=== PATIENT | male | born 1940 | race Caucasian/White ===

== ENCOUNTER 2019-03-26 07:15 | Observation (INO) | payer MEDICARE, OTHER, SELFPAY ==
[2019-03-15 09:05] VITALS: BP 146/86; PULSE 67; RESP 16; TEMP 36.5; O2SAT 98; BMI 34.6
--- NOTE | 2019-03-15 09:40 | SDCEKG_ITS ---
Test Reason : Blood Pressure : / mmHG Vent. Rate : 064 BPM Atrial Rate : 064 BPM P-R Int : 186 ms QRS Dur : 132 ms QT Int : 448 ms P-R-T Axes : 010 -41 014 degrees QTc Int : 462 ms Electronic atrial pacemaker Left axis deviation Right bundle branch block Abnormal ECG Confirmed by DAWSON SHARMA, JANETT ([id number]), technical editor JEMMA GARCIA ([id number] on 03/16/2019 7:05:08 AM Referred By: Sloan Rodriguez Confirmed By:JANETT OSMAN MD
[2019-03-15 11:54] LABS: Hemoglobin A1c 6.5 % (4.2-6.3)
[2019-03-15 12:05] LABS: Anion Gap 5 (5-15); BUN 18 mg/dL (7-18); BUN/Creat Ratio 11.7 RATIO (10-20); Calcium,Total 8.9 mg/dL (8.5-10.1); Chloride 106 mmol/L (98-107); Creatinine, Serum 1.54 mg/dL (0.70-1.30); EST Glomerular Filtration Rate 47 mL/min (>60); Est Glom Filt Rate - Afr Amer 57 mL/min (>60); Estimated Creatinine Clearance 48.01 ml/min; Glucose 118 mg/dL (74-106); Sodium Level 141 mmol/L (136-145)
[2019-03-15 12:29] LABS: Absolute Lymphocyte Count 1.64 X10^3/ul (0.83-4.51); Absolute Neutrophil Count 5.2 X10^3/uL (2.0-7.7); Basophil# 0.05 X10^3/uL; Basophil% 0.6 % (0-1); Eosinophil# 0.26 X10^3/uL; Eosinophils% 3.3 % (0-5); Hematocrit 44.1 % (40-54); Hemoglobin 15.4 g/dl (13.0-16.5); Lymphocyte # 1.64 X10^3/ul (4.0); Lymphocyte % 20.8 % (19-41); Mean Corp Hgb Conc 34.9 g/gl (32-36); Mean Corpuscular Hgb 31.2 pg (27.0-32.0); Mean Corpuscular Volume 89.5 fL (80-94); Mean Platelet Vol. 11.5 fl (6.2-12.0); Monocyte# 0.68 X10^3/uL; Monocyte% 8.6 % (0-10); Neutrophil # 5.23 X10^3/uL (2.7-7.7); Neutrophil % 66.4 % (47-70); POSITIVE COUNT NO; POSITIVE DIFFERENTIAL NO; POSITIVE MORPHOLOGY NO; Platelet Count 207 K/mm3 (150-450); RBC Distribution Width CV 14.1 % (11.6-14.6); RBC Distribution Width SD 45.7 fl (35.1-43.9); Red Blood Count 4.93 M/mm3 (4.6-6.2); White Blood Count 7.9 K/mm3 (4.4-11.0)
--- NOTE | 2019-03-22 10:27 | CASEMGMT ---
Called and spoke with patient regarding discharge plans for after upcoming surgery. Patient plans to return home with assistance from and neighbors/friends as had a prior stroke. Patient reports that friend will continuous pickling line pickler helper from hospital post surgery and assist with transportation home. Patient has 1st outpatient PT visit set up at [facility] and friend will assist with transportation to and from therapy appts. Patient has a bedroom and bathroom on the 1st level of the home. Patient has a walker, has power stair lifts on all stairs, and a ramp outside to get to [facility]. Informed patient that RN-CM will likely follow up prior to discharge. Ingrid Dias LPN Clinical Support
[2019-03-26] VITALS (13 sets, daily range): BP systolic 94–152; BP diastolic 52–80; PULSE 60–68; RESP 16–18; TEMP 36–36.9; O2SAT 92–100; BMI 34.6
[2019-03-26] MEDS: Acetaminophen 500 MG Tablet 1000 MG PO (08:09)
--- NOTE | 2019-03-26 09:25 | KNEE_PTH ---
PATIENT: FERNY CAMPO LOC: MS3 U#:[id number] AGE/SX: 78/M ROOM: [facility] RE03/26/[address]: Dr. Sloan Rodriguez DO : 1940 BED: 1 DIS: 03/27/2019 SPEC #: [id number] RECD: 03/26/19 11:31 STATUS: YAMINI REDulce #: [id number] KATHIE: 03/26/19 09:[address]: Sloan Rodriguez DEPT: SURGICAL PATHOLOGY RECD BY: Khadar Bruno ENTERED: 03/26/19 12:45 SP TYPE: TOTAL KNEE OTHR DR: Dr. Wendy Espinal MD Tissues: Knee, NOS Procedures: Decalcification bone/plaque Surgery Specimen Level IV HEADER OPERATION: Total knee replacement PRE-OP DIAGNOSIS: Unilateral primary osteoarthritis right knee TISSUE SUBMITTED: Right knee bone MICROSCOPIC DIAGNOSIS Right knee bone, total knee replacement: Bone and articular cartilage with degenerative change, clinically primary osteoarthritis. CE:marisa 03/29/19 MICROSCOPIC DESCRIPTION Slides are reviewed. GROSS DESCRIPTION Received in fixative is one container labeled with the patient's name and designated right knee bone. The specimen consists of four portions of carrion-yellow bone with overlying articular cartilage measuring in aggregate 11 x 8 x 1.5 cm. The articular surfaces show areas of granularity, pitting and peripheral eburnation. [employer] sections are submitted after decalcification in two cassettes. / CE:marisa 03/26/19 TC:3 CPT: 13831, 46047
[2019-03-26] MEDS: Cefazolin 2 GM in 0.9% Normal Saline 100 ML IV (09:39)
--- NOTE | 2019-03-26 11:03 | PCM.OPRPT ---
Report of Operation Date of Procedure: 03/26/19 Pre-Operative Diagnosis: OA right knee Post-Operative Diagnosis: same Surgery/Procedure Performed:: Right TKR Description of Surgical Findings:: Primary Surgeon/Physician: Sloan Rodriguez panel monitor: Agustin Way PA-C panel monitor: Pre-Operative Diagnosis: OA right knee Post-Operative Diagnosis: same Surgery/Procedure Performed: Right TKR Estimated Blood Loss: 25 cc Specimen's Removed: bone Type of Anesthesia: Spinal ASA Class: . Implants: [[employer] Tritanium size 7 CR femur, size 7 Tritanium baseplate, size 38 patella, 9 mm polyethylene ] Indications: Patient has severe end-stage osteoarthritis diagnosed via x-rays in the knee. They have failed all forms of conservative measures including activity modification, injections, anti-inflammatories, use of assistive device. The patient has pain that affects on a daily basis and prevents him from doing things that they enjoyed. They have elected to undergo the above procedure. The risks of the procedure were discussed at length and their questions were answered. Procedure Description: The patient was greeted in the preoperative area. The [right ] knee was then marked with a surgical marker. Patient was then taken to or [address]. They were administered a dose of antibiotics as well as tranexamic acid. Once adequate anesthesia was obtained and airway was secured to placed in supine position on the operating room table. A well-padded tourniquet was placed on the affected extremity. Leg was then prepped and draped in the usual sterile fashion from the knee down. Ioban was used on the skin. Surgical timeout was then performed and confirmed with all present. Six-inch Esmarch was used to examine the limb and tourniquet was then inflated to 250 mmHg. A longitudinal incision was then planned and carried out in the anterior aspect of the knee. The dissection was then carried the length of the incision the extensor mechanism was identified. Standard medial parapatellar arthrotomy was then performed revealing severe eburnation of bone and periarticular osteophytes. There is complete loss of cartilage especially in the medial compartment with varus alignment. Anterior fat pad was removed for visualization purposes and the anterior medial aspect of the tibia was skeletonized for exposure to the knee. The knee was then flexed the patella was inverted. Opening reamer was then used in the femur approximately 1 cm anterior to the attachment of the PCL. The intramedullary valgus wand was then placed in the femur set at 5? of valgus. The distal femoral cutting jig was then applied to the femur with anticipated resection of approximately 8 mm. This was then made with a oscillating saw. The sizing guide was then placed referencing off the posterior condyles and also reference off the epicondylar axis. This was measured and the appropriate size 4-in-1 cutting jig was then applied to the distal femur. Anterior posterior cuts were made followed by the anterior and posterior chamfer cuts. These bony pieces and fragments were removed and placed on the back table. Posterior retractor was then utilized and the tibia was subluxed anteriorly. Intramedullary tibial alignment jig was then applied to the tibia referencing off the medial one third of the tibial tubercle the anterior tibial spine the middle aspect of the tibiotalar joint. Also reference off patient's [place] slope. The tibial cutting jig was then pinned with anticipated resection of 2 mm off of the deficient medial tibial condyle. This cut was made with the oscillating saw. Once this was complete a laminar non destructive testing scientist was utilized in both medial lateral meniscus were removed and a posterior capsular osteophytes were also removed. Posterior capsule release was performed in the posterior capsule as well as the geniculate arteries are treated with the aqua Autumn. The tibia was incised and the appropriate sized tibial tray was then pinned. The femoral trial was then placed and the knee was trialed. Full flexion-extension were easily achieved. The knee seemed to balance quite nicely. Any remaining osteophytes were removed at this time. Once this was complete the patella was everted and the [place] patella reaming device was then utilized the patella was then placed in the appropriate jig and reamer was then used to remove approximately 9 mm of the undersurface of the patella. A soft tissue remaining was in the way was removed and patella trial was then placed listed maintain excellent tracking using the no thumbs technique. The tibial tray at this point was punched to accommodate the fins of the final implant. The femoral and tibial implants were placed and seated quite nicely. However, the press fit patella would not adhere to the bone. Therefore a single batch of cement was hand mixed and the patella was cemented into place and held firmly with a clamp until the cement had cured. Knee is once again trialed with different size polyethylenes to ensure the full range of motion was achieved as well as excellent balancing ligamentously was achieved. At this point the knee was copiously irrigated. Final implant was then inserted locking mechanism was engaged and confirmed to be locked. The arthrotomy was then closed with #1 Vicryl aggravate type fashion interrupted. Subcutaneous tissue was closed with 0 Vicryl and surgical suleiman were placed in the skin. A occlusive silver impregnated dressing was then applied followed by well-padded sterile dressing secured with an Toi wrap. The patient was taken to the PACU in stable condition. No complications known at this time. Postoperatively we will maintain standard total knee postoperative protocol. The use of the physician placement assistant was integral during this procedure. They assisted with positioning placement of the tourniquet retracting closure and placement of the dressing. The procedure would have been much more difficult without their expertise and assistance panel monitor: Agustin Way Type of Anesthesia:: Spinal Anesthesiologist: Irwin Dunbar Specimen's removed: bone - Admit VTE Documentation VTE Present on Admission: No VTE Mechan Device Prophylaxis: SCD's, Thigh High LOCO Hose VTE Pharm Prophylaxis ordered?: Yes
--- NOTE | 2019-03-26 11:11 | OP.PCM_ITS ---
Report of Operation Date of Procedure: 03/26/19 Pre-Operative Diagnosis: OA right knee Post-Operative Diagnosis: same Surgery/Procedure Performed:: Right TKR Description of Surgical Findings:: Primary Surgeon/Physician: Sloan Rodriguez storage garage manager: Agustin Way PA-C storage garage manager: Pre-Operative Diagnosis: OA right knee Post-Operative Diagnosis: same Surgery/Procedure Performed: Right TKR Estimated Blood Loss: 25 cc Specimen's Removed: bone Type of Anesthesia: Spinal ASA Class: . Implants: [Sh[employer] Tritanium size 7 CR femur, size 7 Tritanium base plate, size 38 patella, 9 mm polyethylene ] Indications: Patient has severe end-stage osteoarthritis diagnosed via x-rays in the knee. They have failed all forms of conservative measures including activity modification, injections, anti-inflammatories, use of assistive device. The patient has pain that affects on a daily basis and prevents him from doing things that they enjoyed. They have elected to undergo the above procedure. The risks of the procedure were discussed at length and their questions were answered. Procedure Description: The patient was greeted in the preoperative area. The [right ] knee was then marked with a surgical marker. Patient was then taken to or Suite 2. They were administered a dose of antibiotics as well as tranexamic acid. Once adequate anesthesia was obtained and airway was secured to placed in supine position on the operating room table. A well-padded tourniquet was placed on the affected extremity. Leg was then prepped and draped in the usual sterile fashion from the knee down. Ioban was used on the skin. Surgical timeout was then performed and confirmed with all present. Six-inch Esmarch was used to examine the limb and tourniquet was then inflated to 250 mmHg. A longitudinal incision was then planned and carried out in the anterior aspect of the knee. The dissection was then carried the length of the incision the extensor mechanism was identified. Standard medial parapatellar arthrotomy was then performed revealing severe eburnation of bone and periarticular osteophytes. There is complete loss of cartilage especially in the medial compartment with varus alignment. Anterior fat pad was removed for visualization purposes and the anterior medial aspect of the tibia was s keletonized for exposure to the knee. The knee was then flexed the patella was inverted. Opening reamer was then used in the femur approximately 1 cm anterior to the attachment of the PCL. The intramedullary valgus wand was then placed in the femur set at 5? of valgus. The distal femoral cutting jig was then applied to the femur with anticipated resection of approximately 8 mm. This was then made with a oscillating saw. The sizing guide was then placed referencing off the posterior condyles and also reference off the epicondylar axis. This was measured and the appropriate size 4-in-1 cutting jig was then applied to the distal femur. Anterior posterior cuts were made followed by the anterior and posterior chamfer cuts. These bony pieces and fragments were removed and placed on the back table. Posterior retractor was then utilized and the tibia was subluxed anteriorly. Intramedullary tibial alignment jig was then applied to the tibia referencing off the medial one third of the tibial tubercle the anterior tibial spine the middle aspect of the tibiotalar joint. Also reference off patient's [place] slope. The tibial cutting jig was then pinned with anticipated resection of 2 mm off of the deficient medial tibial condyle. This cut was made with the oscillating saw. Once this was complete a laminar technology and engineering teacher was utilized in both medial lateral meniscus were removed and a posterior capsular osteophytes were also removed. Posterior capsule release was performed in the posterior capsule as well as the geniculate arteries are treated with the aqua Autumn. The tibia was incised and the appropriate sized tibial tray was then pinned. The femoral trial was then placed and the knee was trialed. Full flexion-extension were easily achieved. The knee seemed to balance quite nicely. Any remaining osteophytes were removed at this time. Once this was complete the patella was everted and the [place] patella reaming device was then utilized the patella was then placed in the appropriate jig and reamer was then used to remove approximately 9 mm of the undersurface of the patella. A soft tissue remaining was in the way was removed and patella trial was then placed listed maintain excellent tracking using the no thumbs technique. The tibial tray at this point was punched to accommodate the fins of the final implant. The femoral and tibial implants were placed and seated quite nicely. However, the press fit patella would not adhere to the bone. Therefore a single batch of cement was hand mixed and the patella was cemented into place and held firmly with a clamp until the cement had cured. Knee is once again trialed with different size polyethylenes to ensure the full range of motion was achieved as well as excellent balancing ligamentously was achieved. At this point the knee was copiously irrigated. Final implant was then inserted locking mechanism was engaged and confirmed to be locked. The arthrotomy was then closed with #1 Vicryl aggravate type fashion interrupted. Subcutaneous tissue was closed with 0 Vicryl and surgical suleiman were placed in the skin. A occlusive silver impregnated dressing was then applied followed by well-padded sterile dressing secured with an Toi wrap. The patient was taken to the PACU in stable condition. No complications known at this time. Postoperatively we will maintain standard total knee postoperativ e protocol. The use of the physician temporary administrative assistant was integral during this procedure. They assisted with positioning placement of the tourniquet retracting closure and placement of the dressing. The procedure would have been much more difficult without their expertise and assistance storage garage manager: Agustin Way Type of Anesthesia:: Spinal Anesthesiologist: Irwin Dunbar Specimen's removed: bone - Admit VTE Documentation VTE Present on Admission: No VTE Mechan Device Prophylaxis: SCD's, Thigh High LOCO Hose VTE Pharm Prophylaxis ordered?: Yes
[2019-03-26 12:00] LABS: Bedside Glucose 135 mg/dL (70-110)
[2019-03-26 12:06] LABS: Hematocrit 38.9 % (40-54); Hemoglobin 13.2 g/dl (13.0-16.5); Mean Corp Hgb Conc 33.9 g/gl (32-36); Mean Corpuscular Hgb 30.4 pg (27.0-32.0); Mean Corpuscular Volume 89.6 fL (80-94); Mean Platelet Vol. 10.7 fl (6.2-12.0); Platelet Count 200 K/mm3 (150-450); RBC Distribution Width CV 14.1 % (11.6-14.6); RBC Distribution Width SD 45.6 fl (35.1-43.9); Red Blood Count 4.34 M/mm3 (4.6-6.2); White Blood Count 8.3 K/mm3 (4.4-11.0)
[2019-03-26 12:13] LABS: Scan Indicated on CBC? Y/N NO
[2019-03-26 12:17] LABS: Anion Gap 4 (5-15); BUN 19 mg/dL (7-18); BUN/Creat Ratio 11.3 RATIO (10-20); Calcium,Total 8.2 mg/dL (8.5-10.1); Chloride 111 mmol/L (98-107); Creatinine, Serum 1.68 mg/dL (0.70-1.30); EST Glomerular Filtration Rate 42 mL/min (>60); Est Glom Filt Rate - Afr Amer 51 mL/min (>60); Estimated Creatinine Clearance 44.01 ml/min; Glucose 134 mg/dL (74-106); Potassium 3.8 mmol/L (3.5-5.1); Sodium Level 141 mmol/L (136-145)
[2019-03-26] MEDS: Lactated Ringers 1,000 ML 125 ML IV ×3 (13:08→20:45)
[2019-03-26] MEDS: HYDROcodone Bitartrate/Apap 5/325 Tablet PO ×3 (14:04→20:55)
[2019-03-26] MEDS: Cefazolin 1 GM/50 ML BAG IV (17:47)
[2019-03-26] MEDS: Morphine 2 MG/ML Syringe IV ×2 (20:19→22:45)
[2019-03-26] MEDS: Metoprolol Tartrate 25 MG Tablet 12.5 MG PO (20:57)
[2019-03-26] MEDS: Senna/Docusate Sodium 1 Tablet 2 TABLET PO (20:57)
[2019-03-26] MEDS: Atorvastatin Calcium 10 MG Tablet PO (20:57)
[2019-03-26] MEDS: Pantoprazole Sodium 20 MG Tablet PO (20:58)
[2019-03-26] MEDS: traZODone 100 MG Tablet PO (21:05)
[2019-03-26] MEDS: APIXABAN 5 MG TABLET PO (21:05)
[2019-03-27] MEDS: Morphine 2 MG/ML Syringe IV ×3 (00:47→06:26)
[2019-03-27] MEDS: Cefazolin 1 GM/50 ML BAG IV (00:56)
[2019-03-27 02:55] VITALS: BP 151/69; PULSE 65; RESP 18; TEMP 37.2; O2SAT 92
[2019-03-27] MEDS: HYDROcodone Bitartrate/Apap 5/325 Tablet PO (02:58)
[2019-03-27 03:05] VITALS: PULSE 65
[2019-03-27] MEDS: 0.9% NaCl Peripheral Flush Adult/Peds IV (06:27)
[2019-03-27 06:45] LABS: Hematocrit 39.9 % (40-54); Hemoglobin 13.7 g/dl (13.0-16.5); Mean Corp Hgb Conc 34.3 g/gl (32-36); Mean Corpuscular Hgb 30.6 pg (27.0-32.0); Mean Corpuscular Volume 89.1 fL (80-94); Platelet Count 186 K/mm3 (150-450); RBC Distribution Width CV 13.9 % (11.6-14.6); RBC Distribution Width SD 44.4 fl (35.1-43.9); Red Blood Count 4.48 M/mm3 (4.6-6.2); White Blood Count 12.8 K/mm3 (4.4-11.0)
[2019-03-27 06:47] LABS: Scan Indicated on CBC? Y/N NO
[2019-03-27 07:22] LABS: Anion Gap 8 (5-15); BUN 17 mg/dL (7-18); BUN/Creat Ratio 11.9 RATIO (10-20); Calcium,Total 8.7 mg/dL (8.5-10.1); Chloride 104 mmol/L (98-107); Creatinine, Serum 1.43 mg/dL (0.70-1.30); EST Glomerular Filtration Rate 51 mL/min (>60); Est Glom Filt Rate - Afr Amer 62 mL/min (>60); Glucose 158 mg/dL (74-106); Sodium Level 138 mmol/L (136-145)
--- NOTE | 2019-03-27 07:48 | PCM.PN.ORT ---
Subjective: Patient sitting at bedside, states knee is very painful. Patient feels the pain medication he is presently taking is not working. Patient denies being allergic to oxycodone. States he placed it as an allergy only because he did not like the way it made him feel. Patient denies chest pain, shortness breath, calf pain, nausea vomiting. Objective: Dressing is clean dry intact. Negative signs and symptoms of DVT. Patient's vitals and labs within normal limits. Patient is afebrile neurovascular is otherwise intact. Patient is in no apparent respiratory distress, speaking in full sentences. - Physical Exam General: Alert, Oriented x3, Cooperative HEENT: PERRLA Oral: Moist Mucosa Neurological: Cranial nerves II-XII grossly intact Psych/Mental Status: Normal Affect, Alert and oriented to time, place, person, mood and affect Vital Signs Temp Pulse Resp BP Pulse Ox 98.9 F 65 18 151/69 H 92 03/27/19 02:55 03/27/19 03:05 03/27/19 02:55 03/27/19 02:55 03/27/19 02:55 Oxygen Flow Rate (L/min) 2 Oxygen Delivery Method Room Air Weight: 125.6 kg Body Mass Index (BMI) 34.6 Intake and Output for Last 24 Hours 03/25/19 03/26/19 03/27/19 23:59 23:59 23:59 Intake Total 1000 / 1000 1908 / 1908 Output Total 700 / 700 Balance 1000 / 1000 1208 / 1208 Laboratory Tests Past 24 Hrs 03/26/19 03/26/19 03/27/19 11:55 11:55 06:04 WBC 8.3 12.8 H RBC 4.34 L 4.48 L Hgb 13.2 13.7 Hct 38.9 L 39.9 L MCV 89.6 89.1 MCH 30.4 30.6 MCHC 33.9 34.3 RDW 14.1 13.9 RDW Differential 45.6 H 44.4 H Plt Count 200 186 MPV 10.7 11.0 Sodium 141 Potassium 3.8 Chloride 111 H Carbon Dioxide 26.0 Anion Gap 4 L BUN 19 H Creatinine 1.68 H Estim Creat Clear Calc 44.01 Est GFR (MDRD) Af Amer 51 L Est GFR (MDRD) Non-Af 42 L BUN/Creatinine Ratio 11.3 Glucose 134 H Calcium 8.2 L 05/07/19 06:04 WBC RBC Hgb Hct MCV MCH MCHC RDW RDW Differential Plt Count MPV Sodium 138 Potassium 4.0 Chloride 104 Carbon Dioxide 26.0 Anion Gap 8 BUN 17 Creatinine 1.43 H Estim Creat Clear Calc 51.70 Est GFR (MDRD) Af Amer 62 Est GFR (MDRD) Non-Af 51 L BUN/Creatinine Ratio 11.9 Glucose 158 H Calcium 8.7 POC Glucose 03/26/19 11:53 POC Glucose 135 H Medical Necessity - Tobacco Use Smoking Status: Former smoker Tobacco Use: Cigarettes Assessment/Plan Status post right total knee arthroplasty Plan 1. Discontinue [place]. Oxycodone 1-2 every 6 hours as needed severe pain. Tylenol 1000 mg every 8 hours scheduled. 2. Continue physical therapy, weight-bear as tolerated with walker 3. Continue Eliquis, and 81 mg aspirin as prescribed for postop DVT prophylaxis 4. Encourage incentive spirometry 5. Possible discharge home tomorrow
[2019-03-27 08:57] VITALS: BP 147/77; PULSE 76; RESP 18; TEMP 37.2; O2SAT 94
[2019-03-27] MEDS: Acetaminophen 500 MG Tablet 1000 MG PO ×2 (08:59→14:23)
[2019-03-27] MEDS: Senna/Docusate Sodium 1 Tablet 2 TABLET PO (09:00)
[2019-03-27] MEDS: APIXABAN 5 MG TABLET PO (09:00)
[2019-03-27 09:01] VITALS: PULSE 76
[2019-03-27] MEDS: amLODIPine 5 MG Tablet PO (09:01)
[2019-03-27] MEDS: Metoprolol Tartrate 25 MG Tablet 12.5 MG PO (09:01)
[2019-03-27] MEDS: Multivitamins,Ther W-Minerals Tablet 1 TABLET PO (09:02)
[2019-03-27] MEDS: Aspirin E.C. 81 MG Tablet PO (09:02)
[2019-03-27] MEDS: Cyanocobalamin 500 MCG Tablet 1000 MCG PO (09:02)
[2019-03-27] MEDS: Lisinopril 5 MG Tablet PO (09:03)
[2019-03-27] MEDS: oxyCODONE 5 MG Tablet PO ×2 (09:06→10:26)
[2019-03-27 09:09] VITALS: PULSE 80
--- NOTE | 2019-03-27 11:00 | CASEMGMT ---
LILLIE WALTERS Face to Face with patient for initial transition planning/care coordination assessment. RN ROMEO introduced self and role at [facility]. Patient lying in bed, alert and oriented. Patient willing to participate in assessment and is able to answer all questions appropriately. Care providers, pharmacy, and demographics verified. Patient wishes to discharge home with outpatient therapy setup at [facility] with friend providing transportation. Patient has walker, ramp, stair lift, shower chair, and raised toilet seat. Patient states he has no further needs or concerns at this time. CM to follow for discharge planning needs that may arise. Disposition Plan: Patient to discharge home with outpatient therapy, family support, and follow-up plans in place. Mariluz MARINO, RN, CM
[2019-03-27 13:19] VITALS: BP 137/70; PULSE 71; RESP 18; TEMP 36.7; O2SAT 93
--- NOTE | 2019-03-27 15:36 | DCINST_ITS ---
Discharge Diet: No Restrictions Discharge Activity: May Not Drive, May Shower, Use Walker May shower in (days): 2 Ice area for (Minutes): 20 - each hour while awake. Weight Bearing Status: Weight bearing as tolerated Elevate: Operative Extremity Additional Activity Instructions:: Wear elastic stockings for 2 weeks after your surgery. Call your doctor if your incision/area has: Continuous Slow Oozing, Sudden Increased Bleeding, Increased Pain/ Swelling, Increased Redness, Foul Smelling Discharge Call your doctor if you observe: Fever of 101 or Higher, Coldness, Increased Pain - in extremity, Numbness or Tingling, Change in Color, Calf discomfort, Uncontrolled pain Change Dressing in (Days):: 0 - and daily as needed. Remove Dressing in (days):: 8 Cleanse incision/area with: Soap & Water Allergies/Adverse Reactions: Allergies naproxen [From Aleve] Allergy (Verified 03/15/19 08:53) Laryngospasms Medications to take at Discharge Amlodipine Besylate [Norvasc] 5 mg PO DAILY 03/15/19 Apixaban [Eliquis] 5 mg PO BID 03/15/19 Atorvastatin Calcium [Lipitor] 10 mg PO QHS 03/15/19 Cholecalciferol (VIT D3) [Vitamin D] 2,000 unit PO DAILY 03/15/19 Cyanocobalamin (Vitamin B-12) [Vitamin B-12] 1,000 mcg PO DAILY 03/15/19 Fish Oil/Dha/Epa [Fish Oil 1,200 mg Fish Oil] 1 each PO QHS 03/15/19 Lisinopril 5 mg PO DAILY 03/15/19 Metoprolol Tartrate [Lopressor (Beta Denise)] 12.5 mg PO BID 03/15/19 Multivit-Min/FA/Lycopen/Lutein [Centrum Silver Tablet] 1 each PO DAILY 03/15/19 Omeprazole 20 mg PO QHS 03/15/19 Ubidecarenone [Co Q-10] 300 mg PO DAILY 03/15/19 traZODone [Desyrel] 100 mg PO QHS 03/15/19 Primary Care Physician: Wendy Espinal MD [Primary Care Provider] - Test Results: Test results from this visit will be discussed in further detail at your follow- up appointment, if applicable. Please Follow Up With: Agustin Way PA-C When: see pink sheet
--- NOTE | 2019-03-27 15:49 | NURSING ---
Pt states he will not take asa, because he is on eqliuis, instructed him to call office today to check the strength of asa he should take at home. He was taking 81 mg here. Pt was informed about this.
== END 2019-03-27 13:45 | disposition home or self-care (01) ==
PROVIDERS: Anesthesiology; Admitting Provider Orthopaedic Surgery; Family Provider Internal Medicine Geriatric Medicine; PCP Internal Medicine Geriatric Medicine; Referring Provider Orthopaedic Surgery; Visit Provider Orthopaedic Surgery
PROC: (CPT 27447; principal; 2019-03-26 09:00)
DX: M17.11 Unilateral primary osteoarthritis, right knee (principal); I10 Essential (primary) hypertension; K21.9 Gastro-esophageal reflux disease without esophagitis; E78.00 Pure hypercholesterolemia, unspecified; E11.9 Type 2 diabetes mellitus without complications; R94.31 Abnormal electrocardiogram [ECG] [EKG]; I45.10 Unspecified right bundle-branch block; G47.30 Sleep apnea, unspecified; Z87.891 Personal history of nicotine dependence; Z79.01 Long term (current) use of anticoagulants; Z79.899 Other long term (current) drug therapy; Z85.51 Personal history of malignant neoplasm of bladder; Z86.718 Personal history of other venous thrombosis and embolism; G25.81 Restless legs syndrome
CPT/HCPCS: 01400; 27447; 64447; 36415; 80048; 82962; 83036; 85025; 85027; 87081; 88305; 88311; 93005; 96361; 96365; 96366; 96375; 96376; 97110; 97162; 97166; 97530; 97535; 99218; C1776; J7120; A4216; G0378; G0379

== ENCOUNTER → 2019-09-12 09:09 | Outpatient (CLI) | payer MEDICARE, OTHER, SELFPAY ==
[2019-09-12 07:58] VITALS: BMI 34.6
--- NOTE | 2019-09-12 09:10 | RAD_ITS ---
STUDY: X-RAY - RIGHT KNEE REASON FOR EXAM: Male, 79 years old. Pain for 6 months. TECHNIQUE: 4 view(s) of the knee. COMPARISON: None. FINDINGS: There is demineralization of the visualized distal femur. There is demineralization of the tibia and fibula. There is a total knee prosthesis in place. Alignment is normal. No lucency to suggest acute fracture. No signs of loosening. There is mild degenerative arthrosis of the patellofemoral articulation. There is mild to moderate joint effusion. There are atherosclerotic calcifications. RAD/Knee 4 or More Views IMPRESSION: Diffuse osteopenia. A total knee prosthesis in place with normal alignment. Mild to moderate joint effusion. Electronically Signed: Beatriz Cancino MD at 0:38 EDT , Service support ,
== END ==
PROVIDERS: Family Provider Internal Medicine Geriatric Medicine; PCP Internal Medicine Geriatric Medicine; Referring Provider Orthopaedic Surgery; Visit Provider Orthopaedic Surgery
DX: T84.84XA Pain due to internal orthopedic prosthetic devices, implants and grafts, initial encounter (principal); Z96.651 Presence of right artificial knee joint
CPT/HCPCS: 73564

== ENCOUNTER → 2019-10-09 10:02 | Outpatient (CLI) | payer MEDICARE, OTHER, SELFPAY ==
[2019-09-12 07:58] VITALS: BMI 34.6
--- NOTE | 2019-10-09 10:14 | RAD_ITS ---
STUDY: BONE LENGTH EVALUATION REASON FOR EXAM: Male, 79 years old. Osteoarthritis. TECHNIQUE: 4 AP view of the lower extremities. COMPARISON: None. FINDINGS: Bilateral uncomplicated knee arthroplasties. Right leg measures approximately 105.8 cm. Left leg measures approximately 105.1 cm. Right leg lateral center axis. Left leg medial center axis. Mild right ankle valgus. Mild left ankle varus. Mild/moderate bilateral hip osteoarthritis. Relatively symmetric soft tissue structures. RAD/Bone Length IMPRESSION: Right leg measures 7 mm greater than the left Bilateral uncomplicated knee arthroplasties Mild/moderate bilateral hip osteoarthritis Electronically Signed: Cale Lima DO at 10:31 EST Tel , Service support ,
== END ==
PROVIDERS: Family Provider Internal Medicine Geriatric Medicine; PCP Internal Medicine Geriatric Medicine; Referring Provider Orthopaedic Surgery; Visit Provider Orthopaedic Surgery
DX: M17.11 Unilateral primary osteoarthritis, right knee (principal)
CPT/HCPCS: 77073

== ENCOUNTER 2022-01-17 15:10 | Emergency (ER) | payer MEDICARE, SELFPAY ==
[2022-01-17 15:11] VITALS: BP 123/88; PULSE 75; RESP 15; TEMP 36.3; O2SAT 98; BMI 32.2
--- NOTE | 2022-01-17 15:26 | CT_ITS ---
STUDY: CT Abdomen And Pelvis W/O Contrast Injection 01/17/2022 5:08 PM REASON FOR EXAM: Male, 81 years old. INCREASED BELCHING, BURNING PRESSURE IN ABD, HX-GERD, COPD, HTN, BLADDER CA pain Individualized dose optimization techniques were used for this CT. COMPARISON: None. TECHNIQUE: CT Abdomen And Pelvis W/O Contrast Injection FINDINGS: There are atherosclerotic calcifications of visualized coronary arteries. The visualized portions of the heart are within normal limits. Normal liver. Normal gallbladder and extrahepatic biliary system. Normal spleen. Normal pancreas. Normal bilateral adrenal glands. There are hypodensities in the right kidney. A majority are consistent for cysts. No follow up required for these. However, there is a 22 mm hyperdense lesion in the superior right kidney that is 72 HU and consistent for a hemorrhagic or protein cyst. ACR White Paper guidelines (Herts, et al. JACR 2018; 15(2):264-273) suggest no follow-up is necessary. 2nd dense lesion is noted in the lateral right kidney. Se 2 IM: 62. It is 5mm and 56HU. A similar lesion is noted in the inferior right kidney. Se 2 IM: 91. It is 57 HU and is 8mm in size. ACR White Paper guidelines (Herts, et al. JACR 2018; 15(2):264-273) recommend MRI or CT without and with intravenous contrast. There are hypodensities in the left kidney. A majority are consistent for cysts. No follow up required for these. However, there is a 9mm solid appearing lesion of the superior lateral left kidney. Se 2 IM: 62. ACR White Paper guidelines (Herts, et al. JACR 2018; 15(2):264-273) recommend MRI or CT without and with intravenous contrast. Dense lesions of the mid left kidney around 8 mm in size. Se 2 IM: 91. ACR White Paper guidelines (Herts, et al. JACR 2018; 15(2):264-273) recommend MRI or CT without and with intravenous contrast. Normal visualized stomach. Normal small intestine. There are multiple colonic diverticula consistent with diverticulosis. There is non-visualization of the appendix. There are calcifications of the abdominal aorta. This is consistent for atherosclerotic disease. There is 41 mm infrarenal abdominal aortic aneurysm. Normal inferior vena cava. Subcentimeter mesenteric lymph nodes. Urinary bladder wall has wall thickening. This can be related to a partially contractile state. However, a cystitis is not excluded. Urinalysis should be performed in an effort to exclude cystitis. There are prostatic calcifications. Normal abdominal wall. There are diffuse degenerative changes of the visualized lumbar spine. Vacuum disc phenomenon. Acquired degenerative spinal stenosis. IMPRESSION: (NOT LISTED IN ORDER OF SIGNIFICANCE) Multiple bilateral indeterminate renal lesions. ACR White Paper guidelines (Herts, et al. JACR 2018; 15(2):264-273) recommend MRI or CT without and with intravenous contrast. Urinary bladder wall has wall thickening. This can be related to a partially contractile state. However, a cystitis is not excluded. Urinalysis should be performed in an effort to exclude cystitis. 41 mm infrarenal abdominal aortic aneurysm. There are multiple colonic diverticula consistent with diverticulosis. Other findings as above. Electronically Signed: Robert Gtz MD at 17:18 EST , CT/Abdomen/Pelvis without Cont
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
[2022-01-17] MEDS: Ondansetron 4 MG/2 ML Vial IV (15:53)
[2022-01-17] MEDS: 0.9% Normal Saline 1,000 ML 125 ML IV (15:53)
[2022-01-17 16:09] LABS: Absolute Lymphocyte Count 1.33 X10^3/uL (0.83-4.51); Absolute Neutrophil Count 4.9 X10^3/uL (2.0-7.7); Basophil# 0.03 X10^3/uL; Basophil% 0.4 % (0-1); Eosinophil# 0.15 X10^3/uL; Eosinophils% 2.1 % (0-5); Hematocrit 45.9 % (40-54); Hemoglobin 15.4 g/dL (13.0-16.5); Lymphocyte # 1.33 X10^3/ul (0.83-4.51); Lymphocyte % 18.4 % (19-41); Mean Corp Hgb Conc 33.6 g/dL (32-36); Mean Corpuscular Hgb 30.4 pg (27.0-32.0); Mean Corpuscular Volume 90.7 fL (80-94); Mean Platelet Vol. 10.8 fl (6.2-12.0); Monocyte# 0.75 X10^3/uL; Monocyte% 10.4 % (0-10); NRBC Flagged by Analyzer 0 % (0-5); Neutrophil # 4.93 X10^3/uL (2.7-7.7); Neutrophil % 68.4 % (47-70); Platelet Count 229 K/mm3 (150-450); RBC Distribution Width CV 13.2 % (11.6-14.6); RBC Distribution Width SD 43.9 fl (35.1-43.9); Red Blood Count 5.06 M/mm3 (4.6-6.2); White Blood Count 7.2 K/mm3 (4.4-11.0)
[2022-01-17 16:29] LABS: ALB/GLOB Ratio 0.8 RATIO (0.9-2.4); AST(SGOT) 14 U/L (15-37); Alanine Aminotransfer ALT/SGPT 15 U/L (16-61); Albumin, Serum 3.4 g/dL (3.2-5.0); Alkaline Phosphatase 96 U/L (45-117); Anion Gap 5 (5-15); BUN 24 mg/dL (7-18); BUN/Creat Ratio 9.7 RATIO (10-20); Calcium,Total 9.1 mg/dL (8.5-10.1); Chloride 111 mmol/L (98-107); Creatinine, Serum 2.47 mg/dL (0.70-1.30); EST Glomerular Filtration Rate 27 mL/min (>60); Est Glom Filt Rate - Afr Amer 33 mL/min (>60); Estimated Creatinine Clearance 28.51 ml/min; Glucose 124 mg/dL (74-106); Lipase 106 U/L (73-393); Potassium 4.1 mmol/L (3.5-5.1); Protein, Total 7.4 g/dL (6.4-8.2); Sodium Level 141 mmol/L (136-145)
[2022-01-17 16:33] LABS: Mucous, Urine 0 SEEN /hpf (<or=2+); Red Blood Cells-Urine 0 SEEN /hpf (0-5); Squamous Epithelial Cells - UA 0 SEEN /hpf (0-5)
[2022-01-17 16:34] LABS: Color, Urine Yellow (Yellow); Glucose, Dipstick Normal (Normal); Ketone-Dipstick 5 mg/dl (Negative); Leukocyte Esterase-Dipstick 500 /ul (Negative); Nitrite-Dipstick Positive (Negative); Occult Blood-Urine 10 /ul (Negative); Protein-Dipstick 100 mg/dl (Negative); Urine Bilirubin Dipstick Negative (Negative); Urine Clarity Cloudy (Clear); Urine Urobilinogen Normal (Normal)
[2022-01-17 17:07] LABS: Bacteria 4+ /hpf (None Seen); White Blood Cells 50-100 SEEN /hpf (0-5)
[2022-01-17] MEDS: Cephalexin 250 MG Capsule 500 MG PO (17:52)
[2022-01-17] MEDS: 0.9% Normal Saline 1,000 ML 999 ML IV (17:53)
[2022-01-17 18:06] VITALS: PULSE 70; RESP 16; O2SAT 99
== END 2022-01-17 18:08 | disposition home or self-care (01) ==
PROVIDERS: Emergency Provider Emergency Medicine; PCP Internal Medicine Geriatric Medicine; Visit Provider Emergency Medicine
DX: R10.84 Generalized abdominal pain (principal); N17.9 Acute kidney failure, unspecified; I71.4 Abdominal aortic aneurysm, without rupture; R14.0 Abdominal distension (gaseous); E87.8 Other disorders of electrolyte and fluid balance, not elsewhere classified; E86.0 Dehydration; N39.0 Urinary tract infection, site not specified; N28.1 Cyst of kidney, acquired; E78.5 Hyperlipidemia, unspecified; Z87.891 Personal history of nicotine dependence; I10 Essential (primary) hypertension; Z79.01 Long term (current) use of anticoagulants; Z79.899 Other long term (current) drug therapy
CPT/HCPCS: 74176; 80053; 81001; 83690; 85025; 87077; 87086; 87088; 87186; 96361; 96374; 99284; J7030; J2405

== ENCOUNTER 2022-06-01 09:00 | Outpatient (RCR) | payer MEDICARE, SELFPAY ==
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
--- NOTE | 2022-08-31 12:47 | HP.PT.NRP ---
FERNY Gu ALBER was seen in my office for initial evaluation on 05/18/22. The following Plan of Care was established for this patient: Initial Frequency: 2x /Week Initial Duration: 4-6 Weeks Patient/Client Instruction: Educate patient on: Condition, Plan of Care, Risk Factors For the Purpose of:: To improve self management Therapeutic Exercise to Include: Strength training, Body mechanics, Postural training, Flexibilty training, Neuromotor development, Passive ROM, Active ROM, Scapular Strength/Stabilization For the Purpose of:: To decrease pain, To increase ROM, To improve muscle performance and motor function, To increase tolerance to activity/condition/position, To improve ability of physical actions for home/community/work/leisure This patient was last seen in our office 06/01/22. Pertinent comments regarding their Physical therapy will appear below: This patient has not returned to Physical Therapy and is appropriate to return to MD for further follow-up as needed. At this point I will be discontinuing this patient from physical therapy. I would be happy to see this patient again in the future if found appropriate by the physician. Thank you! Sheron El, PT, Cert MDT Balance/Gait/Functional tests - Balance/Special Test Scores Oswestry Neck Score: 12
== END 2022-06-01 19:00 | disposition home or self-care (01) ==
LOC: PT 09:00
PROVIDERS: PCP Internal Medicine Geriatric Medicine; Referring Provider Internal Medicine Geriatric Medicine; Visit Provider Internal Medicine Geriatric Medicine
DX: M25.512 Pain in left shoulder (principal); M54.12 Radiculopathy, cervical region
CPT/HCPCS: 97110; 97162; 97530

== ENCOUNTER → 2022-08-10 | Outpatient (CLI) | payer MEDICARE, SELFPAY ==
--- NOTE | 2022-08-10 11:51 | US_ITS ---
STUDY: RENAL ULTRASOUND - COMPLETE REASON FOR EXAM: Male, 82 years old. Chronic kidney disease TECHNIQUE: Ultrasound evaluation of the kidneys was performed with real-time and static michael-scale imaging. COMPARISON: None. FINDINGS: RIGHT KIDNEY: The right kidney measures 13.3 x 7.3 x 5.4 cm. The renal cortex measures 1.3 cm. There are multiple anechoic lesions scattered throughout the right kidney, the largest of which measures 5 cm. There are no right renal calculi. There is no right hydronephrosis. DISTAL RIGHT URETER: There is non-visualization of the distal right ureter. There is no demonstrated right ureterovesical junction calculus. There is no demonstrated right ureteral jet. LEFT KIDNEY: The left kidney measures 23.9 x 7.9 x 9.5 cm. The renal cortex measures 1.8 cm. There are multiple anechoic lesions scattered throughout the left kidney, the largest which measures 8.9 cm. There are no left renal calculi. There is no left hydronephrosis. DISTAL LEFT URETER: There is non-visualization of the distal left ureter. There is no demonstrated left ureterovesical junction calculus. There is no demonstrated left ureteral jet. BLADDER: The distended urinary bladder has a volume of 115 ml. There is no significant post void residual. There is a normal wall thickness of the distended urinary bladder. There is no demonstrated mass within the urinary bladder. There are no demonstrated bladder calculi. US/Kidney and Bladder IMPRESSION: 1. Polycystic kidneys Electronically Signed: Tyrone Garcia MD at 2:35 EDT ,
== END | disposition home or self-care (01) ==
LOC: US 11:49
PROVIDERS: PCP Internal Medicine Geriatric Medicine; Visit Provider Internal Medicine Geriatric Medicine
DX: N18.32 Chronic kidney disease, stage 3b (principal)
CPT/HCPCS: 76770

== ENCOUNTER → 2022-11-10 | Outpatient (CLI) | payer OTHER, SELFPAY ==
--- NOTE | 2022-11-10 09:12 | NM_ITS ---
CLINICAL: 82-year-old male with history of painful bilateral knee arthroplasties, operated greater than 2 years prior to the current presentation. LIMITED 99m Tc MDP THREE PHASE BONE SCINTIGRAPHY COMPARISON: None available FINDINGS: Following the intravenous administration of 26.0 mCi of 99m Tc MDP, three-phase bone acquisitions of the knee articulations reveal: 1. The flow and immediate static blood pool acquisitions demonstrate normal arterial phase distribution of the radiopharmaceutical to the region of the bilateral knee arthroplasties. Venous hyperemia is noted in the medial and lateral femoral components of the left knee arthroplasty. 2. Delayed images depict increased tracer uptake noted in the medial tibial, medial and lateral femoral components of the right knee arthroplasty and medial femoral and medial-lateral tibial components of the left knee arthroplasty. 3. Facilitated uptake is noted in the patellofemoral compartment of the left knee. 4. The remaining limited skeletal structures are scintigraphically unremarkable. NM/Bone Scan Three Phase IMPRESSION: 1. The increase in radiopharmaceutical concentration defined in the painful bilateral knee arthroplasties to include both the femoral and tibial components is associated with a high likelihood of loosening secondary to operative intervention > 2 years prior to the current presentation. If an infectious etiology is a diagnostic consideration, correlation with labeled leukocyte imaging is recommended. 2. Degenerative arthrosis is demonstrated in the patellofemoral compartment of the left knee in the absence of patellar hardware placement. Electronically Signed: Emeka Clemens, at 21:51 EST ,
== END | disposition home or self-care (01) ==
PROVIDERS: PCP Internal Medicine Geriatric Medicine
DX: T84.84XA Pain due to internal orthopedic prosthetic devices, implants and grafts, initial encounter (principal); Z96.653 Presence of artificial knee joint, bilateral; M17.12 Unilateral primary osteoarthritis, left knee; Y83.1 Surgical operation with implant of artificial internal device as the cause of abnormal reaction of the patient, or of later complication, without mention of misadventure at the time of the procedure
CPT/HCPCS: 78315; A9503

== ENCOUNTER 2023-10-31 10:58 | Emergency (ER) | payer MEDICARE, SELFPAY ==
[2023-10-31 10:58] VITALS: BP 160/134; PULSE 92; RESP 18; TEMP 36.5; O2SAT 96; BMI 33.1
--- NOTE | 2023-10-31 11:19 | CT_ITS ---
STUDY: CT ABDOMEN AND PELVIS WITHOUT CONTRAST REASON FOR EXAM: Male, 83 years old. One year history of intermittent abdominal pain and nausea. History of small bowel obstruction. RADIATION DOSAGE (If Supplied By Facility): CTDIvol = ( 18.94 ) mGy, DLP = ( 1021.86 ) mGycm TECHNIQUE: Transaxial images were obtained from the dome of the diaphragm to the symphysis pubis without oral contrast, and without intravenous contrast. Sagittal and coronal images were reconstructed. Individualized dose optimization techniques were used for this CT. COMPARISON: Comparison is made with prior study of January 17, 2022. FINDINGS: Mild increased markings at the lung bases suggest some mild scarring. Coronary artery calcification. Pacemaker device is seen. Normal liver. Normal gallbladder and extrahepatic biliary system. Normal spleen. Normal pancreas. Normal bilateral adrenal glands. Stable multiple bilateral renal cysts. Normal visualized stomach. Normal small intestine. There are multiple colonic diverticula consistent with diverticulosis. There is non-visualization of the appendix. There is diffuse atherosclerotic calcification of the abdominal aorta. Infrarenal abdominal aortic aneurysm with a transverse dimension of 4.2 cm. Normal inferior vena cava. Normal retroperitoneum. Mild degree of bladder wall thickening although the bladder is not completely distended at this time. There are prostatic calcifications. Normal abdominal wall. There are diffuse degenerative changes of the visualized lumbar spine. CT/Abdomen/Pelvis without Cont IMPRESSION: Multiple bilateral renal cysts. Stable infrarenal abdominal aortic aneurysm. Sigmoid diverticulosis. Electronically Signed: Jose Stewart MD at 13:01 EST ,
--- NOTE | 2023-10-31 11:21 | EX.ED.DYSGE1 ---
HPI <JAVIER Forde - Last Filed: 10/31/23 13:33> History of Present Illness Chief Complaint: Abd Pain Narrative Narrative: 83-year-old male states a year ago he had laparoscopic surgery at [place] and is not sure of the diagnosis but thinks it might have been an obstruction. Since then has had indigestion and burps and farts a lot. He states he can eat normally but sometimes only feels like eating a little bit. This morning after having crackers and his pills he cannot stop burping. He has no nausea or vomiting. He really has no abdominal pain. He takes Metamucil and MiraLAX and has 1-2 formed bowel movements a day. Denies dark or bloody stools. He has normal urination. Denies weight loss. No other surgical history. Denies smoking or drinking alcohol. [facility] <JAVIER Forde - Last Filed: 10/31/23 13:33> [facility] Medical History (Updated 10/31/23 @ 13:[address] Rony Blakely MD) Chronic pain Hx of pulmonary embolus Hx of small bowel obstruction Hyperlipidemia Hypertension Pacemaker Primary osteoarthritis, left shoulder Subacromial impingement of right shoulder Home Medications apixaban 5 mg tablet 5 mg PO BID BLOOD THINNER 03/15/19 [History Last Taken 03/22/19] cholecalciferol (vitamin D3) 25 mcg (1,000 unit) tablet 2,000 unit PO DAILY SUPPLEMENT 03/15/19 [History Last Taken Unknown] fish oil-dha-epa 1,200 mg-144 mg-216 mg capsule 1 ea PO QHS SUPPLEMENT 03/15/19 [History Last Taken Unknown] lisinopril 5 mg tablet 20 mg PO DAILY BP 03/15/19 [History Last Taken 03/26/19] metoprolol tartrate 25 mg tablet 100 mg PO BID BP 03/15/19 [History Last Taken 03/26/19] eorkqulx-rqj-stzwk acid 0.4 mg-lycopene 300 mcg-lutein 250 mcg tablet 1 ea PO DAILY SUPPLEMENT 03/15/19 [History Last Taken Unknown] omeprazole 20 mg capsule,delayed release 20 mg PO QHS GERD 03/15/19 [History Last Taken Unknown] trazodone 100 mg tablet 100 mg PO QHS SLEEP 03/15/19 [History Last Taken Unknown] tramadol 50 mg tablet 50 mg PO Q6H PRN PRN Pain #120 tabs 09/12/19 [History Last Taken Unknown] hydralazine 25 mg tablet 25 mg PO BID 01/17/22 [History Last Taken Unknown] rosuvastatin 10 mg tablet 10 mg PO DAILY 01/17/22 [History Last Taken Unknown] Allergy/AdvReac Type Severity Reaction Status Date / Time naproxen [From Aleve] Allergy Laryngospas Verified 10/31/23 10:58 ms Surgical History Hx of right knee surgery Social History Smoking Status: Former smoker ROS <JAVIER Forde - Last Filed: 10/31/23 13:33> ROS ED ROS Narrative Constitutional: Negative for fever, chills, malaise. CVS: Negative for chest pain, syncope. Respiratory: Negative for shortness of breath. GI: Negative for abdominal pain, nausea, vomiting, melena, hematochezia. : Negative for dysuria, hematuria or frequency. EXAM <JAVIER Forde - Last Filed: 10/31/23 13:33> Physical Exam Narrative Exam Narrative: CONST: Patient sitting in no acute distress. EYES: Normal inspection. NECK: Normal inspection. RESP: No respiratory distress, CTAB. CVS: Regular rate and rhythm, no murmur, no gallop. ABD: Obese abdomen soft and nontender, no guarding or rebound, nondistended, no hepatosplenomegaly. SKIN: Color normal, no rash, warm, dry, intact. EXTREMITIES: Normal appearance, no pedal edema. NEURO: Oriented x4. PSYCH: Normal affect. Const Vital Signs: 10/31/23 10:58 10/31/23 13:40 Temperature 97.7 F L Temperature Source Temporal Pulse Rate 92 88 Respiratory Rate 18 17 Blood Pressure 160/134 H 146/72 H Blood Pressure Mean 142 96 Pulse Ox 96 95 Oxygen Delivery Method Room Air <Dr. Rony Blakely MD - Last Filed: 10/31/23 13:59> Physical Exam Const Vital Signs: 10/31/23 10:58 10/31/23 13:40 Temperature 97.7 F L Temperature Source Temporal Pulse Rate 92 88 Respiratory Rate 18 17 Blood Pressure 160/134 H 146/72 H Blood Pressure Mean 142 96 Pulse Ox 96 95 Oxygen Delivery Method Room Air [facility] [place] <JAVIER Forde - Last Filed: 10/31/23 13:33> [facility] Narrative Medical decision making narrative: Patient has over a year of gastric bloating, indigestion, and constipation which he manages with laxatives. He appears well and nontoxic. Vital signs within normal limits. Abdomen is soft and nontender. Due to his advanced age blood work and CT imaging was ordered. CBC is within normal limits. BMP shows chronic kidney disease with BUN of 34, creatinine 2.86, otherwise unremarkable. Due to his low GFR the IV contrast was canceled and CT abdomen/pelvis without contrast ordered. CT shows no acute findings to explain his symptoms. Advised him to follow-up with Dr. Guaman outpatient for his ongoing symptoms. At this point he does not meet any admission criteria. He is already on omeprazole and I do not think anything I will add to his regimen will necessarily help. Patient was discharged in stable condition. Lab Data Attestation: I reviewed the patient's lab results. Labs: Laboratory Results - last 24 hr 10/31/23 10/31/23 11:30 11:52 WBC 8.8 RBC 4.64 Hgb 14.2 Hct 43.4 MCV 93.5 MCH 30.6 MCHC 32.7 RDW Std Deviation 44.6 H RDW Coeff of Live 13.1 Plt Count 239 MPV 10.7 Immature Gran % (Auto) 0.300 Neut % (Auto) 78.2 H Lymph % (Auto) 11.9 L [place] % (Auto) 8.2 Eos % (Auto) 0.7 Baso % (Auto) 0.7 Absolute Neuts (auto) 6.9 Absolute Lymphs (auto) 1.05 Nucleated RBC % 0 Sodium 140 Potassium 4.4 Chloride 106 Carbon Dioxide 24.0 Anion Gap 10 BUN 34 H Creatinine 2.86 H Estim Creat Clear Calc 23.80 Est GFR (MDRD) Af Amer 27 L Est GFR (MDRD) Non-Af 23 L BUN/Creatinine Ratio 11.9 Glucose 138 H Calcium 9.1 Total Bilirubin 0.70 AST 25 ALT 21 Alkaline Phosphatase 81 Total Protein 7.7 Albumin 3.6 Globulin 4.1 Albumin/Globulin Ratio 0.9 Urine Color Yellow Urine Clarity Clear Urine pH 5.0 Ur Specific [place] 1.015 Urine Protein 100 H Urine Glucose (UA) Normal Urine Ketones 5 H Urine Occult Blood Negative Urine Nitrite Positive H Urine Bilirubin Negative Urine Urobilinogen Normal Ur Leukocyte Esterase 500 H Urine RBC 0 SEEN Urine WBC 25-50 SEEN Ur Squamous Epith Cells 0-5 SEEN Urine Bacteria RARE Urine Mucus 0 SEEN Radiography Diagnostic Testing: Clinical Impression(s) from Imaging Studies Abdomen/Pelvis CT 10/31/23 11:19 IMPRESSION: Multiple bilateral renal cysts. Stable infrarenal abdominal aortic aneurysm. Sigmoid diverticulosis. Electronically Signed: Jose Stewart MD at 13:01 EST , <Dr. Rony Blakely MD - Last Filed: 10/31/23 13:59> [facility] [place] MDM Narrative Medical decision making narrative: Patient has over a year of gastric bloating, indigestion, and constipation which he manages with laxatives. He appears well and nontoxic. Vital signs within normal limits. Abdomen is soft and nontender. Due to his advanced age blood work and CT imaging was ordered. CBC is within normal limits. BMP shows chronic kidney disease with BUN of 34, creatinine 2.86, otherwise unremarkable. Due to his low GFR the IV contrast was canceled and CT abdomen/pelvis without contrast ordered. CT shows no acute findings to explain his symptoms. Advised him to follow-up with Dr. Guaman outpatient for his ongoing symptoms. At this point he does not meet any admission criteria. He is already on omeprazole and I do not think anything I will add to his regimen will necessarily help. Patient was discharged in stable condition. I have personally performed a face to face assessment of the patient and have reviewed the SHANA Note. I performed a substantive portion of the visit including all aspects of the following. My lemons findings include: History is remarkable for abdominal pain bloating flagellated and burping. 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 He has an appointment see Dr. Guaman. He denies vomiting. He denies black or maroon-colored stool. He denies intolerance to greasy or fried foods. He denies cardiac or respiratory symptoms. Exam is remarkable for slight abdominal distention with tympany. Bowel sounds are present but the slightly diminished. There is no [place] megaly. There is no peritoneal findings. There is no palp pulsatile mass or abdominal bruit. Lungs are clear to auscultation. Breath sounds are symmetric. Heart is regular. Rate is normal. There is no murmur, gallop or rub. Medical Decision Making differential diagnoses abdominal pain unknown etiology, GERD, hiatal hernia, doubt biliary disease. Doubt inflammatory disease. Laboratory studies were obtained. Results were reviewed. White count is unremarkable. Comprehensive metabolic panel reveals slight elevated glucose of 138 with normal CO2 anion gap. Urinalysis reveals pyuria without bacteria. Urine culture was sent. Other additions or changes: [None] Lab Data Labs: Laboratory Results - last 24 hr 10/31/23 10/31/23 11:30 11:52 WBC 8.8 RBC 4.64 Hgb 14.2 Hct 43.4 MCV 93.5 MCH 30.6 MCHC 32.7 RDW Std Deviation 44.6 H RDW Coeff of Live 13.1 Plt Count 239 MPV 10.7 Immature Gran % (Auto) 0.300 Neut % (Auto) 78.2 H Lymph % (Auto) 11.9 L [place] % (Auto) 8.2 Eos % (Auto) 0.7 Baso % (Auto) 0.7 Absolute Neuts (auto) 6.9 Absolute Lymphs (auto) 1.05 Nucleated RBC % 0 Sodium 140 Potassium 4.4 Chloride 106 Carbon Dioxide 24.0 Anion Gap 10 BUN 34 H Creatinine 2.86 H Estim Creat Clear Calc 23.80 Est GFR (MDRD) Af Amer 27 L Est GFR (MDRD) Non-Af 23 L BUN/Creatinine Ratio 11.9 Glucose 138 H Calcium 9.1 Total Bilirubin 0.70 AST 25 ALT 21 Alkaline Phosphatase 81 Total Protein 7.7 Albumin 3.6 Globulin 4.1 Albumin/Globulin Ratio 0.9 Urine Color Yellow Urine Clarity Clear Urine pH 5.0 Ur Specific [place] 1.015 Urine Protein 100 H Urine Glucose (UA) Normal Urine Ketones 5 H Urine Occult Blood Negative Urine Nitrite Positive H Urine Bilirubin Negative Urine Urobilinogen Normal Ur Leukocyte Esterase 500 H Urine RBC 0 SEEN Urine WBC 25-50 SEEN Ur Squamous Epith Cells 0-5 SEEN Urine Bacteria RARE Urine Mucus 0 SEEN Radiography Diagnostic Testing: Clinical Impression(s) from Imaging Studies Abdomen/Pelvis CT 10/31/23 11:19 IMPRESSION: Multiple bilateral renal cysts. Stable infrarenal abdominal aortic aneurysm. Sigmoid diverticulosis. Electronically Signed: Jose Stewart MD at 13:01 EST , Discharge Plan Triage Chief Complaint: Abd Pain ED Midlevel Provider: Patricia Hunt ED Provider: Rony Blakely Dx/Rx/DC Orders Clinical Impression: History of indigestion, Chronic abdominal pain, Pacemaker, Pyuria Instructions: Abdominal Pain Prescriptions: No Action tramadol 50 mg tablet 50 mg PO Q6H PRN PRN (Reason: Pain) Qty: 120 trazodone 100 MG tablet 100 mg PO QHS omeprazole 20 MG capsule,delayed release(DR/EC) 20 mg PO QHS lisinopril 5 MG tablet 20 mg PO DAILY metoprolol tartrate 25 MG tablet 100 mg PO BID ljeowulp-cek-LA-lycopen-lutein 1 EACH tablet 1 ea PO DAILY fish oil-dha-epa 1 EACH capsule 1 ea PO QHS cholecalciferol (vitamin D3) 1,000 UNIT tablet 2,000 unit PO DAILY apixaban 5 MG tablet 5 mg PO BID Patient Comments: WAS INSTRUCTED TO STOP 3 DAYS PREOP PER PCP hydralazine 25 mg tablet 25 mg PO BID rosuvastatin 10 mg tablet 10 mg PO DAILY Primary Care Provider: Wendy Espinal Referrals: Rah Guaman DO [Med Staff - Active Staff] - Wendy Espinal MD [Primary Care Provider] - Activity Restrictions/Additional Instructions: Not sure what is causing your chronic abdominal symptoms and you need to follow-up with a GI specialist, Dr. Guaman. Disposition Disposition: Home, Self Care Discharge Date/Time: 10/31/23 13:40
[2023-10-31 11:48] LABS: Absolute Lymphocyte Count 1.05 X10^3/uL (0.83-4.51); Absolute Neutrophil Count 6.9 X10^3/uL (2.0-7.7); Basophil# 0.06 X10^3/uL; Basophil% 0.7 % (0-1); Eosinophil# 0.06 X10^3/uL; Eosinophils% 0.7 % (0-5); Hematocrit 43.4 % (40-54); Hemoglobin 14.2 g/dL (13.0-16.5); Lymphocyte # 1.05 X10^3/ul (0.83-4.51); Lymphocyte % 11.9 % (19-41); Mean Corp Hgb Conc 32.7 g/dL (32-36); Mean Corpuscular Hgb 30.6 pg (27.0-32.0); Mean Corpuscular Volume 93.5 fL (80-94); Mean Platelet Vol. 10.7 fl (6.2-12.0); Monocyte# 0.72 X10^3/uL; Monocyte% 8.2 % (0-10); NRBC Flagged by Analyzer 0 % (0-5); Neutrophil % 78.2 % (47-70); Platelet Count 239 K/mm3 (150-450); RBC Distribution Width CV 13.1 % (11.6-14.6); RBC Distribution Width SD 44.6 fl (35.1-43.9); Red Blood Count 4.64 M/mm3 (4.6-6.2); White Blood Count 8.8 K/mm3 (4.4-11.0)
[2023-10-31 11:57] LABS: Mucous, Urine 0 SEEN /hpf (<or=2+); Red Blood Cells-Urine 0 SEEN /hpf (0-5)
[2023-10-31 11:59] LABS: Color, Urine Yellow (Yellow); Glucose, Dipstick Normal (Normal); Ketone-Dipstick 5 mg/dl (Negative); Leukocyte Esterase-Dipstick 500 /ul (Negative); Nitrite-Dipstick Positive (Negative); Occult Blood-Urine Negative /ul (Negative); Protein-Dipstick 100 mg/dl (Negative); Specific Gravity, Urine 1.015 (1.002-1.030); Urine Bilirubin Dipstick Negative (Negative); Urine Clarity Clear (Clear); Urine Urobilinogen Normal (Normal)
[2023-10-31 12:01] LABS: ALB/GLOB Ratio 0.9 RATIO (0.9-2.4); AST(SGOT) 25 U/L (15-37); Alanine Aminotransfer ALT/SGPT 21 U/L (16-61); Albumin, Serum 3.6 g/dL (3.2-5.0); Alkaline Phosphatase 81 U/L (45-117); Anion Gap 10 (5-15); BUN 34 mg/dL (7-18); BUN/Creat Ratio 11.9 RATIO (10-20); Calcium,Total 9.1 mg/dL (8.5-10.1); Chloride 106 mmol/L (98-107); Creatinine, Serum 2.86 mg/dL (0.70-1.30); EST Glomerular Filtration Rate 23 mL/min (>60); Est Glom Filt Rate - Afr Amer 27 mL/min (>60); Globulin 4.1 g/dL (2.2-4.2); Glucose 138 mg/dL (74-106); Potassium 4.4 mmol/L (3.5-5.1); Protein, Total 7.7 g/dL (6.4-8.2); Sodium Level 140 mmol/L (136-145)
[2023-10-31 12:12] LABS: Squamous Epithelial Cells - UA 0-5 SEEN /hpf (0-5); White Blood Cells 25-50 SEEN /hpf (0-5)
[2023-10-31 12:13] LABS: Bacteria RARE /hpf (None Seen)
[2023-10-31 13:40] VITALS: BP 146/72; PULSE 88; RESP 17; O2SAT 95
== END 2023-10-31 13:40 | disposition home or self-care (01) ==
PROVIDERS: Physician Assistant; Emergency Provider Emergency Medicine; PCP Internal Medicine Geriatric Medicine; Visit Provider Emergency Medicine
DX: R10.9 Unspecified abdominal pain (principal); K44.9 Diaphragmatic hernia without obstruction or gangrene; K21.9 Gastro-esophageal reflux disease without esophagitis; E78.5 Hyperlipidemia, unspecified; N18.9 Chronic kidney disease, unspecified; I12.9 Hypertensive chronic kidney disease with stage 1 through stage 4 chronic kidney disease, or unspecified chronic kidney disease; R82.81 Pyuria; Z87.891 Personal history of nicotine dependence; R14.0 Abdominal distension (gaseous); R73.9 Hyperglycemia, unspecified; Z95.0 Presence of cardiac pacemaker; G89.29 Other chronic pain
CPT/HCPCS: 74176; 80053; 81001; 85025; 87077; 87086; 87088; 87186; 99283; A4216

== ENCOUNTER → 2024-02-02 | Outpatient (CLI) | payer MEDICARE, SELFPAY ==
[2024-02-02 10:22] LABS: Hematocrit 41.5 % (40-54); Hemoglobin 13.5 g/dL (13.0-16.5); Mean Corp Hgb Conc 32.5 g/dL (32-36); Mean Corpuscular Hgb 30.4 pg (27.0-32.0); Mean Corpuscular Volume 93.5 fL (80-94); Mean Platelet Vol. 10.7 fl (6.2-12.0); Platelet Count 212 K/mm3 (150-450); RBC Distribution Width CV 13.4 % (11.6-14.6); RBC Distribution Width SD 45.7 fl (35.1-43.9); Red Blood Count 4.44 M/mm3 (4.6-6.2); White Blood Count 7.5 K/mm3 (4.4-11.0)
[2024-02-02 11:48] LABS: Iron 67 ug/dL (65-175); Iron Binding Capacity,Total 309 ug/dL (250-450); PERCENT IRON SATURATION 21.7 % (15.0-55.0)
== END | disposition home or self-care (01) ==
LOC: LAB 09:47
PROVIDERS: PCP Internal Medicine Geriatric Medicine; Referring Provider Internal Medicine Geriatric Medicine; Visit Provider Internal Medicine Geriatric Medicine
DX: Z00.01 Encounter for general adult medical examination with abnormal findings (principal); N18.32 Chronic kidney disease, stage 3b; I12.9 Hypertensive chronic kidney disease with stage 1 through stage 4 chronic kidney disease, or unspecified chronic kidney disease
CPT/HCPCS: 36415; 83540; 83550; 85027

== ENCOUNTER 2024-08-27 19:16 | Emergency (ER) | payer MEDICARE, SELFPAY ==
[2024-08-27 19:16] VITALS: BP 122/73; PULSE 64; RESP 18; TEMP 35.9; O2SAT 97; BMI 33.8
--- NOTE | 2024-08-27 20:01 | EKG12_ITS ---
Test Reason : DIZZY Blood Pressure : / mmHG Vent. Rate : 067 BPM Atrial Rate : 050 BPM P-R Int : 000 ms QRS Dur : 174 ms QT Int : 472 ms P-R-T Axes : 000 -75 086 degrees QTc Int : 498 ms Ventricular-paced rhythm with occasional Premature ventricular complexes Abnormal ECG Confirmed by Sloan Ramírez ([id number]), film and video editor ANSLEY HERNANDEZ ([id number]) on 08/29/2024 6:39:40 AM Referred By: Confirmed By:Sloan Ramírez
--- NOTE | 2024-08-27 20:01 | RAD_ITS ---
INDICATION: Stroke EXAMINATION/TECHNIQUE: X-RAY - XR Chest 1 View COMPARISON: October 08, 2011 FINDINGS: LINES/DEVICES: There is a cardiac pacer device in place. LUNGS: There are right basilar streaky opacities. No pneumothorax. MEDIASTINUM AND CARDIOVASCULAR STRUCTURES: Cardiac silhouette not enlarged. Central airways and mediastinal contour are unremarkable. BONES AND SOFT TISSUES: Unremarkable. RAD/Chest 1 View (Portable) IMPRESSION: Right basilar atelectasis. Electronically Signed: Ev Roger MD at 21:10 EDT ,
[2024-08-27 20:31] VITALS: O2SAT 96
[2024-08-27 20:36] VITALS: BP 122/82; PULSE 68; RESP 18
--- NOTE | 2024-08-27 20:37 | EX.ED.DYSGE1 ---
HPI <JOSELINE Coleman - Last Filed: 08/27/24 22:00> History of Present Illness Chief Complaint: Dizziness Narrative Narrative: Patient 84-year-old male with history of hypertension, pacemaker on Eliquis, hyperlipidemia, currently started on Ozempic 3 weeks ago. Patient is not diabetic, he states that his doctor put him on it to lose weight. Over the last 2 weeks, patient states has been more dizzy which she describes as lightheadedness. He notices it worse when he is up and moving and changing positions. Patient states today, is little worse than normal, and he decided to come in and get checked out. He denies any chest pain, nausea or vomiting peer denies any actual syncope. [facility] <JOSELINE Coleman - Last Filed: 08/27/24 22:00> [facility] Medical History Chronic pain Hx of pulmonary embolus Hx of small bowel obstruction Hyperlipidemia Hypertension Pacemaker Primary osteoarthritis, left shoulder Subacromial impingement of right shoulder Home Medications ?Medication ?Instructions ?Recorded ?Last Taken ?Type apixaban 5 mg tablet 5 mg PO BID BLOOD THINNER 03/15/19 03/22/19 History cholecalciferol (vitamin D3) 25 2,000 unit PO DAILY SUPPLEMENT 03/15/19 Unknown History mcg (1,000 unit) tablet fish oil-dha-epa 1,200 mg-144 1 ea PO QHS SUPPLEMENT 03/15/19 Unknown History mg-216 mg capsule lisinopril 5 mg tablet 20 mg PO DAILY BP 03/15/19 03/26/19 History metoprolol tartrate 25 mg tablet 100 mg PO BID BP 03/15/19 03/26/19 History wytjvhoq-zeo-ddsna acid 0.4 1 ea PO DAILY SUPPLEMENT 03/15/19 Unknown History mg-lycopene 300 mcg-lutein 250 mcg tablet omeprazole 20 mg capsule,delayed 20 mg PO QHS GERD 03/15/19 Unknown History release trazodone 100 mg tablet 100 mg PO QHS SLEEP 03/15/19 Unknown History tramadol 50 mg tablet 50 mg PO Q6H PRN PRN Pain #120 tabs 09/12/19 Unknown History hydralazine 25 mg tablet 25 mg PO BID 01/17/22 Unknown History rosuvastatin 10 mg tablet 10 mg PO DAILY 01/17/22 Unknown History Allergy/AdvReac Type Severity Reaction Status Date / Time naproxen (From Aleve) Allergy Laryngospas Verified 08/27/24 19:17 ms Surgical History Hx of right knee surgery Social History (Updated 08/27/24 @ 20:59 by Shannan Rodarte) household members: spouse housing: house current occupational status: retired Smoking Status: Former smoker ROS <JOSELINE Coleman - Last Filed: 08/27/24 22:00> ROS ED ROS Narrative Constitutional: Negative for fever, chills, weight loss, weakness Eyes: Negative for vision loss, vision change, double vision ENT: Negative for any sore throat, ear pain, congestion Cardiovascular: Negative for any chest pain, tightness, palpitations Respiratory: Negative for any cough, sputum production, hemoptysis, dyspnea, dyspnea on exertion, orthopnea Gastrointestinal: Negative for any abdominal pain, nausea, vomiting, diarrhea, constipation, blood in stool, blood in vomit : Negative for any urinary frequency, dysuria, retention, blood in urine Muscle skeletal: Negative for any neck pain, back pain Neurological: Negative for any headache, syncope. Positive for dizziness which she describes as lightheadedness Skin: Negative for any rashes, itching, abrasions, lacerations Psychiatric: Negative for any depression, anxiety, stress, suicidal ideation, homicidal ideation Hematologic: Negative for any excessive bruising, easy bleeding EXAM <JOSELINE Coleman - Last Filed: 08/27/24 22:00> Physical Exam Narrative Exam Narrative: Vital signs reviewed. HEET: Head normocephalic atraumatic, TMs clear bilaterally. Posterior pharynx is clear, moist mucous membranes. Nares clear bilaterally. Neck: Supple with no lymphadenopathy or tenderness. No signs of meningismus. Cardiac: Regular rate and rhythm no murmurs gallops or rubs, equal peripheral pulses bilaterally. Respiratory: Lungs clear to auscultation bilaterally. No chest tenderness. Abdomen: Soft, nontender, nondistended. No abdominal bruit or pulsatile masses. No hepatosplenomegaly Extremities: No peripheral edema, no signs of gross trauma or deformity. Active full range of motion of all extremities. Neuro: Cranial nerves II through XII intact, no focal neurological deficits. Skin: Clean dry and intact with no rash, purpura, petechiae, vesicles or pustules. Backs/flank: No CVA tenderness, no midline spinal tenderness, no deformity. Psych: Normal mood and affect. No SI, HI or acute psychosis. Const Vital Signs: 08/27/24 19:16 08/27/24 20:31 08/27/24 20:36 Temperature 96.7 F L Temperature Source Temporal Pulse Rate 64 68 Pulse Rate [Lying] Pulse Rate [Sitting (for 1 minute prior to obtaining)] Pulse Rate [Standing (for 1 minute prior to obtaining)] Respiratory Rate 18 18 Blood Pressure 122/73 H 122/82 H Blood Pressure [Lying] Blood Pressure [Sitting (for 1 minute prior to obtaining)] Blood Pressure [Standing (for 1 minute prior to obtaining)] Blood Pressure Mean 89 95 Blood Pressure Mean [Lying] Blood Pressure Mean [Sitting (for 1 minute prior to obtaining)] Blood Pressure Mean [Standing (for 1 minute prior to obtaining)] Pulse Ox 97 96 Oxygen Delivery Method Room Air 08/27/24 21:10 08/27/24 21:11 Temperature Temperature Source Pulse Rate 66 Pulse Rate [Lying] 67 Pulse Rate [Sitting (for 1 minute prior to obtaining)] 66 Pulse Rate [Standing (for 1 minute prior to obtaining)] 65 Respiratory Rate 18 Blood Pressure 120/84 H Blood Pressure [Lying] 120/74 Blood Pressure [Sitting (for 1 minute prior to obtaining)] 120/84 H Blood Pressure [Standing (for 1 minute prior to obtaining)] 130/89 H Blood Pressure Mean 96 Blood Pressure Mean [Lying] 89 Blood Pressure Mean [Sitting (for 1 minute prior to obtaining)] 96 Blood Pressure Mean [Standing (for 1 minute prior to obtaining)] 102 Pulse Ox Oxygen Delivery Method Positive well nourished and well developed General Appearance ED: well developed <Dr. Rony Blakely MD - Last Filed: 08/27/24 22:37> Physical Exam Const Vital Signs: 08/27/24 19:16 08/27/24 20:31 08/27/24 20:36 Temperature 96.7 F L Temperature Source Temporal Pulse Rate 64 68 Pulse Rate [Lying] Pulse Rate [Sitting (for 1 minute prior to obtaining)] Pulse Rate [Standing (for 1 minute prior to obtaining)] Respiratory Rate 18 18 Blood Pressure 122/73 H 122/82 H Blood Pressure [Lying] Blood Pressure [Sitting (for 1 minute prior to obtaining)] Blood Pressure [Standing (for 1 minute prior to obtaining)] Blood Pressure Mean 89 95 Blood Pressure Mean [Lying] Blood Pressure Mean [Sitting (for 1 minute prior to obtaining)] Blood Pressure Mean [Standing (for 1 minute prior to obtaining)] Pulse Ox 97 96 Oxygen Delivery Method Room Air 08/27/24 21:10 08/27/24 21:11 Temperature Temperature Source Pulse Rate 66 Pulse Rate [Lying] 67 Pulse Rate [Sitting (for 1 minute prior to obtaining)] 66 Pulse Rate [Standing (for 1 minute prior to obtaining)] 65 Respiratory Rate 18 Blood Pressure 120/84 H Blood Pressure [Lying] 120/74 Blood Pressure [Sitting (for 1 minute prior to obtaining)] 120/84 H Blood Pressure [Standing (for 1 minute prior to obtaining)] 130/89 H Blood Pressure Mean 96 Blood Pressure Mean [Lying] 89 Blood Pressure Mean [Sitting (for 1 minute prior to obtaining)] 96 Blood Pressure Mean [Standing (for 1 minute prior to obtaining)] 102 Pulse Ox Oxygen Delivery Method [facility] <JOSELINE Coleman - Last Filed: 08/27/24 22:00> [facility] Lab Data Labs: Laboratory Results - last 24 hr 08/27/24 20:34 WBC 7.5 RBC 4.31 L Hgb 13.3 Hct 40.8 MCV 94.7 H MCH 30.9 MCHC 32.6 RDW Std Deviation 46.6 H RDW Coeff of Live 13.2 Plt Count 195 MPV 10.5 Immature Gran % (Auto) 0.300 Neut % (Auto) 67.6 Lymph % (Auto) 19.7 [place] % (Auto) 9.4 Eos % (Auto) 2.3 Baso % (Auto) 0.7 Absolute Neuts (auto) 5.1 Absolute Lymphs (auto) 1.48 Nucleated RBC % 0 PT 16.0 H INR 1.3 APTT 32.5 Sodium 138 Potassium 4.4 Chloride 109 H Carbon Dioxide 23.0 Anion Gap 7 BUN 38 H Creatinine 3.11 H Estim Creat Clear Calc 25.41 Est GFR (MDRD) Af Amer 25 L Est GFR (MDRD) Non-Af 21 L BUN/Creatinine Ratio 12.2 Glucose 122 H Calcium 8.9 Troponin I High Sens 14 Radiography Diagnostic Testing: Clinical Impression(s) from Imaging Studies Chest X-Ray 08/27/24 20:01 IMPRESSION: Right basilar atelectasis. Electronically Signed: Ev Roger MD at 21:10 EDT , EKG Ventricular paced rhythm: Attestation: I personally reviewed and interpreted this EKG as follows: Comments: Ventricular paced rhythm, rate of 67 bpm, QRS duration 174 ms, no acute ST elevation, no acute infarct noted. Treatment and Re-Evaluation :: Differential diagnosis includes however is not limited to: ACS, ND, electrolyte abnormality, orthostatic hypotension, medication side effect Patient appears generally well, vital signs are stable, patient is nontoxic-appearing. Presenting to the emergency department with complaints of dizziness which he describes as lightheadedness when he moves positions, stands up for too long. Patient that has been going on as long as has been on the Ozempic. He does not want to take it anymore. Patient did receive basic laboratory values including a troponin secondary to his age. EKG shows a ventricular paced rhythm, no ACS or ND. Patient will receive orthostatic vital signs. Chest x-ray, all radiologic examinations were read, reviewed by the emergency department attending. From these reads, a plan of care will be put in place. Patient's CBC was negative, patient's PT/INR within normal limits. Patient's chemistries show chronic renal sufficiency, patient over the last 2 years had a creatinine 2.47, in 2022 2.86, today is 3.11, patient will need to follow-up with nephrology, however this is not acute. Patient's glucose 122, but troponin was negative. At this time there is no evidence of ACS or ND. I do believe this is likely from the Ozempic. Patient will stop the Ozempic and follow-up with his PCP. I also provided a patient a referral to a vac press operator. <Dr. Rony Blakely MD - Last Filed: 08/27/24 22:37> [facility] Narrative Medical decision making narrative: I have personally performed a face to face assessment of the patient and have reviewed the SHANA Note. I performed a substantive portion of the visit including all aspects of the following. My lemons findings include: History is remarkable for dizziness, which patient defines as being lightheaded. He denies black or maroon-colored stool. He denies bleeding of his gums. [place] hematuria. He does endorse bruising easily and he is on an anticoagulant. He denies black or maroon-colored stool. He denies fever, chills night sweats. He denies cardiac or respiratory symptoms. His symptoms started after he was placed on Ozempic. Exam is vital signs reveal slight elevation of blood pressure. Patient is a very tall individual. HEENT exam is grossly unremarkable. He has no respiratory distress. Heart is regular. Rate is normal. Medical Decision Making workup was undertaken to evaluate for orthostatic hypotension, symptoms not consistent with vertebrobasilar insufficiency or stroke. Suspect this is adverse reaction to the medication. Other additions or changes: [None] Lab Data Labs: Laboratory Results - last 24 hr 08/27/24 20:34 WBC 7.5 RBC 4.31 L Hgb 13.3 Hct 40.8 MCV 94.7 H MCH 30.9 MCHC 32.6 RDW Std Deviation 46.6 H RDW Coeff of Live 13.2 Plt Count 195 MPV 10.5 Immature Gran % (Auto) 0.300 Neut % (Auto) 67.6 Lymph % (Auto) 19.7 [place] % (Auto) 9.4 Eos % (Auto) 2.3 Baso % (Auto) 0.7 Absolute Neuts (auto) 5.1 Absolute Lymphs (auto) 1.48 Nucleated RBC % 0 PT 16.0 H INR 1.3 APTT 32.5 Sodium 138 Potassium 4.4 Chloride 109 H Carbon Dioxide 23.0 Anion Gap 7 BUN 38 H Creatinine 3.11 H Estim Creat Clear Calc 25.41 Est GFR (MDRD) Af Amer 25 L Est GFR (MDRD) Non-Af 21 L BUN/Creatinine Ratio 12.2 Glucose 122 H Calcium 8.9 Troponin I High Sens 14 Radiography Diagnostic Testing: Clinical Impression(s) from Imaging Studies Chest X-Ray 08/27/24 20:01 IMPRESSION: Right basilar atelectasis. Electronically Signed: Ev Roger MD at 21:10 EDT , Discharge Plan Triage Chief Complaint: Dizziness ED Midlevel Provider: Servando Owen ED Provider: Rony Blakely Dx/Rx/DC Orders Clinical Impression: Chronic kidney failure, Drug side effects, Light-headedness Prescriptions: No Action tramadol 50 mg tablet 50 mg PO Q6H PRN PRN (Reason: Pain) Qty: 120 trazodone 100 MG tablet 100 mg PO QHS omeprazole 20 MG capsule,delayed release(DR/EC) 20 mg PO QHS lisinopril 5 MG tablet 20 mg PO DAILY metoprolol tartrate 25 MG tablet 100 mg PO BID mrjxobjx-oll-XZ-lycopen-lutein 1 EACH tablet 1 ea PO DAILY fish oil-dha-epa 1 EACH capsule 1 ea PO QHS cholecalciferol (vitamin D3) 1,000 UNIT tablet 2,000 unit PO DAILY apixaban 5 MG tablet 5 mg PO BID Patient Comments: WAS INSTRUCTED TO STOP 3 DAYS PREOP PER PCP hydralazine 25 mg tablet 25 mg PO BID rosuvastatin 10 mg tablet 10 mg PO DAILY Primary Care Provider: Wendy Espinal Referrals: Corie Gallardo DO [Med Staff - Consulting] - Wendy Espinal MD [Primary Care Provider] - Print Language: Jordanian Disposition Disposition: Home, Self Care
[2024-08-27 20:44] LABS: Absolute Lymphocyte Count 1.48 X10^3/uL (0.83-4.51); Absolute Neutrophil Count 5.1 X10^3/uL (2.0-7.7); Basophil# 0.05 X10^3/uL; Basophil% 0.7 % (0-1); Eosinophil# 0.17 X10^3/uL; Eosinophils% 2.3 % (0-5); Hematocrit 40.8 % (40-54); Hemoglobin 13.3 g/dL (13.0-16.5); Lymphocyte # 1.48 X10^3/ul (0.83-4.51); Lymphocyte % 19.7 % (19-41); Mean Corp Hgb Conc 32.6 g/dL (32-36); Mean Corpuscular Hgb 30.9 pg (27.0-32.0); Mean Corpuscular Volume 94.7 fL (80-94); Mean Platelet Vol. 10.5 fl (6.2-12.0); Monocyte# 0.71 X10^3/uL; Monocyte% 9.4 % (0-10); NRBC Flagged by Analyzer 0 % (0-5); Neutrophil # 5.09 X10^3/uL (2.7-7.7); Neutrophil % 67.6 % (47-70); Platelet Count 195 K/mm3 (150-450); RBC Distribution Width CV 13.2 % (11.6-14.6); RBC Distribution Width SD 46.6 fl (35.1-43.9); Red Blood Count 4.31 M/mm3 (4.6-6.2); White Blood Count 7.5 K/mm3 (4.4-11.0)
[2024-08-27 20:53] LABS: International Normalized Ratio 1.3
[2024-08-27 20:54] LABS: Partial Thromboplast Time 32.5 Seconds (24.1-36.2)
[2024-08-27 21:03] LABS: Anion Gap 7 (5-15); BUN 38 mg/dL (7-18); BUN/Creat Ratio 12.2 RATIO (10-20); Calcium,Total 8.9 mg/dL (8.5-10.1); Chloride 109 mmol/L (98-107); Creatinine, Serum 3.11 mg/dL (0.70-1.30); EST Glomerular Filtration Rate 21 mL/min (>60); Est Glom Filt Rate - Afr Amer 25 mL/min (>60); Estimated Creatinine Clearance 25.41 ml/min; Glucose 122 mg/dL (74-106); Potassium 4.4 mmol/L (3.5-5.1); Sodium Level 138 mmol/L (136-145); Troponin-I HS 14 pg/mL (3.0-78.0)
[2024-08-27 21:10] VITALS: BP 120/74; BP 120/84; BP 130/89; PULSE 65; PULSE 66; PULSE 67
[2024-08-27 21:11] VITALS: BP 120/84; PULSE 66; RESP 18
--- NOTE | 2024-08-27 22:00 | ED.RN ---
Pt ambulates to triage from ED room, tells his daughter it is just from the ozempic and leaves emergency department.
--- NOTE | 2024-08-27 23:54 | ED.RN ---
NURSE ANSWERED CALL LIGHT PATIENT DEMANDING TO GO HOME RIGHT NOW REQUESTING IV TO BE TAKEN OUT. HE DID NOT WANT TO WAIT FOR HIS BLOODWORK RESULTS OR TO SPEAK WITH THE DOCTOR. HE THOUGHT HIS BLOOD PRESSURE WAS LOW DUE TO HIS HOME MONITOR AND SINCE HE'S BEEN HERE HIS BLOOD PRESSURE WAS FINE. HE HAS A THAT NEEDS HIM TO CARE FOR HER AT HOME. DOCTOR SPOKE WITH PATIENT WHILE HE WAS DRESSING. PATIENT DID NOT WAIT FOR DISCHARGE PAPERWORK
== END 2024-08-27 22:00 | disposition home or self-care (01) ==
PROVIDERS: Emergency Provider Emergency Medicine; PCP Internal Medicine Geriatric Medicine; Visit Provider Emergency Medicine
DX: R42 Dizziness and giddiness (principal); T38.3X5A Adverse effect of insulin and oral hypoglycemic [antidiabetic] drugs, initial encounter; I12.9 Hypertensive chronic kidney disease with stage 1 through stage 4 chronic kidney disease, or unspecified chronic kidney disease; N18.9 Chronic kidney disease, unspecified; Z95.0 Presence of cardiac pacemaker; Z79.01 Long term (current) use of anticoagulants; Z79.899 Other long term (current) drug therapy; Z87.891 Personal history of nicotine dependence
CPT/HCPCS: 71045; 80048; 84484; 85025; 85610; 85730; 93005; 99285; A4216

== ENCOUNTER → 2024-11-01 | Outpatient (CLI) | payer MEDICARE, SELFPAY ==
[2024-11-01 12:31] LABS: Hematocrit 43.6 % (40-54); Hemoglobin 14.5 g/dL (13.0-16.5); Mean Corp Hgb Conc 33.3 g/dL (32-36); Mean Corpuscular Hgb 30.7 pg (27.0-32.0); Mean Corpuscular Volume 92.4 fL (80-94); Platelet Count 190 K/mm3 (150-450); RBC Distribution Width CV 12.9 % (11.6-14.6); RBC Distribution Width SD 43.8 fl (35.1-43.9); Red Blood Count 4.72 M/mm3 (4.6-6.2); White Blood Count 7.4 K/mm3 (4.4-11.0)
[2024-11-01 12:40] LABS: Protein, Urine (Random) 18.9 mg/dL (<11.9); Protein:Creat Ratio 206 mg/g CRE (0-200)
[2024-11-01 12:53] LABS: PTHIN 120.5 pg/mL (18.4-80.1)
[2024-11-01 12:56] LABS: Albumin, Serum 3.6 g/dL (3.2-5.0); BUN 23 mg/dL (7-18); BUN/Creat Ratio 9.7 RATIO (10-20); Calcium,Total 9.5 mg/dL (8.5-10.1); Chloride 106 mmol/L (98-107); Creatinine, Serum 2.37 mg/dL (0.70-1.30); EST Glomerular Filtration Rate 28 mL/min (>60); Est Glom Filt Rate - Afr Amer 34 mL/min (>60); Glucose 161 mg/dL (74-106); Phosphorus 2.4 mg/dL (2.5-4.9); Potassium 5.3 mmol/L (3.5-5.1); Sodium Level 138 mmol/L (136-145)
[2024-11-01 12:57] LABS: Vitamin D,25 Hydroxy 39.8 ng/mL
== END | disposition home or self-care (01) ==
PROVIDERS: PCP Internal Medicine Geriatric Medicine; Visit Provider Internal Medicine Nephrology
DX: N18.4 Chronic kidney disease, stage 4 (severe) (principal)
CPT/HCPCS: 36415; 80069; 82306; 82570; 83970; 84156; 85027

== ENCOUNTER → 2024-11-15 | Outpatient (CLI) | payer MEDICARE, SELFPAY ==
--- NOTE | 2024-11-15 11:28 | US_ITS ---
STUDY: RENAL ULTRASOUND - COMPLETE REASON FOR EXAM: Male, 84 years old. CKD4 TECHNIQUE: Ultrasound evaluation of the kidneys was performed with real-time and static michael-scale imaging. COMPARISON: 08/10/2022 FINDINGS: RIGHT KIDNEY: Normal location of the right kidney, which is normal in size. The right kidney measures 14.6 cm. There is a normal cortex of the right kidney. The renal cortex measures 1.3 cm. Innumerable renal cysts suggestive of autosomal dominant polycystic kidney disease. There are no right renal calculi. There is no right hydronephrosis. DISTAL RIGHT URETER: There is non-visualization of the distal right ureter. There is no demonstrated right ureterovesical junction calculus. There is a visualized right ureteral jet. LEFT KIDNEY: Normal location of the left kidney, which is normal in size. The left kidney measures 20.8 cm. There is a normal cortex of the left kidney. The renal cortex measures 1.4 cm. Innumerable renal cysts suggestive of autosomal dominant polycystic kidney disease. There are no left renal calculi. There is no left hydronephrosis. DISTAL LEFT URETER: There is non-visualization of the distal left ureter. There is no demonstrated left ureterovesical junction calculus. There is a visualized left ureteral jet. AORTA: There is 4.5 cm aneurysm of the abdominal aorta. I.V.C.: The IVC is patent. BLADDER: The distended urinary bladder has a volume of 128 ml. The empty urinary bladder has a volume of ml. There is a normal wall thickness of the distended urinary bladder. There is no demonstrated mass within the urinary bladder. There are no demonstrated bladder calculi. US/Kidney and Bladder IMPRESSION: No hydronephrosis to suggest obstruction. Autosomal dominant polycystic kidney disease. 4.5 cm abdominal aortic aneurysm. Electronically Signed: Emeka Khan MD at 17:52 EST ,
== END | disposition home or self-care (01) ==
LOC: US 11:26
PROVIDERS: PCP Internal Medicine Geriatric Medicine; Referring Provider Internal Medicine Nephrology; Visit Provider Internal Medicine Nephrology
DX: N18.4 Chronic kidney disease, stage 4 (severe) (principal)
CPT/HCPCS: 76770

== ENCOUNTER 2025-06-10 11:22 | Day surgery (SDC) | payer MEDICARE, SELFPAY ==
[2025-06-10 11:52] VITALS: BP 138/80; PULSE 63; RESP 18; TEMP 36.4; O2SAT 97; BMI 34.6
--- NOTE | 2025-06-10 12:27 | RAD_ITS ---
PROCEDURE: FLUOR GUIDANCE FOR SPINE INJ 06/10/2025 REASON FOR EXAM: BLOCK, CAUDAL TECHNIQUE: FLUOR GUIDANCE FOR SPINE INJ. Fluoroscopic time: 8.7 seconds. Radiation dose: 3.48 mGy COMPARISON: None FINDINGS: Single fluoroscopic spot image shows needle approaching the sacrum for caudal block Other findings: Other: RAD/Fluor Guidance for Spine Inj IMPRESSION: Fluoroscopy provided for caudal block. For complete details of the procedure, see the operative report. Reading Location: [facility]
[2025-06-10] MEDS: 0.9% Normal Saline (Pres. free 10 ML Vial (12:33)
[2025-06-10] MEDS: Lidocaine 1% (5 ml sdv) 5 ML Vial (12:34)
--- NOTE | 2025-06-10 12:35 | OP.PCM_ITS ---
Operative Report (Standard) Operative Information Date of Procedure: 06/10/25 Pre-Operative Diagnosis: 1 Post-Operative Diagnosis: 1 Surgery/Procedure Performed: 1 drop forge operator: No Type of Anesthesia: Local RN Documented Start/Stop Times: Operation Date: 06/10/25 12:50 Case Time Into Pre-Op 06/10/25 11:27 Anesthesia Start 06/10/25 12:27 Into Room 06/10/25 12:27 Procedure Start 06/10/25 12:31 Procedure End 06/10/25 12:34 Procedure Start Time: 12:35 Procedure Stop Time: 12:35 Select all DRAINS/GRAFTS/IMPLANTS that apply: None Estimated Blood Loss: 1 Specimen collected: No Description of surgery: PREOPERATIVE DIAGNOSIS: Lumbosacral radiculopathy, lumbosacral degenerative disc disease, lumbosacral spinal stenosis POSTOPERATIVE DIAGNOSIS: Lumbosacral radiculopathy, lumbosacral degenerative disc disease, lumbosacral spinal stenosis PROCEDURE PERFORMED: Diagnostic/therapeutic caudal epidural steroid injection under fluoroscopic guidance. ANESTHESIA: Local BLOOD LOSS: Minimal. COMPLICATIONS: None. DESCRIPTION OF PROCEDURE: History and physical of today was reviewed. Risks and benefits of the procedure were explained. The patient understood and agreed to proceed. Informed consent was obtained. IV inserted per routine protocol. The patient was taken to the operating room and placed in the prone position with a pillow positioned underneath the abdomen. The lower back and tailbone area was prepped and draped in a sterile fashion using iodine x3. Under fluoroscopy guidance on a lateral view, the caudal space was identified. The skin and subcutaneous tissue was anesthetized with approximately 3 mL of 1% lidocaine using a 25-gauge regular needle. Under direct visualization with fluoroscopy, using a 22-gauge 3-1/2-inch spinal needle, the needle was advanced via the skin through the sacral hiatus. The tip of the needle was passed through the sacrococcygeal ligament and advanced to approximately S4 area. Afte r negative aspiration of blood or CSF, a total of 3 mL of contrast was injected to confirm correct placement of the needle as well as cephalad spread. The spread was followed to approximately L5 area. After confirmation on AP as well as lateral view and repeated negative aspiration, a total of 15 mL of preservative-free 0.125% Marcaine with 80 mg of Depo-Medrol was injected easily. The needle was then removed intact. The patient experienced no sign or symptoms of intrathecal or intravascular injection. The patient experienced no paresthesia. The procedure was completed without any apparent difficulty or any complications. The patient appeared to tolerate it well. ASSESSMENT AND PLAN: This is an 84-year-old male with lumbosacral radiculopathy, lumbosacral degenerative disc disease, lumbosacral spinal stenosis, status post diagnostic/therapeutic caudal epidural steroid injection under fluoroscopic guidance, patient will continue his current medications, patient will follow-up in approximately 2 weeks for reevaluation. Surgical Findings: 1 Complications Complications: No Admit VTE Documentation VTE Present on Admission: No VTE Mechan Device Prophylaxis: None VTE Pharm Prophylaxis ordered?: No
[2025-06-10 12:46] VITALS: BP 125/63; BP 133/80; PULSE 65; RESP 18; TEMP 36.4; O2SAT 98
== END 2025-06-10 12:51 | disposition home or self-care (01) ==
LOC: SDC 11:23 → AC 11:30
PROVIDERS: PCP Internal Medicine Geriatric Medicine; Referring Provider Anesthesiology Pain Medicine; Visit Provider Anesthesiology Pain Medicine
PROC: 3E0S3BZ Introduction of Anesthetic Agent into Epidural Space, Percutaneous Approach (ICD-10-PCS; CPT 62282; principal; 2025-06-10 12:45)
DX: M51.17 Intervertebral disc disorders with radiculopathy, lumbosacral region (principal); M48.07 Spinal stenosis, lumbosacral region
CPT/HCPCS: 62323; 64483; 77003

== ENCOUNTER 2025-09-09 06:19 | Day surgery (SDC) | payer MEDICARE, SELFPAY ==
--- OUTSIDE RECORDS SUMMARY | 2025-09-09 06:41 | XMS RPT_ITS | CCD ---
Author Organization [facility] Care Team Providers Care Applications Sales Consultant Name Role Phone Cole Negron MD Primary Care Provider [phone] Dr. Cole Espinal Primary Care Provider [phone] Dr. Cole Espinal Referring Provider [phone] Dr. Jimmy Castro Attending Provider [phone] Dr. Prasanth Zhou Attending Provider [phone] Cole Espinal Primary Care Provider Dr. Cole Espinal Referring Provider Dr. Jimmy Castro Attending Provider [phone] Dr. Prasanth Zhou Attending Provider [phone] Cole Negron MD Primary Care Provider UNKNOWN, PCP Primary Care Unavailable MD LANA JOHN Attending Unavaila ble Self, Referral Referring Unavailable MD LANA JOHN Attending Unavaila ble UNKNOWN, PCP Primary Care Unavailable Unknown, Referring Provider Unavailable Unav ailable Dr. Cole Espinal Primary Care Provider [phone] Dr. Cole Espinal Referring Provider Dr. Jimmy Castro Attending Provider [phone] Cole Negron MD Primary Care Provider [phone] Cole Negron MD Primary Care Provider Dr. Cole Espinal MD Primary Care Provider Dr. Ava Espinal MDa Referring Provider [phone] Dr. Jimmy Castro DO Attending Provider Abelardo SHARMA, Dr. Rader Attending Provider Portillo SHARMA, Dr. Jiménez Attending Provider Portillo SHARMA, Dr. Jiménez Referring Provider MARLAUREN, DEWEY Referring Unavailable JOSH, COLE Primary Care Unavailable TRACY, GAYAN Referring Unavailable JOSH, COLE Primary Care Unavailable HAMOUD, TAMOUH J Admitting Unavailable HAMOUD, TAMOUH J Attending Unavailable JOSH, COLE Primary Care Unavailable Kylie SHARMA, Dr. Chaconbha Primary Care Provider Abelardo SHARMA, Dr. Rader Attending Provider [phone] JOSH, COLE Referring Unavailable JOSH, COLE Primary Care Unavailable JOSH, COLE Primary Care Unavailable TRACY, GAYAN Referring Unavailable TRACY, GAYAN Attending Unavailable JOSH, COLE Primary Care Unavailable TRACY, GAYAN Attending Unavailable AbelardoPrasanth Attending Unavailable Khandewal, Cole Primary Care Unavailable Prasanth Zhou Attending Unavailable Khandewal, Cole Primary Care Unavailable Corie Gallardo Attending Unavailable Khandewal, Cole Primary Care Unavailable Sami Corie Referring Unavailable Corie Gallardo Attending Unavailable Khandewal, Cole Primary Care Unavailable Khandewal, Cole Primary Care Unavailable Tino Nath Attending Unavailable Tino Nath Referring Unavailable Tino Nath Attending Unavailable Tino Nath Referring Unavailable Khandewal, Cole Primary Care Unavailable Jimmy Castro Attending Unavailable Khandewal, Cole Primary Care Unavailable Khandewal, Cole Referring Unavailable Allergies Allergy Classification Reported Allergen(s) Allergy Type Date of Onset Reaction(s) Facility (20 sources) Naproxen; Translations: [NAPROXEN SODIUM] Drug Allergy 3 Other: See Comments [facility] (6 sources) Naproxen Drug Allergy 2 Laryngospasms [facility] (1 source) Naproxen Drug Allergy [facility] Repository Medications Current Medications Medication Drug Class(es) Dates Sig (Normalized) Sig (Original) amLODIPine 10 mg oral tablet (18 sources) Dihydropyridine Calcium Channel Denise take 1 tablet by mouth once daily amLODIPine (NORVASC) 10 mg tablet Take 10 mg by mouth once daily. Active Comment on above: Take 10 mg by mouth once daily. apixaban 5 mg oral tablet (20 sources) Factor Xa Inhibitor Start: 03-15-2019 take 1 tablet by mouth twice daily Apixaban 5 MG tablet Active 5 mg PO TWICE A DAY March 15, 2019 12:00am BLOOD THINNER Eliquis 5 MG Ora l Tablet Quantity: 0 Refills: 0 Ordered: 22-Apr-2023 DO Active Comment on above: Take by mouth twice daily. cholecalciferol 0.025 mg oral tablet (20 sources) Vitamin D Start: 03-15-20 take 2 tablets by mouth once daily Cholecalciferol (Vitamin D3) 1,000 UNIT tablet Active 2000 U PO DAILY March 15, 2019 12:00am SUPPLEMENT Start: 03-15-2019 take 2000 [IU[facility] daily Cholecalciferol (Vitamin D3) Active 2000 UNIT PO DAILY March 15, 2019 12:00am take 1 capsule [facility] daily Cholecalciferol, Vitamin D3, 1,000 unit cap Take 1,000 Units by mouth once daily. Active Cholecalciferol Powder Quantity: 0 Refills: 0 Ordered: 22-Apr-2023 DO Active Comment on above: Take 1,000 Units by mouth once daily. Fish Oil-Dha-Epa (4 sources) Start: 03-15-2019 Fish Oil-Dha-E pa Active 1 EACH PO AT BEDTIME March 14, 2019 11:00pm Start: 03-15-2019 Fish Oil-Dha-E pa Active 1 EACH PO AT BEDTIME March 15, 2019 12:00am Fish Oil-Dha-Epa 1 EACH capsule (2 sources) Start: 03-15-2019 take 1 capsule by mouth at bedtime Fish Oil-Dha-Epa 1 EACH capsule Active 1 NMA PO AT BEDTIME March 15, 2019 12:00am SUPPLEMENT gabapentin 100 mg oral capsule (18 sources) Anti-epileptic Agent take 1 capsule by mouth three times daily gabapentin (NEURONTIN) 100 mg capsule Take 100 mg by mouth three times daily. Active Comment on above: Take 100 mg by mouth three times daily. hydrALAZINE hydrochloride 50 mg oral tablet (10 sources) Arteriolar Vasodilator Start: 03-04-2025 take 1 tablet by mouth twice daily Hydralazine 50 mg tablet Active 50 mg PO TWICE A DAY March 04, 2025 12:00am Start: 01-17-2022 End: 03-04-2025 take 1 tablet by mouth twice daily Hydralazine 25 mg tablet Discontinued 25 mg PO TWICE A DAY January 17, 2022 1:00am March 04, 2025 8:07am hydrALAZINE HCl TABS Quantity: 0 Refills: 0 Ordered: 22-Apr-2023 DO Active lisinopril 30 mg oral tablet (20 sources) Angiotensin Converting Enzyme Inhibitor Start: 03-04-2025 take 1 tablet by mouth once daily Lisinopril 30 mg tablet Active 30 mg PO daily March 04, 2025 12:00am Start: 06-12-2021 take 1 tablet by ashwini th once daily lisinopril (ZESTRIL, PRINIVIL) 20 mg tablet Take 1 tablet by mouth once daily. 0 06/12/2021 Active Start: 03-15-2019 End: 03-04-2025 take 4 tablets by mouth once daily Lisinopril 5 MG tablet Discontinued 20 mg PO DAILY March 15, 2019 12:00am March 04, 2025 8:06am BP Start: 03-15-2019 take 20 mg by mouth once daily Lisinopril Active 20 MG PO DAILY March 15, 2019 12:00am Lisinopril TABS Quantity: 0 Refills: 0 Ordered: 22-Apr-2023 DO Active Comment on above: Take 1 tablet by ashwini th once daily. magnesium oxide 400 mg oral capsule (18 sources) magnesium oxide 400 mg magnesium cap Take by mouth. Active Comment on above: Take by mouth. metoprolol tartrate 100 mg oral tablet (20 sources) beta-Adrenergic Denise Start: 03-04-2025 take 1 tablet by mouth twice daily Metoprolol Tartrate 100 mg tablet Active 100 mg PO TWICE A DAY March 04, 2025 12:00am Start: 06-12-2021 take 1 tablet by ashwini th twice daily metoprolol tartrate, short acting, (LOPRESSOR) 50 mg tablet Take 1 tablet by mouth twice daily. 06/12/2021 Active Start: 03-15-2019 End: 03-04-2025 take 4 tablets by mouth twice daily Metoprolol Tartrate 25 MG tablet Discontinued 100 mg PO TWICE A DAY March 15, 2019 12:00am March 04, 2025 8:06am BP Start: 03-15-2019 take 100 mg by mouth twice daily Metoprolol Tartrate Active 100 MG PO TWICE A DAY March 15, 2019 12:00am Metoprolol Tartr ate TABS Quantity: 0 Refills: 0 Ordered: 22-Apr-2023 DO Active Comment on above: Take 1 tablet by aswhini th twice daily. Zwqwrtts-Xqt-Au-Lycopen -Lutein (4 sources) Start: 03-15-2019 Mxkmfjcp-Ycf-Ew-Lycope n-Lutein Active 1 EACH PO DAILY March 14, 2019 11:00pm Start: 03-15-2019 Jtihtiaq-Kff-F s-Tskurtq-Xrktbx Active 1 EACH PO DAILY March 15, 2019 12:00am Vozpwxjh-Fsh-Zw-Lycopen-Lute in 1 EACH tablet (2 sources) Start: 03-15-2019 Ahnjiobu-Dbh-Ur-Lycopen-Lute in 1 EACH tablet Active 1 NMA PO DAILY March 15, 2019 12:00am SUPPLEMENT OMEGA-3 FATTY ACIDS/FISH OIL (OMEGA 3 FISH OIL ORAL) (18 sources) OMEGA-3 FATTY AC IDS/FISH OIL (OMEGA 3 FISH OIL ORAL) Take by mouth once daily. Active OMEGA-3 FATTY AC IDS/FISH OIL (OMEGA 3 FISH OIL ORAL) Take by mouth once daily. 0 Active Comment on above: Take by mouth once d aily. omeprazole 20 mg delayed release oral capsule (20 sources) Proton Pump Inhibitor Start: 12-08-2009 take 1 capsule by mouth at bedtime Omeprazole 20 MG capsule,delayed release(DR/EC) Active 20 mg PO AT BEDTIME March 15, 2019 12:00am GERD Comment on above: Take one(1) capsule daily. psyllium husk (METAMUCIL ORAL) (18 sources) psyllium husk (METAMUCIL ORAL) Take by mouth. Active psyllium husk (M ETAMUCIL ORAL) Take by mouth. 0 Active Comment on above: Take by mouth. rosuvastatin calcium 10 mg oral tablet (20 sources) HMG-CoA Reductase Inhibitor Start: 2 take 1 tablet by mouth once daily Rosuvastatin 10 mg tablet Active 10 mg PO DAILY January 17, 2022 1:00am Rosuvastatin Marquise cium TABS Quantity: 0 Refills: 0 Ordered: 22-Apr-2023 DO Active Comment on above: Take 10 mg by mouth once daily. tamsulosin hydrochloride 0.4 mg oral capsule (20 sources) alpha-Adrenergic Denise take 0.4 mg by mouth once daily tamsulosin (FLOMAX) 0.4 mg Take 0.4 mg by mouth once daily. Active Tamsulosin HCl C APS Quantity: 0 Refills: 0 Ordered: 22-Apr-2023 DO Active Comment on above: Take 0.4 mg by mouth once daily. traMADol hydrochloride 50 mg oral tablet (20 sources) Opioid Agonist Start: 09-12-2019 take 1 tablet by mouth every six hours as needed for pain Tramadol 50 mg tablet Active 50 mg PO EVERY 6 HOURS NEEDED as needed for Pain 120 0 September 12, 2019 12:00am traMADol HCl TAB S Quantity: 0 Refills: 0 Ordered: 22-Apr-2023 DO Active Comment on above: Take 50 mg by mouth every 6 hours as needed for pain. traZODone hydrochloride 100 mg oral tablet (20 sources) Serotonin Reuptake Inhibitor Start: 0 take 1 tablet by mouth at bedtime Trazodone 100 MG tablet Active 100 mg PO AT BEDTIME March 15, 2019 12:00am SLEEP traZODone HCl TA BS Quantity: 0 Refills: 0 Ordered: 22-Apr-2023 DO Active Comment on above: Take one(1) tablet d aily at bedtime. Completed/Discontinued Medications Medication Drug Class(es) Dates Sig (Normalized) Sig (Original) Centrum TABS (2 sources) Centrum TABS Quantity: 0 Refills: 0 Ordered: 22-Apr-2023 DO Active cephalexin 500 mg oral capsule (6 sources) Cephalosporin Antibacterial Start: 01-17-2022 End: 06-09-2022 take 1 capsule by mouth every twelve hours Cephalexin 500 mg capsule Discontinued 500 mg PO EVERY 12 HOURS 14 0 January 17, 2022 1:00am June 09, 2022 8:31am D-3-5 CAPS (2 sources) D-3-5 CAPS Quantity: 0 Refills: 0 Ordered: 22-Apr-2023 DO Active fexofenadine (2 sources) Histamine-1 Receptor Antagonist Fexofenadine HCl TABS Quantity: 0 Refills: 0 Ordered: 22-Apr-2023 DO Active Omeprazole POWD (2 sources) Omeprazole POWD Quantity: 0 Refills: 0 Ordered: 22-Apr-2023 DO Active Problems Active Problems Problem Classification Problem Date Documented Da te Episodic/Chronic Abdominal pain (10 sources) Abdominal pain; Translations: [Unspecified abdominal pain] 10-31-2023 Episodic Acute and unspecified renal failure (6 sources) Injury of kidney; Translations: [Acute kidney failure, unspecified] 01-25-2022 Episodic Aortic; peripheral; and visceral artery aneurysms (20 sources) Abdominal aortic aneurysm; Translations: [Abdominal aortic aneurysm, without rupture] Onset: 1 06-12-2021 Chronic Cardiac dysrhythmias (20 sources) Sick sinus syndrome; Translations: [Sick sinus syndrome] Onset: 4 05-10-2014 Chronic Chronic kidney disease (20 sources) Chronic kidney disease stage 3; Translations: [Chronic kidney disease, stage 3, mod decreased GFR] Onset: 5 06-12-2021 Chronic Complications of surgical procedures or medical care (2 sources) Drug therapy finding; Translations: [Unspecified adverse effect of drug or medicament, initial encounter] 09-04-2024 Episodic Conditions associated with dizziness or vertigo (20 sources) Vertigo; Translations: [Dizziness and giddiness] Onset: 3 09-04-2024 Episodic Conduction disorders (20 sources) Cardiac pacemaker in situ; Translations: [Presence of cardiac pacemaker] Onset: 4 06-09-2022 Chronic Disorders of lipid metabolism (18 sources) Hyperlipidemia; Translations: [Hyperlipidemia, unspecified] Onset: 4 06-08-2021 Chronic Essential hypertension (19 sources) Hypertensive disorder; Translations: [Essential (primary) hypertension] Onset: 4 06-08-2021 Chronic Fluid and electrolyte disorders (6 sources) Dehydration; Translations: [Dehydration] 01-25-2022 Episodic Genitourinary symptoms and ill-defined conditions (3 sources) Pyuria; Translations: [Pyuria] 11-08-2023 Episodic Heart valve disorders (2 sources) Aortic incompetence, non-rheumatic ; Translations: [Nonrheumatic aortic (valve) insufficiency] 07-19-2025 Chronic Osteoarthritis (20 sources) Osteoarthritis of knee; Translations: [Unilateral primary osteoarthritis, unspecified knee] Onset: 4 05-10-2014 Chronic Other and ill-defined heart disease (1 source) Left ventricular hypertrophy; Translations: [Cardiomegaly] 07-19-2025 Chronic Other circulatory disease (2 sources) H/O: hypertension; Translations: [Personal history of other diseases of circulatory system] Episodic Other connective tissue disease (1 source) Presence of artificial knee joint, bilateral; Translations: [Presence of artificial knee joint, bilateral] Onset: 3 Chronic Other connective tissue disease (5 sources) Subacromial impingement; Translations: [Impingement syndrome of right shoulder] 08-30-2022 Episodic Other connective tissue disease (2 sources) Impingement syndrome of right shoulder; Translations: [Other specified disorders of bursae and tendons in shoulder region] Episodic Other connective tissue disease (2 sources) H/O: arthritis; Translations: [Personal history of arthritis] Episodic Other gastrointestinal disorders (6 sources) Abdominal bloating; Translations: [Abdominal distension (gaseous)] 01-25-2022 Episodic Other gastrointestinal disorders (4 sources) H/O: gastrointestinal disease; Translations: [Personal history of other diseases of the digestive system] 10-31-2023 Episodic Other non-traumatic joint disorders (6 sources) Pain in right knee; Translations: [Bilateral knee pain] Onset: 3 Episodic Other non-traumatic joint disorders (4 sources) Pain in left knee; Translations: [Pain in left knee] Onset: 3 Episodic Other nutritional; endocrine; and metabolic disorders (18 sources) Obese class I; Translations: [Obesity, unspecified] Onset: 1 06-12-2021 Chronic Pulmonary heart disease (4 sources) Chronic pulmonary embolism; Translations: [Chronic pulmonary embolism] Chronic Residual codes; unclassified (1 source) Family history of aneurysm of abdominal aorta; Translations: [Family history of ischemic heart disease and other diseases of the circulatory system] 06-14-2025 Episodic Residual codes; unclassified (1 source) Family history of ischemic heart disease and other diseases of the circulatory system; Translations: [Family history of abdominal aortic aneurysm] Onset: 5 Episodic Spondylosis; intervertebral disc disorders; other back problems (4 sources) Other cervical disc degeneration, unspecified cervical region; Translations: [Degeneration of cervical intervertebral disc] Chronic Spondylosis; intervertebral disc disorders; other back problems (1 source) Intervertebral disc disorders with radiculopathy, lumbosacral region; Translations: [Intervertebral disc disorders with radiculopathy, lumbosacral region] Onset: 5 Episodic Unclassified (2 sources) Infrarenal abdominal aortic 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; Translations: [Infrarenal abdominal aortic 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] Onset: 1 Urinary tract infections (6 sources) Acute urinary tract infection; Translations: [Urinary tract infection, site not specified] 01-25-2022 Episodic Past or Other Problems Problem Classification Problem Date Documented Da te Episodic/Chronic Complication of device; implant or graft (20 sources) Disorder of prosthetic joint; Translations: [Dislocation of other internal joint prosthesis, initial encounter] Onset: 12-28-2019 12-28-2019 Episodic Intestinal obstruction without hernia (20 sources) Intestinal obstruction co-occurrent and due to decreased peristalsis; Translations: [Ileus, unspecified] Onset: 07-11-2012 06-08-2021 Episodic Other aftercare (18 sources) Long-term current use of anticoagulant; Translations: [assisted (current) use of anticoagulants] Onset: 06-22-2013 06-08-2021 Episodic Other nervous system disorders (18 sources) Ataxia; Translations: [Ataxia, unspecified] Onset: 04-05-2013 Episodic Other non-traumatic joint disorders (1 source) Pain in right hip; Translations: [Pain in right hip] Onset: 03-04-2025 Episodic Pulmonary heart disease (20 sources) Pulmonary embolism; Translations: [Other pulmonary embolism without acute cor pulmonale] Onset: 10-29-2011 06-12-2021 Episodic Results Test Name Value Interpretation Reference Range Facility US KIDNEY/BLADDERon 08-26-20 25 US KIDNEY/BLADDER * * *Final Report* * * DATE OF EXAM: Aug 26 2025 11:07AM [id number] - US KIDNEY/BLADDER / PROCEDURE REASON: N18.4 * * * * Physician Interpretation * * * * EXAMINATION: RENAL ULTRASOUND CLINICAL HISTORY: Chronic kidney disease TECHNIQUE: Sonography of the kidneys and urinary bladder was performed. Images were obtained and stored in a permanent archive. MQ: UR_1 COMPARISON: 06/21/2025 RESULT: Right Kidney: -Renal length: 13.5 cm -Parenchyma: Normal parenchymal echogenicity. Normal parenchymal thickness. -Collecting system: No hydronephrosis. -Calculus: No echogenic, shadowing calculus. -Lesion: Numerous cysts, largest for example in the interpolar region measuring up to 6.1 cm, lower pole measuring up to 6.1 cm Left Kidney: -Renal length: 14.7 cm -Parenchyma: Normal parenchymal echogenicity. Normal parenchymal thickness. -Collecting system: No hydronephrosis. -Calculus: No echogenic, shadowing calculus. -Lesion: Numerous cysts, largest for example at the lower pole measuring up to 9.6 cm, mid to lower pole measuring 4.7 cm Bladder: Decompressed not well seen IMPRESSION: Bilateral renal cysts. No hydronephrosis Mechanical Design Engineer Facilities: [facility] Transcribe Date/Time: Aug 28 2025 2:08P Dictated by : MARGO ARMENTA MD This examination was interpreted and the report reviewed and electronically signed by: MARGO ARMENTA MD on Aug 28 2025 2:09PM EST [id number] Normal [facility] Knee 3 Viewson 07-30-2025 Knee 3 Views [facility] Imaging Services [address] [place] [address] [id number] Knee 3 Views MR#: [id number] Acct: [id number] Name: FERNY EMMANUEL Rep #: [id number] : 1940 M 85 From: Jose saba MD PCP: Dr. Cole Espinal MD Status: DEP AMB Study: Knee 3 Views Date of Exam: 07/30/25 Exam# [id number] Ordering Dr: Tino Nath MD PROCEDURE: KNEE 3 VIEWS 07/30/2025 REASON FOR EXAM: ON GOING PAIN TECHNIQUE: Procedure Code: RADPAT Modality: DX Procedure: KNEE 3 VIEWS Laterality: Left knee COMPARISON: Prior study dated September 12, 2019. FINDINGS: Bones: No fracture. Joints: Status post total knee replacement. There is good alignment. Effusion: No significant effusion Soft tissues: Vascular calcification. Other: RAD/Knee 3 Views IMPRESSION: Status post total knee replacement. Stable examination. Reading Location: [id number] CC: Dr. Tino Nath MD; Dr. Cole Espinal MD Mechanical Design Engineer Facilities: Signed [facility] Knee 3 Views [facility] Imaging Services [address] [place] [id number] Knee 3 Views MR#: [id number] Acct: [id number] Name: CHOLOFERNY D Rep #: [id number] : 1940 M 85 From: Dimitri Ricks MD PCP: Dr. Cole Espinal MD Status: DEP AMB Study: Knee 3 Views Date of Exam: 07/30/25 Exam# [id number] Ordering Dr: Tino Nath MD PROCEDURE: KNEE 3 VIEWS 07/30/2025 REASON FOR EXAM: ON GOING PAIN TECHNIQUE: Procedure Code: RADPAT Modality: DX Procedure: KNEE 3 VIEWS Laterality: FINDINGS: Status post left knee arthroplasty. Small knee joint effusion. No evidence of acute hardware complication. RAD/Knee 3 Views IMPRESSION: Joint effusion. Intact arthroplasty. Reading Location: [address] CC: Dr. Tino Nath MD; Dr. Cole Espinal MD Mechanical Design Engineer Facilities: Signed [facility] CNOVon 06-28-2025 CNOV Office Visit ([facility] ) FERNY EMMANUEL ([id number]) 1940 M Date Time Provider Department 06/28/25 8:30 AM HUAN MCKEON [facility] During your visit today, we recorded the following information about you: Huan Mckeon MD 06/28/2025 8:48 AM Signed [facility] OF [facility]ASCULAR SURGERY OUTPATIENT VISIT TYPE ESTABLISHED INTERVAL HISTORY Ferny Emmanuel is a 85 year old male with hx of AAA. They were last seen on 06/14/2025. At the time, the recommendations were non con (CKD) CTAP to obtain precise measurements and assess anatomy. Since then, the patient reports no new symptoms. Prior Imaging CTAP w/o IV con 06/21/25: moderate aortoiliac atherosclerotic changes again seen; fusiform infrarenal aortic aneurysm again noted extending to the level of the bifurcation. It measures a maximum of 4.7 x 4.7 cm in axial dimensions (), as compared to 4.1 x 4.6 cm on the prior study. Tobacco Use: for 25 years. Quit 04/05/1985. 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 PAST SURGICAL HISTORY OF Cataract Extraction PAST SURGICAL HISTORY OF 2005 Left Knee Replacement FAMILY HISTORY Problem Relation Age of Onset Stroke Mother Heart Father Aortic Aneurysm Social History Tobacco Use Smoking status: Former Current packs/day: 0.00 Types: Cigarettes Start date: 04/05/1960 Quit date: 04/05/1985 Years since quittin.2 Smokeless tobacco: Never Vaping Use Vaping status: Never Used Substance Use Topics Alcohol use: Yes Comment: occasional, maybe a 12 pack over a 2 week period Drug use: No Current Outpatient Medications Medication Sig Dispense Refill metoprolol tartrate, short acting, (LOPRESSOR) 50 mg tablet Take 1 tablet by mouth twice daily. lisinopril (ZESTRIL, PRINIVIL) 20 mg tablet Take 1 tablet by mouth once daily. 0 tamsulosin (FLOMAX) 0.4 mg Take 0.4 mg by mouth once daily. rosuvastatin (CRESTOR) 10 mg tablet Take 10 mg by mouth once daily. traMADol (ULTRAM) 50 mg tablet Take 50 mg by mouth every 6 hours as needed for pain. gabapentin (NEURONTIN) 100 mg capsule Take 100 mg by mouth three times daily. magnesium oxide 400 mg magnesium cap Take by mouth. psyllium husk (METAMUCIL ORAL) Take by mouth. apixaban (ELIQUIS) 5 mg tab(s) Take by mouth twice daily. amLODIPine (NORVASC) 10 mg tablet Take 10 mg by mouth once daily. Cholecalciferol, Vitamin D3, 1,000 unit cap Take 1,000 Units by mouth once daily. OMEGA-3 FATTY ACIDS/FISH OIL (OMEGA 3 FISH OIL ORAL) Take by mouth once daily. omeprazole(PRILOSEC 20 MG CAP) Take one(1) capsule daily. 0 TRAZODONE 100 MG TAB Take one(1) tablet daily at bedtime. 0 No current facility-administered medications for this visit. ALLERGIES Allergen Reactions Aleve [Naproxen Sod* Other: See Comments Muscle spasms-THROAT PHYSICAL EXAM Vitals: There were no vitals taken for this visit. General: Well developed, no acute distress Skin: No lesions; normal color, turgor HEENT: Normocephalic, atraumatic, extraocular movements intact. Pulmonary: Equal chest rise bilaterally, normal effort LABS Creatinine Date Value Ref Range Status 09/25/2024 2.43 (H) 0.73 - 1.22 mg/dL Final 06/18/2021 1.90 (H) 0.73 - 1.22 mg/dL Final 06/12/2021 1.75 (H) 0.73 - 1.22 mg/dL Final 06/11/2021 1.98 (H) 0.73 - 1.22 mg/dL Final Cholesterol, Total Date Value Ref Range Status 06/21/2019 186 <200 mg/dL Final Comment: <200 mg/dL, Desirable 200-239 mg/dL, Borderline high >239 mg/dL, High HDL Cholesterol Date Value Ref Range Status 06/21/2019 29 (L) >39 mg/dL Final Comment: 40-59 mg/dL, Acceptable >59 mg/dL, High: Negative risk factor for coronary heart disease <40 mg/dL, Low: Positive risk factor for coronary heart disease LDL Cholesterol, Calculated Date Value Ref Range Status 06/21/2019 110 (H) <100 mg/dL Final Comment: <100 mg/dL, Optimal 100-129 mg/dL, Near optimal/above optimal 130-159 mg/dL, Borderline high 160-189 mg/dL, High >189 mg/dL, Very high Secondary prevention optimal LDL Cholesterol levels are recommended to be < 70 mg/dL Triglyceride Date Value Ref Range Status 06/21/2019 236 (H) <150 mg/dL Final Comment: <150 mg/dL, Normal 150-199 mg/dL, Borderline high 200-499 mg/dL, High >499 mg/dL, Very high Glucose Da (more content not included)... Normal [facility] CT ABD/PEL WO IVCONon 2024 CT ABD/PEL WO IVCON * * *Final Report* * * DATE OF EXAM: Jun 21 2025 8:05AM FVC 0531 - CT ABD/PEL WO IVCON / PROCEDURE REASON: Infrarenal abdominal aortic 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 * * * * Physician Interpretation * * * * EXAMINATION: CT ABDOMEN AND PELVIS WITHOUT IV CONTRAST CLINICAL HISTORY: Infrarenal abdominal aortic 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 TECHNIQUE: Non-IV contrast imaging of the abdomen and pelvis was performed using standard technique, scanning from just above the dome of the diaphragm to the symphysis pubis. Unenhanced imaging is limited for the evaluation of some intra-abdominal and pelvic pathology. MQ: [id number]_3 Contrast: IV: None CT Radiation dose: Integrated Dose-length product (DLP) for this visit = 987 mGy*cm. CT Dose Reduction Employed: Automated exposure control (AEC) COMPARISON: CT dated 06/08/2021. RESULT: Abdomen / Pelvis: Liver: No focal mass. Biliary: Uncomplicated cholelithiasis. There is no biliary dilatation. Spleen: No splenomegaly. Pancreas: No focal mass or ductal dilatation. Moderate to severe parenchymal atrophy. Adrenals: No mass. Kidneys: Multiple likely Bosniak type I and type II renal cysts again seen; these are suboptimally evaluated in the absence of IV contrast. No calculi or hydronephrosis. GI Tract: No bowel dilation. Colonic diverticula. Lymph Nodes: No lymphadenopathy. Mesentery/peritoneum: No ascites. Retroperitoneum: No mass. Vasculature: Moderate aortoiliac atherosclerotic changes again seen; fusiform infrarenal aortic aneurysm again noted extending to the level of the bifurcation. It measures a maximum of 4.7 x 4.7 cm in axial dimensions (), as compared to 4.1 x 4.6 cm on the prior study. Pelvis: No mass or ascites. The urinary bladder is underdistended. Unremarkable prostate and seminal vesicles. Bones/Soft Tissues: Multilevel vertebral degenerative changes. No acute findings. Lower thorax: Bibasal atelectatic changes. Pacemaker lead tips noted. Coronary calcification. Localizer images: No additional findings. IMPRESSION: 1. Mild interval increase in dimensions of the infrarenal abdominal aortic aneurysm, as described. 2. Incidental findings, as above. Mechanical Design Engineer Facilities: MIKHAIL Transcribe Date/Time: Jun 25 2025 10:23A Dictated by : ANTONY DIAZ MD This examination was interpreted and the report reviewed and electronically signed by: ANTONY DIAZ MD on Jun 25 2025 10:42AM EST [id number] [facility] CNOVon 06-14-2025 CNOV Office Visit ([facility] ) FERNY EMMANUEL ([id number]) 1940 M Date Time Provider Department 06/14/25 9:00 AM HUAN MCKEON [facility] During your visit today, we recorded the following information about you: Huan Mckeon MD 06/14/2025 9:00 AM Signed [facility] DEPARTMENT OF VASCULAR SURGERY OUTPATIENT VISIT TYPE CONSULTATION PRIMARY CARE PHYSICIAN: Cole Negron MD REFERRING PROVIDER: Dr. Denis CHIEF COMPLAINT AAA HISTORY OF PRESENT ILLNESS: The patient is an 84-year-old male with a history of AAA and CKD, presenting for follow-up. The patient has a family history of AAA; his father had a ruptured AAA and did not survive the surgery in his 70s. A recent abdominal ultrasound revealed an AAA measuring between 4.5 and 5.2 cm. 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 He is motivated to live longer and is open to necessary medical interventions. 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 Tobacco Use: for 25 years. Quit 04/05/1985. 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 PAST SURGICAL HISTORY OF Cataract Extraction PAST SURGICAL HISTORY OF 2005 Left Knee Replacement FAMILY HISTORY Problem Relation Age of Onset Stroke Mother Heart Father Aortic Aneurysm Social History Tobacco Use Smoking status: Former Current packs/day: 0.00 Types: Cigarettes Start date: 04/05/1960 Quit date: 04/05/1985 Years since quittin.2 Smokeless tobacco: Never Vaping Use Vaping status: Never Used Substance Use Topics Alcohol use: Yes Comment: occasional, maybe a 12 pack over a 2 week period Drug use: No Current Outpatient Medications Medication Sig Dispense Refill metoprolol tartrate, short acting, (LOPRESSOR) 50 mg tablet Take 1 tablet by mouth twice daily. lisinopril (ZESTRIL, PRINIVIL) 20 mg tablet Take 1 tablet by mouth once daily. 0 tamsulosin (FLOMAX) 0.4 mg Take 0.4 mg by mouth once daily. rosuvastatin (CRESTOR) 10 mg tablet Take 10 mg by mouth once daily. traMADol (ULTRAM) 50 mg tablet Take 50 mg by mouth every 6 hours as needed for pain. gabapentin (NEURONTIN) 100 mg capsule Take 100 mg by mouth three times daily. magnesium oxide 400 mg magnesium cap Take by mouth. psyllium husk (METAMUCIL ORAL) Take by mouth. apixaban (ELIQUIS) 5 mg tab(s) Take by mouth twice daily. amLODIPine (NORVASC) 10 mg tablet Take 10 mg by mouth once daily. Cholecalciferol, Vitamin D3, 1,000 unit cap Take 1,000 Units by mouth once daily. OMEGA-3 FATTY ACIDS/FISH OIL (OMEGA 3 FISH OIL ORAL) Take by mouth once daily. omeprazole(PRILOSEC 20 MG CAP) Take one(1) capsule daily. 0 TRAZODONE 100 MG TAB Take one(1) tablet daily at bedtime. 0 No current facility-administered medications for this visit. ALLERGIES Allergen Reactions Aleve [Naproxen Sod* Other: See Comments Muscle spasms-THROAT REVIEW OF SYSTEMS Negative unless specified in the HPI PHYSICAL EXAM Vitals: There were no vitals taken for this visit. General: Well developed, no acute distress Skin: No lesions; normal color, turgor HEENT: Normocephalic, atraumatic, extraocular movements intact. Pulmonary: Equal chest rise bilaterally, normal effort Abdomen: Soft, non-tender, non-distended. LABS Creatinine Date Value Ref Range Status 09/25/2024 2.43 (H) 0.73 - 1.22 mg/dL Final 06/18/2021 1.90 (H) 0.73 - 1.22 mg/dL Final 06/12/2021 1.75 (H) 0.73 - 1.22 mg/dL Final 06/11/2021 1.98 (H) 0.73 - 1.22 mg/dL Final Cholesterol, Total Date Value Ref Range Status 06/21/2019 186 <200 mg/dL Final Comment: <200 mg/dL, Desirable 200-239 mg/dL, Borderline high >239 mg/dL, High HDL Cholesterol Date Value Ref Range Status 06/21/2019 29 (L) >39 mg/dL Final Comment: 40-59 mg/dL, Acceptable >59 mg/dL, High: Negative risk factor for coronary heart disease <40 mg/dL, Low: Positive risk factor for coronary heart disease LDL Cholesterol, Calculated Date Value Ref Range Status 06/21/2019 110 (H) <100 mg/dL Final Comment: <100 mg/dL, Optimal 100-129 mg/dL, Near optimal/above optimal 130-159 mg/dL, Borderline high 160-189 mg/dL, High >189 mg/dL (more content not included)... Normal [facility] Fluor Guidance for Spine Inj on 06-10-2025 Fluor Guidance for Spine Inj [facility] Imaging Services [address] [place] [address] Fluor Guidance for Spine Inj MR#: [id number] Acct: [id number] Name: FERNY EMMANUEL Rep #: [id number] : 1940 M 84 From: Alfred Keita DO PCP: Dr. Cole Espinal MD Status: [facility] Study: Fluor Guidance for Spine Inj Date of Exam: Exam# [id number] Ordering Dr: Tino Nath MD PROCEDURE: FLUOR GUIDANCE FOR SPINE INJ 06/10/2025 REASON FOR EXAM: BLOCK, CAUDAL TECHNIQUE: FLUOR GUIDANCE FOR SPINE INJ. Fluoroscopic time: 8.7 seconds. Radiation dose: 3.48 mGy COMPARISON: None FINDINGS: Single fluoroscopic spot image shows needle approaching the sacrum for caudal block Other findings: Other: RAD/Fluor Guidance for Spine Inj IMPRESSION: Fluoroscopy provided for caudal block. For complete details of the procedure, see the operative report. Reading [facility] CC: Dr. Tino Nath MD; Dr. Cole Espinal MD Mechanical Design Engineer Facilities: Signed Normal [facility] Operative Reporton Operative Report [facility] Medical Records Department [address] [place] [address] Operative Report 06/10/25 1235 MR#: [id number] Acct: [id number] Name: FERNY EMMANUEL Rep #: [id number] : 1940 84 From: Tino Nath MD PCP: Dr. Cole Espinal MD Status:[facility] Location: [facility]19-1 Operative Report (Standard) Operative Information Date of Procedure: 06/10/25 Pre-Operative Diagnosis: 1 Post-Operative Diagnosis: 1 Surgery/Procedure Performed: 1 monument setter helper: No Type of Anesthesia: Local RN Documented Start/Stop Times: Operation Date: 06/10/25 12:50 Case Time Into Pre-Op 06/10/25 11:27 Anesthesia Start 06/10/25 12:27 Into Room 06/10/25 12:27 Procedure Start 06/10/25 12:31 Procedure End 06/10/25 12:34 Procedure Start Time: 12:35 Procedure Stop Time: 12:35 Select all DRAINS/GRAFTS/IMPLANTS that apply: None Estimated Blood Loss: 1 Specimen collected: No Description of surgery: PREOPERATIVE DIAGNOSIS: Lumbosacral radiculopathy, lumbosacral degenerative disc disease, lumbosacral spinal stenosis POSTOPERATIVE DIAGNOSIS: Lumbosacral radiculopathy, lumbosacral degenerative disc disease, lumbosacral spinal stenosis PROCEDURE PERFORMED: Diagnostic/therapeutic caudal epidural steroid injection under fluoroscopic guidance. ANESTHESIA: Local BLOOD LOSS: Minimal. COMPLICATIONS: None. DESCRIPTION OF PROCEDURE: History and physical of today was reviewed. Risks and benefits of the procedure were explained. The patient understood and agreed to proceed. Informed consent was obtained. IV inserted per routine protocol. The patient was taken to the operating room and placed in the prone position with a pillow positioned underneath the abdomen. The lower back and tailbone area was prepped and draped in a sterile fashion using iodine x3. Under fluoroscopy guidance on a lateral view, the caudal space was identified. The skin and subcutaneous tissue was anesthetized with approximately 3 mL of 1% lidocaine using a 25-gauge regular needle. Under direct visualization with fluoroscopy, using a 22-gauge 3-1/2-inch spinal needle, the needle was advanced via the skin through the sacral hiatus. The tip of the needle was passed through the sacrococcygeal ligament and advanced to approximately S4 area. After negative aspiration of blood or CSF, a total of 3 mL of contrast was injected to confirm correct placement of the needle as well as cephalad spread. The spread was followed to approximately L5 area. After confirmation on AP as well as lateral view and repeated negative aspiration, a total of 15 mL of preservative-free 0.125% Marcaine with 80 mg of Depo-Medrol was injected easily. The needle was then removed intact. The patient experienced no sign or symptoms of intrathecal or intravascular injection. The patient experienced no paresthesia. The procedure was completed without any apparent difficulty or any complications. The patient appeared to tolerate it well. ASSESSMENT AND PLAN: This is an 84-year-old male with lumbosacral radiculopathy, lumbosacral degenerative disc disease, lumbosacral spinal stenosis, status post diagnostic/therapeutic caudal epidural steroid injection under fluoroscopic guidance, patient will continue his current medications, patient will follow-up in approximately 2 weeks for reevaluation. Surgical Findings: 1 Complications Complications: No Admit VTE Documentation VTE Present on Admission: No VTE Mechan Device Prophylaxis: None VTE Pharm Prophylaxis ordered?: No 06/10/25 1237 Cosigner Signature (if applicable): CC: Dr. Tino Nath MD; Dr. Cole Espinal MD Signed [facility] US ABD AORTA COMPLETE VAS LA Bon 05-22-2025 ABD AORTA COMPLETE VAS LAB Non-Invasive Vascular Laboratory [facility] Abdominal Aorta Bilateral/Complete Date of service/time: 05/22/2025 9:43:21 AM Name: FERNY EMMANUEL Date of : 1940 Age: 84 years Gender: M Clinical Indication Abdominal aortic aneurysm. TECHNIQUE -------- An aortic duplex ultrasound examination was performed, including grayscale imaging and color Doppler and spectral Doppler examination of abdominal aorta as well as the below mentioned arteries. FINDINGS -------- AORTA Proximal: PSV: 81 cm/s. EDV: 20 cm/s. 2.46 cm At renal: PSV: 64 cm/s. EDV: 3 cm/s. Mid: PSV: 67 cm/s. 4.31 cm x 4.63 cm Distal: PSV: 52 cm/s. 4.52 cm x 5.22 cm IMPRESSION Technically difficult exam due to patient's body habitus. AORTA Abdominal aortic aneurysm measuring 4.52 cm X 5.22 cm at distal. Technologist: Georgie Segal S Ordering physician: DEWEY DENIS Interpreting physician: Huan Mckeon MD, KENNETH Final CC [facility] Image : [id number] See Link below for Image Normal [facility] HIP, UNI W/ Pelvis 2-3 Views on 03-04-2025 HIP, UNI W/ Pelvis 2-3 Views [facility] Imaging Services [address] [place], [place] [id number] HIP, UNI W/ Pelvis 2-3 Views MR#: [id number] Acct: [id number] Name: FERNY EMMANUEL Rep #: [id number] : 1940 M 84 From: Garrett Jones MD PCP: Dr. Cole Espinal MD Status: DEP AMB Study: HIP, UNI W/ Pelvis 2-3 Views Date of Exam: Exam# [id number] Ordering Dr: Jimmy Castro DO PROCEDURE: HIP, UNI W/ PELVIS 2-3 VIEWS 03/04/2025 REASON FOR EXAM: CHRONIC PAIN TECHNIQUE: An AP view of the pelvis and AP/lateral views of the RIGHT hip were obtained. COMPARISON: None. FINDINGS: Fine bony detail limited by soft tissue attenuation. Fracture/dislocation: None visible. Joint space(s): Moderate loss of joint space in the hips.. Soft tissues: Presumed pelvic phleboliths. Foreign bodies: None visible. Bone mineralization: Suspect demineralization. Other: Lumbar spondylosis incompletely evaluated. Atherosclerosis. Fine bony RAD/HIP, UNI W/ Pelvis 2-3 Views IMPRESSION: 1. Suspected demineralization without visible acute displaced fracture. If concern persists or if the patient is unable to bear weight, recommend CT/MRI. 2. Degenerative findings and additional description as above. Reading Location: [id number] CC: Dr. Jimmy Castro DO; Dr. Cole Espinal MD Mechanical Design Engineer Facilities: Signed [facility] Lumbar Spine 2 or 3 Viewson 03-04-2025 Lumbar Spine 2 or 3 Views [facility] Imaging Services [address] [place], [place] [id number] Lumbar Spine 2 or 3 Views MR#: [id number] Acct: [id number] Name: FERNY EMMANUEL Rep #: [id number] : 1940 M 84 From: Kassi gates MD PCP: Dr. Cole Espinal MD Status: DEP AMB Study: Lumbar Spine 2 or 3 Views Date of Exam: Exam# [id number] Ordering Dr: Jimmy Castro DO PROCEDURE: LUMBAR SPINE 2 OR 3 VIEWS 03/04/2025 REASON FOR EXAM: CHRONIC RIGHT HIP PAIN TECHNIQUE: 2 view(s) of the lumbar spine COMPARISON: None. FINDINGS: Straightening of the lumbar lordosis, probably muscular spasm and pain. Moderate diffuse spondylosis. Moderate multilevel facet joint arthropathy. Mild degenerative levoscoliosis apex at L3. No fracture or dislocation is seen. No lytic or blastic aggressive bone lesion is identified. Mild amount of fecal residue in the large bowels. RAD/Lumbar Spine 2 or 3 Views IMPRESSION: Spondylosis. Straightening of the lumbar lordosis. Reading Location: [place] [address] CC: Dr. Jimmy Castro DO; Dr. Cole Espinal MD Mechanical Design Engineer Facilities: Signed [facility] Orthopedic Visit Reporton Orthopedic Visit Report [facility] [address] [place] [address] OFFICE VISIT Date of Service: 03/04/25 MR#: [id number] Acct: [id number] Name: FERNY EMMANUEL Rep #: [id number] : 1940 Provider: Dr. Jimmy woods DO Age/Sex: 84/M Location: [facility] [place] Status: Signed Intake Vital Signs 08/27/24 19:16 02/26/25 09:27 03/04/25 08:04 Height 6 ft 3 in 6 ft 3 in 6 ft 3 in Weight: 277 lb 4 oz BMI 34.6 Intake Visit Reasons: RIGHT HIP Chief Complaint: Right Hip Pain Accompanied by: Self Is patient in pain?: Yes Pain scale (1-10): 7 Allergies naproxen (From Aleve) Allergy (Verified 03/04/25 08:04) Laryngospasms Medications ???Medication ???Instructions ???Recorded ???Confirmed ???Type apixaban 5 mg tablet 5 mg PO BID BLOOD THINNER 03/15/19 03/04/25 History cholecalciferol (vitamin D3) 25 2,000 unit PO DAILY SUPPLEMENT 03/04/25 History mcg (1,000 unit) tablet fish oil-dha-epa 1,200 mg-144 1 ea PO QHS SUPPLEMENT 03/15/19 History mg-216 mg capsule uuxpythn-rzj-bjpev acid 0.4 1 ea PO DAILY SUPPLEMENT 03/15/19 03/04/25 History mg-lycopene 300 mcg-lutein 250 mcg tablet omeprazole 20 mg capsule,delayed 20 mg PO QHS GERD 03/15/19 5 History release trazodone 100 mg tablet 100 mg PO QHS SLEEP 03/15/1903/04 History tramadol 50 mg tablet 50 mg PO Q6H PRN PRN Pain #120 tab s 09/12/19 03/04/25 History rosuvastatin 10 mg tablet 10 mg PO DAILY 01/17/22 03/04/25 H istory hydralazine 50 mg tablet 50 mg PO BID 03/04/25 03/04/25 His tory lisinopril 30 mg tablet 30 mg PO QDAY 03/04/25 03/04/25 Hi story metoprolol tartrate 100 mg tablet 100 mg PO BID 03/04/25 03/04/25 H istory Have you fallen in the past year?: No PFSH Medical History Subacromial impingement of right shoulder Primary osteoarthritis, left shoulder Pacemaker Chronic pain Hx of pulmonary embolus Hypertension Hyperlipidemia Hx of small bowel obstruction Surgical History Hx of right knee surgery Social History household members: spouse housing: house current occupational status: retired Smoking Status: Former smoker HPI RIGHT HIP Details: This documentation accurately reflects the service provided and the decisions made by me, Dr. Jimmy Castro, DO 03/04/25 0750. Part of today???s visit was documented by Sanaz Bustos ATC, acting as scribe. FERNY EMMANUEL is a 84 year old M here today for right hip pain. He states the posterior hip has been bothering him for the past 6-8 months. Denies groin pain . he states the way he walks due to his knee is affecting his hip. He had a TKA about 5-[address] Rodriguez[address] And had slight valgus deformity ever since which she believes is affecting the way he is walking he did see a joint revision as an [place] and decided against having a revision . he describes the pain over the posterior aspect of the hip. He denies any groin pain or numbness/tingling in the leg. He states he gets numbness/tingling in the toes but it is coming from something else. He exercises at [place] on his own but never had any formal physical therapy. He denies any injections or surgery. Ortho Exam General General: Yes no acute distress and Yes well groomed Neurologic: Yes alert and Yes oriented x3 Psychologic: Yes reasonable and appropriate Right Knee KNEE: valgus deformity Right Hip Skin: Yes CDI, No Ecchymosis, No soft tissue swelling and No Erythema HIP: pain in greater sciatic notch ER 50 IR 10 with pain over IT band He has no groin pain or reproduction of his pain with hip range of motion He does have stiffness with lumbar flexion and extension. He has good strength of his hip knee and ankle Supplemental Info 03/04/2025 x-ray right hip: Moderate to severe medial joint space narrowing bilaterally 03/04/2025 x-ray lumbar spine advanced degenerative disc disease particularly L3-L4 L2-L3 moderate L4-L5 multilevel facet arthrosis. 09/01/2022 x-ray right shoulder: Mild AC joint arthritis anterior acromial spurring, mild sclerosis and cystic change of the humeral head 06/09/2022 x-ray left shoulder: Advanced glenohumeral arthrosis joint space narrowing subchondral cystic changes no acute findings of note pacemaker type device noted over chest wall 06/09/2022 x-ray cervical spine advanced degenerative disc disease most severe for C5 C5-C6 and C6- C7, there is some ossification seen posterior to the spinous processes Coding Level of Care Code Off vis,est,level 3 Diagnoses Other osteoarthritis of spine, lumbar region M47.896 Spinal osteoarthritis complication: other spinal osteoarthr (more content not included)... [facility] CNPYesy 01-07-2025 CNPN Telephone ([facility]) CHOLOFERNY ([id number]) 1940 M Date Time Provider Department 01/07/25 REYNA CRESPO [facility] During your visit today, we recorded the following information about you: Reyna Crespo MD 01/07/2025 8:09 AM Signed Please call the patient This is a patient of Dr. Denis I only did the pacemaker generator replacement and this was done in September But apparently the patient has a [employer] monitor Please explained to the patient that it will be his choice if he wants to continue to have the [employer] monitor where we can check the pacemaker from home remotely but in this case I will have to see him once a year if I am following the remote transmissions But Dr. Denis can recheck his pacemaker in the office although he does not do the remote transmissions He can just follow-up with Dr. English as he did before and we can cancel the remote transmissions Please let me know April Sanchez MA 01/07/2025 1:49 PM Signed Patient would like to cancel [employer] monitor and follow up with Dr Denis for device check and Cardiology. I called [employer] for return kit for patient will arrive 2-4 weeks. Zehra please discontinue from [employer]. Allergies As of Date: 01/07/2025 Noted Allergy Reaction ALEVE (NAPROXEN SODIUM) 06/22/2013 14 - Other: See Comments Comments: Muscle spasms-THROAT Date Reviewed: 09/25/2024 Reviewed by: Shakira Chinchilla RT(R) - Fully Assessed Reason for Visit: Patient Update [1234] Prescriptions as of 01/07/2025 - metoprolol tartrate, short acting, (LOPRESSOR) 50 mg tablet Take 1 tablet by mouth twice daily. - lisinopril (ZESTRIL, PRINIVIL) 20 mg tablet Take 1 tablet by mouth once daily. - tamsulosin (FLOMAX) 0.4 mg Take 0.4 mg by mouth once daily. - rosuvastatin (CRESTOR) 10 mg tablet Take 10 mg by mouth once daily. - traMADol (ULTRAM) 50 mg tablet Take 50 mg by mouth every 6 hours as needed for pain. - gabapentin (NEURONTIN) 100 mg capsule Take 100 mg by mouth three times daily. - magnesium oxide 400 mg magnesium cap Take by mouth. - psyllium husk (METAMUCIL ORAL) Take by mouth. - apixaban (ELIQUIS) 5 mg tab(s) Take by mouth twice daily. - amLODIPine (NORVASC) 10 mg tablet Take 10 mg by mouth once daily. - Cholecalciferol, Vitamin D3, 1,000 unit cap Take 1,000 Units by mouth once daily. - OMEGA-3 FATTY ACIDS/FISH OIL (OMEGA 3 FISH OIL ORAL) Take by mouth once daily. - omeprazole(PRILOSEC 20 MG CAP) Take one(1) capsule daily. - TRAZODONE 100 MG TAB Take one(1) tablet daily at bedtime. Meds Comments as of 08/26/2017: 08/26/17 Pt denies change in meds. 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,*12/28/2019 SBO (small bowel obstruction) (HCC) [K56.609] 06/08/2021 Obesity, Class I, BMI 30-34.9 [E66.811] 06/08/2021 Chronic kidney disease, stage 3, mod decreased * AAA (abdominal aortic aneurysm) ([facility]) [I71.40] 06/12/2021 Pacemaker at end of battery life [Z45.010] 09/25/2024 Encounter Status:Closed by REYNA CRESPO on 01/07/25 [facility] CNPNon 01-04-2025 CNPN Telephone (CAEPMN) FERNY EMMANUEL ([id number]) 1940 M Date Time Provider Department 01/04/25 GABE FALK CAEPMN During your visit today, we recorded the following information about you: Gabe Falk RN 01/04/2025 12:42 PM Signed Pt called regarding remote monitoring for PPM. Pt states he received monitor but has not yet plugged it in. Pt asked to please plug in at nearest convenience and send remote. Allergies As of Date: 01/04/2025 Noted Allergy Reaction ALEVE (NAPROXEN SODIUM) 06/22/2013 14 - Other: See Comments Comments: Muscle spasms-THROAT Date Reviewed: 09/25/2024 Reviewed by: Shakira Chinchilla, RT(R) - Fully Assessed Prescriptions as of 01/04/2025 - metoprolol tartrate, short acting, (LOPRESSOR) 50 mg tablet Take 1 tablet by mouth twice daily. - lisinopril (ZESTRIL, PRINIVIL) 20 mg tablet Take 1 tablet by mouth once daily. - tamsulosin (FLOMAX) 0.4 mg Take 0.4 mg by mouth once daily. - rosuvastatin (CRESTOR) 10 mg tablet Take 10 mg by mouth once daily. - traMADol (ULTRAM) 50 mg tablet Take 50 mg by mouth every 6 hours as needed for pain. - gabapentin (NEURONTIN) 100 mg capsule Take 100 mg by mouth three times daily. - magnesium oxide 400 mg magnesium cap Take by mouth. - psyllium husk (METAMUCIL ORAL) Take by mouth. - apixaban (ELIQUIS) 5 mg tab(s) Take by mouth twice daily. - amLODIPine (NORVASC) 10 mg tablet Take 10 mg by mouth once daily. - Cholecalciferol, Vitamin D3, 1,000 unit cap Take 1,000 Units by mouth once daily. - OMEGA-3 FATTY ACIDS/FISH OIL (OMEGA 3 FISH OIL ORAL) Take by mouth once daily. - omeprazole(PRILOSEC 20 MG CAP) Take one(1) capsule daily. - TRAZODONE 100 MG TAB Take one(1) tablet daily at bedtime. Meds Comments as of 08/26/2017: 08/26/17 Pt denies change in meds. 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,*12/28/2019 SBO (small bowel obstruction) (HCC) [K56.609] 06/08/2021 Obesity, Class I, BMI 30-34.9 [E66.811] 06/08/2021 Chronic kidney disease, stage 3, mod decreased * AAA (abdominal aortic aneurysm) (HCC) [I71.40] 06/12/2021 Pacemaker at end of battery life [Z45.010] 09/25/2024 Encounter Status:Closed by GABE FALK on 01/04/25 Normal [facility] Kidney and Bladderon 11-15- 024 Kidney and Bladder [facility] Imaging Services [address] [place] [address] [place], [place] [address] Kidney and Bladder MR#: [id number] Acct: [id number] Name: FERNY EMMANUEL Rep #: [id number] : 1940 M 84 From: Emeka Khan MD PCP: Dr. Cole Espinal MD Status: REG CLI Study: Kidney and Bladder Date of Exam: 11/15/24 Exam# [id number] Ordering Dr: Corie Gallardo DO [id number] STUDY: RENAL ULTRASOUND - COMPLETE REASON FOR EXAM: Male, 84 years old. CKD4 TECHNIQUE: Ultrasound evaluation of the kidneys was performed with real-time and static michael-scale imaging. COMPARISON: 08/10/2022 FINDINGS: RIGHT KIDNEY: Normal location of the right kidney, which is normal in size. The right kidney measures 14.6 cm. There is a normal cortex of the right kidney. The renal cortex measures 1.3 cm. Innumerable renal cysts suggestive of autosomal dominant polycystic kidney disease. There are no right renal calculi. There is no right hydronephrosis. DISTAL RIGHT URETER: There is non-visualization of the distal right ureter. There is no demonstrated right ureterovesical junction calculus. There is a visualized right ureteral jet. LEFT KIDNEY: Normal location of the left kidney, which is normal in size. The left kidney measures 20.8 cm. There is a normal cortex of the left kidney. The renal cortex measures 1.4 cm. Innumerable renal cysts suggestive of autosomal dominant polycystic kidney disease. There are no left renal calculi. There is no left hydronephrosis. DISTAL LEFT URETER: There is non-visualization of the distal left ureter. There is no demonstrated left ureterovesical junction calculus. There is a visualized left ureteral jet. AORTA: There is 4.5 cm aneurysm of the abdominal aorta. I.V.C.: The IVC is patent. BLADDER: The distended urinary bladder has a volume of 128 ml. The empty urinary bladder has a volume of ml. There is a normal wall thickness of the distended urinary bladder. There is no demonstrated mass within the urinary bladder. There are no demonstrated bladder calculi. US/Kidney and Bladder IMPRESSION: No hydronephrosis to suggest obstruction. Autosomal dominant polycystic kidney disease. 4.5 cm abdominal aortic aneurysm. Electronically Signed: Emeka Khan MD at 17:52 EST , CC: Dr. Corie Gallardo DO; Dr. Cole Espinal MD Mechanical Design Engineer Facilities: Signed Normal [facility] CBC-Complete Blood Cnt No Di ffon 11-01-2024 Erythrocyte distribution width (RBC) [Ratio] 12.9 % Normal 11.6-14.6 [facility] Comment on above: Performed By: #### L 501.0900, L100.0500, L509.1000, L500.3600, L506.1000 #### [facility] [address] [place], [address] Hematocrit (Bld) [Volume fraction] 43.6 % Normal 40-54 [facility] Comment on above: Performed By: #### L 501.0900, L100.0500, L509.1000, L500.3600, L506.1000 #### [facility] [address] [place], [address] Hemoglobin (Bld) [Mass/Vol] 14.5 g/dL Normal 13.0-16.5 [facility] Comment on above: Performed By: #### L 501.0900, L100.0500, L509.1000, L500.3600, L506.1000 #### [facility] [address] [place], [address] MCH (RBC) [Entitic mass] 30.7 pg Normal 27.0-32.0 [facility] Comment on above: Performed By: #### L 501.0900, L100.0500, L509.1000, L500.3600, L506.1000 #### [facility] [address] [place], [address] MCHC (RBC) [Mass/Vol] 33.3 g/dL Normal 32-36 [facility] Comment on above: Performed By: #### L 501.0900, L100.0500, L509.1000, L500.3600, L506.1000 #### [facility] [address] [place], [address] MCV (RBC) [Entitic vol] 92.4 fL Normal 80-94 [facility] Comment on above: Performed By: #### L 501.0900, L100.0500, L509.1000, L500.3600, L506.1000 #### [facility] [address] [place], [address] Platelet mean volume (Bld) [Entitic vol] 11.0 fL Normal 6.2-12.0 [facility] Comment on above: Performed By: #### L 501.0900, L100.0500, L509.1000, L500.3600, L506.1000 #### [facility] [address] [place], [address] Platelets (Bld) [#/Vol] 190 10*3/uL Normal 150-450 [facility] Comment on above: Performed By: #### L 501.0900, L100.0500, L509.1000, L500.3600, L506.1000 #### [facility] [address] [place], [address] RBC (Bld) [#/Vol] 4.72 10*6/uL Normal 4.6-6.2 [facility] Comment on above: Performed By: #### L 501.0900, L100.0500, L509.1000, L500.3600, L506.1000 #### [facility] [address] [place], [address] RDW SD 43.8 fl Normal 35.1-43.9 [facility] Comment on above: Performed By: #### L 501.0900, L100.0500, L509.1000, L500.3600, L506.1000 #### [facility] [address] [place], [address] WBC (Bld) [#/Vol] 7.4 10*3/uL Normal 4.4-11.0 [facility] Comment on above: Performed By: #### L 501.0900, L100.0500, L509.1000, L500.3600, L506.1000 #### [facility] [address] [place], [address] PTHINon 11-01-2024 PTH 120.5 pg/mL High 18.4-80.1 [facility] Comment on above: Performed By: #### L 501.0900, L100.0500, L509.1000, L500.3600, L506.1000 #### [facility] [address] [place], [address] Protein+Creatinine Ratio,Uri neon 11-01-2024 PROT:CRE RATIO 206 mg/g CRE High 0-200 [facility] Comment on above: Performed By: #### L 501.0900, L100.0500, L509.1000, L500.3600, L506.1000 #### [facility] [address] [place], [address] Protein (U) [Mass/Vol] 18.9 mg/dL High <11.9 [facility] Comment on above: Performed By: #### L 501.0900, L100.0500, L509.1000, L500.3600, L506.1000 #### [facility] [address] [place], [address] UR CREAT 91.70 mg/dL Normal NO RANGE EST. [facility] Comment on above: Performed By: #### L 501.0900, L100.0500, L509.1000, L500.3600, L506.1000 #### [facility] [address] [place], [address] Renal Profileon 11-01-2024 Albumin [Mass/Vol] 3.6 g/dL Normal 3.2-5.0 [facility] Comment on above: Performed By: #### L 501.0900, L100.0500, L509.1000, L500.3600, L506.1000 #### [facility] [address] [place], [address] BUN/CRE 9.7 RATIO Low 10-20 [facility] Comment on above: Performed By: #### L 501.0900, L100.0500, L509.1000, L500.3600, L506.1000 #### [facility] [address] [place], [address] CA,Total 9.5 mg/dL Normal 8.5-10.1 [facility] Comment on above: Performed By: #### L 501.0900, L100.0500, L509.1000, L500.3600, L506.1000 #### [facility] [address] [place], [address] Chloride [Moles/Vol] 106 mmol/L Normal 98-107 [facility] Comment on above: Performed By: #### L 501.0900, L100.0500, L509.1000, L500.3600, L506.1000 #### [facility] [address] [place], [address] CO2 [Moles/Vol] 26.0 mmol/L Normal 21.0-32.0 [facility] Comment on above: Performed By: #### L 501.0900, L100.0500, L509.1000, L500.3600, L506.1000 #### [facility] [address] [place], [address] Creatinine [Mass/Vol] 2.37 mg/dL High 0.70-1.30 [facility] Comment on above: Result Comment: The validity of the calculated GFR GFRAA in patients over 70 years has not been determined. Clinical correlation is essential. Performed By: #### L 501.0900, L100.0500, L509.1000, L500.3600, L506.1000 #### [facility] [address] [place], [address] EST GFR - AA 34 mL/min Low >60 [facility] Comment on above: Result Comment: Afri can Austrian GFR Calc Performed By: #### L 501.0900, L100.0500, L509.1000, L500.3600, L506.1000 #### [facility] [address] [place], [address] GFR/1.73 sq M.predicted among non-blacks MDRD (S/P/Bld) [Vol rate/Area] 28 mL/min/{1.73_m2} Low >60 [facility] Comment on above: Result Comment: Non- GFR Calc Performed By: #### L 501.0900, L100.0500, L509.1000, L500.3600, L506.1000 #### [facility] [address] [place], [address] Glucose [Mass/Vol] 161 mg/dL High 74-106 [facility] Comment on above: Result Comment: Fast ing Glucose result greater than or equal to 126 mg/dL suggests DIABETES MELLITUS per A.D.A. criteria. Performed By: #### L 501.0900, L100.0500, L509.1000, L500.3600, L506.1000 #### [facility] [address] [place], [address] Phosphate [Mass/Vol] 2.4 mg/dL Low 2.5-4.9 [facility] Comment on above: Performed By: #### L 501.0900, L100.0500, L509.1000, L500.3600, L506.1000 #### [facility] [address] [place], [address] Potassium [Moles/Vol] 5.3 mmol/L High 3.5-5.1 [facility] Comment on above: Performed By: #### L 501.0900, L100.0500, L509.1000, L500.3600, L506.1000 #### [facility] [address] [place], [address] Sodium [Moles/Vol] 138 mmol/L Normal 136-145 [facility] Comment on above: Performed By: #### L 501.0900, L100.0500, L509.1000, L500.3600, L506.1000 #### [facility] [address] [place], [address] Urea nitrogen [Mass/Vol] 23 mg/dL High 7-18 [facility] Comment on above: Performed By: #### L 501.0900, L100.0500, L509.1000, L500.3600, L506.1000 #### [facility] [address] [place], [address] Vitamin D,25 Hydroxyon 11-01 Vitamin D 25-OH 39.8 ng/mL Normal [facility] Comment on above: Result Comment: Hilda min D 25(OH) Status Range Deficiency <20 ng/mL (50nmol/L) Insufficiency 20 - 30 ng/mL (50 - 75 nmol/L) Sufficiency 30 - 100 ng/mL (75 - 250 nmol/L) Toxicity >100 ng/mL (>250 nmol/L) Performed By: #### L 501.0900, L100.0500, L509.1000, L500.3600, L506.1000 #### [facility] [address] [place], [address] Basic metabolic 2000 panelon 09-25-2024 Anion gap [Moles/Vol] 12 mmol/L Normal 8-15 [facility] Comment on above: Order Comment: Speci men Type: BLOOD SPECIMEN Ordering Facility: [facility] Address: [address] [place] [address] Performed By: #### 2 4321-2 #### [facility] CLIA [id number] [address] [place] [address] [place] Calcium [Mass/Vol] 9.5 mg/dL Normal 8.5-10.2 [facility] Comment on above: Order Comment: Speci men Type: BLOOD SPECIMEN Ordering Facility: [facility] Address: [address] [place] [address] Performed By: #### 2 4321-2 #### [facility] CLIA [id number] [address] [place] [address] [place] Chloride [Moles/Vol] 107 mmol/L Normal 98-107 [facility] Comment on above: Order Comment: Speci men Type: BLOOD SPECIMEN Ordering Facility: [facility] Address: [address] [place] [address] Performed By: #### 2 4321-2 #### [facility] CLIA [id number] [address] [place] [address] [place] CO2 [Moles/Vol] 21 mmol/L Low 22-30 [facility] Comment on above: Order Comment: Speci men Type: BLOOD SPECIMEN Ordering Facility: [facility] Address: [address] [place] [address] Performed By: #### 2 4321-2 #### [facility] CLIA [id number] [address] [place] [address] [place] Creatinine [Mass/Vol] 2.43 mg/dL High 0.73-1.22 [facility] Comment on above: Order Comment: Speci men Type: BLOOD SPECIMEN Ordering Facility: [facility] Address: [address] [place] [address] Performed By: #### 2 4321-2 #### [facility] CLIA [id number] [address] [place] [address] [place] [facility] Creatinine and Glomerular filtration rate.predicted panel (S/P/Bld) 26 mL/min/1.73m??? Low >=60 [facility] Comment on above: Order Comment: Mary Carmen andrade Type: BLOOD SPECIMEN Ordering Facility: [facility] Address: [address] [place] [address] Result Comment: Misti mated Glomerular Filtration Rate (eGFR) is calculated using the 2020 CKD-EPI creatinine equation. This equation utilizes serum creatinine, sex, and age as parameters. The creatinine assay has traceable calibration to isotope dilution-mass spectrometry. Refer to KDIGO guidelines for clinical interpretation. In patients with unstable renal function, e.g. those with acute kidney injury, the eGFR may not accurately reflect actual GFR. Performed By: #### 2 4321-2 #### [facility] CLIA [id number] [address] [place] [address] [place] Glucose [Mass/Vol] 136 mg/dL High 74-99 [facility] Comment on above: Order Comment: Mary Carmen andrade Type: BLOOD SPECIMEN Ordering Facility: [facility] Address: [address] [place] [address] Result Comment: The [place] Diabetes Association (ADA) provides guidance for cutoff values for fasting glucose and random glucose. The ADA defines fasting as no caloric intake for at least 8 hours. Fasting plasma glucose results between 100 to 125 mg/dL indicate increased risk for diabetes (prediabetes). Fasting plasma glucose results greater than or equal to 126 mg/dL meet the criteria for diagnosis of diabetes. In the absence of unequivocal hyperglycemia, results should be confirmed by repeat testing. In a patient with classic symptoms of hyperglycemia or hyperglycemic crisis, random plasma glucose results greater than or equal to 200 mg/dL meet the criteria for diagnosis of diabetes. Reference: Standards of Medical Care in Diabetes 2016, [place] Diabetes Association. Diabetes Care. 2016.39(Suppl 1). Performed By: #### 2 4321-2 #### [facility] CLIA [id number] [place] [address] [place] Potassium [Moles/Vol] 4.7 mmol/L Normal 3.7-5.1 [facility] Comment on above: Order Comment: Speci men Type: BLOOD SPECIMEN Ordering Facility: [facility] Address: [address] [place] [address] Performed By: #### 2 4321-2 #### [facility] CLIA [id number] [address] [place] [address] [place] Sodium [Moles/Vol] 140 mmol/L Normal 136-144 [facility] Comment on above: Order Comment: Speci men Type: BLOOD SPECIMEN Ordering Facility: [facility] Address: [address] [place] [address] Performed By: #### 2 4321-2 #### [facility] CLIA [id number] [address] [place] [address] [place] Urea nitrogen [Mass/Vol] 25 mg/dL High 9-24 [facility] Comment on above: Order Comment: Speci men Type: BLOOD SPECIMEN Ordering Facility: [facility] Address: [address] [place] [address] Performed By: #### 2 4321-2 #### [facility] CLIA [id number] [address] [place] [address] [place] CBC panel Auto (Bld)on 09-25 Erythrocyte distribution width (RBC) [Ratio] 13.2 % Normal 11.5-15.0 [facility] Comment on above: Order Comment: Speci men Type: BLOOD SPECIMEN Ordering Facility: [facility] Address: [address] [place] [address] Performed By: #### 5 8410-2 #### [facility] CLIA [id number] [address] [place] [address] [place] Hematocrit (Bld) [Volume fraction] 43.1 % Normal 39.0-51.0 [facility] Comment on above: Order Comment: Speci men Type: BLOOD SPECIMEN Ordering Facility: [facility] Address: [address] [place] [address] Performed By: #### 5 8410-2 #### [facility] CLIA [id number] [place] [address] [place] Hemoglobin (Bld) [Mass/Vol] 14.7 g/dL Normal 13.0-17.0 [facility] Comment on above: Order Comment: Speci men Type: BLOOD SPECIMEN Ordering Facility: [facility] Address: [address] [place] [address] Performed By: #### 5 8410-2 #### [facility] CLIA [id number] [address] [place] [address] [place] MCH (RBC) [Entitic mass] 31.3 pg Normal 26.0-34.0 [facility] Comment on above: Order Comment: Speci men Type: BLOOD SPECIMEN Ordering Facility: [facility] Address: [address] [place] [address] Performed By: #### 5 8410-2 #### [facility] CLIA [id number] [address] [place] [address] [place] MCHC (RBC) [Mass/Vol] 34.1 g/dL Normal 30.5-36.0 [facility] Comment on above: Order Comment: Speci men Type: BLOOD SPECIMEN Ordering Facility: [facility] Address: [address] [place] [address] Performed By: #### 5 8410-2 #### [facility] CLIA [id number] [address] [place] [address] [place] MCV (RBC) [Entitic vol] 91.7 fL Normal 80.0-100.0 [facility] Comment on above: Order Comment: Speci men Type: BLOOD SPECIMEN Ordering Facility: [facility] Address: [address] [place] [address] Performed By: #### 5 8410-2 #### [facility] CLIA [id number] [address] [place] [address] OF [place] Nucleated RBC (Bld) [#/Vol] 10*3/uL Normal <0.01 [facility] Comment on above: Order Comment: Speci men Type: BLOOD SPECIMEN Ordering Facility: [facility] Address: [address] [place] [address] Performed By: #### 5 8410-2 #### [facility] CLIA [id number] [address] [place] [address] [place] Platelet mean volume (Bld) [Entitic vol] 11.3 fL Normal 9.0-12.7 [facility] Comment on above: Order Comment: Speci men Type: BLOOD SPECIMEN Ordering Facility: [facility] Address: [address] [place] [address] Performed By: #### 5 8410-2 #### [facility] CLIA [id number] [address] [place] [address] [place] Platelets (Bld) [#/Vol] 202 10*3/uL Normal 150-400 [facility] Comment on above: Order Comment: Speci men Type: BLOOD SPECIMEN Ordering Facility: [facility] Address: [address] [place] [address] Performed By: #### 5 8410-2 #### [facility] CLIA [id number] [address] [place] [address] [place] RBC (Bld) [#/Vol] 4.70 10*6/uL Normal 4.20-6.00 [facility] Comment on above: Order Comment: Speci men Type: BLOOD SPECIMEN Ordering Facility: [facility] Address: [address] [place] [address] Performed By: #### 5 8410-2 #### [facility] CLIA [id number] [address] [place] [address] [place] WBC (Bld) [#/Vol] 8.01 10*3/uL Normal 3.70-11.00 [facility] Comment on above: Order Comment: Speci men Type: BLOOD SPECIMEN Ordering Facility: [facility] Address: [address] [place] [address] Performed By: #### 5 8410-2 #### [facility] CLIA [id number] [place] [address] [place] ECG COMPLETEon 09-25-2024 ECG COMPLETE Ventricular Rate : 8 6 BPM Atrial Rate : 0 BPM QRS Duration : 255 ms Q-T Interval : 457 ms QTC Calculation(Bazett) : 547 ms Calculated R Argyle : -24 degrees Calculated T Argyle : -46 degrees ventricular -paced rhythm Confirmed by CORIE MARTEL M.D. ([id number]) on 09/29/2024 6:51:31 AM NAME : FERNY EMMANUEL PID : [id number] : 1940 Gender : Male Race : ORD : [id number] Procedure Date : Sep 25 2024 12:08:24 Edit Date : Sep 29 2024 06:51:33 Diagnosis: ventricular -paced rhythm Confirmed by CORIE MARTEL M.D. ([id number]) on 09/29/2024 6:51:31 AM Test Reason : Pre-OP Location : 400 : [facility] 219 Overread By : CORIE MARTEL M.D. Edited By : CORIE MARTEL M.D. Referred By : , Acquired by : [id number], Masha [facility] HISTORY PHYSICALon HISTORY PHYSICAL HNO ID: [id number] Author: BARBI TERRY APRN.CNP Service: Cardiovascular Medicine Author Type: Nurse Practitioner Type: H&P Filed: 09/25/2024 12:36 Note Text: UPDATED PROCEDURAL SEDATION HISTORY AND PHYSICAL EXAMINATION SERVICE DATE: 09/25/2024 SERVICE TIME: 12:32 PM PROCEDUREALIST: Surgeons and Role: * Reyna Crespo MD - Primary PHYSICAL EXAM MUST BE COMPLETED ON ADMISSION The History and Physical (completed in the past 30 days) has been reviewed and the patient has been examined. The contents accurately reflect the patient's condition with the following additions or revisions since the HANDP was completed in 09/11/2024 This HANDP can be found in the Electronic Medical Record. ASA Class: ASA Class: Patient with severe systemic disease Patient Vitals for the past 24 hrs: BP Temp Temp src Pulse Resp SpO2 Height Weight 09/25/24 1214 149/88 36.1 ?C (97 ?F) Temporal 71 16 95 % 190.5 cm (6' 3) 120.7 kg (266 lb 1.5 oz) AIRWAY: Airway Visualization of Uvula: Yes Mouth opening greater than 2 fingerbreadths: Yes Neck Full Range of Motion: Yes LUNGS: Lungs clear to auscultation, Good diaphragmatic excursion CARDIAC: Normal S1 - S2, no murmur CAROTIDS: Without bruits LE PULSES: Right Leg- Palpable. Left Leg- Palpable Lower leg edema 2+ History of TIA: No History of DE: No Diabetes: No History of Bleeding Issues: No, on eliquis for PE, last dose Tuesday Sedation Goal: Moderate DATA: Diagnostic tests reviewed for today's visit: Most recent EKG Most recent labs POC INR: CBC: Recent Labs 09/25/24 1159 WBC 8.01 RBC 4.70 HB 14.7 HCT 43.1 PLT 202 MCV 91.7 MCH 31.3 MPV 11.3 Coags: No results for input(s): PT, INR, APTT in the last 720 hours. BMP: No results for input(s): NA, K, CHLOR, CO2, BUN, CREAT, GLUC in the last 720 hours. Provisional Diagnosis/Treatment Plan: KIARA of generator, Pacemaker Changeout Assessment: A 84 yr old male with past medical history of HTN, HLD,CKD3, COPD, bladder cancer, Bilateral PE (on eliquis), permanent atrial fib, sick sinus syndrome , permanent pacemaker, who presents for generator change out du e to KIARA of battery. Plan: Ordered Pre-op LABS and EKG reviewed and results evaluated. The medical history was reviewed and updated. Pre-procedural IV antibiotic was ordered Proceed with procedure I spent a total of 20 minutes on the date of the service which included preparing to see the patient, [id number] patient care, completing clinical documentation, obtaining and/or reviewing separately obtained history, performing a medically appropriate examination, counseling and educating the patient/family/caregiv er, and ordering medications, tests, or procedures. SIGNATURE: Barbi Terry APRN.CNP PATIENT NAME: Ferny Emmanuel DATE: September 25, 2024 TIME: 12:32 PM PAGER: Normal [facility] NURSING PROGon 09-25-2024 NURSING PROG HNO ID: [id number] Author: ERIK LANG RN Service: Nursing Author Type: Registered Nurse Type: Nursing Progress Note Filed: 09/25/2024 15:54 Note Text: Nursing Progress Note Topic of Note: post procedure PATIENT NAME: Ferny Emmanuel Patient Location: EP LAB POOL/ EP LAB POOL Room: EP LAB POOL ( INVASIVE CARDIOLOGY) S/p Generator change to the left chest. Chest and with no bleeding or hematoma noted. See op notes regarding medications given during procedure. 1410 Pt ambulated in the hallway with standby staff assistance, steady gait. Denies any dizziness/lightheadedn ess. Site remains free of bleeding and hematoma with movement AND ambulation. 1415 D/C instructions reviewed with pt, verbalized understanding. All questions answered. 1440 Patient d/c home via w/c in stable condition. All belongings returned. Tha Wray driving. This note was completed by: Erik Lang [facility] Christelle 09-19-2024 THAD Telephone (FVPRAD) FERNY EMMANUEL ([id number]) 1940 M Date Time Provider Department 09/19/24 REYNA CRESPO During your visit today, we recorded the following information about you: Reyna Crespo MD 09/19/2024 8:03 AM Signed please call the pt and let him know that Dr. Denis called me to schedule the pt for a Pacemaker replacement let him know that this is a simple outpatient procedure under mild sedation , and he will go home after the procedure (will need a ride) 1-The Procedure : DC-Pacemaker Generator replacement 2- Indication: Pacemaker at KIARA Sinus Node dysfunction 3- Device Company : [employer] 4- Date AND Time : TuesdaySep 25 at 12:30 PM 5- NPO for 8 hours before the procedure Okay to have the morning medications with sips of water 6- Aticoagulation : he is on Eliquis hold eliquis after the morning dose of TuesdaySep 23 before the procedure and will resume after the procedure let me know if the day does not work for him or if he has any question Thank you April Sanchez MA 09/20/2024 3:53 PM Addendum 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 Patient was given prep today 09-20-24. Allergies As of Date: 09/19/2024 Noted Allergy Reaction ALEVE (NAPROXEN SODIUM) 06/22/2013 14 - Other: See Comments Comments: Muscle spasms-THROAT Date Reviewed: 06/12/2021 Reviewed by: Cinda Hanks, LILLIE - Fully Assessed Reason for Visit: Procedure [88] Prescriptions as of 09/20/2024 - metoprolol tartrate,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 [Mass/Vol] 13.5 g/dL Normal 13.0-17.0 [facility] Comment on above: Performed By: #### C MP, PHOS, CBCDIF, MG1 ####[place] [address] Lymphocytes (Bld) [#/Vol] 0.65 10*3/uL Low 1.00-4.00 [facility] Comment on above: Performed By: #### C MP, PHOS, CBCDIF, MG1 ####[place] [address] Lymphocytes/100 WBC (Bld) 9.0 % Normal [facility] Comment on above: Performed By: #### C MP, PHOS, CBCDIF, MG1 ####[place] [address] MCH 30.7 pG Normal 26.0-34.0 [facility] Comment on above: Performed By: #### C MP, PHOS, CBCDIF, MG1 ####[facility] [address] [place] [address] MCHC (RBC) [Mass/Vol] 32.4 g/dL Normal 30.5-36.0 [facility] Comment on above: Performed By: #### C MP, PHOS, CBCDIF, MG1 ####[place] [address] MCV (RBC) [Entitic vol] 94.8 fL Normal 80.0-100.0 [facility] Comment on above: Performed By: #### C MP, PHOS, CBCDIF, MG1 ####[facility] [place] [address] Monocytes/100 WBC (Bld) 15.1 % Normal [facility] Comment on above: Performed By: #### C MP, PHOS, CBCDIF, MG1 ####[facility] [address] Neutrophils/100 WBC (Bld) 73.1 % Normal [facility] Comment on above: Performed By: #### C MP, PHOS, CBCDIF, MG1 ####[facility] [address] [place] [address] NRBCs 0.0 /100 WBC Normal 0 [facility] Comment on above: Performed By: #### C MP, PHOS, CBCDIF, MG1 ####[facility] [address] [place] [address] Platelet mean volume (Bld) [Entitic vol] 10.9 fL Normal 9.0-12.7 [facility] Comment on above: Performed By: #### C MP, PHOS, CBCDIF, MG1 ####[facility] [address] [place] [address] Platelets (Bld) [#/Vol] 179 10*3/uL Normal 150-400 [facility] Comment on above: Performed By: #### C MP, PHOS, CBCDIF, MG1 ####[facility] [address] [place] [address] RBC (Bld) [#/Vol] 4.40 10*6/uL Normal 4.20-6.[address] [facility] Comment on above: Performed By: #### C MP, PHOS, CBCDIF, MG1 ####[facility] [address] [place] [address] WBC (Bld) [#/Vol] 7.21 10*3/uL Normal 3.70-11.[address] [facility] Comment on above: Performed By: #### C MP, PHOS, CBCDIF, MG1 ####[facility] [address] [place], [place] [phone] CNDSon 06-12-2021 CNDS HNO ID: [id number] Author: Charlie Negron V, MD Service: Pulmonary Disease Author Type: Physician Type: Discharge Summary Filed: 06/13/2021 6:59 AM Note Text: DISCHARGE SUMMARY PATIENT NAME: Ferny Emmanuel Admission Information Admission Information ADMIT DATE: 06/08/2021 DISCHARGE DATE: 06/12/2021 MY DOCTORS AND MEDICAL TEAM: My Main Hospital Doctor: Charlie Negron V, MD Primary Care Provider: Cole Negron MD My Medical Team Members: Treatment Team: Attending Provider: Charlie Negron V, MD Consulting: Lana Horn MD Consulting: Young Graff MD Consulting: Breana Boykin MD MY CONDITION AT DISCHARGE: Stable REASON I WAS IN THE HOSPITAL: pain abdomen with abdominal distension SUMMARY OF WHAT HAPPENED WHILE I WAS IN THE HOSPITAL: He also underwent a CT of the abdomen and pelvis on 06/08/2021. Is again confirmed distal small bowel obstruction with significant gastric distention. There is increase in the size of the saccular infrarenal abdominal aortic aneurysm. Patient noted to have bilateral renal cyst. Several other hyperdense, likely hemorrhagic. No crossed obstructive uropathy noted. Patient incompletely characterized cyst on this nonenhanced scans. He was reported having punctate nephrolithiasis. He had lab work done showing serum creatinine of 2.03 with BUN 23. Rest of the chemistry profile was unremarkable. He is CBC was showing elevated quite white count of 13,000 with hemoglobin of 16.8 g. Surgery was consulted. Nephrology was also consulted. Patient started on IV fluid. He underwent laparoscopic lysis of adhesion on 06/10/2021. Surgical report suggests that patient had cecum adherent to lateral abdominal wall causing potential for small bowel obstruction. No obvious transition points noted. Patient has creeping fat around small bowels. Concern was raised about Crohn's disease. GI consultation is also recommended. At this time, they recommend further outpatient follow-up for colonoscopy after he recovers from his current illness. Patient had opened up after surgery and was having some diarrhea. Stool was sent for C. difficile toxin. He was not having nausea or vomiting. He had NG tube placed prior to surgery was removed. He was eating orally and had regular lunch at noon time. Patient needed to be observed. However, patient started becoming very irritable and wanted to be discharged. He plans to leave with her discharge are not discharged. Considering his progressive improvement, I have decided to discharge him home and have follow-up with Dr. Cameron Negron in 3 days. He should contact us if he feels any sicker. He will also need GI follow-up in 2 weeks. He is Eliquis was detailed preoperatively is being restarted at the time of discharge. Several of his medications are put on hold due to his n.p.o. status is now being restarted. His x-ray abdomen suggested a small bowel obstruction. OTHER PROBLEMS/DIAGNOSIS: Principal Problem: SBO (small bowel obstruction) (HCC) Active Problems: Pulmonary embolism (HCC) assisted current use of anticoagulants with INR goal of 2.0-3.0 HTN (hypertension) Hyperlipidemia Obesity, Class I, BMI 30-34.9 Chronic kidney disease, stage 3, mod decreased GFR (HCC) OPERATIONS PERFORMED WHILE IN THE HOSPITAL: Laparoscopic lysis of adhesion IMPORTANT TEST/PROCEDURES: No procedures performed TEST RESULTS NOT AVAILABLE AT THIS TIME: No pending results Discharge Disposition Discharge Disposition: Home With Self Care Activity When You Leave the Hospital Resume pre-hospital activity Diet Instructions Diabetic Resume your pre-hospital diet Follow Up Appointments Follow-Up Appointment Call [phone] to schedule your appointment When: In 3 days Patient/Parents to call for appointment?: Yes Charlie Negron V, MD [phone] [address] PCP Requested Referral FOLLOW-UP APPOINTMENTS ALREADY SCHEDULED WITH A [facility] PROVIDER Future Appointments Date Time Provider Department Center 06/22/2021 8:15 AM Dewey Denis V, MD [id number] [facility] DEWEY Murray 06/26/2021 1:30 PM Ni Mays PA-C [facility] DISCHARGE MEDICATION: Discharge Medication List as of 06/12/2021 3:35 PM CONTINUE these medications which have CHANGED metoprolol tartrate, short acting, (LOPRESSOR) 50 mg tablet Take 1 tablet by mouth twice daily. Med Update, Long-term lisinopril (ZESTRIL, PRINIVIL) 20 mg tablet Take 1 tablet by mouth once daily. Med Update, R-0, Long-term CONTINUE these medications which have NOT CHANGED tamsulosin (FLOMAX) 0.4 mg Take 0.4 mg by mouth once daily. Historical Med, Long-term rosuvastatin (CRESTOR) 10 mg tablet Take 10 mg by mouth once daily. Historical Med, Long-term traMADol (ULTRAM) 50 mg tablet Take 50 mg by mouth every 6 hours as needed for pain. Historical Med gabapentin (NEURONTIN) 100 mg capsule Take 100 (more content not included)... [facility] CONSULT PROGon 06-12-2021 CONSULT PROG HNO ID: [id number] Author: Moshe Valles MD Service: Gastroenterology Author Type: Physician Type: Consult Progress Note Filed: 06/12/2021 11:58 AM Note Text: GASTROENTEROLOGY CONSULT PROGRESS NOTE Patient Name: Ferny Emmanuel SERVICE DATE: June 12, 2021 SERVICE TIME: 11:40 AM ASSESSMENT 1. SBO s/p diagnostic laparoscopy/ ESTEFANÍA / mobilization of cecum 06/10/21 - unclear etiology?with concern for Crohn's disease 2. Significant gastric distention?on CT 3. Chronic GERD 4. Acute on CKD 5. Hx of bilateral PE on Eliquis? ? PLAN - Post op management as per surgery - Full liquid diet - Pantoprazole 40 mg IV daily - Daily CBC, CMP and Magnesium - Will undertake colonoscopy in 3-4 weeks following discharge - Will sign of the the case at this time. Please call if new issues arise INTERVAL HPI: patient is very angry wants to leave today. He is very concerned about his . Denies abdominal pain, nausea or vomiting. States he has passed seven dark brown liquid stools over night. Tolerating full liquids. PHYSICAL EXAM: Patient Vitals for the past 24 hrs: BP Temp Temp src Pulse Resp SpO2 Weight 06/12/21 0853 172/81 36.5 ?C (97.7 ?F) Oral 62 18 94 % ? 06/12/21 0600 ? 125.6 kg (276 lb 14.4 oz) 06/12/21 0424 174/76 36.8 ?C (98.2 ?F) Oral 64 18 93 % ? 06/12/21 0345 174/62 36.9 ?C (98.4 ?F) Oral 63 19 ? ? 06/11/212019 172/75 36.8 ?C (98.2 ?F) Oral 64 18 94 % ? 06/11/21 1537 166/81 36.7 ?C (98.1 ?F) Oral 71 20 97 % ? GENERAL: Alert AND oriented x 3. Cooperative. NAD. Massively obese. EYES: No scleral icterus SKIN: [place] in color. No jaundice LUNGS: Clear to auscultation anteriorly CARDIAC: RRR ABDOMEN: Abdomen?obese and?soft, non tender, distended,?hypoactive BS.?No guarding or rebound tenderness elicited. Laparoscopy sites open to air.? EXTREMITIES: No upper or lower extremity edema MEDICATIONS: Current Facility-Administered Medications Medication Dose Route Frequency - pantoprazole 40 mg injection (PROTONIX) 40 mg INTRAVENOUS DAILY (6 AM) - sodium chloride 0.9 % (flush) 3-5 mL (BD POSIFLUSH) 3-5 mL INTRAVENOUS q 12 H - NaCl 0.9% iv flush bag 20 mL INTRAVENOUS PRN - ondansetron (PF) 4 mg injection (ZOFRAN) 4 mg INTRAVENOUS q 6 H PRN - NaCl 0.45% iv infusion 5-30 mL/hr INTRAVENOUS CONTINUOUS - oxyCODONE IR 5-10 mg tab(s) (ROXICODONE) 5-10 mg ORAL q 4 H PRN - fentaNYL 50 mcg/mL 25 mcg injection (SUBLIMAZE) 25 mcg INTRAVENOUS q 4 H PRN - acetaminophen 1,000 mg tab(s) (TYLENOL) 1,000 mg ORAL q 6 H PRN LABS: CBC, Coags, BMP, Mg, Phos Recent Labs 06/12/21 0415 06/11/21 0415 06/10/21 0443 WBC 7.21 6.11 8.48 HB 13.5 13.1 13.7 HCT 41.7 41.8 43.2 PLT 179 189 201 NA 141 147* 145* K 3.9 4.3 4.4 CHLOR 107* 108* 107* CO2 24 28 27 BUN 28* 31* 24 CREAT 1.75* 1.98* 1.88* GLUC 137* 132* 126* CA 8.6 8.8 8.8 MG 1.7 1.9 -- P 2.6* 3.2 -- Liver Function, Amylase, AND Lipase Recent Labs 06/12/21 0415 06/11/21 0415 06/10/21 0443 TPROT 6.0* 6.2* 6.2* ALB 3.5* 3.4* 3.5* ALT 22 18 17 AST 32 28 29 ALKPHOS 75 78 85 TBILI 0.8 1.0 1.0 AMYLASE -- -- 23* LIPASE -- -- 16 MISC LABS 06/08/21 COVID (-)? ? Component Latest Ref Rng AND Units 06/08/2021 CK 51 - 298 U/L 181 Gastric Occult Bld Negative Positive (A) ? Component Latest Ref Rng AND Units 06/11/2021 Sed Rate, Westergren 0 - 15 mm/hr 12 CRP <0.9 mg/dL 2.8 (H) ? RADIOLOGY? 06/08/21 CT A/P IMPRESSION:? Distal small bowel obstruction. ?Significant gastric distention. Increase in the size of the saccular infrarenal abdominal aortic aneurysm. Bilateral renal cysts. ?Several are hyperdense, likely hemorrhagic. ?No gross obstructive uropathy. ?Incompletely characterized cysts on these nonenhanced scans. Punctate nephrolithiasis ? 06/09/21 CXR IMPRESSION: No acute radiographic abnormality.? ? 06/09/21 2 View Abdominal Xray IMPRESSION: Small bowel obstruction? ? 06/10/21 Abdominal Xray The nasogastric tube tip projects over the stomach, now partially looped within the gastric body. Redemonstrated left pleural effusion and bilateral basilar pulmonary opacities. ?Limited bowel gas evaluation. IMPRESSION: Nasogastric tube tip projects over the gastric body.? ? MOST RECENT EGD Has never undergone endoscopic evaluation ? MOST RECENT COLONOSCOPY Has never undergone endoscopic evaluation ? SIGNATURE: Moshe Valles MD DATE: June 12, 2021 TIME: 11:40 AM [facility] CONSULT PROG HNO ID: [id number] Author: Young Graff MD Service: Nephrology Author Type: Physician Type: Consult Progress Note Filed: 06/12/2021 10:29 AM Note Text: Patient seen and examined. Having frequent loose stools. He tells me he wants to leave today. Blood pressure 172/81, pulse 62, temperature 36.5 ?C (97.7 ?F), temperature source Oral, resp. rate 18, height 190.5 cm (6' 3), weight 125.6 kg (276 lb 14.4 oz), SpO2 94 %. Intake/Output Summary (Last 24 hours) at 06/12/2021 1027 Last data filed at 06/12/2021 0354 Gross per 24 hour Intake 600 ml Output 550 ml Net 50 ml Gen: NAD Resp: clear CVS: no rub Abd: softly distended Ext: min edema bilaterally UA 2+ proteinuria, 5-10RBCs in setting of recent abdominal surgery Hb 13.5 Cr 1.75, K 3.9, Na 141 Vit D 45, PTH 62 Impression: 1. CKD 3b with ~500mg proteinuria - baseline Cr close to 2.0 likely due to DM, HTN and prior NSAID use 2. Mild hypernatremia due to diminished free water intake and NS administration - improved on 1/2NS 3. Hypertension 4. Bilateral renal cysts 5. Non obstructive nephrolithiasis Plan: 1. KVO IVF till discharge 2. Will probably restart MEDINA on discharge (I told him to restart it early next week) 3. Follow up C.diff 4. Would not restart metformin going forward 5. Follow up with me in 3-4 weeks for CKD mgmt Normal [facility] CONSULT PROG HNO ID: [id number] Author: Ni Mays PA-C Service: General Surgery Author Type: Physician [employer] Software Engineer Type: Consult Progress Note Filed: 06/12/2021 8:01 AM Note Text: SURGICAL SERVICES POSTOP CONSULT PROGRESS NOTE SERVICE DATE: 06/12/2021 SERVICE TIME: 7:58 AM CONSULTING SERVICE: General surgery POD # 2 diagnostic laparoscopy; lysis of adhesions/mobilization of cecum by Dr. Horn Subjective INTERVAL HISTORY OF PRESENT ILLNESS: Patient has had multiple loose BMs overnight. States he is feeling better than yesterday evening. He is insistent that he will be going home today. Current Facility-Administered Medications Medication Dose Route Frequency - pantoprazole 40 mg injection (PROTONIX) 40 mg INTRAVENOUS DAILY (6 AM) - sodium chloride 0.9 % (flush) 3-5 mL (BD POSIFLUSH) 3-5 mL INTRAVENOUS q 12 H - NaCl 0.9% iv flush bag 20 mL INTRAVENOUS PRN - ondansetron (PF) 4 mg injection (ZOFRAN) 4 mg INTRAVENOUS q 6 H PRN - NaCl 0.45% iv infusion 65 mL/hr INTRAVENOUS CONTINUOUS - oxyCODONE IR 5-10 mg tab(s) (ROXICODONE) 5-10 mg ORAL q 4 H PRN - fentaNYL 50 mcg/mL 25 mcg injection (SUBLIMAZE) 25 mcg INTRAVENOUS q 4 H PRN - acetaminophen 1,000 mg tab(s) (TYLENOL) 1,000 mg ORAL q 6 H PRN Objective PHYSICAL EXAM: BP 174/62 Pulse 63 Temp (Src) 98.4 (Oral) Resp 19 Ht 6' 3 (1.91m) Wt 276 lb 14.4 oz (125.6kg) SpO2 94% BMI 34.61 kg/(m2). O2 Therapy: Room Air Physical Exam Performed GENERAL: Alert, no distress, cooperative, Obese SKIN: Skin color, texture, turgor normal. No rashes or lesions. ABDOMEN: Abdomen soft, appropriate post op tenderness, BS present WOUND: Clean, dry and intact; glue in place Intake/Output Summary (Last 24 hours) at 06/12/2021 0758 Last data filed at 06/12/2021 0354 Gross per 24 hour Intake 600 ml Output 550 ml Net 50 ml DATA: Diagnostic tests reviewed for today's visit: Most recent labs CBC, Coags, BMP, Mg, Phos Recent Labs 06/12/2141406/11/2141406/10/21442 WBC 7.21 6.11 8.48 HB 13.5 13.1 13.7 HCT 41.7 41.8 43.2 PLT 179 189 201 NA 141 147* 145* K 3.9 4.3 4.4 CHLOR 107* 108* 107* CO2 24 28 27 BUN 28* 31* 24 CREAT 1.75* 1.98* 1.88* GLUC 137* 132* 126* CA 8.6 8.8 8.8 MG 1.7 1.9 -- P 2.6* 3.2 -- Liver Function, Amylase, AND Lipase Recent Labs 06/12/2141406/11/2141406/10/21442 TPROT 6.0* 6.2* 6.2* ALB 3.5* 3.4* 3.5* ALT 22 18 17 AST 32 28 29 ALKPHOS 75 78 85 TBILI 0.8 1.0 1.0 AMYLASE -- -- 23* LIPASE -- -- 16 Impression/Recommendat ions Patient Active Hospital Problem List: SBO (small bowel obstruction) (HCC) (06/08/2021) assisted current use of anticoagulants with INR goal of 2.0-3.0 (06/22/2013) HTN (hypertension) (05/10/2014) Hyperlipidemia (05/10/2014) Obesity, Class I, BMI 30-34.9 (06/08/2021) POSTOP PLANS: -flull liquids now; if tolerated will do GI soft for lunch -OK to restart AC -oral pain control -2 week post op follow up; scheduled 06/26/21 -DC per primary service once tolerating soft diet -plan discussed with patient, RN and attending surgeon SIGNATURE: Ni Mays PA-C PATIENT NAME: Ferny Emmanuel DATE: June 12, 2021 TIME: 7:58 AM Normal [facility] Comp Metabolic Panelon 06-12 Albumin [Mass/Vol] 3.5 g/dL Low 3.9-4.9 [facility] Comment on above: Performed By: #### C MP, PHOS, CBCDIF, MG1 ####[facility] [address] [place] [address] ALP [Catalytic activity/Vol] 75 U/L Normal 38-113 [facility] Comment on above: Performed By: #### C MP, PHOS, CBCDIF, MG1 ####[facility] [address] ALT [Catalytic activity/Vol] 22 U/L Normal 10-54 [facility] Comment on above: Performed By: #### C MP, PHOS, CBCDIF, MG1 ####[facility] [address] [place] [id number] Anion gap [Moles/Vol] 10 mmol/L Normal 9-18 [facility] Comment on above: Performed By: #### C MP, PHOS, CBCDIF, MG1 ####[facility] [address] AST [Catalytic activity/Vol] 32 U/L Normal 14-40 [facility] Comment on above: Performed By: #### C MP, PHOS, CBCDIF, MG1 ####[facility] [address] [place] [address] Bilirubin [Mass/Vol] 0.8 mg/dL Normal 0.2-1.3 [facility] Comment on above: Performed By: #### C MP, PHOS, CBCDIF, MG1 ####[facility] [address] [place] [address] Calcium [Mass/Vol] 8.6 mg/dL Normal 8.5-10.2 [facility] Comment on above: Performed By: #### C MP, PHOS, CBCDIF, MG1 ####[facility] [address] [place] [address] Chloride [Moles/Vol] 107 mmol/L High 97-105 [facility] Comment on above: Performed By: #### C MP, PHOS, CBCDIF, MG1 ####[facility] [address] [place] [address] CO2 [Moles/Vol] 24 mmol/L Normal 22-30 [facility] Comment on above: Performed By: #### C MP, PHOS, CBCDIF, MG1 ####[facility] [address] [place] [address] Creatinine [Mass/Vol] 1.75 mg/dL High 0.73-1.22 [facility] Comment on above: Performed By: #### C MP, PHOS, CBCDIF, MG1 ####[facility] [address] [place] [address] eGFR- Amer. 46 Normal [facility] Comment on above: Performed By: #### C MP, PHOS, CBCDIF, MG1 ####[facility] [address] [place] [address] eGFR-All Other Races 38 . Normal [facility] Comment on above: Result Comment: eGFR (Estimated GFR) Units of measure: mL/min/1.73 meters squared eGFR is derived from the reexpressed MDRD Study equation using the following parameters: serum creatinine, age, gender and race. The creatinine assay has been calibrated to be traceable to IDMS. An eGFR <60 mL/min/1.73m2 for >3 months is consistent with chronic kidney disease. Refer to KDOQI guidelines for clinical interpretation. In patients with unstable renal function, e.g. those with acute kidney injury, the eGFR may not accurately reflect actual GFR. Performed By: #### C MP, PHOS, CBCDIF, MG1 ####[facility] [address] [place] [address] Glucose [Mass/Vol] 137 mg/dL High 74-99 [facility] Comment on above: Result Comment: The [place] Diabetes Association (ADA) provides guidance for cutoff values for fasting glucose and random glucose. The ADA defines fasting as no caloric intake for at least 8 hours. Fasting plasma glucose results between 100 to 125 mg/dL indicate increased risk for diabetes (prediabetes). Fasting plasma glucose results greater than or equal to 126 mg/dL meet the criteria for diagnosis of diabetes. In the absence of unequivocal hyperglycemia, results should be confirmed by repeat testing. In a patient with classic symptoms of hyperglycemia or hyperglycemic crisis, random plasma glucose results greater than or equal to 200 mg/dL meet the criteria for diagnosis of diabetes. Reference: Standards of Medical Care in Diabetes 2016, [place] Diabetes Association. Diabetes Care. 2016.39(Suppl 1). Performed By: #### C MP, PHOS, CBCDIF, MG1 ####[facility] [address] [place] [address] Potassium [Moles/Vol] 3.9 mmol/L Normal 3.7-5.1 [facility] Comment on above: Performed By: #### C MP, PHOS, CBCDIF, MG1 ####[facility] [address] [place] [address] Protein [Mass/Vol] 6.0 g/dL Low 6.3-8.0 [facility] Comment on above: Performed By: #### C MP, PHOS, CBCDIF, MG1 ####[facility] [address] [place] [address] Sodium [Moles/Vol] 141 mmol/L Normal 136-144 [facility] Comment on above: Performed By: #### C MP, PHOS, CBCDIF, MG1 ####[facility] [address] [place] [address] Urea nitrogen [Mass/Vol] 28 mg/dL High 9-24 [facility] Comment on above: Performed By: #### C CYNTHIA STERLING CBCDIF, MG1 ####[facility] [address] Magnesiumon 06-12-2021 Magnesium [Mass/Vol] 1.7 mg/dL Normal 1.7-2.3 [facility] Comment on above: Performed By: #### C CYNTHIA STERLING CBCDIF, MG1 ####[facility] [phone] NURSING PROGon 06-12-2021 NURSING PROG HNO ID: [id number] Author: Cinda Hanks RN Service: Nursing Author Type: Registered Nurse Type: Nursing Progress Note Filed: 06/12/2021 1:51 PM Note Text: Nursing Progress Note Patient Name: Ferny Emmanule [place] [facility] [place] Daily Note: Patient left the floor prior to getting his d/c paperwork. IV was removed and he did not wait for d/c instructions. This note was completed by: Cinda Hanks [facility] NURSING PROG HNO ID: [id number] Author: Margo Najera RN Service: ? Author Type: Registered Nurse Type: Nursing Progress Note Filed: 06/11/2021 10:15 PM Note Text: Nursing Progress Note Patient Name: Ferny Emmanuel Patient [place] [facility] [place] [place] __ Daily Note: 2145: Patient had multiple liquid bowel movements in both the bed and on floor attempting to get to bedside commode. Patient roomed clean and discussed concerns with Sarahi Sesay APRN about potential C-diff rule out This note was completed by: Margo Najera Normal [facility] Phosphoruson 06-12-2021 Phosphate [Mass/Vol] 2.6 mg/dL Low 2.7-4.8 [facility] Comment on above: Performed By: #### C MP, PHOS, CBCDIF, MG1 ####[facility] [address] Type and Screenon 06-12-2021 ABO/RH(D) Positive [facility] Comment on above: Performed By: #### T SCR ####[facility] [address] [place] [address] ALLIED HEALTHon 06-11-2021 ALLIED HEALTH HNO ID: [id number] Author: RT Angelita(R) Service: Radiology Author Type: Nail Machine Operator Type: Allied Health Filed: 06/11/2021 5:26 PM Note Text: Radiology Service Progress Note PATIENT NAME: Ferny Emmanuel DATE OF SERVICE: June 11, 2021 TIME: 5:26 PM PATIENT IDENTITY VERIFICATION COMPLETED USING TWO (2) IDENTIFIERS: Name and Date of confirmed by patient verbally. FALL SCREENING: Has the patient had 2 falls in the last year or 1 fall with injury or currently using an Ambulatory Assistive Device (Walker, Cane, Wheelchair, Crutches, etc.)? Inpatient: Screened on floor PATIENT GENDER DATA: Male PATIENT RELEVANT IMPLANT DATA REVIEWED: Not Applicable RADIOLOGY DEPARTMENT: General X-ray: Exam(s) Completed: Abdomen X-Ray: Abdomen PERIPHERAL IV DATA: Not applicable SIGNED BY: RT Angelita(R) June 11, 2021 5:26 PM [facility] C-Reactive Proteinon 021 C-Reactive Protein 2.8 mg/dL High <0.9 [facility] Comment on above: Performed By: #### C BCDIF, CMP, MG1, PHOS, CRP ####[facility] [address] [place] [address]#### PTHI, VITD ####[facility] [address] [facility] Ave[place], [place] [phone] CASE MANAGEMon 06-11-2021 CASE MANAGEM HNO ID: [id number] Author: Deena Faye RN Service: ? Author Type: Registered Nurse Type: Norman Mgt Progress Note Filed: 06/11/2021 10:59 AM Note Text: CARE MANAGEMENT PROGRESS NOTE SERVICE DATE: 06/11/2021 SERVICE TIME: 10:57 AM LOS: 1 day IMM Follow Up Copy Given: Yes Copy given to:: Patient Method: By Phone RN ROMEO spoke to patient to discuss discharge planning. Patient states he is hoping to discharge home today or tomorrow. Patient denies any discharge needs or concerns and states he is anxious to return home with his spouse. Patient confirms that he will call to schedule his follow up care as directed. He states his daughter will transport him home at discharge and assist with picking up any discharge prescriptions. He denies any discharge needs or concerns at this time. CM Dept will continue to follow. SIGNATURE: Deena Faye RN PATIENT NAME: Ferny Emmanuel DATE: June 11, 2021 TIME: 10:57 AM PAGER/CONTACT #: [phone] [facility] CASE MANAGEM HNO ID: [id number] Author: Deena Faye RN Service: ? Author Type: Registered Nurse Type: Norman Mgt Progress Note Filed: 06/11/2021 10:56 AM Note Text: CARE MANAGEMENT PROGRESS NOTE SERVICE DATE: 06/11/2021 SERVICE TIME: 10:47 AM LOS: 1 day Per EMR review: Admission for SBO 06-10-21 Diagnostic Laparoscopy POD #1: NG Tube. IV Fluids. Ambulate Today. Advance to Clear Liquid Diet. Anticipated discharge disposition: Home Discharge Transportation: Family to Transport - Daughter Anticipated discharge date: to be determined. CM Dept to follow. SIGNATURE: Deena Faye RN PATIENT NAME: Ferny Emmanuel DATE: June 11, 2021 TIME: 10:47 AM PAGER/CONTACT #: [phone] [facility] CBC and Differentialon 06-11 Abs Baso <0.03 Normal <0.11 [facility] Comment on above: Performed By: #### C BCDIF, CMP, MG1, PHOS, CRP ####[facility] [address] [place] [address]#### PTHI, VITD ####[place] [address] [facility] [address] [place] [phone] Abs [place] 1.08 k/uL High <0.87 [facility] Comment on above: Performed By: #### C BCDIF, CMP, MG1, PHOS, CRP ####[place] [address]#### PTHI, VITD ####[place] [address] [facility] [address] [place] [phone] Abs Neut 4.15 k/uL Normal 1.45-7.50 [facility] Comment on above: Performed By: #### C BCDIF, CMP, MG1, PHOS, CRP ####[place] [address]#### PTHI, VITD ####[place] [address] [facility] [address] [place] [phone] Absolute nRBC <0.01 Normal <0.01 [facility] Comment on above: Performed By: #### C BCDIF, CMP, MG1, PHOS, CRP ####[place] [address]#### PTHI, VITD ####[place] [address] [facility] [address] [phone] Basophils/100 WBC (Bld) 0.2 % Normal [facility] Comment on above: Performed By: #### C BCDIF, CMP, MG1, PHOS, CRP ####[place] [address]#### PTHI, VITD ####[place] [address] [facility] Ave[place] [place] [phone] DTYPE Auto Diff Normal [facility] Comment on above: Performed By: #### C BCDIF, CMP, MG1, PHOS, CRP ####[place] [address]#### PTHI, VITD ####[place] [address] [facility] AveCSar[address] [place] [phone] Eosinophils (Bld) [#/Vol] 0.06 10*3/uL Normal <0.46 [facility] Comment on above: Performed By: #### C BCDIF, CMP, MG1, PHOS, CRP ####[place] [address]#### PTHI, VITD ####[place] [address] [facility] [address]CS[address] [place] [phone] Eosinophils/100 WBC (Bld) 1.0 % Normal [facility] Comment on above: Performed By: #### C BCDIF, CMP, MG1, PHOS, CRP ####[place] [address]#### PTHI, VITD ####[place] [address] [facility] [address] [phone] Erythrocyte distribution width (RBC) [Ratio] 13.3 % Normal 11.5-15.0 [facility] Comment on above: Performed By: #### C BCDIF, CMP, MG1, PHOS, CRP ####[place] [address]#### PTHI, VITD ####[place] [address] [facility] [address] [phone] Hematocrit (Bld) [Volume fraction] 41.8 % Normal 39.0-51.0 [facility] Comment on above: Performed By: #### C BCDIF, CMP, MG1, PHOS, CRP ####[place] [address]#### PTHI, VITD ####[place] [address] [facility] AveCS[place] [phone] Hemoglobin (Bld) [Mass/Vol] 13.1 g/dL Normal 13.0-17.0 [facility] Comment on above: Performed By: #### C BCDIF, CMP, MG1, PHOS, CRP ####[facility] [address] [place] [address]#### PTHI, VITD ####[place] [address] [facility] Ave[place] [place] [phone] Lymphocytes (Bld) [#/Vol] 0.81 10*3/uL Low 1.00-4.00 [facility] Comment on above: Performed By: #### C BCDIF, CMP, MG1, PHOS, CRP ####[place] [address]#### PTHI, VITD ####[place] [address] [facility] [address]CS[place] [phone] Lymphocytes/100 WBC (Bld) 13.3 % Normal [facility] Comment on above: Performed By: #### C BCDIF, CMP, MG1, PHOS, CRP ####[place] [address]#### PTHI, VITD ####[place] [address] [facility] AveCS[address] [place] [phone] MCH 30.5 pG Normal 26.0-34.0 [facility] Comment on above: Performed By: #### C BCDIF, CMP, MG1, PHOS, CRP ####[place] [address]#### PTHI, VITD ####[place] [address] [facility] [address]CS[address] [place] [phone] MCHC (RBC) [Mass/Vol] 31.3 g/dL Normal 30.5-36.0 [facility] Comment on above: Performed By: #### C BCDIF, CMP, MG1, PHOS, CRP ####[place] [address]#### PTHI, VITD ####[place] [address] [facility] [phone] MCV (RBC) [Entitic vol] 97.4 fL Normal 80.0-100.0 [facility] Comment on above: Performed By: #### C BCDIF, CMP, MG1, PHOS, CRP ####[place] [address]#### PTHI, VITD ####[place] [address] [facility] [address] [place] [phone] Monocytes/100 WBC (Bld) 17.7 % Normal [facility] Comment on above: Performed By: #### C BCDIF, CMP, MG1, PHOS, CRP ####[place] [address]#### PTHI, VITD ####[place] [address] [facility] [place] [phone] Neutrophils/100 WBC (Bld) 67.8 % Normal [facility] Comment on above: Performed By: #### C BCDIF, CMP, MG1, PHOS, CRP ####[place] [address]#### PTHI, VITD ####[place] [address] [facility] AvRobert [address] [phone] NRBCs 0.0 /100 WBC Normal 0 [facility] Comment on above: Performed By: #### C BCDIF, CMP, MG1, PHOS, CRP ####[place] [address]#### PTHI, VITD ####[place] [address] [facility] [phone] Platelet mean volume (Bld) [Entitic vol] 11.1 fL Normal 9.0-12.7 [facility] Comment on above: Performed By: #### C BCDIF, CMP, MG1, PHOS, CRP ####[place] [address]#### PTHI, VITD ####[place] [address] [facility] [place], [place] [phone] Platelets (Bld) [#/Vol] 189 10*3/uL Normal 150-400 [facility] Comment on above: Performed By: #### C BCDIF, CMP, MG1, PHOS, CRP ####[facility] [address] [place] [address]#### PTHI, VITD ####[address] [phone] RBC (Bld) [#/Vol] 4.29 10*6/uL Normal 4.20-6.[address] [facility] Comment on above: Performed By: #### C BCDIF, CMP, MG1, PHOS, CRP ####[place] [address]#### PTHI, VITD ####[place] [address] [place], [place] [phone] WBC (Bld) [#/Vol] 6.11 10*3/uL Normal 3.70-11.[address] [facility] Comment on above: Performed By: #### C BCDIF, CMP, MG1, PHOS, CRP ####[place] [address]#### PTHI, VITD ####[place] [address] [place], [place] [phone] CONSULT PROGon 06-11-2021 CONSULT PROG HNO ID: [id number] Author: Young Graff MD Service: Nephrology Author Type: Physician Type: Consult Progress Note Filed: 06/11/2021 3:48 PM Note Text: Patient seen and examined. Underwent ESTEFANÍA and cecal mobilization yesterday. Had a BM today. NGT out. Going to order solid food for lunch (I saw him earlier) Blood pressure 166/81, pulse 71, temperature 36.7 ?C (98.1 ?F), temperature source Oral, resp. rate 20, height 190.5 cm (6' 3), weight 121.3 kg (267 lb 6.7 oz), SpO2 97 %. Intake/Output Summary (Last 24 hours) at 06/11/2021 1544 Last data filed at 06/11/2021 1227 Gross per 24 hour Intake 600 ml Output 700 ml Net -100 ml Gen: NAD Resp: clear CVS: no rub Abd: softly distended Ext: min edema bilaterally UA 2+ proteinuria, 5-10RBCs in setting of recent abdominal surgery Hb 13.1 Cr 1.98, K 4.3, Na 147 Vit D 45, PTH 62 Impression: 1. CKD 3b with ~500mg proteinuria - baseline Cr close to 2.0 likely due to DM, HTN and prior NSAID use 2. Mild hypernatremia due to diminished free water intake and NS administration 3. Hypertension 4. Bilateral renal cysts 5. Non obstructive nephrolithiasis Plan: 1. Change to 1/2NS at lower rate of 65cc/hr; probably stop fluids tomorrow 2. Will probably restart MEDINA tomorrow for BP control 3. See how he does with diet advancement 4. GI workup underway 5. Would not restart metformin going forward Normal [facility] CONSULT PROG HNO ID: [id number] Author: Ni Mays PA-C Service: General Surgery Author Type: Physician J2Ee Software Engineer Type: Consult Progress Note Filed: 06/11/2021 12:49 PM Note Text: SURGICAL SERVICES POSTOP CONSULT PROGRESS NOTE SERVICE DATE: 06/11/2021 SERVICE TIME: 1000 CONSULTING SERVICE: General surgery POD # 1 diagnostic laparoscopy; lysis of adhesions/mobilization of cecum by Dr. Horn Subjective INTERVAL HISTORY OF PRESENT ILLNESS: Patient had a BM this morning. States he is feeling much better. Current Facility-Administered Medications Medication Dose Route Frequency - pantoprazole 40 mg injection (PROTONIX) 40 mg INTRAVENOUS DAILY (6 AM) - sodium chloride 0.9 % (flush) 3-5 mL (BD POSIFLUSH) 3-5 mL INTRAVENOUS q 12 H - NaCl 0.9% iv flush bag 20 mL INTRAVENOUS PRN - NaCl 0.9% iv infusion 100 mL/hr INTRAVENOUS CONTINUOUS - ondansetron (PF) 4 mg injection (ZOFRAN) 4 mg INTRAVENOUS q 6 H PRN - fentaNYL 50 mcg/mL 25 mcg injection (SUBLIMAZE) 25 mcg INTRAVENOUS q 4 H PRN Objective PHYSICAL EXAM: BP 152/69 Pulse 61 Temp (Src) 98.2 (Oral) Resp 16 Ht 6' 3 (1.91m) Wt 267 lb 6.7 oz (121.3kg) SpO2 92% BMI 33.42 kg/(m2). O2 Therapy: Room Air Physical Exam Performed GENERAL: Alert, no distress, cooperative, Obese SKIN: Skin color, texture, turgor normal. No rashes or lesions. ABDOMEN: Abdomen soft, appropriate post op tenderness, BS present WOUND: Clean, dry and intact Intake/Output Summary (Last 24 hours) at 06/11/2021 1243 Last data filed at 06/11/2021 1227 Gross per 24 hour Intake 600 ml Output 850 ml Net -250 ml DATA: Diagnostic tests reviewed for today's visit: Most recent labs CBC, Coags, BMP, Mg, Phos Recent Labs 06/11/2141406/10/2144206/09/2142906/08/21159906/08/21 1600 WBC 6.11 8.48 9.67 < > 13.19* HB 13.1 13.7 14.6 < > 16.8 HCT 41.8 43.2 43.5 < > 50.7 PLT 189 201 204 < > 240 INR -- -- -- -- 1.1 NA 147* 145* 145* < > 142 K 4.3 4.4 4.8 < > 4.2 CHLOR 108* 107* 106* < > 101 CO2 28 27 29 < > 29 BUN 31* 24 24 < > 23 CREAT 1.98* 1.88* 2.12* < > 2.03* GLUC 132* 126* 146* < > 151* CA 8.8 8.8 9.3 < > 10.4* MG 1.9 -- -- -- 1.9 P 3.2 -- -- -- -- < > = values in this interval not displayed. Liver Function, Amylase, AND Lipase Recent Labs 06/11/2141406/10/2144206/09/2142906/08/21159906/08/21 1600 TPROT 6.2* 6.2* 6.5 < > 7.9 ALB 3.4* 3.5* 3.6* < > 4.6 ALT 18 17 16 < > 18 AST 28 29 24 < > 19 ALKPHOS 78 85 88 < > 105 TBILI 1.0 1.0 0.8 < > 0.9 AMYLASE -- 23* -- -- -- LIPASE -- 16 -- -- 17 < > = values in this interval not displayed. 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 with INR goal of 2.0-3.0 (06/22/2013) HTN (hypertension) (05/10/2014) Hyperlipidemia (05/10/2014) Obesity, Class I, BMI 30-34.9 (06/08/2021) POSTOP PLANS: Routine postop care: Encourage ambulation, Incentive Spirometry -DC NG tube -clears now; if tolerated will do GI soft for lunch -OK to restart AC tomorrow, 06/12/21 -2 week post op follow up; will arrange -DC per primary service once tolerating soft diet -plan discussed with patient, RN and attending surgeon SIGNATURE: Ni Mays PA-C PATIENT NAME: Ferny Emmanuel DATE: June 11, 2021 TIME: 12:43 PM [facility] CONSULT PROG HNO ID: [id number] Author: Breana Boykin MD Service: Gastroenterology Author Type: Physician Type: Consult Progress Note Filed: 06/11/2021 1:53 PM Note Text: GASTROENTEROLOGY CONSULT PROGRESS NOTE Patient Name: Ferny Emmanuel SERVICE DATE: June 11, 2021 SERVICE TIME: 10:43 AM ASSESSMENT 1. SBO s/p diagnostic laparoscopy/ ESTEFANÍA / mobilization of cecum 06/10/21 - unclear etiology with concern for Crohn's disease 2. Significant gastric distention on CT 3. Chronic GERD 4. Acute on CKD 5. 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 PLAN - Post op management as per surgery - Clear liquid diet - Pantoprazole 40 mg IV BID - Daily CBC, CMP and Magnesium - Will need endoscopic evaluation for further evaluation; timing based on clinical course and resolution of acute issues Patient seen and examined. Discussed with mid level provider. Lemons findings confirmed. Plan as outlined. Reports feeling better overall but still bloated. NG removed. Has been ambulating and had three soft BM's today. No nausea or vomiting. Diet advanced by surgery; monitor course. Breana Boykin MD June 11, 2021 1:52 PM INTERVAL HPI: Feels much better today. No abdominal pain, but does feel bloated. No nausea or vomiting. NG tube removed this am and tolerating clear liquids. Had three soft formed stools this am. PHYSICAL EXAM: Patient Vitals for the past 24 hrs: BP Temp Temp src Pulse Resp SpO2 06/11/21 0747 152/69 36.8 ?C (98.2 ?F) Oral 61 16 92 % 06/10/21 2124 117/51 36.5 ?C (97.7 ?F) Oral (!) 59 18 92 % 06/10/21 1358 163/73 37.2 ?C (99 ?F) Oral 63 18 91 % 06/10/21 1340 161/74 37 ?C (98.6 ?F) ? 61 ? 88 % 06/10/21 1300 161/77 ? ? 61 19 92 % 06/10/21 1245 173/82 ? ? 60 18 94 % 06/10/21 1230 173/80 ? ? 60 19 96 % 06/10/21 1215 178/82 ? ? 60 18 95 % 06/10/21 1200 184/84 ? ? 63 26 94 % 06/10/21 1156 179/78 36.9 ?C (98.4 ?F) ? 62 18 95 % GENERAL: Alert AND oriented x 3. Cooperative. NAD EYES: No scleral icterus SKIN: [place] in color. No jaundice LUNGS: Clear to auscultation anteriorly CARDIAC: RRR ABDOMEN: Abdomen obese and soft, non tender, distended, hypoactive BS. No guarding or rebound tenderness elicited. Laparoscopy sites open to air. EXTREMITIES: No upper or lower extremity edema MEDICATIONS: Current Facility-Administered Medications Medication Dose Route Frequency - pantoprazole 40 mg injection (PROTONIX) 40 mg INTRAVENOUS DAILY (6 AM) - sodium chloride 0.9 % (flush) 3-5 mL (BD POSIFLUSH) 3-5 mL INTRAVENOUS q 12 H - NaCl 0.9% iv flush bag 20 mL INTRAVENOUS PRN - NaCl 0.9% iv infusion 100 mL/hr INTRAVENOUS CONTINUOUS - ondansetron (PF) 4 mg injection (ZOFRAN) 4 mg INTRAVENOUS q 6 H PRN - fentaNYL 50 mcg/mL 25 mcg injection (SUBLIMAZE) 25 mcg INTRAVENOUS q 4 H PRN LABS: CBC, Coags, BMP, Mg, Phos Recent Labs 06/11/2141406/10/2144206/09/2142906/08/21 1600 06/08/21 1600 WBC 6.11 8.48 9.67 < > 13.19* HB 13.1 13.7 14.6 < > 16.8 HCT 41.8 43.2 43.5 < > 50.7 PLT 189 201 204 < > 240 INR -- -- -- -- 1.1 NA 147* 145* 145* < > 142 K 4.3 4.4 4.8 < > 4.2 CHLOR 108* 107* 106* < > 101 CO2 28 27 29 < > 29 BUN 31* 24 24 < > 23 CREAT 1.98* 1.88* 2.12* < > 2.03* GLUC 132* 126* 146* < > 151* CA 8.8 8.8 9.3 < > 10.4* MG 1.9 -- -- -- 1.9 P 3.2 -- -- -- -- < > = values in this interval not displayed. Liver Function, Amylase, AND Lipase Recent Labs 06/11/2141406/10/2144206/09/2142906/08/21 1600 06/08/21 1600 TPROT 6.2* 6.2* 6.5 < > 7.9 ALB 3.4* 3.5* 3.6* < > 4.6 ALT 18 17 16 < > 18 AST 28 29 24 < > 19 ALKPHOS 78 85 88 < > 105 TBILI 1.0 1.0 0.8 < > 0.9 AMYLASE -- 23* -- -- -- LIPASE -- 16 -- -- 17 < > = values in this interval not displayed. MISC LABS 06/08/21 COVID (-) ? Component Latest Ref Rng AND Units 06/08/2021 CK 51 - 298 U/L 181 Gastric Occult Bld Negative Positive (A) ? Component Latest Ref Rng AND Units 06/11/2021 Sed Rate, Westergren 0 - 15 mm/hr 12 CRP <0.9 mg/dL 2.8 (H) RADIOLOGY 06/08/21 CT A/P IMPRESSION: Distal small bowel obstruction. ?Significant gastric distention. Increase in the size of the saccular infrarenal abdominal aortic aneurysm. Bilateral renal cysts. ?Several are hyperdense, likely hemorrhagic. ?No gross obstructive uropathy. ?Incompletely characterized cysts on these nonenhanced scans. Punctate nephrolithiasis ? 06/09/21 CXR IMPRESSION: No acute radiographic abnormality. ? 06/09/21 2 View Abdominal Xray IMPRESSION: Small bowel obstruction ? 06/10/21 Abdominal Xray The nasogastric tube tip projects over the stomach, now partially looped within the gastric body. Redemonstrated left pleural effusion and bilateral basilar pulmonary opacities. ?Limited bowel gas evaluation. IMPRESSION: Nasogastric tube tip projects over the gastric body. ? MOST RECENT EGD Has never undergone endoscopic ev (more content not included)... Normal [facility] Comp Metabolic Panelon 06-11 Albumin [Mass/Vol] 3.4 g/dL Low 3.9-4.9 [facility] Comment on above: Performed By: #### C BCDIF, CMP, MG1, PHOS, CRP ####[facility] [address] [place] [address]#### PTHI, VITD ####[place] [phone] ALP [Catalytic activity/Vol] 78 U/L Normal 38-113 [facility] Comment on above: Performed By: #### C BCDIF, CMP, MG1, PHOS, CRP ####[facility] [address] [place] [address]#### PTHI, VITD ####[place] [phone] ALT [Catalytic activity/Vol] 18 U/L Normal 10-54 [facility] Comment on above: Performed By: #### C BCDIF, CMP, MG1, PHOS, CRP ####[facility] [address] [place] [address]#### PTHI, VITD ####[place] [address] [facility] AveCSarah [place]ille [phone] Anion gap [Moles/Vol] 11 mmol/L Normal 9-18 [facility] Comment on above: Performed By: #### C BCDIF, CMP, MG1, PHOS, CRP ####[facility] [address] [place] [address]#### PTHI, VITD ####[place] [address] [facility] AvChristopher [place]ille [phone] AST [Catalytic activity/Vol] 28 U/L Normal 14-40 [facility] Comment on above: Performed By: #### C BCDIF, CMP, MG1, PHOS, CRP ####[place] [address]#### PTHI, VITD ####[place] [address] [facility] AvChristopher [place] [phone] Bilirubin [Mass/Vol] 1.0 mg/dL Normal 0.2-1.3 [facility] Comment on above: Performed By: #### C BCDIF, CMP, MG1, PHOS, CRP ####[place] [address]#### PTHI, VITD ####[place] [address] [facility] AvChristopher [place] [phone] Calcium [Mass/Vol] 8.8 mg/dL Normal 8.5-10.2 [facility] Comment on above: Performed By: #### C BCDIF, CMP, MG1, PHOS, CRP ####[facility] [address] [place] [address]#### PTHI, VITD ####[facility] [facility] AveCSarah [place]ille [phone] Chloride [Moles/Vol] 108 mmol/L High 97-105 [facility] Comment on above: Performed By: #### C BCDIF, CMP, MG1, PHOS, CRP ####[facility] [address] [place] [address]#### PTHI, VITD ####[place] [address] [facility] AveCDavid [place] [phone] CO2 [Moles/Vol] 28 mmol/L Normal 22-30 [facility] Comment on above: Performed By: #### C BCDIF, CMP, MG1, PHOS, CRP ####[facility] [address] [place] [address]#### PTHI, VITD ####[place] [address] [facility] AveCDavid [place] [phone] Creatinine [Mass/Vol] 1.98 mg/dL High 0.73-1.22 [facility] Comment on above: Performed By: #### C BCDIF, CMP, MG1, PHOS, CRP ####[facility] [address] [place] [address]#### PTHI, VITD ####[place] [address] [facility] AveCDavid [place] [phone] eGFR- Amer. 40 Normal [facility] Comment on above: Performed By: #### C BCDIF, CMP, MG1, PHOS, CRP ####[place] [address]#### PTHI, VITD ####[place] [address] [facility] AveCDavid [place] [phone] eGFR-All Other Races 33 . Normal [facility] Comment on above: Result Comment: eGFR (Estimated GFR) Units of measure: mL/min/1.73 meters squared eGFR is derived from the reexpressed MDRD Study equation using the following parameters: serum creatinine, age, gender and race. The creatinine assay has been calibrated to be traceable to IDMS. An eGFR <60 mL/min/1.73m2 for >3 months is consistent with chronic kidney disease. Refer to KDOQI guidelines for clinical interpretation. In patients with unstable renal function, e.g. those with acute kidney injury, the eGFR may not accurately reflect actual GFR. Performed By: #### C BCDIF, CMP, MG1, PHOS, CRP ####[place] [address]#### PTHI, VITD ####[address] [phone] Glucose [Mass/Vol] 132 mg/dL High 74-99 [facility] Comment on above: Result Comment: The [place] Diabetes Association (ADA) provides guidance for cutoff values for fasting glucose and random glucose. The ADA defines fasting as no caloric intake for at least 8 hours. Fasting plasma glucose results between 100 to 125 mg/dL indicate increased risk for diabetes (prediabetes). Fasting plasma glucose results greater than or equal to 126 mg/dL meet the criteria for diagnosis of diabetes. In the absence of unequivocal hyperglycemia, results should be confirmed by repeat testing. In a patient with classic symptoms of hyperglycemia or hyperglycemic crisis, random plasma glucose results greater than or equal to 200 mg/dL meet the criteria for diagnosis of diabetes. Reference: Standards of Medical Care in Diabetes 2016, [place] Diabetes Association. Diabetes Care. 2016.39(Suppl 1). Performed By: #### C BCDIF, CMP, MG1, PHOS, CRP ####[place] [address]#### PTHI, VITD ####[address] [phone] Potassium [Moles/Vol] 4.3 mmol/L Normal 3.7-5.1 [facility] Comment on above: Performed By: #### C BCDIF, CMP, MG1, PHOS, CRP ####[facility] [address] [place] [address]#### PTHI, VITD ####[address] [phone] Protein [Mass/Vol] 6.2 g/dL Low 6.3-8.0 [facility] Comment on above: Performed By: #### C BCDIF, CMP, MG1, PHOS, CRP ####[facility] [address] [place] [address]#### PTHI, VITD ####[place] [address] [facility] AvAbsaroke[place], [place] [phone] Sodium [Moles/Vol] 147 mmol/L High 136-144 [facility] Comment on above: Performed By: #### C BCDIF, CMP, MG1, PHOS, CRP ####[place] [address]#### PTHI, VITD ####[place] [address] [facility] AvAbsaroke[place], [place] [phone] Urea nitrogen [Mass/Vol] 31 mg/dL High 9-24 [facility] Comment on above: Performed By: #### C BCDIF, CMP, MG1, PHOS, CRP ####[place] [address]#### PTHI, VITD ####[place] [address] [facility] AvAbsaroke[place], [place] [phone] Magnesiumon 06-11-2021 Magnesium [Mass/Vol] 1.9 mg/dL Normal 1.7-2.3 [facility] Comment on above: Performed By: #### C BCDIF, CMP, MG1, PHOS, CRP ####[place] [address]#### PTHI, VITD ####[place] [address] [facility] AveCBig [place], [place] [phone] PTH, Intacton 06-11-2021 PTH, Intact 62 pg/mL Normal 15-65 [facility] Comment on above: Performed By: #### C BCDIF, CMP, MG1, PHOS, CRP ####[place] [address]#### PTHI, VITD ####[place] [address] [facility] AvAbsar[place], [place] [phone] Phosphoruson 06-11-2021 Phosphate [Mass/Vol] 3.2 mg/dL Normal 2.7-4.8 [facility] Comment on above: Performed By: #### C BCDIF, CMP, MG1, PHOS, CRP ####[facility] [address] [place], [place] [phone]#### PTHI, VITD ####[facility] [place], [place] [phone] Sed Rate Westergrenon 2020 Sed Rate Westergren 12 mm/hr Normal 0-[address] [facility] Comment on above: Performed By: #### W SR ####[facility] [place], [place] [phone] Vitamin D 25 Hydroxyon 06-11 Vitamin D 25 Hydroxy 45.1 ng/mL Normal 31.0-80.0 [facility] Comment on above: Result Comment: Clas sification of 25 [place] Vitamin D status: Insufficiency/Moderate Deficiency: < or = 30 ng/mL Sufficiency/Optimal Levels: 31 to 80 ng/mL Toxicity: > 100 ng/mL Test performed by chemiluminescent immunoassay. Performed By: #### C BCDIF, CMP, MG1, PHOS, CRP ####[facility] [address] [place], [place] [phone]#### PTHI, VITD ####[facility] [place], [place] [phone] XR ABD 2V SUPINE W UPR/DECUB /CTLon 06-11-2021 XR ABD 2V SUPINE W UPR/DECUB/CTL * * *Final Report* * * DATE OF EXAM: Jun 11 2021 5:24PM MDX [id number] - XR ABD 2V SUPINE W UPR/DECUB/CTL / PROCEDURE REASON: Abd distension * * * * Physician Interpretation * * * * ABDOMINAL RADIOGRAPHS HISTORY: 80 years old Clinical information: Abd distension ABDOMEN DISTENTION TECHNIQUE: Images: XR ABD 2V SUPINE W UPR/DECUB/CTL Comparison: 06/09/2021 RESULT: Findings: Distended small bowel loops are seen within the abdomen with associated air-fluid levels. Gas is noted in the colon. No free air is seen. Left-sided pleural effusion. IMPRESSION: Slight improved distention of the small bowel compared to the prior exam. There are persistent findings related to small bowel obstruction. 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 Author Type: Clinical Nail Machine Operator Type: [facility] Filed: 06/10/2021 1:10 AM Note Text: Radiology Service Progress Note PATIENT NAME: Ferny Emmanuel DATE OF SERVICE: June 10, 2021 TIME: 1:10 AM PATIENT IDENTITY VERIFICATION COMPLETED USING TWO (2) IDENTIFIERS: Name and Date of confirmed by patient verbally. FALL SCREENING: Has the patient had 2 falls in the last year or 1 fall with injury or currently using an Ambulatory Assistive Device (Walker, Cane, Wheelchair, Crutches, etc.)? Inpatient: Screened on floor PATIENT GENDER DATA: Male PATIENT RELEVANT IMPLANT DATA REVIEWED: Not Applicable RADIOLOGY DEPARTMENT: General X-ray: Exam(s) Completed: Abdomen X-Ray: Abdomen PERIPHERAL IV DATA: Not applicable SIGNED BY: OSCAR Petersen June 10, 2021 1:10 AM [facility] HNO ID: [id number] Author: OSCAR Petersen Service: ? Author Type: Clinical Nail Machine Operator Type: [facility] Filed: 06/09/2021 11:55 PM Note Text: Radiology Service Progress Note PATIENT NAME: Ferny Emmanuel DATE OF SERVICE: June 09, 2021 TIME: 11:55 PM PATIENT IDENTITY VERIFICATION COMPLETED USING TWO (2) IDENTIFIERS: Name and Date of confirmed by patient verbally. FALL SCREENING: Has the patient had 2 falls in the last year or 1 fall with injury or currently using an Ambulatory Assistive Device (Walker, Cane, Wheelchair, Crutches, etc.)? Inpatient: Screened on floor PATIENT GENDER DATA: Male PATIENT RELEVANT IMPLANT DATA REVIEWED: Not Applicable RADIOLOGY DEPARTMENT: General X-ray: Exam(s) Completed: Abdomen X-Ray: Abdomen PERIPHERAL IV DATA: Not applicable SIGNED BY: Darcy GuerrierarlandOSCAR June 09, 2021 11:55 PM [facility] ANES POSTPROC EVALon 021 ANES POSTPROC EVAL HNO ID: [id number] Author: Dick Angeles MD Service: Anesthesiology Author Type: Anesthesiologist Type: Anesthesia Postprocedure Evaluation Filed: 06/10/2021 1:44 PM Note Text: POST ANESTHESIA EVALUATION NOTE : 1940 Procedure Summary Date: 06/10/21 Room / Location: IA OR / IA OR Anesthesia Start: 1005 Anesthesia Stop: 1157 Procedure: LAPAROSCOPY DIAGNOSTIC WITH LYSIS ADHESIONS INTESTINAL (N/A Abdomen) Diagnosis: SBO (small bowel obstruction) ([facility]) Surgeons: Lana Horn MD Responsible Provider: Dick Angeles MD Anesthesia Type: general ASA Status: 3 Anesthesia Type: general Last vitals Vitals Value Taken Time BP 161/74 06/10/21 1340 Temp 37 ?C (98.6 ?F) 06/10/21 1340 Pulse 61 06/10/21 1340 Resp 19 06/10/21 1308 SpO2 88 % 06/10/21 1340 Vitals shown include unvalidated device data. Post Anesthesia Patient Status Patient Evaluation: bedside. Anticipated Disposition: phase 2 then home. Neurological Status: aware and responsive. Pulmonary Status: breathing comfortably on room air Airway Control: returned to baseline unsupported. Cardiovascular Status: stable. Pain Management: clinically adequate Postoperative Hydration: acceptable. Intraoperative Events: no significant anesthesia events Post Operative Nausea/Vomiting Status: no significant post operative nausea or vomiting Anesthetic Observations: Recommendation: continue current plan of care. No complications documented. SIGNATURE: Dick Angeles MD PATIENT NAME: Ferny Emmanuel DATE: June 10, 2021 TIME: 1:44 PM CSN: [id number] [facility] ANES PRE-OPon 06-10-2021 ANES PRE-OP HNO ID: [id number] Author: Ayesha Yuen MD Service: Anesthesiology Author Type: Anesthesiologist Type: Anesthesia Preprocedure Evaluation Filed: 06/10/2021 10:00 AM Note Text: ANESTHESIOLOGY DAY OF SURGERY NOTE : 1940 Procedure(s) (LRB): LAPAROSCOPY DIAGNOSTIC WITH LYSIS ADHESIONS INTESTINAL (N/A) EXPLORATORY LAPAROTOMY ADULT (N/A) Surgeon(s): Lana Horn MD Estimated body mass index is 33.42 kg/m? as calculated from the following: Height as of this encounter: 190.5 cm (6' 3). Weight as of this encounter: 121.3 kg (267 lb 6.7 oz). Most recent hematocrit and potassium results: Hematocrit 43.2 06/10/2021 Potassium 4.4 06/10/2021 Relevant Problems CARDIO (+) HTN (hypertension) (+) Pulmonary embolism (HCC) (+) SSS (sick sinus syndrome) (HCC) I - PHYSICAL EVALUATION AIRWAY Patient intubated: No. Tracheostomy tube not present Mallampati: I. TM distance: >3 FB. Neck ROM: full ROM without neurological symptoms. Mouth opening: adequate. Short neck: yes. Thick neck: yes DENTAL Dental findings: edentulous. Additional exam findings: no II - ANESTHESIA PLAN ASA Score: 3 Anesthetic Plan: general Airway type: ETT The patient is not a current smoker. NPO Status: adequate Monitoring plan: standard ASA. Postoperative analgesic plan: parenteral or oral opioids. Anesthetic Risks, Benefits, Alternatives, Personnel Discussed. Consent obtained from: patient.Patient / Surrogate agrees to blood products: Yes Significant changes in the patient condition since the History and Physical, not otherwise documented in primary service progress note: no. Potential Anesthesia issues that may suggest increased risk of complications or contraindication to planned procedure: none. Vitals Value Taken Time BP 173/86 06/10/21 0907 Pulse 69 06/10/21 0907 Resp 20 06/10/21 09 Temp 37 ?C (98.6 ?F) 06/10/21 0907 SpO2 93 % 06/10/21 0907 Facility-Administered Medications as of 06/10/2021 Medication Dose Route Frequency - [COMPLETED] NaCl 0.9% 1,000 mL iv bolus 1,000 mL INTRAVENOUS ONCE - [COMPLETED] ondansetron (PF) 4 mg injection (ZOFRAN) 4 mg INTRAVENOUS ONCE - [COMPLETED] fentaNYL 50 mcg/mL 50 mcg injection (SUBLIMAZE) 50 mcg INTRAVENOUS ONCE - [COMPLETED] pantoprazole 40 mg injection (PROTONIX) 40 mg INTRAVENOUS ONCE - [COMPLETED] fentaNYL 50 mcg/mL 50 mcg injection (SUBLIMAZE) 50 mcg INTRAVENOUS ONCE - [COMPLETED] ondansetron (PF) 4 mg injection (ZOFRAN) 4 mg INTRAVENOUS ONCE - [MAR Hold due to Transfer] pantoprazole 40 mg injection (PROTONIX) 40 mg INTRAVENOUS DAILY (6 AM) - [MAR Hold due to Transfer] sodium chloride 0.9 % (flush) 3-5 mL (BD POSIFLUSH) 3-5 mL INTRAVENOUS q 12 H - [MAR Hold due to Transfer] NaCl 0.9% iv flush bag 20 mL INTRAVENOUS PRN - [MAR Hold due to Transfer] NaCl 0.9% iv infusion 100 mL/hr INTRAVENOUS CONTINUOUS - [MAR Hold due to Transfer] ondansetron (PF) 4 mg injection (ZOFRAN) 4 mg INTRAVENOUS q 6 H PRN - [MAR Hold due to Transfer] fentaNYL 50 mcg/mL 25 mcg injection (SUBLIMAZE) 25 mcg INTRAVENOUS q 4 H PRN Outpatient Medications as of 06/10/2021 Medication Sig - magnesium oxide 400 mg magnesium cap Take by mouth. - turmeric root extract 500 mg cap Take by mouth. - psyllium husk (METAMUCIL ORAL) Take by mouth. - apixaban (ELIQUIS) 5 mg tab(s) Take by mouth twice daily. - HONEY ORAL Take by mouth. 1 tablespoon in the morning and in the evening. - lisinopril (ZESTRIL, PRINIVIL) 20 mg tablet Take 30 mg by mouth once daily. - ATORVASTATIN CALCIUM (ATORVASTATIN ORAL) Take 20 mg by mouth daily at bedtime. - amLODIPine (NORVASC) 10 mg tablet Take 10 mg by mouth once daily. - blood sugar diagnostic (ACCU-CHEK PENELOPE PLUS TEST STRP) test strip before meals and at bedtime. Use as instructed - ASCORBIC ACID (VITAMIN C ORAL) Take 2 tablets by mouth once daily. Not taking - Cholecalciferol, Vitamin D3, 1,000 unit cap Take 1,000 Units by mouth once daily. - OMEGA-3 FATTY ACIDS/FISH OIL (OMEGA 3 FISH OIL ORAL) Take by mouth once daily. - metoprolol tartrate, short acting, 25 mg ORAL tablet Take 50 mg by mouth twice daily. - omeprazole(PRILOSEC 20 MG CAP) Take one(1) capsule daily. - TRAZODONE 100 MG TAB Take one(1) tablet daily at bedtime. - warfarin (COUMADIN) 5 mg tablet Take 1 and 1/2 tablets daily (7.5 mg) except take 2 tablets on fridays. (Patient not taking: Reported on 10/25/2018 ) - metFORMIN (GLUCOPHAGE) 500 mg tablet Take 500 mg by mouth. 2 tabs(1000mg) at dinner - SOFTCLIX LANCETS MISC - Psyllium powd Take 1 Tablespoonful by mouth once daily. - magnesium carbonate (MAGONATE) 54 mg/5 mL liqd Take by mouth three times daily. - ibuprofen (MOTRIN) 200 mg tablet Take 800 mg by mouth once daily. PRN - terbinafine 250 mg tablet Take 250 mg by mouth once daily. - Meclizine HCl 25 mg cap Take by mouth three times daily as needed. - triamterene-hydrochlor othiazide (MAXZIDE) 75-50 mg ORAL per tabl (more content not included)... Normal [facility] Amylaseon 06-10-2021 Amylase [Catalytic activity/Vol] 23 U/L Low 30-104 [facility] Comment on above: Performed By: #### L IPA, AMYL ####[facility] [address] [place] [phone] BRIEF OP NOTon 06-10-2021 BRIEF OP NOT HNO ID: [id number] Author: Lana Horn MD Service: General Surgery Author Type: Physician Type: Brief Op Note Filed: 06/10/2021 12:04 PM Note Text: BRIEF OPERATIVE / PROCEDURE NOTE LOG ID: [id number] SURGERY/PROCEDURE DATE: 06/10/2021 INCISION/PROCEDURE START TIME: 10:35 AM INCISION CLOSE/PROCEDURE END TIME: 11:38 AM SURGEON(S)/PROCEDURALI ST(S) AND HR SYSTEMS ANALYST(S): Surgeon(s) and Role: * Lana Horn MD - Primary Nurse Practitioner: Lauren Fajardo APRN.CRANE HOIST OR LIFT OPERATOR Registered Nurse [employer] Preparation Worker: Amy Cuevas RN SURGERY/PROCEDURE(S): diagnostic laparoscopy; lysis of adhesions/mobilization of cecum ANESTHESIA: General FINDINGS: cecum adherent to lateral abdominal wall causing potential for SBO; No obvious transition points; Creeping fat around small bowel - ? Crohn's ESTIMATED BLOOD LOSS: 10 mls SPECIMENS: None COMPLICATIONS: None PRE-OP/PRE-PROCEDURE DIAGNOSIS: small bowel obstruction POST-OP/POST-PROCEDURE DIAGNOSIS: dilated small bowel but no obvious transition point; cecum adherent to lateral wall; creeping fat around small bowel SIGNATURE: Lana Horn MD PATIENT NAME: Ferny Emmanuel DATE: June 10, 2021 TIME: 11:58 AM Normal [facility] CBC and Differentialon 06-10 Abs Baso 0.04 k/uL Normal <0.11 [facility] Comment on above: Performed By: #### C BCDIF, CMP ####[facility] [address] [place] [address] Abs Conway 0.87 k/uL High <0.87 [facility] Comment on above: Performed By: #### C BCDIF, CMP ####[place] [address] Abs Neut 6.00 k/uL Normal 1.45-7.50 [facility] Comment on above: Performed By: #### C BCDIF, CMP ####[place] [address] Absolute nRBC <0.01 Normal <0.01 [facility] Comment on above: Performed By: #### C BCDIF, CMP ####[place] [address] Basophils/100 WBC (Bld) 0.5 % Normal [facility] Comment on above: Performed By: #### C BCDIF, CMP ####[place] [address] DTYPE Auto Diff Normal [facility] Comment on above: Performed By: #### C BCDIF, CMP ####[place] [address] Eosinophils (Bld) [#/Vol] 0.18 10*3/uL Normal <0.46 [facility] Comment on above: Performed By: #### C BCDIF, CMP ####[facility] [address] [place] [address] Eosinophils/100 WBC (Bld) 2.1 % Normal [facility] Comment on above: Performed By: #### C BCDIF, CMP ####[facility] [address] [place] [address] Erythrocyte distribution width (RBC) [Ratio] 13.2 % Normal 11.5-15.0 [facility] Comment on above: Performed By: #### C BCDIF, CMP ####[facility] [address] [place] [address] Hematocrit (Bld) [Volume fraction] 43.2 % Normal 39.0-51.0 [facility] Comment on above: Performed By: #### C BCDIF, CMP ####[facility] [address] [place] [address] Hemoglobin (Bld) [Mass/Vol] 13.7 g/dL Normal 13.0-17.0 [facility] Comment on above: Performed By: #### C BCDIF, CMP ####[facility] [address] [place] [address] Lymphocytes (Bld) [#/Vol] 1.37 10*3/uL Normal 1.00-4.00 [facility] Comment on above: Performed By: #### C BCDIF, CMP ####[facility] [address] [place] [address] Lymphocytes/100 WBC (Bld) 16.2 % Normal [facility] Comment on above: Performed By: #### C BCDIF, CMP ####[facility] [address] [place] [address] MCH 30.5 pG Normal 26.0-34.0 [facility] Comment on above: Performed By: #### C BCDIF, CMP ####[facility] [address] [place], [place] [phone] MCHC (RBC) [Mass/Vol] 31.7 g/dL Normal 30.5-36.0 [facility] Comment on above: Performed By: #### C BCDIF, CMP ####[facility] [address] [place], [place] [phone] MCV (RBC) [Entitic vol] 96.2 fL Normal 80.0-100.0 [facility] Comment on above: Performed By: #### C BCDIF, CMP ####[facility] [address] [place], [place] [phone] Monocytes/100 WBC (Bld) 10.3 % Normal [facility] Comment on above: Performed By: #### C BCDIF, CMP ####[address] Neutrophils/100 WBC (Bld) 70.9 % Normal [facility] Comment on above: Performed By: #### C BCDIF, CMP ####[address] NRBCs 0.0 /100 WBC Normal 0 [facility] Comment on above: Performed By: #### C BCDIF, CMP ####[place] [address] Platelet mean volume (Bld) [Entitic vol] 11.3 fL Normal 9.0-12.7 [facility] Comment on above: Performed By: #### C BCDIF, CMP ####[place] [address] Platelets (Bld) [#/Vol] 201 10*3/uL Normal 150-400 [facility] Comment on above: Performed By: #### C BCDIF, CMP ####[place] [address] RBC (Bld) [#/Vol] 4.49 10*6/uL Normal 4.20-6.[address] [facility] Comment on above: Performed By: #### C BCDIF, CMP ####[place] [phone] WBC (Bld) [#/Vol] 8.48 10*3/uL Normal 3.70-11.[address] [facility] Comment on above: Performed By: #### C BCDIF, CMP ####[address] CONSULTon 06-10-2021 CONSULT HNO ID: [id number] Author: Breana Boykin MD Service: Gastroenterology Author Type: Physician Type: Consults Filed: 06/10/2021 8:41 PM Note Text: GASTROENTEROLOGY CONSULT NOTE PATIENT NAME: Ferny Emmanuel SERVICE DATE: June 10, 2021 SERVICE TIME: 2:09 PM PRIMARY CARE PHYSICIAN: Cole Negron MD ATTENDING PHYSICIAN: Charlie Negron MD REASON FOR ADMISSION: SBO REASON FOR CONSULTATION: Concern for Crohn's disease HPI: This is a 80 year old male with a past medical history significant for COPD, transitional cell carcinoma of the bladder, HTN, bilateral PE on Eliquis, CKD, GERD on daily Omeprazole who was admitted to [facility] on June 08, 2021 due to abdominal pain, nausea and vomiting. Was found to have CT findings of a distal small bowel obstruction. Despite medical management the patients symptoms persisted. He therefore underwent diagnostic laparoscopy with lysis of adhesions by Dr. Horn today revealing adherent cecum to the lateral abdominal wall causing potential for SBO. There was no obvious transition points and creeping fat around the small bowel raising concern for Crohn's disease. For this reason a GI consult has been requested. Patient states for the past month he has been having nausea, vomiting, abdominal pain and diarrhea. Initially the patient thought his symptoms were related to his Metformin and when he stopped the medication his symptoms improved. He then reports approximately three days prior to admission his abdominal pain, nausea and vomiting recurred. His emesis consisted of what he felt was fecal material prompting his presentation to the hospital. No reports of fevers or chills prior to arrival. Denies abdominal pain, nausea or vomiting prior to current illness. History of chronic GERD which is typically controlled with Omeprazole daily. Appetite and weight have been stable. No dysphagia or odynophagia. Typically passes a brown formed stool daily without blood, mucous or melena. States had a remote EGD and Colonoscopy 20+ years ago for GIB which per patient was related to PUD from increased Aspirin use. Also reports having small polyps that I didn't need to do anything with. Takes Eliquis daily. Denies Aspirin use. Takes Advil up to 4 tablets several times per week for RLE pain. ALLERGIES: ALLERGIES Allergen Reactions - Aleve [Naproxen Sod* Other: See Comments Muscle spasms-THROAT PAST MEDICAL HISTORY: PAST MEDICAL HISTORY Diagnosis Date - Chronic obstructive pulmonary disease (COPD) (HCC) - History of bladder cancer transitional cell carcinoma of the bladder - Hyperlipidemia - Hypertension diagnosed 1987 - Pulmonary embolism (HCC) 2011 Bilateral PAST SURGICAL HISTORY: PAST SURGICAL HISTORY Procedure Laterality Date - COLONOSCOPY 12/08/09 - PAST SURGICAL HISTORY OF 12/12/2002 Cystoscopy, bilateral retrograde pyelogram; Transurethral - PAST SURGICAL HISTORY OF 07/10/2003 Cystoscopy, transurethral resection of bladder tumor. - PAST SURGICAL HISTORY OF Cataract Extraction - PAST SURGICAL HISTORY OF 2005 Left Knee Replacement - TOTAL KNEE REPLACEMENT Right 03/2019 Knee replacement, total MEDICATIONS: Prior to Admission Medications: tamsulosin (FLOMAX) 0.4 mg, Take 0.4 mg by mouth once daily., Disp: , Rfl: , 06/07/2021 at Unknown time rosuvastatin (CRESTOR) 10 mg tablet, Take 10 mg by mouth once daily., Disp: , Rfl: , 06/07/2021 at Unknown time traMADol (ULTRAM) 50 mg tablet, Take 50 mg by mouth every 6 hours as needed for pain., Disp: , Rfl: , 06/07/2021 at Unknown time gabapentin (NEURONTIN) 100 mg capsule, Take 100 mg by mouth three times daily., Disp: , Rfl: , 06/07/2021 at Unknown time Zinc 50 mg tab, Take 50 mg by mouth as directed., Disp: , Rfl: , 06/07/2021 at Unknown time magnesium oxide 400 mg magnesium cap, Take by mouth., Disp: , Rfl: , 06/07/2021 at Unknown time turmeric root extract 500 mg cap, Take by mouth., Disp: , Rfl: , 06/07/2021 at Unknown time psyllium husk (METAMUCIL ORAL), Take by mouth., Disp: , Rfl: , 06/07/2021 at Unknown time apixaban (ELIQUIS) 5 mg tab(s), Take by mouth twice daily., Disp: , Rfl: , 06/07/2021 at Unknown time HONEY ORAL, Take by mouth. 1 tablespoon in the morning and in the evening., Disp: , Rfl: , Unknown at Unknown time lisinopril (ZESTRIL, PRINIVIL) 20 mg tablet, Take 30 mg by mouth once daily. , Disp: , Rfl: , 06/07/2021 at Unknown time ATORVASTATIN CALCIUM (ATORVASTATIN ORAL), Take 20 mg by mouth daily at bedtime. , Disp: , Rfl: , 06/07/2021 at Unknown time amLODIPine (NORVASC) 10 mg tablet, Take 10 mg by mouth once daily., Disp: , Rfl: , 06/07/2021 at Unknown time blood sugar diagnostic (ACCU-CHEK PENELOPE PLUS TEST STRP) test strip, before meals and at bedtime. Use as instructed, Disp: , Rfl: , 06/07/2021 at Unknown time ASCORBIC ACID (VITAMIN C ORAL), Take 2 tablets by mouth once daily. Not taking, Disp: , Rfl: , Unknown at Unkn (more content not included)... Normal [facility] CONSULT HNO ID: [id number] Author: Young Graff MD Service: Nephrology Author Type: Physician Type: Consults Filed: 06/10/2021 9:48 AM Note Text: CONSULT: NEPHROLOGY SERVICE PATIENT NAME: Ferny Emmanuel DATE of SERVICE: 06/10/21 TIME of SERVICE: 9:33 AM REASON FOR CONSULT: YURIDIA on CKD 3 REQUESTING PHYSICIAN: Dr. Maureen Negron PRIMARY CARE PHYSICIAN: Cole Negron MD Mr. Emmanuel is a 80 year old male who presented to hospital on 06/08 with nausea, vomiting, and abdominal pain that had been present for 1-2 days prior to admission. He had poor PO intake prior to admission and there was some concern for feculent emesis. He underwent CT scan without IV contrast which confirmed a distal small bowel obstruction, bilateral non obstructing nephrolithiasis and a known AAA. NGT was placed but he continued to have abdominal pain. He was evaluated by Surgery and anticoagulation was held. Given no significant improvement in pain or bowel activity, patient will be going to OR today for exploration. He denies a previous history of abdominal surgery. He has a history of colonoscopy in the past for GI bleeding. Cr was 2.0 on admission, 2.1 yesterday and 1.9 today. Review of outpatient data suggests that his recent baseline Cr is around 1.9. He has about 500mg proteinuria. He is on lisinopril. In the past, was on NSAIDs but was asked to stop this by Dr. Cameron Negron in the past year or so. He has not seen a travel attendants in the past. Of note, renal imaging did show non obstructing nephrolithiasis and he has a history of transitional cell CA of bladder s/p TURBT. Risk factors for CKD include DM, HTN and use of NSAIDs. Unclear to me if had any previous obstruction from bladder CA or stone disease in the past. He does have bilateral renal cysts on imaging that date back to at least 2002. HepC testing in past was negative Currently still with abdominal pain. Has a NGT in place. Not currently with nausea. No fevers or chills. Does feel tired. 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 Other ROS as noted above and otherwise negative. PAST MEDICAL HISTORY: PAST MEDICAL HISTORY Diagnosis Date - Chronic obstructive pulmonary disease (COPD) (HCC) - History of bladder cancer transitional cell carcinoma of the bladder - Hyperlipidemia - Hypertension diagnosed 1987 - Pulmonary embolism (HCC) 2010 Bilateral PAST SURGICAL HISTORY: PAST SURGICAL HISTORY Procedure Laterality Date - COLONOSCOPY 12/08/09 - PAST SURGICAL HISTORY OF 12/12/2002 Cystoscopy, bilateral retrograde pyelogram; Transurethral - PAST SURGICAL HISTORY OF 07/10/2003 Cystoscopy, transurethral resection of bladder tumor. - PAST SURGICAL HISTORY OF Cataract Extraction - PAST SURGICAL HISTORY OF 2005 Left Knee Replacement - TOTAL KNEE REPLACEMENT Right 03/2019 Knee replacement, total FAMILY HISTORY: FAMILY HISTORY Problem Relation Age of Onset - Stroke Mother - Heart Father Aortic Aneurysm SOCIAL HISTORY: Social History Tobacco Use - Smoking status: Former Smoker Years: 25.00 Types: Cigarettes Quit date: 04/05/1985 Years since quittin.2 - Smokeless tobacco: Never Used Vaping Use - Vaping Use: Never used Substance Use Topics - Alcohol use: Yes Comment: occasional, maybe a 12 pack over a 2 week period - Drug use: No MEDICATIONS: Prior to Admission Medications: tamsulosin (FLOMAX) 0.4 mg, Take 0.4 mg by mouth once daily., Disp: , Rfl: , 06/07/2021 at Unknown time rosuvastatin (CRESTOR) 10 mg tablet, Take 10 mg by mouth once daily., Disp: , Rfl: , 06/07/2021 at Unknown time traMADol (ULTRAM) 50 mg tablet, Take 50 mg by mouth every 6 hours as needed for pain., Disp: , Rfl: , 06/07/2021 at Unknown time gabapentin (NEURONTIN) 100 mg capsule, Take 100 mg by mouth three times daily., Disp: , Rfl: , 06/07/2021 at Unknown time Zinc 50 mg tab, Take 50 mg by mouth as directed., Disp: , Rfl: , 06/07/2021 at Unknown time magnesium oxide 400 mg magnesium cap, Take by mouth., Disp: , Rfl: , 06/07/2021 at Unknown time turmeric root extract 500 mg cap, Take by mouth., Disp: , Rfl: , 06/07/2021 at Unknown time psyllium husk (METAMUCIL ORAL), Take by mouth., Disp: , Rfl: , 06/07/2021 at Unknown time apixaban (ELIQUIS) 5 mg tab(s), Take by mouth twice daily., Disp: , Rfl: , 06/07/2021 at Unknown time HONEY ORAL, Take by mouth. 1 tablespoon in the morning and in the evening., Disp: , Rfl: , Unknown at Unknown time lisinopril (ZESTRIL, PRINIVIL) 20 mg tablet, Take 30 mg by mouth once daily. , Disp: , Rfl: , 06/07/2021 at Unknown time ATORVASTATIN CALCIUM (ATORVASTATIN ORAL), Take 20 mg by mouth daily at bedtime. , Disp: , Rfl: , 06/07/2021 at Unknown time amLODIPine (NORVASC) 10 mg tablet, Take 10 mg by mouth once daily., Disp: , Rfl: , 06/07/2021 at Unknown time blood sugar diagnostic (ACCU-CHEK PENELOPE PLUS TEST (more content not included)... Normal [facility] Comp Metabolic Panelon 06-10 Albumin [Mass/Vol] 3.5 g/dL Low 3.9-4.9 [facility] Comment on above: Performed By: #### C BCDIF CMP ####[facility] Xkcrfsznch5722 [address] ALP [Catalytic activity/Vol] 85 U/L Normal 38-113 [facility] Comment on above: Performed By: #### C BCDIF CMP ####[facility] Kmfsrpeacx2247 [address] ALT [Catalytic activity/Vol] 17 U/L Normal 10-54 [facility] Comment on above: Performed By: #### C BCDIF CMP ####[facility] Jythzpghah0390 [address] Anion gap [Moles/Vol] 11 mmol/L Normal 9-18 [facility] Comment on above: Performed By: #### C BCDIF, CMP ####[facility] [address] [place] [address] AST [Catalytic activity/Vol] 29 U/L Normal 14-40 [facility] Comment on above: Performed By: #### C BCDIF, CMP ####[facility] [address] [place] [address] Bilirubin [Mass/Vol] 1.0 mg/dL Normal 0.2-1.3 [facility] Comment on above: Performed By: #### C BCDIF, CMP ####[facility] [address] [place] [address] Calcium [Mass/Vol] 8.8 mg/dL Normal 8.5-10.2 [facility] Comment on above: Performed By: #### C BCDIF, CMP ####[facility] [address] [place] [address] Chloride [Moles/Vol] 107 mmol/L High 97-105 [facility] Comment on above: Performed By: #### C BCDIF, CMP ####[facility] [address] [place] [address] CO2 [Moles/Vol] 27 mmol/L Normal 22-30 [facility] Comment on above: Performed By: #### C BCDIF, CMP ####[facility] [address] [place] [address] Creatinine [Mass/Vol] 1.88 mg/dL High 0.73-1.22 [facility] Comment on above: Performed By: #### C BCDIF, CMP ####[facility] [address] [place] [address] eGFR- Amer. 42 Normal [facility] Comment on above: Performed By: #### C BCDIF, CMP ####[facility] [address] [place] [address] eGFR-All Other Races 35 . Normal [facility] Comment on above: Result Comment: eGFR (Estimated GFR) Units of measure: mL/min/1.73 meters squared eGFR is derived from the reexpressed MDRD Study equation using the following parameters: serum creatinine, age, gender and race. The creatinine assay has been calibrated to be traceable to IDMS. An eGFR <60 mL/min/1.73m2 for >3 months is consistent with chronic kidney disease. Refer to KDOQI guidelines for clinical interpretation. In patients with unstable renal function, e.g. those with acute kidney injury, the eGFR may not accurately reflect actual GFR. Performed By: #### C BCMILAGRO CMP ####[facility] [address] [place] [address] Glucose [Mass/Vol] 126 mg/dL High 74-99 [facility] Comment on above: Result Comment: The [place] Diabetes Association (ADA) provides guidance for cutoff values for fasting glucose and random glucose. The ADA defines fasting as no caloric intake for at least 8 hours. Fasting plasma glucose results between 100 to 125 mg/dL indicate increased risk for diabetes (prediabetes). Fasting plasma glucose results greater than or equal to 126 mg/dL meet the criteria for diagnosis of diabetes. In the absence of unequivocal hyperglycemia, results should be confirmed by repeat testing. In a patient with classic symptoms of hyperglycemia or hyperglycemic crisis, random plasma glucose results greater than or equal to 200 mg/dL meet the criteria for diagnosis of diabetes. Reference: Standards of Medical Care in Diabetes 2016, [place] Diabetes Association. Diabetes Care. 2016.39(Suppl 1). Performed By: #### C PAULINO HARTMAN ####[facility] [address] [place] [address] Potassium [Moles/Vol] 4.4 mmol/L Normal 3.7-5.1 [facility] Comment on above: Performed By: #### C BCALEXF CMP ####[facility] [address] [place] [address] Protein [Mass/Vol] 6.2 g/dL Low 6.3-8.0 [facility] Comment on above: Performed By: #### C BCMILAGRO CMP ####[facility] [address] [place], [place] [id number] Sodium [Moles/Vol] 145 mmol/L High 136-144 [facility] Comment on above: Performed By: #### C BCDIF, CMP ####[facility] [address] [place] [address] Urea nitrogen [Mass/Vol] 24 mg/dL Normal 9-24 [facility] Comment on above: Performed By: #### C BCDIF, CMP ####[facility] [address] [place] [phone] Lipaseon 06-10-2021 Lipase [Catalytic activity/Vol] 16 U/L Normal 16-61 [facility] Comment on above: Performed By: #### L IPA, AMYL ####[facility] [address] [place] [phone] OPERATIVE NOon 06-10-2021 OPERATIVE NO HNO ID: [id number] Author: Lana Horn MD Service: General Surgery Author Type: Physician Type: Operative Report Filed: 06/15/2021 11:50 AM Note Text: [facility] - Operative Report FERNY EMMANUEL : 1940 AGE: 80. SEX: M PATIENT TYPE: I [facility] [place] [facility] LOCATION: [facility] ATTENDING PHYSICIAN: Charlie Negron M.D. CSN NUMBER: [id number] DATE OF SURGERY/PROCEDURE: 06/10/2021 INCISION/PROCEDURE START TIME: 10:35 a.m. INCISION CLOSE/PROCEDURE END TIME: 11:38 a.m. PREOPERATIVE DIAGNOSIS: Small bowel obstruction. POSTOPERATIVE DIAGNOSIS: Small bowel obstruction. Dilated small bowel, but no obvious transition point as well as cecum adherent to lateral wall as well as creeping fat around small bowel. SURGEON: Lana Horn M.D. HR SYSTEMS ANALYST: 1. Lauren Fajardo CNP. 2. Amy Cuevas R.N.F.A. No resident was able to assist with the surgery and so a nurse practitioner and HIGH SCHOOL PROFESSIONAL were used as first assistants. Their role included assistance with holding the camera and skin closure. SURGERY/PROCEDURE: Diagnostic laparoscopy as well as lysis of adhesions/mobilization of the cecum. ANESTHESIA: General. FINDINGS: Cecum that is adherent to the lateral abdominal wall causing potential in which a small bowel obstruction could occur, but there were no obvious transition points. Also, it did appear to exhibit some degree of creeping fat around the small bowel concerning for possible Crohn's. ESTIMATED BLOOD LOSS: About 10 mL. SPECIMENS: None. COMPLICATIONS: None. PATIENT HISTORY: Patient is a 80-year-old male, who has been having intermittent abdominal cramping pain for several months. He presented recently to the emergency room with findings suggestive of a small bowel obstruction. He had never had previous GI abdominal surgery. He presented to the emergency room with these complaints. Small bowel obstruction was felt to be present based on imaging studies. He was subsequently admitted and surgical consult was obtained. The obstruction did not improve, which prompted us to recommend surgery today. I recommended a diagnostic laparoscopy with possible laparotomy and possible bowel resection. DESCRIPTION OF PROCEDURE: He was brought to the operating today following informed consent. He was placed supine on the operative table with arms outstretched on armboards. General anesthesia was induced. Once adequately sedated, the abdomen was then prepped and draped in the usual sterile manner. A 5 mm incision was made just above the umbilicus, in which a 5 mm trocar was placed optically without difficulty. The abdomen was then fully insufflated with CO2 gas, a 5 mm 0-degree scope. There were numerous loops of dilated small bowel. I then placed 2 additional trocars, 1 in the left lower quadrant, 1 in the left upper quadrant. These were 3 mm trocars. Bowel graspers were inserted. The cecum was identified. This appeared to be basically plastered to the lateral abdominal wall. This certainly could have been a contributing factor to his potential obstruction, just the fact that it was so flattened, but also as it was adherent to the lateral abdominal wall, there seemed to be almost a tunnel that seemed to go the entire length, but there certainly could have been a point which bowel could have slipped between the cecum and the abdominal wall and creating a point of obstruction. There was no obvious bowel within this tunnel at the time of my inspection. I then ran the small bowel from the level of the cecum proximally. The initial terminal ileum appeared to be very decompressed. I then transitioned to a more distended fluid- filled small bowel. However, no distinct transition point was identified during this process of evaluating the small bowel. He had quite a bit of fat wrapping around the small bowel seemingly consistent with creeping fat appearance, which may be suggestive of potential Crohn disease. No obvious small bowel masses or other abnormalities per se were noted. I then turned attention back to the cecum and mobilized the cecum off the lateral abdominal wall using Harmonic Scalpel device. Once this was performed, this cecum flopped away from the wall, and again, this was further examined. Again, no masses were noted. No evidence to suggest appendicitis. The small bowel was again run from the terminal ileum proximally and again no obvious transition point was noted. At this point, we felt that no surgically identifiable cause for his obstruction was identified, so I elected to then close. The trocars were then opened up, allowing insufflation to escape. The trocars were removed. Local anesthetic was injected into each of the incisions. The incisions were then closed with 5-0 Vicryl. Skin glue was applied as dressing. He was awakened from anesthesia and taken to the PACU in good condition. We did leave the nasogastric tube in place. We al (more content not included)... Normal [facility] Sodium,Urine,Randomon 2020 Sodium (U) [Moles/Vol] 116 mmol/L Normal 14-216 [facility] Comment on above: Performed By: #### U [facility], ####[place] [address]#### UNAR ####[place] [phone] Urinalysison 06-10-2021 Bilirubin, Urine Negative Normal Negative [facility] Comment on above: Performed By: #### U [facility], ####[place] [address]#### UNAR ####[place] [phone] Clarity (U) Clear Normal Clear [facility] Comment on above: Performed By: #### [facility], [facility] ####[place] [address]#### UNAR ####[place] [phone] Color (U) Yellow Normal Yellow [facility] Comment on above: Performed By: #### U [facility], ####[place] [address]#### UNAR ####[place] [phone] Glucose Ql (U) Negative Normal Negative [facility] Comment on above: Performed By: #### U AMIC, UA ####[facility] [address] [place] [address]#### UNAR ####[place] [address] [facility] [address] [phone] Hemoglobin/Blood,Ur 2+ Critically abnormal Negative [facility] Comment on above: Performed By: #### U AMIC, UA ####[place] [address]#### UNAR ####[place] [address] [facility] [address] [phone] Ketones Ql (U) 1+ Critically abnormal Negative [facility] Comment on above: Performed By: #### U AMIC, UA ####[place] [address]#### UNAR ####[place] [address] [facility] [address] [phone] Leukest Negative Normal Negative [facility] Comment on above: Performed By: #### U AMIC, UA ####[place] [address]#### UNAR ####[place] [address] [facility] [phone] Nitrite Ql (U) Negative Normal Negative [facility] Comment on above: Performed By: #### U AMIC, UA ####[place] [address]#### UNAR ####[place] [address] [facility] [address] [phone] pH (U) 6.0 [pH] Normal 5.0-8.0 [facility] Comment on above: Performed By: #### U AMIC, UA ####[facility] [address] [place] [address]#### UNAR ####[place] [address] [facility] [address] [place] [phone] Protein, Urine 2+ Critically abnormal Negative [facility] Comment on above: Performed By: #### U AMIC, UA ####[facility] [address] [place] [address]#### UNAR ####[address] [phone] Specific [place], Ur 1.020 Normal 1.005-1.030 [facility] Comment on above: Performed By: #### U AMIC, UA ####[place] [address]#### UNAR ####[address] [phone] Urobilinogen Qn (U) 0.2 {Nidia'U}/dL Normal 0.2-1.0 [facility] Comment on above: Performed By: #### U AMIC, UA ####[place] [address]#### UNAR ####[address] [phone] Urine Microscopic (FOR LAB U SE ONLY)on 06-10-2021 Cast SEE COMMENT Normal 0 [facility] Comment on above: Result Comment: 0 Performed By: #### U AMIC, UA ####[place] [address]#### UNAR ####[address] [phone] Epithelial cells LM Ql (Urine sed) SEE COMMENT Normal [facility] Comment on above: Result Comment: 0-5 Squamous Epithelial Cells Performed By: #### U AMIC, UA ####[place] [address]#### UNAR ####[place] [address] [facility] [address] [phone] RBC 5-10 Critically abnormal 0-3 [facility] Comment on above: Performed By: #### U [facility] ####[facility] Cbeixmwaob6453 [address]#### UNAR ####[facility] [place], [place] [phone] WBC 0-5 Normal 0-5 [facility] Comment on above: Performed By: #### U [facility] ####[facility] Syoewyzuer7912 [address]#### UNAR ####[facility] [place], [place] [phone] XR ABDOMEN 1V SPECIFYon 05-22 XR ABDOMEN 1V SPECIFY * * *Final Report* * * DATE OF EXAM: Jun 10 2021 1:10AM MDX 5288 - XR ABDOMEN 1V SPECIFY / PROCEDURE REASON: Evaluate tube, line or lead position * * * * Physician Interpretation * * * * EXAMINATION: XR ABDOMEN 1V SPECIFY CLINICAL HISTORY: Evaluate tube, line or lead position Technique: XR ABDOMEN 1V SPECIFY -- NOT APPLICABLE with 1 views on 1 images Comparison: 06/09/2021. RESULT: The nasogastric tube tip projects over the stomach, now partially looped within the gastric body. Redemonstrated left pleural effusion and bilateral basilar pulmonary opacities. Limited bowel gas evaluation. IMPRESSION: Nasogastric tube tip projects over the gastric body. Mechanical Design Engineer Facilities: MIK[facility]IL Transcribe Date/Time: Jun 10 2021 1:18A Dictated by : LANA ADAMES MD This examination was interpreted and the report reviewed and electronically signed by: LANA ADAMES MD on Jun 10 2021 1:19AM EST [id number] Normal [facility] XR ABDOMEN 1V SPECIFY * * *Final Report* * * DATE OF EXAM: Jun 09 2021 11:56PM MDX 5288 - XR ABDOMEN 1V SPECIFY / PROCEDURE REASON: Evaluate tube, line or lead position * * * * Physician Interpretation * * * * EXAMINATION: XR ABDOMEN 1V SPECIFY CLINICAL HISTORY: Evaluate tube, line or lead position Technique: XR ABDOMEN 1V SPECIFY Comparison: 06/09/2021 1:31 PM RESULT: Enteric tube has been repositioned; the tip projects over the proximal stomach. Partial visualization of dilated loops of small bowel. Left cardiac pacer device. Multilevel degenerative changes. IMPRESSION: Tip of the enteric tube projects over the proximal stomach. Mechanical Design Engineer Facilities: [facility] Transcribe Date/Time: Jun 10 2021 12:43A Dictated by : ROBERT SHELLEY MD This examination was interpreted and the report reviewed and electronically signed by: ROBERT SHELLEY MD on Jun 10 2021 12:44AM EST [id number] [facility] HNO ID: [id number] Author: OSCAR Ramos Service: Radiology Author Type: Clinical Nail Machine Operator Type: [facility] Filed: 06/09/2021 1:55 PM Note Text: Radiology Service Progress Note PATIENT NAME: Ferny Emmanuel DATE OF SERVICE: June 09, 2021 TIME: 1:55 PM PATIENT IDENTITY VERIFICATION COMPLETED USING TWO (2) IDENTIFIERS: Name and Date of confirmed by patient verbally. FALL SCREENING: Has the patient had 2 falls in the last year or 1 fall with injury or currently using an Ambulatory Assistive Device (Walker, Cane, Wheelchair, Crutches, etc.)? Inpatient: Screened on floor PATIENT GENDER DATA: Male PATIENT RELEVANT IMPLANT DATA REVIEWED: Not Applicable RADIOLOGY DEPARTMENT: General X-ray: Exam(s) Completed: Abdomen X-Ray: Abdomen PERIPHERAL IV DATA: Not applicable SIGNED BY: OSCAR Ramos June 09, 2021 1:55 PM [facility] HNO ID: [id number] Author: RT Champ(Juli) Service: Radiology Author Type: Nail Machine Operator Type: [facility] Filed: 06/09/2021 7:12 AM Note Text: Radiology Service Progress Note PATIENT NAME: Ferny Emmanuel DATE OF SERVICE: June 09, 2021 TIME: 7:12 AM PATIENT IDENTITY VERIFICATION COMPLETED USING TWO (2) IDENTIFIERS: Name and Date of confirmed by patient verbally. FALL SCREENING: Has the patient had 2 falls in the last year or 1 fall with injury or currently using an Ambulatory Assistive Device (Walker, Cane, Wheelchair, Crutches, etc.)? Inpatient: Screened on floor PATIENT GENDER DATA: Male PATIENT RELEVANT IMPLANT DATA REVIEWED: Not Applicable RADIOLOGY DEPARTMENT: General X-ray: Exam(s) Completed: Chest X-Ray Abdomen X-Ray: Abdomen PERIPHERAL IV DATA: Not applicable SIGNED BY: RT Champ(R) June 09, 2021 7:12 AM [facility] CASE MGT INSERGIO Foote 2020 CASE MGT INSERGIO PATEL HNO ID: [id number] Author: Katina Eric RN Service: Case Management Author Type: Registered Nurse Type: Care Mgt Initial Assessment Filed: 06/09/2021 2:27 PM Note Text: CARE MANAGEMENT: ASSESSMENT AND DISCHARGE PLAN SERVICE DATE: June 09, 2021 SERVICE TIME: 2:25 PM PRIMARY CARE PHYSICIAN: Cole Negron MD, confirmed ADMISSION STATUS: Observation Needs Prior to Discharge: Other: See Comment (medical clearance) MEDICAL: [employer] A[employer] MEDICARE 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 Last discharge within 30 days: No Advance Directive: Current Advance Directive: Health Care Power of Boxing Instructor;Living Will In Chart: Yes Up To Date and Valid: Yes Health LiteracyHow often do you need to have someone help you when you read instructions, pamphlets, or other written material from your doctor or pharmacy? : 1 - Never How confident are you filling out medical forms by yourself?: 1 - Extremely If Patient scores > 3 on either question, the following interventions were put into place:: Patient did not score > 3 on either question. Baseline Mental Status Prior to this Illness what was the patient's Baseline Mental Status?: Alert AND Oriented Prior to this illness, has anyone described the patient having any of the following behaviors?: Not Applicable Relationship of the informant to the patient:: Self Functional Status: Independent Does Patient Currently Receive Any Community Services or Home Care?: None Equipment Prior to Admission: None Has the Patient Been in a Snf Facility in the Past 30 days?: No SOCIAL: Living Arrangements: Home Lives With: Spouse Financial Resources: Not Applicable Primary Contact: Extended Emergency Contact Information Primary Emergency Contact: Carmen Emmanuel Address: [address] [place] [address] [facility] Relation: Spouse Secondary Emergency Contact: Keyonna Waldrop Mobile Relation: Daughter Supportive Patient Contact:: Yes Contact Resources: Family Family Name/Phone: Carmen Emmanuel, Caregiver AssessmentCaregiver is ready, willing and able to meet the patient's needs as recommended by the inter-professional team:: No Caregiver needed Does the patient have an acute stroke diagnosis, or has the patient had a stroke during this admission?: No Patient's transition needs and plan for meeting these needs: Anticipate return home with self care. Patient's perception of need for this admission: Abdominal pain Medication Adherance I am convinced of the importance of my prescription medication: 0 - Agree Completely I worry that my prescription medication will do more harm than good to me : 0 - Disagree Completely I feel financially burdened by my lpw-cj-lcmjvv expenses for my prescription medication:: 0 - Disagree Completely Risk Score: 0 Patient is categorized as: Low risk < 2 Are you interested in bedside delivery of your medications? No , Drug [place] Is Patient Psychosocially Complex?: No ASSESSMENT AND PLAN: Medical Needs: Medical Needs: Two or more chronic diseases Psychosocial Needs: Psychosocial Needs: None FREEDOM OF CHOICE EXPLAINED: [place] of Choice Given: No Reason Not Given: No placements necessary POTENTIAL TRANSITION PLANS Home EMR reviewed. Patient assigned observation bed for SBO. NGT in place. Plans for surgery tomorrow. RNCM spoke to patient to complete assessment. 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 Daughter to transport upon DC. CM assigned will continue to follow for DC planning needs. SIGNATURE: Katina Eric RN PATIENT NAME: Ferny Emmanuel DATE: June 09, 2021 TIME: 2:25 PM PAGER/CONTACT #: [phone] Normal [facility] CBC and Differentialon 06-09 Abs Baso 0.04 k/uL Normal <0.11 [facility] Comment on above: Performed By: #### C BCDIF, CMP ####[facility] [address] [place] [phone] Abs [place] 1.19 k/uL High <0.87 [facility] Comment on above: Performed By: #### C BCDIF, CMP ####[facility] [address] [place] [address] Abs Neut 7.08 k/uL Normal 1.45-7.50 [facility] Comment on above: Performed By: #### C BCDIF, CMP ####[place] [address] Absolute nRBC <0.01 Normal <0.01 [facility] Comment on above: Performed By: #### C BCDIF, CMP ####[place] [address] Basophils/100 WBC (Bld) 0.4 % Normal [facility] Comment on above: Performed By: #### C BCDIF, CMP ####[place] [address] DTYPE Auto Diff Normal [facility] Comment on above: Performed By: #### C BCDIF, CMP ####[place] [address] Eosinophils (Bld) [#/Vol] 0.10 10*3/uL Normal <0.46 [facility] Comment on above: Performed By: #### C BCDIF, CMP ####[place] [address] Eosinophils/100 WBC (Bld) 1.0 % Normal [facility] Comment on above: Performed By: #### C BCDIF, CMP ####[place] [address] Erythrocyte distribution width (RBC) [Ratio] 13.4 % Normal 11.5-15.0 [facility] Comment on above: Performed By: #### C BCDIF, CMP ####[place] [address] Hematocrit (Bld) [Volume fraction] 43.5 % Normal 39.0-51.0 [facility] Comment on above: Performed By: #### C BCDIF, CMP ####[place] [address] Hemoglobin (Bld) [Mass/Vol] 14.6 g/dL Normal 13.0-17.0 [facility] Comment on above: Performed By: #### C BCDIF, CMP ####[place] [address] Lymphocytes (Bld) [#/Vol] 1.26 10*3/uL Normal 1.00-4.00 [facility] Comment on above: Performed By: #### C BCDIF, CMP ####[place] [address] Lymphocytes/100 WBC (Bld) 13.0 % Normal [facility] Comment on above: Performed By: #### C BCDIF, CMP ####[place] [address] MCH 31.6 pG Normal 26.0-34.0 [facility] Comment on above: Performed By: #### C BCDIF, CMP ####[place] [address] MCHC (RBC) [Mass/Vol] 33.6 g/dL Normal 30.5-36.0 [facility] Comment on above: Performed By: #### C BCDIF, CMP ####[place] [address] MCV (RBC) [Entitic vol] 94.2 fL Normal 80.0-100.0 [facility] Comment on above: Performed By: #### C BCDIF, CMP ####[place] [address] Monocytes/100 WBC (Bld) 12.3 % Normal [facility] Comment on above: Performed By: #### C BCDIF, CMP ####[place] [address] Neutrophils/100 WBC (Bld) 73.3 % Normal [facility] Comment on above: Performed By: #### C BCDIF, CMP ####[place] [address] NRBCs 0.0 /100 WBC Normal 0 [facility] Comment on above: Performed By: #### C BCDIF, CMP ####[place] [address] [place] [phone] Platelet mean volume (Bld) [Entitic vol] 10.7 fL Normal 9.0-12.7 [facility] Comment on above: Performed By: #### C BCALEXF, CMP ####[facility] [address] [place] [phone] Platelets (Bld) [#/Vol] 204 10*3/uL Normal 150-400 [facility] Comment on above: Performed By: #### C OSCARF, CMP ####[facility] [address] [place] [phone] RBC (Bld) [#/Vol] 4.62 10*6/uL Normal 4.20-6.[address] [facility] Comment on above: Performed By: #### C BCALEXF, CMP ####[facility] [address] [place] [phone] WBC (Bld) [#/Vol] 9.67 10*3/uL Normal 3.70-11.[address] [facility] Comment on above: Performed By: #### C OSCARDeejay, CMP ####[facility] [address] [place] [phone] CONSULTon 06-09-2021 CONSULT HNO ID: [id number] Author: Ni Mays PA-C Service: General Surgery Author Type: Physician J2Ee Software Engineer Type: Consults Filed: 06/09/2021 11:30 AM Note Text: Attestation signed by Lana Horn MD at 06/09/2021 11:56 AM Attending Note I have personally performed a face to face assessment of the patient and have reviewed the PA/HIGH SCHOOL COUNSELOR note. My lemons findings include: 80 yo male with SBO - no prior abdominal surgery Will re-adjust NG and repeat xrays Anticipate surgery tomorrow if no improvement Signature: Lana Horn MD Date: 06/09/2021 Time: 11:55 AM SURGICAL SERVICES INITIAL CONSULT SERVICE DATE: 06/09/2021 SERVICE TIME: 834 REASON FOR CONSULT: SBO REQUESTING PHYSICIAN: Lola Colunga APRN PRIMARY CARE PHYSICIAN: Cole Negron MD Subjective HISTORY OF PRESENT ILLNESS: Mr. Emmanuel is a 80 year old male who presents for evaluation of his abdominal pain. He states that this has been ongoing for the past few months, but usually self resolves. This current episode started 2 days ago. Small BM yesterday morning. Small amount of flatus. States he did have some vomiting of dark brown color. 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 - PAST SURGICAL HISTORY OF Cataract Extraction - PAST SURGICAL HISTORY OF 2005 Left Knee Replacement - TOTAL KNEE REPLACEMENT Right 03/2019 Knee replacement, total FAMILY HISTORY Problem Relation Age of Onset - Stroke Mother - Heart Father Aortic Aneurysm Social History Tobacco Use - Smoking status: Former Smoker Years: 25.00 Types: Cigarettes Quit date: 04/05/1985 Years since quittin.2 - Smokeless tobacco: Never Used Vaping Use - Vaping Use: Never used Substance Use Topics - Alcohol use: Yes Comment: occasional, maybe a 12 pack over a 2 week period - Drug use: No tamsulosin (FLOMAX) 0.4 mg, Take 0.4 mg by mouth once daily., Disp: , Rfl: , 06/07/2021 at Unknown time rosuvastatin (CRESTOR) 10 mg tablet, Take 10 mg by mouth once daily., Disp: , Rfl: , 06/07/2021 at Unknown time traMADol (ULTRAM) 50 mg tablet, Take 50 mg by mouth every 6 hours as needed for pain., Disp: , Rfl: , 06/07/2021 at Unknown time gabapentin (NEURONTIN) 100 mg capsule, Take 100 mg by mouth three times daily., Disp: , Rfl: , 06/07/2021 at Unknown time Zinc 50 mg tab, Take 50 mg by mouth as directed., Disp: , Rfl: , 06/07/2021 at Unknown time magnesium oxide 400 mg magnesium cap, Take by mouth., Disp: , Rfl: , 06/07/2021 at Unknown time turmeric root extract 500 mg cap, Take by mouth., Disp: , Rfl: , 06/07/2021 at Unknown time psyllium husk (METAMUCIL ORAL), Take by mouth., Disp: , Rfl: , 06/07/2021 at Unknown time apixaban (ELIQUIS) 5 mg tab(s), Take by mouth twice daily., Disp: , Rfl: , 06/07/2021 at Unknown time HONEY ORAL, Take by mouth. 1 tablespoon in the morning and in the evening., Disp: , Rfl: , Unknown at Unknown time lisinopril (ZESTRIL, PRINIVIL) 20 mg tablet, Take 30 mg by mouth once daily. , Disp: , Rfl: , 06/07/2021 at Unknown time ATORVASTATIN CALCIUM (ATORVASTATIN ORAL), Take 20 mg by mouth daily at bedtime. , Disp: , Rfl: , 06/07/2021 at Unknown time amLODIPine (NORVASC) 10 mg tablet, Take 10 mg by mouth once daily., Disp: , Rfl: , 06/07/2021 at Unknown time blood sugar diagnostic (ACCU-CHEK PENELOPE PLUS TEST STRP) test strip, before meals and at bedtime. Use as instructed, Disp: , Rfl: , 06/07/2021 at Unknown time ASCORBIC ACID (VITAMIN C ORAL), Take 2 tablets by mouth once daily. Not taking, Disp: , Rfl: , Unknown at Unknown time Cholecalciferol, Vitamin D3, 1,000 unit cap, Take 1,000 Units by mouth once daily., Disp: , Rfl: , 06/07/2021 at Unknown time OMEGA-3 FATTY ACIDS/FISH OIL (OMEGA 3 FISH OIL ORAL), Take by mouth once daily., Disp: , Rfl: , 06/07/2021 at Unknown time metoprolol tartrate, short acting, 25 mg ORAL tablet, Take 50 mg by mouth twice daily. , Disp: , Rfl: 0, 06/07/2021 at Unknown time omeprazole(PRILOSEC 20 MG CAP), Take one(1) capsule daily., Disp: , Rfl: 0, 06/07/2021 at Unknown time TRAZODONE 100 MG TAB, Take one(1) tablet daily at bedtime., Disp: , Rfl: 0, 06/07/2021 at Unknown time warfarin (COUMADIN) 5 mg tablet, Take 1 and 1/2 tablets daily (7.5 mg) except take 2 tablets on fridays. (Patient not taking: Reported on 10/25/2018 ), Disp: 102 (more content not included)... Normal [facility] Comp Metabolic Panelon 06-09 Albumin [Mass/Vol] 3.6 g/dL Low 3.9-4.9 [facility] Comment on above: Performed By: #### C BCDIF CMP ####[facility] [address] [place] [address] ALP [Catalytic activity/Vol] 88 U/L Normal 38-113 [facility] Comment on above: Performed By: #### C MINNIE CMP ####[facility] [address] [place] [address] ALT [Catalytic activity/Vol] 16 U/L Normal 10-54 [facility] Comment on above: Performed By: #### C BCALEXF CMP ####[facility] [address] [place] [address] Anion gap [Moles/Vol] 10 mmol/L Normal 9-18 [facility] Comment on above: Performed By: #### C BCMILAGRO CMP ####[facility] [address] [place] [address] AST [Catalytic activity/Vol] 24 U/L Normal 14-40 [facility] Comment on above: Performed By: #### C BCDIF CMP ####[facility] [address] [place] [address] Bilirubin [Mass/Vol] 0.8 mg/dL Normal 0.2-1.3 [facility] Comment on above: Performed By: #### C BCDIF, CMP ####[facility] [address] [place] [address] Calcium [Mass/Vol] 9.3 mg/dL Normal 8.5-10.2 [facility] Comment on above: Performed By: #### C BCDIF, CMP ####[facility] [address] [place] [address] Chloride [Moles/Vol] 106 mmol/L High 97-105 [facility] Comment on above: Performed By: #### C BCDIF, CMP ####[facility] [address] [place] [address] CO2 [Moles/Vol] 29 mmol/L Normal 22-30 [facility] Comment on above: Performed By: #### C BCDIF, CMP ####[facility] [address] [place] [address] Creatinine [Mass/Vol] 2.12 mg/dL High 0.73-1.22 [facility] Comment on above: Performed By: #### C BCDIF, CMP ####[facility] [address] [place] [address] eGFR- Amer. 37 Normal [facility] Comment on above: Performed By: #### C BCDIF, CMP ####[facility] [address] [place] [address] eGFR-All Other Races 30 . Normal [facility] Comment on above: Result Comment: eGFR (Estimated GFR) Units of measure: mL/min/1.73 meters squared eGFR is derived from the reexpressed MDRD Study equation using the following parameters: serum creatinine, age, gender and race. The creatinine assay has been calibrated to be traceable to IDMS. An eGFR <60 mL/min/1.73m2 for >3 months is consistent with chronic kidney disease. Refer to KDOQI guidelines for clinical interpretation. In patients with unstable renal function, e.g. those with acute kidney injury, the eGFR may not accurately reflect actual GFR. Performed By: #### C BCDIF, CMP ####[facility] [address] [place] [phone] Glucose [Mass/Vol] 146 mg/dL High 74-99 [facility] Comment on above: Result Comment: The [place] Diabetes Association (ADA) provides guidance for cutoff values for fasting glucose and random glucose. The ADA defines fasting as no caloric intake for at least 8 hours. Fasting plasma glucose results between 100 to 125 mg/dL indicate increased risk for diabetes (prediabetes). Fasting plasma glucose results greater than or equal to 126 mg/dL meet the criteria for diagnosis of diabetes. In the absence of unequivocal hyperglycemia, results should be confirmed by repeat testing. In a patient with classic symptoms of hyperglycemia or hyperglycemic crisis, random plasma glucose results greater than or equal to 200 mg/dL meet the criteria for diagnosis of diabetes. Reference: Standards of Medical Care in Diabetes 2016, [place] Diabetes Association. Diabetes Care. 2016.39(Suppl 1). Performed By: #### C OSCARF, CMP ####[facility] [address] [place] [address] Potassium [Moles/Vol] 4.8 mmol/L Normal 3.7-5.1 [facility] Comment on above: Performed By: #### C BCDIF, CMP ####[facility] [address] [place] [address] Protein [Mass/Vol] 6.5 g/dL Normal 6.3-8.0 [facility] Comment on above: Performed By: #### C BCALEXF, CMP ####[facility] [address] [place] [address] Sodium [Moles/Vol] 145 mmol/L High 136-144 [facility] Comment on above: Performed By: #### C BCALEXF, CMP ####[facility] [address] [place] [address] Urea nitrogen [Mass/Vol] 24 mg/dL Normal 9-24 [facility] Comment on above: Performed By: #### C BCALEXF, CMP ####[facility] [address] [place] [address] HISTORY PHYSICALon HISTORY PHYSICAL HNO ID: [id number] Author: Charlie Negron V, MD Service: Pulmonary Disease Author Type: Physician Type: HANDP Filed: 06/08/2021 10:44 PM Note Text: [place], [place] [address] PH: [phone] HISTORY AND PHYSICAL Patient Name: Ferny Emmanuel :1940 Age:[age] year old male ADMISSION DATE: 06/08/2021 Provider: Charlie Negron MD SERVICE:[facility] ne/Pulmonary/Sleep Medicine Date AND time of evaluation/service: June 08, 2021 TIME: 10:28 PM PRIMARY CARE PHYSICIAN: Cole Negron MD Subjective CHIEF COMPLAINT: Small bowel obstruction with recurrent vomiting. HPI: This 80-year-old male presented to the emergency room with vomiting fecal matter for past 3 days.. He claimed that he is vomiting fecal matter. He has moved very small amount of bowel movement this morning when he might have passed some flatus. However, he remains somewhat unclear as to when he had passed flatus the last time. He is not taking any medicine since yesterday. Patient is on oral Eliquis for his paroxysmal atrial fibrillation. This was last taken yesterday. He denies having any nausea, vomiting, fever, chills. He denies having any significant pain in the abdomen. He does feel his abdomen to be distended. Patient has refused colonoscopy in the past and I have no prior record of him undergoing colonoscopy. He was evaluated in the emergency room. His CT of the abdomen was read as showing distal small bowel obstruction. Significant gastric distention. Increase in the size of the saccular infrarenal abdominal aortic aneurysm. Bilateral renal cyst. Several area hyperdense likely hemorrhagic. No gross obstructive uropathy. Incompletely characterized cyst on this nonenhanced scans. Punctate nephrolithiasis. He was admitted to the hospital further evaluation management. Surgical consultation has been requested. Patient was also recommended to have NG tube placement in the emergency room. REVIEW OF SYSTEMS: General: Denies any significant change in weight. No fever, chills or malaise Eyes: No visual difficulty or discharge EENT: Denies any trouble swallowing or choking on food. Denies sore throat Pulmonary: Denies shortness of breath, wheezing, cough Cardiac: Denies chest pain, palpitation or edema GI: Per HPI : Denies dysuria, Frequency, incontinence Musculoskeletal: Patient had pain in his shoulder that is better since he received local cortisone injection. 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 - PAST SURGICAL HISTORY OF Cataract Extraction - PAST SURGICAL HISTORY OF 2005 Left Knee Replacement - TOTAL KNEE REPLACEMENT Right 03/2019 Knee replacement, total FAMILY HISTORY Problem Relation Age of Onset - Stroke Mother - Heart Father Aortic Aneurysm Social History Tobacco Use - Smoking status: Former Smoker Years: 25.00 Types: Cigarettes Quit date: 04/05/1985 Years since quittin.2 - Smokeless tobacco: Never Used Vaping Use - Vaping Use: Never used Substance Use Topics - Alcohol use: Yes Comment: occasional, maybe a 12 pack over a 2 week period - Drug use: No tamsulosin (FLOMAX) 0.4 mg, Take 0.4 mg by mouth once daily., Disp: , Rfl: , 06/07/2021 at Unknown time rosuvastatin (CRESTOR) 10 mg tablet, Take 10 mg by mouth once daily., Disp: , Rfl: , 06/07/2021 at Unknown time traMADol (ULTRAM) 50 mg tablet, Take 50 mg by mouth every 6 hours as needed for pain., Disp: , Rfl: , 06/07/2021 at Unknown time gabapentin (NEURONTIN) 100 mg capsule, Take 100 mg by mouth three times daily., Disp: , Rfl: , 06/07/2021 at Unknown time Zinc 50 mg tab, Take 50 mg by mouth as directed., Disp: , Rfl: , 06/07/2021 at Unknown time magnesium oxide 400 mg magnesium cap, Take by mouth., Disp: , Rfl: , 06/07/2021 at Unknown time turmeric root extract 500 mg cap, Take by mouth., Disp: , Rfl: , 06/07/2021 at Unknown time psyllium husk (METAMUCIL ORAL), Take by mouth., Disp: , Rfl: , 06/07/2021 at Unknown time apixaban (ELIQUIS) 5 mg tab(s), Take by mouth twice daily., Disp: , Rfl: , 06/07/2021 at Unknown time HONEY ORAL, Take by mouth. 1 tablespoon in the morning and in the evening., Disp: , Rfl: , Unknown at Unknown time lisinopril (ZESTRIL, PRINIVIL) 20 mg tablet, Take 30 mg by mouth once christine (more content not included)... Normal [facility] XR ABD 2V SUPINE W UPR/DECUB /CTLon 06-09-2021 XR ABD 2V SUPINE W UPR/DECUB/CTL * * *Final Report* * * DATE OF EXAM: Jun 09 2021 1:57PM MDX 5356 - XR ABD 2V SUPINE W UPR/DECUB/CTL / PROCEDURE REASON: Abd distension * * * * Physician Interpretation * * * * HISTORY: Abd distension PAIN TECHNIQUE: Flat and upright abdomen COMPARISON: Earlier today RESULT: NG tube in the stomach in satisfactory position. Marked gaseous distention of small bowel with air-fluid levels, consistent with distal small bowel obstruction seen on yesterday's CT. IMPRESSION: Small bowel obstruction Mechanical Design Engineer [facility] Transcribe Date/Time: Jun 09 2021 2:42P Dictated by : VINCENT REYNOLDS MD This examination was interpreted and the report reviewed and electronically signed by: VINCENT REYNOLDS MD on Jun 09 2021 2:45PM EST [id number] [facility] XR ABDOMEN 1V SUPINEon 06-09 XR ABDOMEN 1V SUPINE * * *Final Report* * * DATE OF EXAM: Jun 09 2021 6:50AM MDX 5289 - XR ABDOMEN 1V SUPINE / PROCEDURE REASON: Evaluate tube, line or lead position * * * * Physician Interpretation * * * * History: Evaluate tube placement FINDINGS/ IMPRESSION: Enteric tube has its distal end at the gastroesophageal junction with the port in the distal esophagus and advancement is needed for optimal placement. Visualized portions of the abdomen demonstrate multiple gas distended small bowel loops consistent with known obstruction for prior days CT examination. Mechanical Design Engineer Facilities[facility] Transcribe Date/Time: Jun 09 2021 7:34A Dictated by : LEIF ALONZO MD This examination was interpreted and the report reviewed and electronically signed by: LEIF ALONZO MD on Jun 09 2021 7:36AM EST [id number] [facility] XR CHEST 1V FRONTALon 2020 XR CHEST 1V FRONTAL * * *Final Report* * * DATE OF EXAM: Jun 09 2021 6:50AM MDX 5290 - XR CHEST 1V FRONTAL / PROCEDURE REASON: Evaluate tube, line or lead position * * * * Physician Interpretation * * * * EXAMINATION: CHEST RADIOGRAPH (SINGLE VIEW AP OR PA) CLINICAL HISTORY: Evaluate tube, line or lead position MQ: XC1_5 Comparison: 04/25/2013 RESULT: Lines, tubes, and devices: Indwelling pacemaker is grossly stable in position. Feeding tube is been placed, the distal end not visualized. Lungs and pleura: No consolidation. No lung mass. No pleural effusion. Cardiomediastinal silhouette: Normal cardiomediastinal silhouette. Other: . IMPRESSION: No acute radiographic abnormality. Mechanical Design Engineer Facilities: [facility] Transcribe Date/Time: Jun 09 2021 7:33A Dictated by : LEIF ALONZO MD This examination was interpreted and the report reviewed and electronically signed by: LEIF ALONZO MD on Jun 09 2021 7:34AM EST [id number] [facility] ALLIED HEALTHon 06-08-2021 ALLIED HEALTH HNO ID: [id number] Author: OSCAR Gamboa Service: Radiology Author Type: Clinical Nail Machine Operator Type: Allied Health Filed: 06/08/2021 5:44 PM Note Text: Radiology Service Progress Note PATIENT NAME: Ferny Emmanuel DATE OF SERVICE: June 08, 2021 TIME: 5:44 PM PATIENT IDENTITY VERIFICATION COMPLETED USING TWO (2) IDENTIFIERS: Name and Date of confirmed by patient verbally and Name and Date of confirmed by identification band. FALL SCREENING: Has the patient had 2 falls in the last year or 1 fall with injury or currently using an Ambulatory Assistive Device (Walker, Cane, Wheelchair, Crutches, etc.)? Emergency Room Patient: Screened in ED PATIENT GENDER DATA: Male PATIENT RELEVANT IMPLANT DATA REVIEWED: Not Applicable RADIOLOGY DEPARTMENT: CT; Exam(s) Completed: Abdomen/Pelvis PERIPHERAL IV DATA: Not applicable SIGNED BY: OSCAR Gamboa June 08, 2021 5:44 PM Normal [facility] CBC and Differentialon 06-08 Abs Baso 0.05 k/uL Normal <0.11 [facility] Comment on above: Performed By: #### M G1, CBCDIF, CK, CMP, LIPA, PT ####[facility] [address] [place] [address] Abs Eosin <0.03 Normal <0.46 [facility] Comment on above: Performed By: #### M G1, CBCDIF, CK, CMP, LIPA, PT ####[facility] [address] [place] [address] Abs Conway 1.01 k/uL High <0.87 [facility] Comment on above: Performed By: #### M G1, CBCDIF, CK, CMP, LIPA, PT ####[facility] [address] [place] [address] Abs Neut 11.03 k/uL High 1.45-7.50 [facility] Comment on above: Performed By: #### M G1, CBCDIF, CK, CMP, LIPA, PT ####[facility] [address] [place] [address] Absolute nRBC <0.01 Normal <0.01 [facility] Comment on above: Performed By: #### M G1, CBCDIF, CK, CMP, LIPA, PT ####[facility] [address] [place] [address] Basophils/100 WBC (Bld) 0.4 % Normal [facility] Comment on above: Performed By: #### M G1, CBCDIF, CK, CMP, LIPA, PT ####[facility] [address] [place] [address] DTYPE Auto Diff Normal [facility] Comment on above: Performed By: #### M G1, CBCDIF, CK, CMP, LIPA, PT ####[facility] [address] [place] [address] Eosinophils/100 WBC (Bld) 0.1 % [facility] Comment on above: Performed By: #### M G1, CBCDIF, CK, CMP, LIPA, PT ####[place] [address] Erythrocyte distribution width (RBC) [Ratio] 13.5 % Normal 11.5-15.0 [facility] Comment on above: Performed By: #### M G1, CBCDIF, CK, CMP, LIPA, PT ####[place] [address] Hematocrit (Bld) [Volume fraction] 50.7 % Normal 39.0-51.0 [facility] Comment on above: Performed By: #### M G1, CBCDIF, CK, CMP, LIPA, PT ####[place] [address] Hemoglobin (Bld) [Mass/Vol] 16.8 g/dL Normal 13.0-17.0 [facility] Comment on above: Performed By: #### M G1, CBCDIF, CK, CMP, LIPA, PT ####[place] [address] Lymphocytes (Bld) [#/Vol] 1.09 10*3/uL Normal 1.00-4.00 [facility] Comment on above: Performed By: #### M G1, CBCDIF, CK, CMP, LIPA, PT ####[place] [address] Lymphocytes/100 WBC (Bld) 8.3 % Normal [facility] Comment on above: Performed By: #### M G1, CBCDIF, CK, CMP, LIPA, PT ####[place] [address] MCH 31.1 pG Normal 26.0-34.0 [facility] Comment on above: Performed By: #### M G1, CBCDIF, CK, CMP, LIPA, PT ####[place] [address] MCHC (RBC) [Mass/Vol] 33.1 g/dL Normal 30.5-36.0 [facility] Comment on above: Performed By: #### M G1, CBCDIF, CK, CMP, LIPA, PT ####[place] [address] MCV (RBC) [Entitic vol] 93.7 fL Normal 80.0-100.0 [facility] Comment on above: Performed By: #### M G1, CBCDIF, CK, CMP, LIPA, PT ####[facility] [address] [place] [address] Monocytes/100 WBC (Bld) 7.7 % Normal [facility] Comment on above: Performed By: #### M G1, CBCDIF, CK, CMP, LIPA, PT ####[facility] [address] [place] [address] Neutrophils/100 WBC (Bld) 83.5 % Normal [facility] Comment on above: Performed By: #### M G1, CBCDIF, CK, CMP, LIPA, PT ####[facility] [address] [place] [address] NRBCs 0.0 /100 WBC Normal 0 [facility] Comment on above: Performed By: #### G1, CBCDIF, CK, CMP, LIPA, PT ####[facility] [address] [place] [address] Platelet mean volume (Bld) [Entitic vol] 11.3 fL Normal 9.0-12.7 [facility] Comment on above: Performed By: #### G1, CBCDIF, CK, CMP, LIPA, PT ####[facility] [address] [place] [address] Platelets (Bld) [#/Vol] 240 10*3/uL Normal 150-400 [facility] Comment on above: Performed By: #### M G1, CBCDIF, CK, CMP, LIPA, PT ####[facility] [address] [place] [address] RBC (Bld) [#/Vol] 5.41 10*6/uL Normal 4.20-6.[address] [facility] Comment on above: Performed By: #### M G1, CBCDIF, CK, CMP, LIPA, PT ####[facility] [address] [place] [address] WBC (Bld) [#/Vol] 13.19 10*3/uL High 3.70-11.00 [facility] Comment on above: Performed By: #### M G1, CBCDIF, CK, CMP, LIPA, PT ####[facility] [phone] CKon 06-08-2021 CK [Catalytic activity/Vol] 181 U/L Normal 51-298 [facility] Comment on above: Performed By: #### M G1, CBCDIF, CK, CMP, LIPA, PT ####[facility] [phone] CT ABD/PEL WO IVCONon 2020 CT ABD/PEL WO IVCON * * *Final Report* * * DATE OF EXAM: Jun 08 2021 5:45PM [facility] [place] ABD/PEL WO IVCON / PROCEDURE REASON: Infection, abdomen-pelvis * * * * Physician Interpretation * * * * EXAMINATION: CT ABDOMEN AND PELVIS WITHOUT IV CONTRAST CLINICAL HISTORY: Infection, abdomen-pelvis N/V/D starting 2 days ago TECHNIQUE: Non-IV contrast imaging of the abdomen and pelvis was performed using standard technique, scanning from just above the dome of the diaphragm to the symphysis pubis. Unenhanced imaging is limited for the evaluation of some intra-abdominal and pelvic pathology. MQ: CTAPWO_3 Contrast: IV: None : ml of CT Radiation dose: Integrated Dose-length product (DLP) for this visit = 988 mGy*cm. CT Dose Reduction Employed: Automated exposure control (AEC) COMPARISON: 07/10/2012 RESULT: Abdomen / Pelvis: Liver: Unremarkable. Biliary: Gallbladder is unremarkable. No biliary dilatation. Spleen: No splenomegaly. Pancreas: Unremarkable. Adrenals: Mild adrenal fullness bilaterally. Kidneys: Multiple bilateral renal cysts. Several cysts are hyperdense and likely hemorrhagic. Incompletely characterized on these nonenhanced scans No gross obstructive uropathy. Punctate nephrolithiasis bilaterally. GI Tract: Multiple distended small bowel loops with collapsed distal ileum. Caliber approximately 4.5 cm. Likely due to adhesions. The appearance is consistent with small bowel obstruction. Diverticulosis of the colon. Significant gastric distention Lymph Nodes: No lymphadenopathy. Mesentery/peritoneum: No ascites. Retroperitoneum: No mass. Vasculature: Saccular infrarenal abdominal aortic aneurysm of 4.1 x 4.6 cm. Increased from the prior study. Pelvis: No mass or ascites. Bones/Soft Tissues: No acute abnormality. Degenerative changes Lower thorax: Minimal basal atelectasis Lean Manager (topogram) images: Appearance consistent with small bowel obstruction IMPRESSION: Distal small bowel obstruction. Significant gastric distention. Increase in the size of the saccular infrarenal abdominal aortic aneurysm. Bilateral renal cysts. Several are hyperdense, likely hemorrhagic. No gross obstructive uropathy. Incompletely characterized cysts on these nonenhanced scans. Punctate nephrolithiasis Findings discussed with Dr. Guillaume at 1826 Mechanical Design Engineer [facility]ilities[facility] Transcribe Date/Time: Jun 08 2021 6:16P Dictated by : GRAHAM BARRAGAN MD This examination was interpreted and the report reviewed and electronically signed by: GRAHAM BARRAGAN MD on Jun 08 2021 6:26PM EST [id number] Normal [facility] Comp Metabolic Panelon 06-08 Albumin [Mass/Vol] 4.6 g/dL Normal 3.9-4.9 [facility] Comment on above: Performed By: #### M G1, CBCDIF, CK, CMP, LIPA, PT ####[facility] [address] [place] [phone] ALP [Catalytic activity/Vol] 105 U/L Normal 38-113 [facility] Comment on above: Performed By: #### M G1, CBCDIF, CK, CMP, LIPA, PT ####[facility] [phone] ALT [Catalytic activity/Vol] 18 U/L Normal 10-54 [facility] Comment on above: Performed By: #### M G1, CBCDIF, CK, CMP, LIPA, PT ####[facility] [address] [place] [phone] Anion gap [Moles/Vol] 12 mmol/L Normal 9-18 [facility] Comment on above: Performed By: #### M G1, CBCDIF, CK, CMP, LIPA, PT ####[facility] [phone] AST [Catalytic activity/Vol] 19 U/L Normal 14-40 [facility] Comment on above: Performed By: #### M G1, CBCDIF, CK, CMP, LIPA, PT ####[facility] [address] [place] [address] Bilirubin [Mass/Vol] 0.9 mg/dL Normal 0.2-1.3 [facility] Comment on above: Performed By: #### M G1, CBCDIF, CK, CMP, LIPA, PT ####[facility] [address] [place] [address] Calcium [Mass/Vol] 10.4 mg/dL High 8.5-10.2 [facility] Comment on above: Performed By: #### M G1, CBCDIF, CK, CMP, LIPA, PT ####[facility] [address] [place] [address] Chloride [Moles/Vol] 101 mmol/L Normal 97-105 [facility] Comment on above: Performed By: #### M G1, CBCDIF, CK, CMP, LIPA, PT ####[facility] [address] [place] [address] CO2 [Moles/Vol] 29 mmol/L Normal 22-30 [facility] Comment on above: Performed By: #### M G1, CBCDIF, CK, CMP, LIPA, PT ####[facility] [address] [place] [address] Creatinine [Mass/Vol] 2.03 mg/dL High 0.73-1.22 [facility] Comment on above: Performed By: #### M G1, CBCDIF, CK, CMP, LIPA, PT ####[facility] [address] [place] [address] eGFR- Amer. 39 Normal [facility] Comment on above: Performed By: #### M G1, CBCDIF, CK, CMP, LIPA, PT ####[facility] [address] [place] [address] eGFR-All Other Races 32 . Normal [facility] Comment on above: Result Comment: eGFR (Estimated GFR) Units of measure: mL/min/1.73 meters squared eGFR is derived from the reexpressed MDRD Study equation using the following parameters: serum creatinine, age, gender and race. The creatinine assay has been calibrated to be traceable to IDMS. An eGFR <60 mL/min/1.73m2 for >3 months is consistent with chronic kidney disease. Refer to KDOQI guidelines for clinical interpretation. In patients with unstable renal function, e.g. those with acute kidney injury, the eGFR may not accurately reflect actual GFR. Performed By: #### M G1, CBCDIF, CK, CMP, LIPA, PT ####[facility] [address] [place] [address] Glucose [Mass/Vol] 151 mg/dL High 74-99 [facility] Comment on above: Result Comment: The [place] Diabetes Association (ADA) provides guidance for cutoff values for fasting glucose and random glucose. The ADA defines fasting as no caloric intake for at least 8 hours. Fasting plasma glucose results between 100 to 125 mg/dL indicate increased risk for diabetes (prediabetes). Fasting plasma glucose results greater than or equal to 126 mg/dL meet the criteria for diagnosis of diabetes. In the absence of unequivocal hyperglycemia, results should be confirmed by repeat testing. In a patient with classic symptoms of hyperglycemia or hyperglycemic crisis, random plasma glucose results greater than or equal to 200 mg/dL meet the criteria for diagnosis of diabetes. Reference: Standards of Medical Care in Diabetes 2016, [place] Diabetes Association. Diabetes Care. 2016.39(Suppl 1). Performed By: #### M G1, CBCDIF, CK, CMP, LIPA, PT ####[facility] [address] [place] [address] Potassium [Moles/Vol] 4.2 mmol/L Normal 3.7-5.1 [facility] Comment on above: Performed By: #### M G1, CBCDIF, CK, CMP, LIPA, PT ####[facility] [address] [place] [address] Protein [Mass/Vol] 7.9 g/dL Normal 6.3-8.0 [facility] Comment on above: Performed By: #### M G1, CBCDIF, CK, CMP, LIPA, PT ####[facility] [address] [place] [address] Sodium [Moles/Vol] 142 mmol/L Normal 136-144 [facility] Comment on above: Performed By: #### M G1, CBCDIF, CK, CMP, LIPA, PT ####[facility] [address] [place] [address] Urea nitrogen [Mass/Vol] 23 mg/dL Normal 08-14 [facility] Comment on above: Performed By: #### M G1, CBCDIF, CK, CMP, LIPA, PT ####[facility] [address] [place] [phone] ED NOTEon 06-08-2021 ED NOTE HNO ID: [id number] Author: Casi Nayak RN Service: ? Author Type: Registered Nurse Type: ED Notes Filed: 06/08/2021 7:33 PM Note Text: Covid obtained and walked to lab. [facility] ED NOTE HNO ID: [id number] Author: Casi Nayak RN Service: ? Author Type: Registered Nurse Type: ED Notes Filed: 06/08/2021 7:10 PM Note Text: Report called to LILLIE Moody on 3S. All questions answered. Patient and belongings will be sent to floor. [facility] ED NOTE HNO ID: [id number] Author: Casi Nayak RN Service: ? Author Type: Registered Nurse Type: ED Notes Filed: 06/08/2021 7:07 PM Note Text: Patient is resting in bed with call light within reach. Comfort measures provided, provided updates on POC, safety maintained, and no distress noted. [facility] ED NOTE HNO ID: [id number] Author: Casi Nayak RN Service: ? Author Type: Registered Nurse Type: ED Notes Filed: 06/08/2021 6:28 PM Note Text: Patient medicated per JAN. Education on medications given and patient verbalizes understanding. No further questions at this time. Will continue to monitor. [facility] ED NOTE HNO ID: [id number] Author: Casi Nayak RN Service: ? Author Type: Registered Nurse Type: ED Notes Filed: 06/08/2021 6:04 PM Note Text: Purposeful rounding completed. Patient is resting in bed with call light within reach. Comfort measures provided, provided updates on POC, safety maintained, and no distress noted. No requests at this time. Will continue to monitor. [facility] ED NOTE HNO ID: [id number] Author: Casi Nayak RN Service: ? Author Type: Registered Nurse Type: ED Notes Filed: 06/08/2021 5:13 PM Note Text: Patient is resting in bed with call light within reach. Comfort measures provided, provided updates on POC, safety maintained, and no distress noted. [facility] ED NOTE HNO ID: [id number] Author: Casi Nayak RN Service: ? Author Type: Registered Nurse Type: ED Notes Filed: 06/08/2021 4:17 PM Note Text: Patient medicated per MAR. Education on medications given and patient verbalizes understanding. No further questions at this time. Will continue to monitor. [facility] ED NOTE HNO ID: [id number] Author: Casi Nayak RN Service: ? Author Type: Registered Nurse Type: ED Notes Filed: 06/08/2021 4:18 PM Note Text: Patient is resting in bed with call light within reach. Comfort measures provided, provided updates on POC, safety maintained, and no distress noted. [facility] ED NOTE HNO ID: [id number] Author: Casi Nayak RN Service: ? Author Type: Registered Nurse Type: ED Notes Filed: 06/08/2021 3:47 PM Note Text: Agree with nurses triage. [facility] ED NOTE HNO ID: [id number] Author: Shannan Lopez RN Service: ? Author Type: Registered Nurse Type: ED Notes Filed: 06/08/2021 2:10 PM Note Text: Pt presents to ED with N/V/D starting 2 days ago. Pt states that he believes it started d/t a new medication - metformin. Pain presents to upper abdomen. [facility] ED PROV NOTEon 06-08-2021 ED PROV NOTE HNO ID: [id number] Author: Matthew Lyn MD Service: Emergency Medicine Author Type: Physician Type: ED Provider Notes Filed: 06/08/2021 6:59 PM Note Text: ED Provider Note Patient Name: Ferny Emmanuel SERVICE DATE: 06/08/21 History Patient presents with: Abdominal Pain Diarrhea Nausea AND Vomiting This is a 80-year-old male past medical history of PE on Eliquis, hypertension, COPD presenting to the ER with nausea and vomiting since Tuesday. He is is concerned that he is vomiting fecal matter. He states it tastes terrible and is dark in nature. He is also having upper abdominal pain and a very tight full sensation in his abdomen. No fever chills. No chest pain pressure tightness. No new shortness of breath. No prior abdominal surgeries. States he has had colonoscopies in the past but it has been several years and secondary to GI bleed. He moved his bowels normally today. Denies any blood or black stools. 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 - PAST SURGICAL HISTORY OF Cataract Extraction - PAST SURGICAL HISTORY OF 2005 Left Knee Replacement - TOTAL KNEE REPLACEMENT Right 03/2019 Knee replacement, total FAMILY HISTORY Problem Relation Age of Onset - Stroke Mother - Heart Father Aortic Aneurysm Social History Tobacco Use - Smoking status: Former Smoker Years: 25.00 Types: Cigarettes Quit date: 04/05/1985 Years since quittin.2 - Smokeless tobacco: Never Used Substance and Sexual Activity - Alcohol use: Yes Comment: occasional, maybe a 12 pack over a 2 week period - Drug use: No - Sexual activity: Not on file ALLERGIES Allergen Reactions - Aleve [Naproxen Sod* Other: See Comments Muscle spasms-THROAT Review of Systems Constitutional: Positive for appetite change. Negative for activity change. HENT: Negative. Negative for congestion, ear pain, rhinorrhea and sore throat. Eyes: Negative. Negative for pain, discharge and redness. Respiratory: Negative. Negative for chest tightness. Cardiovascular: Negative. Gastrointestinal: Positive for abdominal pain, nausea and vomiting. Endocrine: Negative. Genitourinary: Negative. Negative for frequency and urgency. Musculoskeletal: Negative. Negative for arthralgias. Skin: Negative. Neurological: Negative. Negative for weakness and light-headedness. Psychiatric/Behavioral : Negative. Physical Exam BP 155/90 Pulse 74 Temp (Src) 96.7 (Temporal) Resp 18 Wt 275 lb (124.7kg) SpO2 96% O2 Therapy: Room Air Physical Exam Constitutional: Appearance: He is well-developed. HENT: Head: Normocephalic and atraumatic. Eyes: Extraocular Movements: Extraocular movements intact. Conjunctiva/sclera: Conjunctivae normal. Pupils: Pupils are equal, round, and reactive to light. Cardiovascular: Rate and Rhythm: Normal rate and regular rhythm. Heart sounds: Normal heart sounds. Pulmonary: Effort: Pulmonary effort is normal. Breath sounds: Normal breath sounds. Abdominal: General: Bowel sounds are normal. There is distension. There is no abdominal bruit. There are no signs of injury. Palpations: Abdomen is soft. Tenderness: There is generalized abdominal tenderness. Comments: Patient's abdomen seems distended and full. Diffuse tenderness. Bowel sounds are present. Musculoskeletal: Cervical back: Normal range of motion and neck supple. Skin: General: Skin is warm and dry. Neurological: Mental Status: He is alert and oriented to person, place, and time. Diagnostic Testing ED Labs Ordered and Reviewed COMP METABOLIC PANEL - Abnormal; Notable for the following components: Result Value Ref Range Calcium 10.4 (*) 8.5 - 10.2 mg/dL Glucose 151 (*) 74 - 99 mg/dL Creatinine 2.03 (*) 0.73 - 1.22 mg/dL All other components within normal limits CBC + DIFF - Abnormal; Notable for the following components: WBC 13.19 (*) 3.70 - 11.00 k/uL Abs Neut (ANC) 11.03 (*) 1.45 - 7.50 k/uL Abs Conway 1.01 (*) <0.87 k/uL All other components within normal limits GASTRIC OCC BLD - Abnormal; Notable for the following components: Gastric Occult Bld Positive (*) Negative All other components within normal limits MAGNESIUM BLD LIPASE BLD CK CREATINE KINASE TROPONIN T PROTHROMBIN TIME/PT TYPE AND SCREEN INTERMEDIATE RAPID COVID Procedures ED Course / Clinical Impression Clinical Impressions as of Jun 08 1859 Small bowel obstruction (HCC) Renal insufficiency COVID-1 (more content not included)... Normal [facility] Gastric Occult Blood For FH/ MED/FLA ONLYon 06-08-2021 Gastric Occult Blood For FH/MED/FLA ONLY Positive Critically abnormal Negative [facility] Comment on above: Performed By: #### G OB ####[facility] Bwdpszdzgc5690 [phone] Intermed Rapid COVIDon 06-08 SARS-CoV-2 (COVID-19) RNA ROGERS+probe Ql (Unsp spec) UPPER RESPIRATORY TRACT SWAB Normal [facility] Comment on above: Performed By: #### I TCOVD ####[facility] [address] [phone] SARS-CoV-2 (COVID-19) RNA ROGERS+probe Ql (Unsp spec) Negative for COVID19 (SARS CoV2) by RT-PCR or equivalent method. Normal Negative for COVID19 (SARS CoV2) by RT-PCR or equivalent method. [facility] Comment on above: Result Comment: This test was developed and its performance characteristics determined by [facility] [place]. This test has been authorized by FDA under an Emergency Use Authorization (EUA). This test has been validated in accordance with the FDA's Guidance Document Policy for Diagnostics Testing in Laboratories Certified to Perform High Complexity Testing under CLIA prior to Emergency use Authorization for Coronavirus Disease 2019 during the Public Health Emergency issued on January 19, 2020. Test performed by [facility], [facility] [place], [facility] [place] [address]. Performed By: #### I TCOVD ####[address] [place], [place] [phone] Lipaseon 06-08-2021 Lipase [Catalytic activity/Vol] 17 U/L Normal 16-61 [facility] Comment on above: Performed By: #### M G1, CBCDIF, CK, CMP, LIPA, PT ####[facility] [address] [place] [phone] Magnesiumon 06-08-2021 Magnesium [Mass/Vol] 1.9 mg/dL Normal 1.7-2.3 [facility] Comment on above: Performed By: #### M G1, CBCDIF, CK, CMP, LIPA, PT ####[facility] [address] [place] [phone] Protimeon 06-08-2021 PT INR 1.1 Normal 0.9-1.3 [facility] Comment on above: Result Comment: Hilda min K Antagonist (VKA) Therapeutic Range: INR 2 to 3 (Target INR of 2.5) Note: For patients treated with VKA drugs, such as warfarin, the [employer] 2012 Guideline recommends a therapeutic INR range of 2 to 3 (target INR of 2.5). This recommendation includes high-risk patients with antiphospholipid syndrome with previous arterial or venous thromboembolism, current-generation mechanical or bioprosthetic aortic heart valve replacement. Note: Patients with mechanical aortic valve replacement and additional risk factors for thromboembolic events (atrial fibrillation, previous thromboembolism, LV dysfunction, hypercoagulable conditions) or an older generation mechanical AVR (i.e., ball in-Cage) or any mechanical MVR should have a INR therapeutic range of 2.5 to 3.5 (target INR of 3). Surya GH, et al. Chest 2012, 141:7S-47S Alber RA, et al. [facility] 2017, 70: 252-289 Performed By: #### M G1, CBCDIF, CK, CMP, LIPA, PT ####[facility] [address] [place] [address] PT Sec 11.6 sec Normal 9.7-13.0 [facility] Comment on above: Performed By: #### M G1, CBCDIF, CK, CMP, LIPA, PT ####[facility] [address] [place] [address] Troponin Ton 06-08-2021 Troponin T <0.010 Normal 0.000-0.029 [facility] Comment on above: Performed By: #### T NT ####[facility] [address] [place] [address] Type and Screenon 06-08-2021 ABO/RH(D) Positive Normal [facility] Comment on above: Performed By: #### T SCR ####[facility] [address] [place] [address] Urine Cultureon 07-11-2019 Bacteria identified Cx Nom (U) Specimen Desc: CCUR Sp. Request/Comment: PRESRV Culture Result >=100,000 CFU/ml Klebsiella pneumoniae(*) Report Status [id number] FINAL Organism: Method: VMIC ANTIBIOTIC INTERPRETATION VALERI STATUS Ampicillin R F Gentamicin S F Trimeth sulfameth S F Cefazolin S F Ciprofloxacin S F Nitrofurantoin I F Cefepime S F Piperacillin/Tazobac S F Ampicillin Sulbact S F Ceftriaxone S F Meropenem S F Ertapenem S F Normal [facility] Comment on above: Performed By: #### U RCUL #### [place] [address] Vital Signs Date Time Vital Sign Value Performing Clinician Faci lity 07-30-2025 09:33-0400 Body height 190.[address] Cole Espinal MD Work Phone: [facility] 06-10-2025 12:46-0400 Body temperature 97.6 [degF] Dr. Cole Espinal MD Work Phone: [facility] 06-10-2025 12:46-0400 Diastolic blood pressure 63 mm[Hg] Dr. Cole Espinal MD Work Phone: [facility] 06-10-2025 12:46-0400 Heart rate 65 /min Dr. Cole Espinal MD Work Phone: [facility] 06-10-2025 12:46-0400 Respiratory rate 18 /min Dr. Cole Espinal MD Work Phone: [facility] 06-10-2025 12:46-0400 SaO2% (BldA) [Mass fraction] 98 % Dr. Cole Espinal MD Work Phone: [facility] 06-10-2025 12:46-0400 Systolic blood pressure 125 mm[Hg] Dr. Cole Espinal MD Work Phone: [facility] 06-10-2025 11:52-0400 Body height 190.[address] Cole Espinal MD Work Phone: [facility] 06-10-2025 11:52-0400 Body mass index (BMI) [Ratio] 34.6 kg/m2 Dr. Cole Espinal MD Work Phone: [facility] 06-10-2025 11:52-0400 Body weight 125.[address] Cole Espinal MD Work Phone: [facility] 03-04-2025 08:04-0400 Body mass index (BMI) [Ratio] 34.6 kg/m2 Dr. Cole Espinal MD Work Phone: [facility] 03-04-2025 08:04-0400 Body weight 125.[address] Cole Espinal MD Work Phone: [facility] 02-29-2024 09:55-0400 Body height 190.5 cm Dewey Hdez MD Work Phone: [facility] 02-29-2024 09:55-0400 Body weight 127.01 kg Dewey Hdez MD Work Phone: [facility] 02-29-2024 09:55-0400 Diastolic blood pressure 74 mm[Hg] Dewey Hdez MD Work Phone: [facility] 02-29-2024 09:55-0400 Heart rate 60 /min Dewey Hdez MD Work Phone: [facility] 02-29-2024 09:55-0400 Systolic blood pressure 120 mm[Hg] Dewey Hdez MD Work Phone: [facility] 10-31-2023 13:40-0500 Diastolic blood pressure 72 mm[Hg] [facility] 10-31-2023 13:40-0500 Heart rate 88 /min [facility] 10-31-2023 13:40-0500 Respiratory rate 17 /min [facility] 10-31-2023 13:40-0500 SaO2% (BldA) [Mass fraction] 95 % [facility] 10-31-2023 13:40-0500 Systolic blood pressure 146 mm[Hg] [facility] 10-31-2023 10:58-0500 Body height 190.5 cm [facility] 10-31-2023 10:58-0500 Body mass index (BMI) [Ratio] 33.1 kg/m2 [facility] 10-31-2023 10:58-0500 Body temperature 97.7 [degF] [facility] 10-31-2023 10:58-0500 Body weight 120.2 kg [facility] 04-22-2023 12:09-0400 Body height 190.5 cm Referring Provider Unknown HU-Mclycgpnmopu-Dl sman 210 Work Phone: 04-22-2023 12:09-0400 Body mass index (BMI) [Ratio] 33.75 kg/m2 Referring Provider Unknown RW-Ocyhudwuyuns-Lh sman 210 Work Phone: 04-22-2023 12:09-0400 Body surface area Derived from formula 2.49 m2 Referring Provider Unknown VM-Qwyjazdsurfz-Ss sman 210 Work Phone: 04-22-2023 12:09-0400 Body weight 122.47 kg Referring Provider Unknown XJ-Vizrcatogjhp-Mx sman 210 Work Phone: 07-23-2022 09:02-0400 Body height 190.5 cm Dewey Hdez MD Work Phone: [facility] 07-23-2022 09:02-0400 Body weight 115.67 kg Dewey Hdez MD Work Phone: [facility] 07-23-2022 09:02-0400 Diastolic blood pressure 80 mm[Hg] Dewey Hdez MD Work Phone: [facility] 07-23-2022 09:02-0400 Heart rate 70 /min Dewey Hdez MD Work Phone: [facility] 07-23-2022 09:02-0400 Respiratory rate 12 /min Dewey Hdez MD Work Phone: [facility] 07-23-2022 09:02-0400 Systolic blood pressure 130 mm[Hg] Dewey Hdez MD Work Phone: [facility] Encounters Encounter Date Encounter Type Care Provider Facility Start: 09-09-2025 ambulatory Cole Espinal Facili ty:[facility] Start: 08-26-2025 ambulatory COLE JOSH Facil ity:[facility] Start: 07-30-2025 End: 07-30-[address] Prasanth Zhou MD -[facility] Start: 07-30-2025 End: 07-30-[address] 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 Tino Nath [facility] Start: 06-10-2025 End: 06-10-[address] 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 Comment on above: SSS (sick sinus synd joan) (HCC) (Primary Dx); Infrarenal abdominal aortic 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; Other chronic pulmonary embolism without acute cor pulmonale (HCC); Paroxysmal atrial fibrillation (HCC) Start: 03-04-2025 End: 03-04-[address] Jimmy Castro [facility] Work Phone: Start: 03-04-2025 End: 03-04-2025 ambulatory Jimmy Castro Facility:[facility] Start: 01-07-2025 End: 01-07-2025 Telephone encounter Reyna Crespo MD Work Phone: Cardiology Comment on above: Patient Update Start: 01-04-2025 End: 01-04-2025 Telephone encounter Gabe Falk RN Cardiology Start: 11-15-2024 End: 11-15-2024 ambulatory [facility] Facility:[facility] Start: 11-01-2024 End: 11-01-2024 ambulatory [facility] Facility:[facility] Start: 09-25-2024 End: 09-25-2024 ambulatory [facility] Facility:[facility] Start: 09-19-2024 End: 09-19-2024 Telephone encounter Reyna Crespo MD Work Phone: [facility] Adult Comment on above: Procedure Start: 09-13-2024 End: 09-13-2024 ambulatory Dewey Denis MD Work Phone: [facility] Start: 09-13-2024 End: 09-13-2024 Patient encounter procedure Dewey Hdez MD Work Phone: [facility] [employer] Start: 09-11-2024 End: 09-11-2024 Office outpatient visit 15 minutes Dewey Denis MD Work Phone: [employer] Comment on above: Pacemaker at end of battery life (Primary Dx); SSS (sick sinus syndrome) (HCC); Permanent atrial fibrillation (HCC); Other chronic pulmonary embolism without acute cor pulmonale (HCC) Start: 08-14-2024 End: 08-14-2024 Patient encounter procedure Dewey Denis MD Work Phone: [employer] Comment on above: SSS (sick sinus synd joan) ([facility]) (Primary Dx); Pacemaker Start: 06-05-2024 End: 06-05-2024 Patient encounter procedure Dewey Denis MD Work Phone: [employer] [facility] Comment on above: SSS (sick sinus synd joan) ([facility]) (Primary Dx); Pacemaker; Other pulmonary embolism without acute cor pulmonale, unspecified chronicity ([facility]) Start: 02-29-2024 End: 02-29-2024 Office outpatient visit 15 minutes Dewey Denis MD Work Phone: [employer] Comment on above: Paroxysmal atrial fi brillation ([facility]) (Primary Dx); SSS (sick sinus syndrome) ([facility]); Other chronic pulmonary embolism without acute cor pulmonale ([facility]); Pacemaker Start: 02-02-2024 End: 02-02-[address] Cole Espinal Work Phone: [facility] Work Phone: Start: 02-02-2024 End: 02-02-[address] Cole Espinal Work Phone: [facility] Work Phone: Start: 12-19-2023 End: 12-19-[address] Cole Espinal Work Phone: [facility] Work Phone: Start: 10-31-2023 End: 10-31-2023 Emergency department patient visit [facility] Work Phone: Start: 05-06-2023 Chart Update Referring Prov ider Unknown EN-Nazzrbsvkpfk-Liwxyp 210 Work Phone: Start: 05-04-2023 ambulatory [facility] Comment on above: Population Health Na vigation Outreach ([facility] Care Gaps) Start: 04-22-2023 Office outpatient ne w 45 minutes Referring Provider Unknown RY-Hpjnbfulzdve-Rfuenm 210 Work Phone: Start: 04-22-2023 ambulatory MD LANA JOHN Facility:[id number] Start: 12-13-2022 ambulatory Karma Croft RN Work Phone: [facility] Comment on above: Primary Care Coordin ator- Other (Med Adherence) Start: 11-30-2022 Chart abstracting Kevin peck RN Work Phone: [facility] Comment on above: Outside Lab Results Start: 11-10-2022 End: 11-10-[address] Cole Espinal Work Phone: [facility] Work Phone: Start: 11-10-2022 End: 11-10-[address] Cole Espinal [facility] Start: 08-30-2022 End: 08-30-[address] Cole Espinal Work Phone: [facility] Start: 08-10-2022 End: 08-10-[address] Cole Espinal Work Phone: [facility] Work Phone: Start: 08-10-2022 End: 08-10-[address] Cole Espinal Work Phone[facility] Start: 07-23-2022 End: 07-23-2022 Office outpatient visit 15 minutes Dewey Denis MD Work Phone: [facility] Comment on above: Paroxysmal atrial fi brillation (HCC) (Primary Dx); SSS (sick sinus syndrome) (HCC); Other chronic pulmonary embolism without acute cor pulmonale (HCC); Dilated aortic root (HCC); Primary hypertension; Other pulmonary embolism without acute cor pulmonale, unspecified chronicity (HCC) Start: 06-09-2022 End: 06-09-[address] Cole Espinal Work Phone: [facility] Start: 06-01-[address] Ava Espinal Work Phone: [facility] Start: 05-03-2022 End: 05-03-2022 Subsequent hospital visit by physician [facility] Comment on above: Cervicalgia [M54.2] Procedures Date Procedure Procedure Detail Performing Clinician Start: 06-28-2025 Follow-up visit Follow Up HUAN CHINCHILLA Start: 06-10-2025 Local anesthetic sac ral epidural block Dr. Cole Espinal MD Work Phone: Start: 06-10-2025 Injection of spinal epidural space Dr. Cole Espinal MD Work Phone: Start: 06-10-2025 Injection using fluoroscopic guidance Dr. Cole Espinal MD Work Phone: Start: 05-22-2025 Dup-scan aorta ivc i liac vascl/bpgs complete Dewey Denis MD Work Phone: Start: 03-04-2025 X-ray of lumbar spin e, two or three views Dr. Cole Espinal MD Work Phone: Start: 03-04-2025 Plain x-ray of pelvi s and lower extremity Dr. Cole Espinal MD Work Phone: Start: 09-13-2024 Doppler echocard pul se wave w/spectral display Dewey Denis MD Work Phone: Start: 10-31-[address] Ava Espinal Work Phone: Start: 10-31-2023 CT of abdomen and pe lvis without contrast Start: 11-10-2022 Radionuclide three-p hase bone study Dr. Cole Espinal Work Phone: Start: 10-04-2022 Hemoglobin A1c/Hemoglobin.total in Blood Cole Negron MD Work Phone: Start: 08-30-2022 Plain X-ray of shoulder Dr. Cole Espinal Work Phone: Start: 08-10-[address] Gopi Espinal Work Phone: Start: 06-09-2022 Plain X-ray of shoulder Dr. Cole Espinal Work Phone: Start: 06-09-2022 X-ray of cervical spine Dr. Cole Espinal Work Phone: Start: 05-03-2022 Radex spine cervical 2 or 3 views Cole Negron MD Work Phone: Start: 06-12-2021 Antibody screen Comment on above: Performed By: #### T SCR ####[facility] [address] [place] [phone] Start: 06-08-2021 Antibody screen Comment on above: Performed By: #### T SCR ####[facility] [address] [place] [address] Plan of Treatment Date Care Activity Detail Author Start: 09-10-2034 Urine microalbumin profile DTaP,Tdap,Td Vaccine (5 - Td or Tdap) [facility] Start: 05-04-2032 Urine microalbumin profile DTaP,Tdap,Td Vaccine (4 - Td or Tdap) [facility] Start: 09-25-2027 Diabetes Screening Diabetes Screenin [facility] Start: 10-04-2025 DIABETES SCREEN DIABETES SCREEN [facility] Start: 10-04-2025 Diabetes Screening Diabetes Screenin [facility] Start: 09-04-2025 End: 09-04-2025 Patient encounter procedure 09/04/2025 8:00 AM EDT Office Visit [facility] [employer] [address], [address] [place] [address] [place] [address] [place] [address] 4 MONTH OV [facility] [employer] Comment on above: 4 MONTH OV Start: 07-30-2025 X-ray of knee, four or more views Knee 4 or More Views [facility] Start: 07-22-2025 Influenza vaccination Influenza Vacc ine (#1) [facility] Start: 06-28-2025 End: 06-28-2025 Patient encounter procedure 06/28/2025 8:30 AM EDT Office Visit V[facility] Surgery [address] [place] [id number] [place] [address] [place] [address] CT NO CONTRAST WITH OFFICE VISIT Vascular Surgery Comment on above: CT NO CONTRAST WITH OFFICE VISIT Start: 06-21-2025 End: 06-21-2025 Patient encounter procedure 06/21/2025 7:45 AM EDT Appointment Radiology [address] [place] [address] CT NO CONTRAST WITH OFFICE VISIT Radiology Comment on above: CT NO CONTRAST WITH OFFICE VISIT Start: 06-10-2025 Njx dx/ther sbst intrlmnr lmbr/sac w/img gdn NJX INTERLAMINAR LMBR/SAC [facility] Start: 06-10-2025 Injection of spinal epidural space [facility] Start: 06-10-2025 Injection using fluoroscopic guidance [facility] Start: 06-10-2025 Patient discharge [facility] Start: 05-22-2025 End: 05-22-2025 Patient encounter procedure 05/22/2025 9:45 AM EDT Appointment CARDIOVASCULAR TESTING [address] [place] [address] 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] CARDIOVASCULAR TESTING Comment on above: 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] Start: 05-21-2025 End: 05-07-2026 US Abdominal Aorta US ABD AORTA COMPLETE V[facility] LAB Vascular Lab Routine Infrarenal abdominal aortic 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 Expected: 05/21/2025, Expires: 05/07/2026 [facility] Comment on above: Expected: 05/21/2025 , Expires: 05/07/2026 Start: 11-21-2024 Advance Directive Discussion Advance Directive Discussion [facility] Start: 11-21-2024 Medicare Advantage Annual Wellness Visit Medicare Advantage Annual Wellness Visit [facility] Start: 09-11-2024 End: 09-11-2024 Patient encounter procedure 09/11/2024 8:00 AM EDT Office Visit [facility] [address], [address] [place] [address] [place] [address] [address] [place] [address] 1month [facility] Comment on above: 1month Start: 07-22-2024 Covid-19 Vaccine () Covid-19 Vaccine () [facility] Start: 07-22-2024 Influenza vaccination Influenza Vacc ine (#1) [facility] Start: 07-10-2024 End: 07-10-2024 Patient encounter procedure 07/10/2024 8:00 AM EDT Office [facility] [address], [address] [place] [address] [place] [address] [address] [place] [address] [phone] pacer check [facility] Comment on above: pacer check Start: 06-18-2024 DIABETES SCREEN DIABETES SCREEN [facility] Start: 04-27-2024 FUV, Provider: Lana John, Status: Pen, Time: 9:30 AM FUV, Provider: Lana John, Status: Lars, Time: 9:30 AM RZ-Bxaawiejnkwn-Ntoewd 210 Work Phone: Start: 04-14-2024 Covid-19 Vaccine () Covid-19 Vaccine () [facility] Start: 11-21-2023 Advance Directive Discussion Advance Directive Discussion [facility] Start: 11-21-2023 Behavioral Health Screening Behavioral Health Screening [facility] Start: 10-31-2023 Bacteria identified in Urine by Culture Urine Culture [facility] Start: 10-31-2023 [facility] Start: 10-31-2023 [facility] Start: 07-22-2023 Influenza vaccination INFLUENZ A (Season Ended) [facility] Start: 11-21-2022 ADVANCE DIRECTIVE DISCUSSION ADVANCE DIRECTIVE DISCUSSION [facility] Start: 11-21-2022 DEPRESSION ASSESSMENT DEPRESSION ASS ESSMENT [facility] Start: 07-22-2022 Influenza vaccination INFLUENZA (#1) [facility] Start: 06-18-2022 HEMOGLOBIN/HEMATOCRIT HEMOGLOBIN/HEM ATOCRIT [facility] Start: 06-18-2022 SERUM CREATININE SERUM CREATININE [facility] Start: 04-20-2022 COVID-19 VACCINE (5 - Booster for Pfizer series) COVID-19 VACCINE (5 - Booster for Pfizer series) [facility] Start: 11-21-2021 ADVANCE DIRECTIVE DISCUSSION ADVANCE DIRECTIVE DISCUSSION [facility] Start: 04-05-2008 PNEUMOCOCCAL: 65+ (2 - PCV) PNEUMOCOCCAL: 65+ (2 - PCV) [facility] Start: 1991 SHINGRIX VACCINE (1 of 2) SHINGRIX VACCINE (1 of 2) [facility] Start: 1960 Urine microalbumin profile DTAP,TDAP,TD (1 - Tdap) [facility] Start: 1959 ANNUAL PCP TEAM CHRONIC DISEASE VISIT ANNUAL PCP TEAM CHRONIC DISEASE VISIT [facility] Start: 1959 Anxiety Screening Anxiety Screening [facility] Start: 1959 BP CONTROLLED (<130/80) BP CONTROLLED (<130/80) [facility] Start: 1959 Depression Screening Depression Scre ening [facility] Start: 1953 Adult depression screening assessment DEPRESSION SCREENING [facility] End: 07-14-2026 CT Abdomen and Pelvis WO contrast CT ABD/PEL WO IVCON Radiology Routine Infrarenal abdominal aortic 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 1 Occurrences starting 06/14/2025 until 07/14/2026 [facility] Work Phone: Comment on above: 1 Occurrences starti ng 06/14/2025 until 07/14/2026 CT Abdomen and Pelvi s WO contrast CT ABD/PEL WO IVCON Radiology Routine Infrarenal abdominal aortic 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 06/21/2025 8:05 AM EDT [facility] Work Phone: Patient Education Abdominal Pain [facility] Work Phone: Patient referral [facility] Work Phone: End: 06-06-2026 US Abdominal Aorta US ABD AORTA Radiology Routine Infrarenal abdominal aortic 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 1 Occurrences starting 05/07/2025 until 06/06/2026 ASHLEY DENIS MD [facility] Work Phone: Comment on above: 1 Occurrences starti ng 05/07/2025 until 06/06/2026 US Abdominal Aorta US ABD AORTA COMPLETE [facility] LAB Vascular Lab Routine Infrarenal abdominal aortic 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 05/22/2025 9:43 AM EDT [facility] Work Phone: End: 06-06-2026 US.doppler Thoracic and abdominal aorta US DOPPLER AORTA Radiology Routine Infrarenal abdominal aortic 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 1 Occurrences starting 05/07/2025 until 06/06/2026 [facility] Comment on above: 1 Occurrences starti ng 05/07/2025 until 06/06/2026 [facility] Immunizations Immunization Date Immunization Notes Care Provider Tena bonner 08-15-2024 influenza virus vacc ine, unspecified formulation [facility] Work Phone: [facility] 08-08-2023 influenza virus vacc ine, unspecified formulation Dewey Hdez MD Work Phone: [facility] 08-09-2022 Fluzone High-Dose Quadrivalent 0.7 ML Intramuscular Suspension Prefilled Syringe Referring Provider Unknown FS-Wrjthetpkuwd-Cm sman 210 Work Phone: 08-09-2022 Pfizer COVID-19 Vac Bivalent 30 MCG/0.3ML Intramuscular Suspension Referring Provider Unknown CN-Jesupifmgolz-Xt sman 210 Work Phone: 02-23-2022 Comirnaty 30 MCG/0.3 ML Intramuscular Suspension Referring Provider Unknown HH-Celevgywgcpq-Kz sman 210 Work Phone: 08-25-2021 Pfizer-BioNTech COVI D-19 Vacc 30 MCG/0.3ML Intramuscular Suspension Referring Provider Unknown MA-Jfsajjtjxnsb-Hj sman 210 Work Phone: 08-10-2021 influenza, high dose seasonal, preservative-free Referring Provider Unknown RG-Dhlattncwsly-Sb sman 210 Work Phone: 01-12-2021 Pfizer-BioNTech COVI D-19 Vacc 30 MCG/0.3ML Intramuscular Suspension Referring Provider Unknown CI-Hddugfateifh-Ly sman 210 Work Phone: 12-22-2020 Pfizer-BioNTech COVI D-19 Vacc 30 MCG/0.3ML Intramuscular Suspension Referring Provider Unknown OJ-Eukyzkusfeli-Lr sman 210 Work Phone: 08-06-2020 Seasonal, quadrivale nt, recombinant, injectable influenza vaccine, preservative free Referring Provider Unknown YB-Agmrwpcxdkts-Io sman 210 Work Phone: 08-20-2019 influenza, high dose seasonal, preservative-free Referring Provider Unknown IA-Zbftieflcvaz-Dp sman 210 Work Phone: 12-25-2018 zoster vaccine recombinant Referring Provider Unknown XI-Kppqltsypjap-Tr sman 210 Work Phone: 09-29-2018 zoster vaccine recombinant Referring Provider Unknown JR-Qoztafhviekh-Qy sman 210 Work Phone: 09-02-2017 influenza, high dose seasonal, preservative-free Referring Provider Unknown QP-Wnblehhqrxba-Mh sman 210 Work Phone: 08-16-2016 influenza, high dose seasonal, preservative-free Referring Provider Unknown ZK-Cdkraqsltucn-Dw sman 210 Work Phone: 11-21-2015 zoster vaccine, live Referri ng Provider Unknown OM-Rjraxfqdgbty-Yz sman 210 Work Phone: 08-21-2015 influenza nasal, unspecified formulation Referring Provider Unknown DR-Bruhdvmdtmrx-Qe sman 210 Work Phone: 03-28-2015 pneumococcal conjuga te vaccine, 13 valent Referring Provider Unknown XW-Ddletbufmwpy-Hv sman 210 Work Phone: 08-22-2014 influenza nasal, unspecified formulation Referring Provider Unknown LO-Wwckbngjemsd-Ao sman 210 Work Phone: 08-21-2013 influenza nasal, unspecified formulation Referring Provider Unknown PU-Toyotgzigguq-Os sman 210 Work Phone: 08-21-2012 influenza nasal, unspecified formulation Referring Provider Unknown ND-Rkvdxcpzzbgi-Tt sman 210 Work Phone: 08-24-2011 influenza nasal, unspecified formulation Referring Provider Unknown EE-Rsnpnjygplgz-Tk sman 210 Work Phone: 08-24-2011 tetanus toxoid, redu barbra diphtheria toxoid, and acellular pertussis vaccine, adsorbed Referring Provider Unknown CT-Orosxcoxbvpo-Bk sman 210 Work Phone: 09-16-2009 influenza nasal, unspecified formulation Referring Provider Unknown GH-Qfipbgwyktkm-Zg sman 210 Work Phone: 09-27-2008 influenza nasal, unspecified formulation Referring Provider Unknown VF-Vwslphhzkpyq-Sj sman 210 Work Phone: 12-13-2007 pneumococcal polysaccharide vaccine, 23 valent Referring Provider Unknown SP-Youjiajlzhjj-Ft sman 210 Work Phone: 04-05-2007 pneumococcal polysaccharide vaccine, 23 valent Xr Hosp [facility] Payers Date Payer Category Payer Self-pay [id number] 2024 Self-pay [id number] 2021 Medicare AETNA MEDICARE A ETNA MEDICARE O [id number] 2021-Present [phone] [address] [place] [address] [facility] [id number] 2021 Medicare (Managed Care) [id number]. [id number] 2021 Private Health Insurance 101 [id number] 2020 Medicare [facility] AAR MEDICAR E [facility] AAR MEDICARE HMO [id number] [address] [address] [address] [address] [place] [address] HMO [id number] 1941 Unknown [id number] 1941 Unknown [id number] 56 Medicare [id number] Unknown [id number] Unknown VES VET EVAL SVCS [id number] Unknown AET[employer] Unknown [id number] 62 Unknown [id number] 62 Unknown [id number] 62 Unknown [id number] 62 Unknown [id number] 62 Unknown [id number] 62 Unknown [id number] 62 Social History Date Type Detail Facility Start: 07-10-2012 End: 07-30-2025 Tobacco smoking status NHIS Ex-smoker [facility] Start: 04-05-1960 End: 04-05-1985 History of tobacco use Current smoker [facility] Start: 04-05-1960 End: 04-05-1985 History of tobacco use Cigarette Smoker [facility] Start: 07-10-2012 End: 02-29-2024 Tobacco use and exposure Smokeless tobacco non-user [facility] Start: 01-15-2022 End: 02-29-2024 Alcohol intake Current drinker of alcohol (finding) [facility] Start: 04-05-2013 History SDOH Alcohol Comment occasional, maybe a 12 pack over a 2 week period [facility] Start: 1940 Sex Assigned At Not on file [facility] Start: 04-23-2022 End: 07-23-2022 Exposure to SARS-CoV-2 (event) Not sure [facility] Start: 06-09-2022 End: 12-19-2023 Tobacco smoking status [facility] Unknown if ever smoked [facility] Start: 03-27-2019 Cigarettes [facility] Start: 1940 Sex Assigned At Male W [facility] Start: 02-29-2024 End: 06-28-2025 Non-smoker Non-smoker WP-Xgaasppnvgzf-Kxqk an 210 Work Phone: Start: 02-29-2024 End: 06-28-2025 Tobacco use panel [facility] Start: 10-22-2012 National Score (1-100), lower number is lower risk 61 [facility] Medical Equipment Procedure Code Equipment Code Equipment Origin al Text Equipment Identifier Dates Total knee replacement Asymmetric Patella FDA Start: 03-26-2019 Total knee replacement CEMENT,BONE DOUGH 1/2 BATCH FDA Start: 03-26-2019 Total knee replacement Cruciate Retaining Femoral FDA Start: 03-26-2019 Total knee replacement Tibial Bearing Insert FDA Start: 03-26-2019 Total knee replacement Tibial Coponent FDA Start: 03-26-2019 Total knee replacement Asymmetric Patella FDA Start: 03-26-2019 Total knee replacement CEMENT,BONE DOUGH 1/2 BATCH FDA Start: 03-26-2019 Total knee replacement Cruciate Retaining Femoral FDA Start: 03-26-2019 Total knee replacement Tibial Bearing Insert FDA Start: 03-26-2019 Total knee replacement Tibial Coponent FDA Start: 03-26-2019 Total knee replacement Asymmetric Patella FDA Start: 03-26-2019 Total knee replacement CEMENT,BONE DOUGH 1/2 BATCH FDA Start: 03-26-2019 Total knee replacement Cruciate Retaining Femoral FDA Start: 03-26-2019 Total knee replacement Tibial Bearing Insert FDA Start: 03-26-2019 Total knee replacement Tibial Coponent FDA Start: 03-26-2019 Total knee replacement Asymmetric Patella FDA Start: 03-26-2019 Total knee replacement CEMENT,BONE DOUGH 1/2 BATCH FDA Start: 03-26-2019 Total knee replacement Cruciate Retaining Femoral FDA Start: 03-26-2019 Total knee replacement Tibial Bearing Insert FDA Start: 03-26-2019 Total knee replacement Tibial Coponent FDA Start: 03-26-2019 Total knee replacement Asymmetric Patella FDA Start: 03-26-2019 Total knee replacement CEMENT,BONE DOUGH 1/2 BATCH FDA Start: 03-26-2019 Total knee replacement Cruciate Retaining Femoral FDA Start: 03-26-2019 Total knee replacement Tibial Bearing Insert FDA Start: 03-26-2019 Total knee replacement Tibial Coponent FDA Start: 03-26-2019 Total knee replacement Asymmetric Patella FDA Start: 03-26-2019 Total knee replacement CEMENT,BONE DOUGH 1/2 BATCH FDA Start: 03-26-2019 Total knee replacement Cruciate Retaining Femoral FDA Start: 03-26-2019 Total knee replacement Tibial Bearing Insert FDA Start: 03-26-2019 Total knee replacement Tibial Coponent FDA Start: 03-26-2019 [id number] 2404-Ventricular Lead [id number] Start: 04-09-2013 Comment on above: Description: 5076-58 cm 0---Dual Chamber Pacemaker [id number] Start: 04-09-2013 Comment on above: Description: ADAPTA 0---Atrial Lead [id number] Start: 04-09-2013 Comment on above: Description: 5592-[id number] Mri [id number] Start: 09-25-2024 Goals Date Patient Goal Desired Activity /State Personal health goal Mental Status Date Assessment Result Facility 06-10-2025 Cognitive function Voice/Name [facility] Work Phone: Clinical Notes 06-08-2021 to 08-26-2025 Dewey Denis V, MD - 07/19/2025 3:36 PM EDTHuan Mckeon MD - 06/14/2025 8:48 AM EDTAddendum Note - Dewey Denis V, MD - 05/07/2025 8:36 AM EDDewey Marsh V, MD - 05/07/2025 8:25 AM EDT Note Date & Type Note Facility 08-26-2025 Note HNO ID: [id number] Author: PEBBLES ECHEVERRIA RDMS Service: ? Author Type: Nail Machine Operator Type: Progress Notes Filed: 08/26/2025 11:04 Note Text: Radiology Service Progress Note PATIENT NAME: Ferny Emmanuel DATE OF SERVICE: August 26, 2025 TIME: 11:03 AM PATIENT IDENTITY VERIFICATION COMPLETED USING TWO (2) IDENTIFIERS: Name and Date of confirmed by patient verbally. FALL SCREENING: Has the patient had 2 falls in the last year or 1 fall with injury or currently using an Ambulatory Assistive Device (Walker, Cane, Wheelchair, Crutches, etc.)? Yes, Patient High Risk for Falls What interventions were put in place to prevent falls during this visit? Offered Assistance with Transfers/Clothing and Increased Observations by Caregivers PATIENT GENDER DATA: Assigned male at PATIENT RELEVANT IMPLANT DATA REVIEWED: Not Applicable PATIENT PRESENTS WITH AN IMPLANTABLE OR ATTACHED STAGE RIGGER: No RADIOLOGY DEPARTMENT: Ultrasound PERIPHERAL IV DATA: Not applicable SIGNED BY: Pebbles Echeverria RDMS August 26, 2025 11:03 AM [facility] 07-19-2025 History of Present illness Narrative ECHO COMPLETED; SEE SCANNED ECHO REPORT (EXTERNAL CARDIAC--ECHO) FOR FULL MEASUREMENTS. documented in this encounter [facility] 06-28-2025 Note HNO ID: [id number] Author: HUAN MCKEON MD Service: ? Author Type: Physician Type: Progress Notes Filed: 06/28/2025 08:48 Note Text: Heart , V[facility] Thor[facility] DEPARTMENT OF VASCULAR SURGERY OUTPATIENT VISIT TYPE ESTABLISHED INTERVAL HISTORY Ferny Emmanuel is a 85 year old male with hx of AAA. They were last seen on 06/14/2025. At the time, the recommendations were non con (CKD) CTAP to obtain precise measurements and assess anatomy. Since then, the patient reports no new symptoms. Prior Imaging CTAP w/o IV con 06/21/25: moderate aortoiliac atherosclerotic changes again seen; fusiform infrarenal aortic aneurysm again noted extending to the level of the bifurcation. It measures a maximum of 4.7 x 4.7 cm in axial dimensions (), as compared to 4.1 x 4.6 cm on the prior study. Tobacco Use: for 25 years. Quit 04/05/1985. 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 PAST SURGICAL HISTORY OF Cataract Extraction PAST SURGICAL HISTORY OF 2005 Left Knee Replacement FAMILY HISTORY Problem Relation Age of Onset Stroke Mother Heart Father Aortic Aneurysm Social History Tobacco Use Smoking status: Former Current packs/day: 0.00 Types: Cigarettes Start date: 04/05/1960 Quit date: 04/05/1985 Years since quittin.2 Smokeless tobacco: Never Vaping Use Vaping status: Never Used Substance Use Topics Alcohol use: Yes Comment: occasional, maybe a 12 pack over a 2 week period Drug use: No Current Outpatient Medications Medication Sig Dispense Refill metoprolol tartrate, short acting, (LOPRESSOR) 50 mg tablet Take 1 tablet by mouth twice daily. lisinopril (ZESTRIL, PRINIVIL) 20 mg tablet Take 1 tablet by mouth once daily. 0 tamsulosin (FLOMAX) 0.4 mg Take 0.4 mg by mouth once daily. rosuvastatin (CRESTOR) 10 mg tablet Take 10 mg by mouth once daily. traMADol (ULTRAM) 50 mg tablet Take 50 mg by mouth every 6 hours as needed for pain. gabapentin (NEURONTIN) 100 mg capsule Take 100 mg by mouth three times daily. magnesium oxide 400 mg magnesium cap Take by mouth. psyllium husk (METAMUCIL ORAL) Take by mouth. apixaban (ELIQUIS) 5 mg tab(s) Take by mouth twice daily. amLODIPine (NORVASC) 10 mg tablet Take 10 mg by mouth once daily. Cholecalciferol, Vitamin D3, 1,000 unit cap Take 1,000 Units by mouth once daily. OMEGA-3 FATTY ACIDS/FISH OIL (OMEGA 3 FISH OIL ORAL) Take by mouth once daily. omeprazole(PRILOSEC 20 MG CAP) Take one(1) capsule daily. 0 TRAZODONE 100 MG TAB Take one(1) tablet daily at bedtime. 0 No current facility-administered medications for this visit. ALLERGIES Allergen Reactions Aleve [Naproxen Sod* Other: See Comments Muscle spasms-THROAT PHYSICAL EXAM Vitals: There were no vitals taken for this visit. General: Well developed, no acute distress Skin: No lesions; normal color, turgor HEENT: Normocephalic, atraumatic, extraocular movements intact. Pulmonary: Equal chest rise bilaterally, normal effort LABS Creatinine Date Value Ref Range Status 09/25/2024 2.43 (H) 0.73 - 1.22 mg/dL Final 06/18/2021 1.90 (H) 0.73 - 1.22 mg/dL Final 06/12/2021 1.75 (H) 0.73 - 1.22 mg/dL Final 06/11/2021 1.98 (H) 0.73 - 1.22 mg/dL Final Cholesterol, Total Date Value Ref Range Status 06/21/2019 186 <200 mg/dL Final Comment: <200 mg/dL, Desirable 200-239 mg/dL, Borderline high >239 mg/dL, High HDL Cholesterol Date Value Ref Range Status 06/21/2019 29 (L) >39 mg/dL Final Comment: 40-59 mg/dL, Acceptable >59 mg/dL, High: Negative risk factor for coronary heart disease <40 mg/dL, Low: Positive risk factor for coronary heart disease LDL Cholesterol, Calculated Date Value Ref Range Status 06/21/2019 110 (H) <100 mg/dL Final Comment: <100 mg/dL, Optimal 100-129 mg/dL, Near optimal/above optimal 130-159 mg/dL, Borderline high 160-189 mg/dL, High >189 mg/dL, Very high Secondary prevention optimal LDL Cholesterol levels are recommended to be < 70 mg/dL Triglyceride Date Value Ref Range Status 06/21/2019 236 (H) <150 mg/dL Final Comment: <150 mg/dL, Normal 150-199 mg/dL, Borderline high 200-499 mg/dL, High >499 mg/dL, Very high Glucose Date Value Ref Range Status 09/25/2024 136 (H) 74 - 99 mg/dL Final Comment: The [place] [employer] (ADA) provides guidance for cutoff values for fasting glucose and random (more content not included)... [facility] 06-14-2025 Note HNO ID: [id number] Author: HUAN MCKEON MD Service: ? Author Type: Physician Type: Progress Notes Filed: 06/14/2025 09:00 Note Text: Heart , Vascular [facility] Thor[facility] DEPARTMENT OF VASCULAR SURGERY OUTPATIENT VISIT TYPE CONSULTATION PRIMARY CARE PHYSICIAN: Cole Negron MD REFERRING PROVIDER: Dr. Denis CHIEF COMPLAINT AAA HISTORY OF PRESENT ILLNESS: The patient is an 84-year-old male with a history of AAA and CKD, presenting for follow-up. The patient has a family history of AAA; his father had a ruptured AAA and did not survive the surgery in his 70s. A recent abdominal ultrasound revealed an AAA measuring between 4.5 and 5.2 cm. 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 He is motivated to live longer and is open to necessary medical interventions. 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 Tobacco Use: for 25 years. Quit 04/05/1985. 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 PAST SURGICAL HISTORY OF Cataract Extraction PAST SURGICAL HISTORY OF 2005 Left Knee Replacement FAMILY HISTORY Problem Relation Age of Onset Stroke Mother Heart Father Aortic Aneurysm Social History Tobacco Use Smoking status: Former Current packs/day: 0.00 Types: Cigarettes Start date: 04/05/1960 Quit date: 04/05/1985 Years since quittin.2 Smokeless tobacco: Never Vaping Use Vaping status: Never Used Substance Use Topics Alcohol use: Yes Comment: occasional, maybe a 12 pack over a 2 week period Drug use: No Current Outpatient Medications Medication Sig Dispense Refill metoprolol tartrate, short acting, (LOPRESSOR) 50 mg tablet Take 1 tablet by mouth twice daily. lisinopril (ZESTRIL, PRINIVIL) 20 mg tablet Take 1 tablet by mouth once daily. 0 tamsulosin (FLOMAX) 0.4 mg Take 0.4 mg by mouth once daily. rosuvastatin (CRESTOR) 10 mg tablet Take 10 mg by mouth once daily. traMADol (ULTRAM) 50 mg tablet Take 50 mg by mouth every 6 hours as needed for pain. gabapentin (NEURONTIN) 100 mg capsule Take 100 mg by mouth three times daily. magnesium oxide 400 mg magnesium cap Take by mouth. psyllium husk (METAMUCIL ORAL) Take by mouth. apixaban (ELIQUIS) 5 mg tab(s) Take by mouth twice daily. amLODIPine (NORVASC) 10 mg tablet Take 10 mg by mouth once daily. Cholecalciferol, Vitamin D3, 1,000 unit cap Take 1,000 Units by mouth once daily. OMEGA-3 FATTY ACIDS/FISH OIL (OMEGA 3 FISH OIL ORAL) Take by mouth once daily. omeprazole(PRILOSEC 20 MG CAP) Take one(1) capsule daily. 0 TRAZODONE 100 MG TAB Take one(1) tablet daily at bedtime. 0 No current facility-administered medications for this visit. ALLERGIES Allergen Reactions Aleve [Naproxen Sod* Other: See Comments Muscle spasms-THROAT REVIEW OF SYSTEMS Negative unless specified in the HPI PHYSICAL EXAM Vitals: There were no vitals taken for this visit. General: Well developed, no acute distress Skin: No lesions; normal color, turgor HEENT: Normocephalic, atraumatic, extraocular movements intact. Pulmonary: Equal chest rise bilaterally, normal effort Abdomen: Soft, non-tender, non-distended. LABS Creatinine Date Value Ref Range Status 09/25/2024 2.43 (H) 0.73 - 1.22 mg/dL Final 06/18/2021 1.90 (H) 0.73 - 1.22 mg/dL Final 06/12/2021 1.75 (H) 0.73 - 1.22 mg/dL Final 06/11/2021 1.98 (H) 0.73 - 1.22 mg/dL Final Cholesterol, Total Date Value Ref Range Status 06/21/2019 186 <200 mg/dL Final Comment: <200 mg/dL, Desirable 200-239 mg/dL, Borderline high >239 mg/dL, High HDL Cholesterol Date Value Ref Range Status 06/21/2019 29 (L) >39 mg/dL Final Comment: 40-59 mg/dL, Acceptable >59 mg/dL, High: Negative risk factor for coronary heart disease <40 mg/dL, Low: Positive risk factor for coronary heart disease LDL Cholesterol, Calculated Date Value Ref Range Status 06/21/2019 110 (H) <100 mg/dL Final Comment: <100 mg/dL, Optimal 100-129 mg/dL, Near optimal/above optimal 130-159 mg/dL, Borderline high 160-189 mg/dL, High >189 mg/dL, Very high Secondary prevention optimal LDL Cholesterol levels are recommended to be < 70 mg/dL Triglyceride Date Value Ref Range Status 06/21/2019 236 (H) <150 mg/dL Final Comm (more content not included)... [facility] 06-14-2025 History of Present illness Narrative Images from the original note were not included. Heart , V[facility] DEPARTMENT OF VASCULAR SURGERY OUTPATIENT VISIT TYPE CONSULTATION PRIMARY CARE PHYSICIAN: Cole Negron MD REFERRING PROVIDER: Dr. Denis CHIEF COMPLAINT AAA HISTORY OF PRESENT ILLNESS: The patient is an 84-year-old male with a history of AAA and CKD, presenting for follow-up. The patient has a family history of AAA; his father had a ruptured AAA and did not survive the surgery in his 70s. A recent abdominal ultrasound revealed an AAA measuring between 4.5 and 5.2 cm. 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 He is motivated to live longer and is open to necessary medical interventions. 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 Tobacco Use: for 25 years. Quit 04/05/1985. 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 PAST SURGICAL HISTORY OF Cataract Extraction PAST SURGICAL HISTORY OF 2005 Left Knee Replacement FAMILY HISTORY Problem Relation Age of Onset Stroke Mother Heart Father Aortic Aneurysm Social History Tobacco Use Smoking status: Former Current packs/day: 0.00 Types: Cigarettes Start date: 04/05/1960 Quit date: 04/05/1985 Years since quittin.2 Smokeless tobacco: Never Vaping Use Vaping status: Never Used Substance Use Topics Alcohol use: Yes Comment: occasional, maybe a 12 pack over a 2 week period Drug use: No Current Outpatient Medications Medication Sig Dispense Refill metoprolol tartrate, short acting, (LOPRESSOR) 50 mg tablet Take 1 tablet by mouth twice daily. lisinopril (ZESTRIL, PRINIVIL) 20 mg tablet Take 1 tablet by mouth once daily. 0 tamsulosin (FLOMAX) 0.4 mg Take 0.4 mg by mouth once daily. rosuvastatin (CRESTOR) 10 mg tablet Take 10 mg by mouth once daily. traMADol (ULTRAM) 50 mg tablet Take 50 mg by mouth every 6 hours as needed for pain. gabapentin (NEURONTIN) 100 mg capsule Take 100 mg by mouth three times daily. magnesium oxide 400 mg magnesium cap Take by mouth. psyllium husk (METAMUCIL ORAL) Take by mouth. apixaban (ELIQUIS) 5 mg tab(s) Take by mouth twice daily. amLODIPine (NORVASC) 10 mg tablet Take 10 mg by mouth once daily. Cholecalciferol, Vitamin D3, 1,000 unit cap Take 1,000 Units by mouth once daily. OMEGA-3 FATTY ACIDS/FISH OIL (OMEGA 3 FISH OIL ORAL) Take by mouth once daily. omeprazole(PRILOSEC 20 MG CAP) Take one(1) capsule daily. 0 TRAZODONE 100 MG TAB Take one(1) tablet daily at bedtime. 0 No current facility-administered medications for this visit. ALLERGIES Allergen Reactions Aleve [Naproxen Sod* Other: See Comments Muscle spasms-THROAT REVIEW OF SYSTEMS Negative unless specified in the HPI PHYSICAL EXAM Vitals: There were no vitals taken for this visit. General: Well developed, no acute distress Skin: No lesions; normal color, turgor HEENT: Normocephalic, atraumatic, extraocular movements intact. Pulmonary: Equal chest rise bilaterally, normal effort Abdomen: Soft, non-tender, non-distended. LABS Creatinine Date Value Ref Range Status 09/25/2024 2.43 (H) 0.73 - 1.22 mg/dL Final 06/18/2021 1.90 (H) 0.73 - 1.22 mg/dL Final 06/12/2021 1.75 (H) 0.73 - 1.22 mg/dL Final 06/11/2021 1.98 (H) 0.73 - 1.22 mg/dL Final Cholesterol, Total Date Value Ref Range Status 06/21/2019 186 <200 mg/dL Final Comment: <200 mg/dL, Desirable 200-239 mg/dL, Borderline high >239 mg/dL, High HDL Cholesterol Date Value Ref Range Status 06/21/2019 29 (L) >39 mg/dL Final Comment: 40-59 mg/dL, Acceptable >59 mg/dL, High: Negative risk factor for coronary heart disease <40 mg/dL, Low: Positive risk factor for coronary heart disease LDL Cholesterol, Calculated Date Value Ref Range Status 06/21/2019 110 (H) <100 mg/dL Final Comment: <100 mg/dL, Optimal 100-129 mg/dL, Near optimal/above optimal 130-159 mg/dL, Borderline high 160-189 mg/dL, High >189 mg/dL, Very high Secondary prevention optimal LDL Cholesterol levels are recommended to be < 70 mg/dL Triglyceride Date Value Ref Range Status 06/21/2019 236 (H) <150 mg/dL Final Comment: <150 mg/dL, Normal 150-199 mg/dL, Borderline high 200-499 mg/dL, High >499 mg/dL, Very high Glucose Date Value Ref Range Status 09/25/2024 136 (H) 74 - 99 mg/dL Final Comment: The [place] [employer] (ADA) provides guidance for cutoff values for fasting glucose and random glucose. The ADA defines fasting as no caloric intake for at least 8 hours. Fasting plasma glucose results between 100 to 125 mg/dL indicate increased risk for diabetes (prediabetes). Fasting plasma glucose results greater than or equal to 126 mg/dL meet the criteria for diagnosis of diabetes. In the absence of unequivocal hyperglycemia, results should be confirmed by repeat testing. In a patient with classic symptoms of hyperglycemia or hyperglycemic crisis, random plasma glucose results greater than or equal to 200 mg/dL meet the criteria for diagnosis of diabetes. Reference: Standards of Medical Care in Diabetes 2016, [place] [employer]. Diabetes Care. 2016.39(Suppl 1). Lab Results Component Value Date HBA1C 7.0 10/04/2022 ASSESSMENT Ferny Emmanuel is a 84 year old male with an abdominal aortic aneurysm. External notes: I have personally reviewed the following notes: Dr. Denis progress note Imaging studies: I have personally viewed the following images/data: Abdominal Ultrasound: Abdominal aortic aneurysm measuring approximately 4.5-5.2 cm BMP - Cr elevated PLAN/RECOMMENDATIONS I had a thorough discussion with the patient regarding their imaging findings and my clinical impression. Infrarenal abdominal aortic 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 (I71.43) Abdominal ultrasound shows aneurysm measuring between 4.5 and 5.2 cm. Risk of rupture is less than 1% per year for aneurysms under 5.5 cm. Patient has chronic kidney disease, making contrast-enhanced imaging potentially harmful. - Ordered non-contrast CT scan of the abdomen to obtain precise measurements and assess anatomy. - Scheduled CT scan within the next 1-2 weeks. - Will review CT results and discuss further management based on findings. - Educated patient on the risks associated with increasing aneurysm size and the potential need for prophylactic repair if it exceeds 5.5 cm. Family history of abdominal aortic aneurysm (Z82.49) Patient's father had an abdominal aortic aneurysm that ruptured, leading to his in his 70s. There were no barriers to communication or education today and the patient knows to call with any questions that may arise. Huan Mckeon MD Staff Surgeon, Vascular Surgery This note was partially generated using [employer] voice recognition system, and there may be some incorrect words, spellings, and punctuation that were not noted in checking the note before saving. Medical Decision Making: Medical Decision Making Level: 1 - N/A documented in this encounter [facility] 06-10-2025 Procedure note [facility] 05-07-2025 Note Addended by: DEWEY DENIS V on: 05/07/2025 08:36 AM Modules accepted: Orders [facility] 05-07-2025 Miscellaneous Notes Addended by: DEWEY DENIS V on: 05/07/2025 08:36 AM Modules accepted: Orders documented in this encounter [facility] 05-07-2025 History of Presen t illness Narrative Cardiology Progress Note Today's Date: .May 07, 2025 Attending: No att. 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 No ectopy Abdomen: Negative Extremities: Extremities normal. No deformities, edema, or skin discoloration. Good capillary refill. Medications: No current facility-administered medications for this visit. Current Outpatient Medications Medication Sig metoprolol tartrate, short acting, (LOPRESSOR) 50 mg tablet Take 1 tablet by mouth twice daily. lisinopril (ZESTRIL, PRINIVIL) 20 mg tablet Take 1 tablet by mouth once daily. tamsulosin (FLOMAX) 0.4 mg Take 0.4 mg by mouth once daily. rosuvastatin (CRESTOR) 10 mg tablet Take 10 mg by mouth once daily. traMADol (ULTRAM) 50 mg tablet Take 50 mg by mouth every 6 hours as needed for pain. gabapentin (NEURONTIN) 100 mg capsule Take 100 mg by mouth three times daily. magnesium oxide 400 mg magnesium cap Take by mouth. psyllium husk (METAMUCIL ORAL) Take by mouth. apixaban (ELIQUIS) 5 mg tab(s) Take by mouth twice daily. amLODIPine (NORVASC) 10 mg tablet Take 10 mg by mouth once daily. Cholecalciferol, Vitamin D3, 1,000 unit cap Take 1,000 Units by mouth once daily. OMEGA-3 FATTY ACIDS/FISH OIL (OMEGA 3 FISH OIL ORAL) Take by mouth once daily. omeprazole(PRILOSEC 20 MG CAP) Take one(1) capsule daily. TRAZODONE 100 MG TAB Take one(1) tablet daily at bedtime. No current facility-administered medications for this visit. Assessment & Plan SSS (sick sinus syndrome) (HCC) Infrarenal abdominal aortic 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 Other chronic pulmonary embolism without acute cor pulmonale (HCC) Paroxysmal atrial fibrillation (HCC) Plan: Arrange to get an US of the Abd Aorta to recheck AAA Pacer OK COUNSELING: We discussed the following non-pharmacological measures during this visit: smoking and alcohol abstinence/cessation if applicable, dietary and medication compliance, weight management plan if applicable, monitoring weight and blood pressure at home, and exercise regimen. SIGNATURE: Dewey Denis MD PATIENT NAME: Ferny Emmanuel DATE: May 07, 2025 TIME: 8:25 AM PAGER: documented in this encounter [facility] 03-04-2025 Evaluation note Diagnosis Onset Date Resolution Degenerative joint disease (DJD) of lumbar spine acute March 04, 2025 7:47am [facility] Work Phone: 1(161) 379-744202-17-2025 Telephone encounter Note* Telephone Encounter - Reyna Crespo MD - 01/07/2025 8:06 AM EST Please call the patient This is a patient of Dr. Denis I only did the pacemaker generator replacement and this was done in September But apparently the patient has a [employer] monitor Please explained to the patient that it will be his choice if he wants to continue to have the [employer] monitor where we can check the pacemaker from home remotely but in this case I will have to seehim once a year if I am following the remote transmissions But Dr. Denis can recheck his pacemaker in the office although he does not do the remote transmissions He can just follow-up with Dr. English as he did before and we can cancel the remote transmissions Please let me know [facility] Work Phone: [phone] 978-112302-17-2025 Miscellaneous Notes* Telephone Encounter - Reyna Crespo MD - 01/07/2025 8:06 AM EST Please call the patient This is a patient of Dr. Denis I only did the pacemaker generator replacement and this was done in September But apparently the patient has a [employer] monitor Please explained to the patient that it will be his choice if he wants to continue to have the [employer] monitor where we can check the pacemaker from home remotely but in this case I will have to seehim once a year if I am following the remote transmissions But Dr. Denis can recheck his pacemaker in the office although he does not do the remote transmissions He can just follow-up with Dr. English as he did before and we can cancel the remote transmissions Please let me know [facility] Telephone encounter Note * Telephone Encounter - Gabe Falk RN - 01/04/2025 12:42 PM EST Pt called regarding remote monitoring for PPM. Pt states he received monitor but has not yet plugged it in. Pt asked to please plug in at nearest convenience and send remote. [facility]02-14-2025 Miscellaneous Notes* Telephone Encounter - Gabe Falk RN - 01/04/2025 12:42 PM EST Pt called regarding remote monitoring for PPM. Pt states he received monitor but has not yet plugged it in. Pt asked to please plug in at nearest convenience and send remote. [facility] Telephone encounter Note * Telephone Encounter - Reyna Crespo MD - 09/19/2024 7:57 AM EDT please call the pt and let him know that Dr. Denis called me to schedule the pt for a Pacemaker replacement let him know that this is a simple outpatient procedure under mild sedation , and he will go home after the procedure (will need a ride) 1-The Procedure : DC-Pacemaker Generator replacement 2- Indication: Pacemaker at [facility] Sinus Node dysfunction 3- Device Company : [employer] 4- Date & Time : TuesdaySep 25 at 12:30 PM 5- NPO for 8 hours before the procedure Okay to have the morning medications with sips of water 6- Aticoagulation : he is on Eliquis hold eliquis after the morning dose of TuesdaySep 23 before the procedure and will resume after the procedure let me know if the day does not work for him or if he has any question Thank you [facility] Work Phone: [phone]) 736-637010-30-2024 Miscellaneous Notes* Telephone Encounter - Reyna Crespo MD - 09/19/2024 7:57 AM EDT please call the pt and let him know that Dr. Denis called me to schedule the pt for a Pacemaker replacement let him know that this is a simple outpatient procedure under mild sedation , and he will go home after the procedure (will need a ride) 1-The Procedure : DC-Pacemaker Generator replacement 2- Indication: Pacemaker at [facility] Sinus Node dysfunction 3- Device Company : [employer] 4- Date & Time : TuesdaySep 25 at 12:30 PM 5- NPO for 8 hours before the procedure Okay to have the morning medications with sips of water 6- Aticoagulation : he is on Eliquis hold eliquis after the morning dose of TuesdaySep 23 before the procedure and will resume after the procedure let me know if the day does not work for him or if he has any question Thank you [facility] History of Present illness Narrative* Dewey Denis V, MD - 09/11/2024 8:24 AM EDT Cardiology Progress Note Today's Date: September 11, 2024 Attending: No att. 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 No ectopy Abdomen: Negative Extremities: Extremities normal. No deformities, edema, or skin discoloration. Good capillary refill. Medications: No current facility-administered medications for this visit. Current Outpatient Medications Medication Sig metoprolol tartrate, short acting, (LOPRESSOR) 50 mg tablet Take 1 tablet by mouth twice daily. lisinopril (ZESTRIL, PRINIVIL) 20 mg tablet Take 1 tablet by mouth once daily. tamsulosin (FLOMAX) 0.4 mg Take 0.4 mg by mouth once daily. rosuvastatin (CRESTOR) 10 mg tablet Take 10 mg by mouth once daily. traMADol (ULTRAM) 50 mg tablet Take 50 mg by mouth every 6 hours as needed for pain. gabapentin (NEURONTIN) 100 mg capsule Take 100 mg by mouth three times daily. magnesium oxide 400 mg magnesium cap Take by mouth. psyllium husk (METAMUCIL ORAL) Take by mouth. apixaban (ELIQUIS) 5 mg tab(s) Take by mouth twice daily. amLODIPine (NORVASC) 10 mg tablet Take 10 mg by mouth once daily. Cholecalciferol, Vitamin D3, 1,000 unit cap Take 1,000 Units by mouth once daily. OMEGA-3 FATTY ACIDS/FISH OIL (OMEGA 3 FISH OIL ORAL) Take by mouth once daily. omeprazole(PRILOSEC 20 MG CAP) Take one(1) capsule daily. TRAZODONE 100 MG TAB Take one(1) tablet daily at bedtime. No current facility-administered medications for this visit. Assessment & Plan Pacemaker at end of battery life SSS (sick sinus syndrome) (HCC) Permanent atrial fibrillation (HCC) Other chronic pulmonary embolism without acute cor pulmonale (HCC) PlanL Referred to Dr. Crespo to arrange pacer replacement Pt to Hold Eliquis two days prior to scheduled date SIGNATURE: Dewey Denis MD PATIENT NAME: Ferny Emmanuel DATE: September 11, 2024 TIME: 8:25 AM PAGER: [facility] History of Present illness Narrative* Dewey Denis V, MD - 08/18/2024 9:33 PM EDT Pacemaker checked: < 1 month left according to Pacer check RTC 1 month documented in this [facility]07[facility]24 History of Present illness Narrative* Dewey Denis V, MD - 06/05/2024 8:10 AM EDT Pacemaker Checked < 1 month Cory A Paced V sensed Plan: Wait for 1 month still Dewey Denis MD [facility] Cardiology documented in this encounterM[facility]04-[facility]24 History of Present illness Narrative* Dewey Denis V, MD - 02/29/2024 9:43 AM EDT Subjective HPI Patient is seen in follow up. Last visit , vital signs, labs , Xrays ( if applicable) reviewed. Patient has no new cardiac symptoms since the last visit. Specifically, there is no history of angina, dyspnea, orthoponea, paroxysmal nocturnal dyspnea , dizziness or syncope. There is no leg edema.Has rare palpitations but not sustained or bothersome There is no history of intermittent claudication, amaurosis fugax . No TIA. No significant weight gain or loss. Memory is not impaired. Upset about with dementia Medications were reviewed and are af follows: No current facility-administered medications on file prior to visit. Current Outpatient Prescriptions: apixaban (ELIQUIS) 5 mg tab(s) Take by mouth twice daily. HONEY ORAL Take by mouth. 1 tablespoon in the morning and in the evening. lisinopril (ZESTRIL, PRINIVIL) 20 mg tablet Take 20 mg by mouth once daily. ATORVASTATIN CALCIUM (ATORVASTATIN ORAL) Take 20 mg by mouth daily at bedtime. metFORMIN (GLUCOPHAGE) 500 mg tablet Take 500 mg by mouth. 2 tabs(1000mg) at dinner amLODIPine (NORVASC) 10 mg tablet Take 10 mg by mouth once daily. blood sugar diagnostic (ACCU-CHEK PENELOPE PLUS TEST STRP) test strip before meals and at bedtime. Useas instructed SOFTCLIX LANCETS MISC Psyllium powd Take 1 Tablespoonful by mouth once daily. ASCORBIC ACID (VITAMIN C ORAL) Take 2 tablets by mouth once daily. Not taking magnesium carbonate (MAGONATE) 54 mg/5 mL liqd Take by mouth three times daily. ibuprofen (MOTRIN) 200 mg tablet Take 800 mg by mouth once daily. PRN terbinafine 250 mg tablet Take 250 mg by mouth once daily. Meclizine HCl 25 mg cap Take by mouth three times daily as needed. Cholecalciferol, Vitamin D3, 1,000 unit cap Take 1,000 Units by mouth once daily. OMEGA-3 FATTY ACIDS/FISH OIL (OMEGA 3 FISH OIL ORAL) Take by mouth once daily. triamterene-hydrochlorothiazide (MAXZIDE) 75-50 mg ORAL per tablet Take 0.5 tablets by mouth once daily. metoprolol tartrate, short acting, 25 mg ORAL tablet Take 1 tablet by mouth twice daily. omeprazole(PRILOSEC 20 MG CAP) Take one(1) capsule daily. TRAZODONE 100 MG TAB Take one(1) tablet daily at bedtime. multivitamins w-minerals/lut(CENTRUM SILVER TAB) Take one(1) tablet daily. No current facility-administered medications for this visit. Review of Systems Constitutional: Negative for diaphoresis and weight loss. Respiratory: Negative for shortness of breath. Cardiovascular: Negative for chest pain, palpitations, orthopnea, claudication, leg swelling and PND. Gastrointestinal: Negative. Musculoskeletal: Negative for myalgias. Endo/Heme/Allergies: Does not bruise/bleed easily. All other systems reviewed and are negative. BP 120/74 Pulse 60 Ht 190.5 cm (6' 3) Wt 127 kg (280 lb) BMI 35.00 kg/m Objective Physical Exam Vitals reviewed. Constitutional: General: He is not in acute distress. Appearance: He is not diaphoretic. HENT: Head: Normocephalic. Neck: Thyroid: No thyromegaly. Vascular: No JVD. Cardiovascular: Rate and Rhythm: Normal rate. Heart sounds: Normal heart sounds. No murmur heard. No friction rub. No gallop. Pulmonary: Effort: No respiratory distress. Breath sounds: No wheezing or rales. Chest: Chest wall: No tenderness. Abdominal: General: Bowel sounds are normal. Palpations: Abdomen is soft. Lymphadenopathy: Cervical: No cervical adenopathy. Skin: General: Skin is warm and dry. Findings: No erythema or rash. Neurological: Mental Status: He is alert and oriented to person, place, and time. Encounter Diagnosis ICD-10-CM 1. Paroxysmal atrial fibrillation ([facility]) I48.0 2. SSS (sick sinus syndrome) ([facility]) I49.5 3. Other chronic pulmonary embolism without acute cor pulmonale ([facility]) I27.82 4. Pacemaker Z95.0 Plan: Continue current medications. Pacer : 1-11 months cory A Paced V sensed : Continue current medications. RTC 2 months : Willl need to watch Pacer Cory more often The majority of the visit was spent counseling and/or coordinating care for the patient. [id number] time was 20 minutes. documented in this [facility]06[facility] History of Present illness Narrative* Mckenna Jere Tabitha Population Health Navigator - 05/04/2023 11:09 AM EDT POPULATION HEALTH NAVIGATION OUTREACH Action/FYI Called patient to remind him to complete Annual Wellness visit. Patient Identified by Name and : NO Outreach Outcome/Action Unable to reach patient: Left message Did you use a PCP flex slot to schedule this appointment? N/A Reason for Outreach QAI Payer: Payor: AET MEDICARE / Plan: [employer] MEDICARE HMO / Product Type: HMO / Care Gap Reviewed:: Annual Wellness visit Controlling Blood Pressure Reminder: Reminder note to check Health Maintenance for items below Health Maintenance items due: DTAP,TDAP,TD(1 - Tdap) Never done SHINGRIX VACCINE(1 of 2) Never done PNEUMOCOCCAL: 65+(2 - PCV) due on 04/05/2008 COVID-19 VACCINE(5 - Booster for Pfizer series) due on 04/20/2022 ADVANCE DIRECTIVE DISCUSSION Never done DEPRESSION ASSESSMENT Never done Navigation Signature: Mckenna Lu Population Health Navigator May 04, 2023 11:10 AM documented in this [facility]01[facility] History of Present illness Narrative* Karma Croft RN - 12/13/2022 4:38 PM EST MED ADHERENCE QUICK NOTE Provider Action/FYI Ferny Cholo noted on medication adherence roster from insurance for following medication: LISINOPRIL TAB 10MG Per pharmacy patient has not filled medication since December of last year. Contacted patient to discuss- He [facility]. Karma Croft RN December 13, 2022 4:56 PM documented in this encounterM[facility]09-02-2022 History of Present illness Narrative* Dewey Denis V, MD - 07/23/2022 9:04 AM EDT Subjective HPI Patient is seen in follow up. Last visit , vital signs, labs , Xrays ( if applicable) reviewed. Patient has no new cardiac symptoms since the last visit. Specifically, there is no history of angina, dyspnea, orthoponea, paroxysmal nocturnal dyspnea , dizziness or syncope. There is no leg edema.Has rare palpitations but not sustained or bothersome There is no history of intermittent claudication, amaurosis fugax . No TIA. No significant weight gain or loss. Memory is not impaired. Medications were reviewed and are af follows: No current facility-administered medications on file prior to visit. Current Outpatient Prescriptions: apixaban (ELIQUIS) 5 mg tab(s) Take by mouth twice daily. HONEY ORAL Take by mouth. 1 tablespoon in the morning and in the evening. lisinopril (ZESTRIL, PRINIVIL) 20 mg tablet Take 20 mg by mouth once daily. ATORVASTATIN CALCIUM (ATORVASTATIN ORAL) Take 20 mg by mouth daily at bedtime. metFORMIN (GLUCOPHAGE) 500 mg tablet Take 500 mg by mouth. 2 tabs(1000mg) at dinner amLODIPine (NORVASC) 10 mg tablet Take 10 mg by mouth once daily. blood sugar diagnostic (ACCU-CHEK PENELOPE PLUS TEST STRP) test strip before meals and at bedtime. Useas instructed SOFTCLIX LANCETS MISC Psyllium powd Take 1 Tablespoonful by mouth once daily. ASCORBIC ACID (VITAMIN C ORAL) Take 2 tablets by mouth once daily. Not taking magnesium carbonate (MAGONATE) 54 mg/5 mL liqd Take by mouth three times daily. ibuprofen (MOTRIN) 200 mg tablet Take 800 mg by mouth once daily. PRN terbinafine 250 mg tablet Take 250 mg by mouth once daily. Meclizine HCl 25 mg cap Take by mouth three times daily as needed. Cholecalciferol, Vitamin D3, 1,000 unit cap Take 1,000 Units by mouth once daily. OMEGA-3 FATTY ACIDS/FISH OIL (OMEGA 3 FISH OIL ORAL) Take by mouth once daily. triamterene-hydrochlorothiazide (MAXZIDE) 75-50 mg ORAL per tablet Take 0.5 tablets by mouth once daily. metoprolol tartrate, short acting, 25 mg ORAL tablet Take 1 tablet by mouth twice daily. omeprazole(PRILOSEC 20 MG CAP) Take one(1) capsule daily. TRAZODONE 100 MG TAB Take one(1) tablet daily at bedtime. multivitamins w-minerals/lut(CENTRUM SILVER TAB) Take one(1) tablet daily. No current facility-administered medications for this visit. Review of Systems Constitutional: Negative for diaphoresis and weight loss. Respiratory: Negative for shortness of breath. Cardiovascular: Negative for chest pain, palpitations, orthopnea, claudication, leg swelling and PND. Gastrointestinal: Negative. Musculoskeletal: Negative for myalgias. Endo/Heme/Allergies: Does not bruise/bleed easily. All other systems reviewed and are negative. BP 130/80 Pulse 70 Resp 12 Ht 190.5 cm (6' 3) Wt 115.7 kg (255 lb) BMI 31.87 kg/m Objective Physical Exam Vitals reviewed. Constitutional: General: He is not in acute distress. Appearance: He is not diaphoretic. HENT: Head: Normocephalic. Neck: Thyroid: No thyromegaly. Vascular: No JVD. Cardiovascular: Rate and Rhythm: Normal rate. Heart sounds: Normal heart sounds. No murmur heard. No friction rub. No gallop. Pulmonary: Effort: No respiratory distress. Breath sounds: No wheezing or rales. Chest: Chest wall: No tenderness. Abdominal: General: Bowel sounds are normal. Palpations: Abdomen is soft. Lymphadenopathy: Cervical: No cervical adenopathy. Skin: General: Skin is warm and dry. Findings: No erythema or rash. Neurological: Mental Status: He is alert and oriented to person, place, and time. Encounter Diagnosis ICD-10-CM 1. Paroxysmal atrial fibrillation ([facility]) I48.0 2. SSS (sick sinus syndrome) ([facility]) I49.5 3. Other chronic pulmonary embolism without acute cor pulmonale ([facility]) I27.82 4. Dilated aortic root ([facility]) I77.810 5. Primary hypertension I10 6. Other pulmonary embolism without acute cor pulmonale, unspecified chronicity ([facility]) I26.99 7 Valgus deformity of Right Knee Plan: Continue current medications. Pacer : 15 months cory A Pced V sensed : One episode of atrial fibrillation on 8-24-22 Continue current medications. The majority of the visit was spent counseling and/or coordinating care for the patient. Kddb-wk-fmxy time was 20 minutes. documented in this [facility]06-13-[facility]22 NoteHNO ID: [id number] Author: ANTOINE Chase) Service: Radiology Author Type: Technologist Type: Progress Notes Filed: 05/03/2022 10:16 AM Note Text: Radiology Service Progress Note PATIENT NAME: Ferny Emmanuel DATE OF SERVICE: May 03, 2022 TIME: 10:15 AM PATIENT IDENTITY VERIFICATION COMPLETED USING TWO (2) IDENTIFIERS: Name and Date of confirmed by patient verbally. FALL SCREENING: Has the patient had 2 falls in the last year or 1 fall with injury or currently using an Ambulatory Assistive Device (Walker, Cane, Wheelchair, Crutches, etc.)? No PATIENT GENDER DATA: Male RADIOLOGY DEPARTMENT: General X-ray: Exam(s) Completed: Spine X-Ray(s): Cervical AP / LAT Upper Extremity X-Ray(s): Shoulder, AP / TRUE AP left SIGNED BY: RT Rena(Juli) May 03, 2022 10:15 AMHocking Valley Community HospitalUzmqmkbo84-67-3132 History of Present illness Narrative* ANTOINE Chase) - 05/03/2022 9:30 AM EDT Radiology Service Progress Note PATIENT NAME: Ferny Emmanuel DATE OF SERVICE: May 03, 2022 TIME: 10:15 AM PATIENT IDENTITY VERIFICATION COMPLETED USING TWO (2) IDENTIFIERS: Name and Date of confirmedby patient verbally. FALL SCREENING: Has the patient had 2 falls in the last year or 1 fall with injury or currently using an Ambulatory Assistive Device (Walker, Cane, Wheelchair, Crutches, etc.)? No PATIENT GENDER DATA: Male RADIOLOGY DEPARTMENT: General X-ray: Exam(s) Completed: Spine X-Ray(s): Cervical AP / LAT Upper Extremity X-Ray(s): Shoulder, AP / TRUE AP left SIGNED BY: ANTOINE Cahse) May 03, 2022 10:15 AM documented in this encounterM[facility]07-23-2021 NoteHNO ID: [id number] Author: Veronique Hobson RN Service: Care Management Author Type: Registered Nurse Type: Care Mgt Progress Note Filed: 06/12/2021 12:34 PM Note Text: CARE MANAGEMENT PROGRESS NOTE SERVICE DATE: 06/12/2021 SERVICE TIME: 12:32 PM LOS: 2 days EMR reviewed for this 80 yr male S/P lap, ESTEFANÍA 06/10. Pt. on Full Liq orally.Plan to return home upon D/C. SIGNATURE: Veronique Hobson RN,BSN, ACM PATIENT NAME: Ferny Emmanuel DATE: June 12, 2021 TIME: 12:32 PM PAGER/CONTACT #: [phone] HospitalEsipkrlm11-52-5623 NoteHNO ID: [id number] Author: Charlie Negron V, MD Service: Pulmonary Disease Author Type: Physician Type: Progress Notes Filed: 06/11/2021 8:47 AM Note Text: .[place], [place] [address] PH: [phone] INPATIENT PROGRESS NOTES Patient Name: Ferny Emmanuel :1940 Age:[age] year old male ADMISSION DATE: 06/08/2021 Date AND time of evaluation/service: June 11, 2021 TIME: 8:42 AM SERVICE:InternalMedicine/Pulmonary/Sleep Medicine Assessment AND Plans: 1. Small bowel obstruction due to adhesion of bowels to the sidewall. Patient underwent laparoscopic lysis of adhesions yesterday. Concern raised about Crohn's disease and being evaluated by GI eco industrial development consultant. 2. Chronic kidney disease stage III: Serum creatinine still remains elevated at 1.98 mg/dL. 3. History of pulmonary embolism for which patient has been on chronic anticoagulation. Will restart anticoagulation once approved by surgical consult. 4. OPD: Stable 5. Hypertension appears stable. Plan 1. Will mobilize the patient. Discussed with nursing. We will clamp the NG tube so that patient can walk. 2. Continue IV fluids for hydration form INTERVAL HPI: Patient remains awake alert oriented x3. He still remains uncomfortable and complains of pain 8/10 in the abdomen. He claims that flatus was this morning. He still has NG connected to suction. Patient anxious to go home due to his sick at home. Patient seen by GI consult. Consult note reviewed. Concern was raised about possibility of Crohn's disease. He will need further work-up after recovering from his acute illness. Patient was on Eliquis that could be restarted. We will double check with surgical consult before starting anticoagulation on him. PERTINENT ROS: Per HPI MEDICATIONS: Current Facility-Administered Medications Medication Dose Route Frequency - pantoprazole 40 mg injection (PROTONIX) 40 mg INTRAVENOUS DAILY (6 AM) - sodium chloride 0.9 % (flush) 3-5 mL (BD POSIFLUSH) 3-5 mL INTRAVENOUS q 12 H - NaCl 0.9% iv flush bag 20 mL INTRAVENOUS PRN - NaCl 0.9% iv infusion 100 mL/hr INTRAVENOUS CONTINUOUS - ondansetron (PF) 4 mg injection (ZOFRAN) 4 mg INTRAVENOUS q 6 H PRN - fentaNYL 50 mcg/mL 25 mcg injection (SUBLIMAZE) 25 mcg INTRAVENOUS q 4 H PRN PHYSICAL EXAM: BP 152/69 Pulse 61 Temp 36.8 ?C (98.2 ?F) (Oral) Resp 16 Ht 190.5 cm (6' 3) Wt 121.3 kg (267 lb 6.7 oz) SpO2 92% BMI 33.42 kg/m? Awake alert oriented x3 comfortable at rest Vital signs: As noted Lungs: Clear Cardiac: Regular rate rhythm Abdomen is distended but soft and has no guarding or is noted. Bowel sounds are still markedly hypoactive. Extremities: No pitting edema. Neuro: Face symmetrical moving all 4 extremities. Face symmetrical. Speech normal. Patient Vitals for the past 48 hrs: BP Temp Temp src Pulse Resp SpO2 Weight 06/11/21 0747 152/69 36.8 ?C (98.2 ?F) Oral 61 16 92 % ? 06/10/21 2124 117/51 36.5 ?C (97.7 ?F) Oral (!) 59 18 92 % ? 06/10/21 1358 163/73 37.2 ?C (99 ?F) Oral 63 18 91 % ? 06/10/21 1340 161/74 37 ?C (98.6 ?F) ? 61 ? 88 % ? 06/10/21 1300 161/77 ? ? 61 19 92 % ? 06/10/21 1245 173/82 ? ? 60 18 94 % ? 06/10/21 1230 173/80 ? ? 60 19 96 % ? 06/10/21 1215 178/82 ? ? 60 18 95 % ? 06/10/21 1200 184/84 ? ? 63 26 94 % ? 06/10/21 1156 179/78 36.9 ?C (98.4 ?F) ? 62 18 95 % ? 06/10/21 0907 173/86 37 ?C (98.6 ?F) Oral 69 20 93 % ? 06/10/21 0600 ? 121.3 kg (267 lb 6.7 oz) 06/10/21 0434 163/70 37 ?C (98.6 ?F) Oral 74 18 90 % ? 06/10/21 0001 171/83 36.4 ?C (97.5 ?F) Oral 65 18 92 % ? 06/09/21 1934 166/72 37 ?C (98.6 ?F) Oral 65 18 90 % ? 06/09/21 1610 163/79 37 ?C (98.6 ?F) Oral 65 16 90 % ? Body mass index is 33.42 kg/m?. Intake/Output Summary (Last 24 hours) at 06/11/2021 0842 Last data filed at 06/10/2021 1840 Gross per 24 hour Intake 1000 ml Output 1025 ml Net -25 ml O2 Therapy: Room Air No data recorded LABORATORY TESTS: ABG: No results for input(s): PH, PCO2, PO2, HCO3 in the last 168 hours. CBC: Recent Labs 06/11/21 04106/10/21 0443 06/09/21 0430 06/08/21 1600 WBC 6.11 8.48 9.67 13.19* HB 13.1 13.7 14.6 16.8 HCT 41.8 43.2 43.5 50.7 PLT 189 201 204 240 COAG: Recent Labs 06/08/21 1600 INR 1.1 BMP: Recent Labs 06/11/21 0415 06/10/21 0443 06/09/21 0430 06/08/21 1600 GLUC 132* 126* 146* 151* NA 147* 145* 145* 142 K 4.3 4.4 4.8 4.2 CHLOR 108* 107* 106* 101 CO2 28 27 29 29 ANION 11 11 10 12 BUN 31* 24 24 23 CREAT 1.98* 1.88* 2.12* 2.03* CHEM: Recent Labs 06/11/21 0415 06/10/21 0443 06/09/21 0430 06/08/21 1600 ALB 3.4* 3.5* 3.6* 4.6 TPROT 6.2* 6.2* 6.5 7.9 CA 8.8 8.8 9.3 10.4* MG 1.9 -- -- 1.9 HEPATIC: Recent Labs 06/11/21 0415 06/10/21 0443 06/09/21 0430 06/08/21 1600 ALKPHOS 78 85 88 105 ALT 18 17 16 18 AST 28 29 24 19 TBILI 1.0 1.0 0.8 0.9 LIPASE -- 16 -- 17 URINALYSIS: Recent Labs 06/10/21 1635 SP (more content not included)...[facility] HospitalLkcfwqye34-96-7014 NoteHNO ID: [id number] Author: Destiny Arellano APRN.CORE DRILL OPERATOR Service: ? Author Type: Nurse Speaking Unit Assembler Type: Anesthesia Procedure Notes Filed: 06/10/2021 11:11 AM Note Text: ANESTHESIOLOGY PROCEDURE NOTE PIV General Information Procedure Start Time/Medication Administration: 06/10/2021 10:31 AM Procedure End Time: 06/10/2021 10:31 AM Patient Location: OR Staffing CORE DRILL OPERATOR: Destiny Arellano APRN.CORE DRILL OPERATOR Performed by: CORE DRILL OPERATOR Preparation Sterility Preparation: hand hygiene performed prior to procedure Sterility Technique Not Completely Performed Due to Extreme Emergency: No Site Prep: alcohol Procedure Details Indication: need for IV access Needle Size/Type: 18 gauge angiocath Orientation: Left Location: Hand Imaging Guidance Used: No SIGNATURE: Destiny Arellano APRN.CRNA PATIENT NAME: Ferny Emmanuel DATE: June 10, 2021 TIME: 11:10 AM CSN: [id number] NoteHNO ID: [id number] Author: Destiny Arellano APRN.CRNA Service: ? Author Type: Nurse Speaking Unit Assembler Type: Anesthesia Procedure Notes Filed: 06/10/2021 10:29 AM Note Text: ANESTHESIOLOGY PROCEDURE NOTE Airway General Information Procedure Start Time/Medication Administration: 06/10/2021 10:15 AM Patient location during procedure: OR Timeout Performed Pre-procedure: timeout performed Consent Obtained: Yes Patient identity confirmed: arm band and patient Staffing Performed by: LUIS Indications and Patient Condition Preoxygenated: yes Patient position: sniffing Manual In-Line Stabilization: No Difficult Mask: No Indications for airway management: anesthesia Method: rapid sequence Cricoid Pressure: Yes Final Airway Details Final airway type: endotracheal airway Final Endotracheal Airway: ETT Successful intubation technique: direct laryngoscopy Blade: Dimitri Blade size: #4 ETT size (mm): 7.5 Measured from: lips Measurement (cm): 24 Placement verified by: chest auscultation Cormack-Lehane Classification: grade I - full view of glottis Number of attempts at approach: 1 Failed airway: no Unrecognized esophageal intubation: no Airway not difficult SIGNATURE: Destiny Arellano APRN.CRNA PATIENT NAME: Ferny Emmanuel DATE: June 10, 2021 TIME: 10:28 AM CSN: [id number] NoteHNO ID: [id number] Author: Charlie Negron V, MD Service: Pulmonary Disease Author Type: Physician Type: Progress Notes Filed: 06/10/2021 8:40 AM Note Text: .[place], [place] [address] PH: [phone] INPATIENT PROGRESS NOTES Patient Name: Ferny Emmanuel :1940 Age:[age] year old male ADMISSION DATE: 06/08/2021 Date AND time of evaluation/service: June 10, 2021 TIME: 7:40 AM SERVICE:InternalMedicine/Pulmonary/Sleep Medicine Assessment AND Plans: 1. Small bowel obstruction: Patient having increased pain this morning. Plan for surgery at [address] Griggs update regarding patient's increased pain and abdominal distention today. 2. Chronic kidney disease stage III: Patient getting IV normal saline. Nephrology consulted. 3. History of pulmonary embolism: On anticoagulation chronically. Anticoagulation on hold for planned surgery. Will start on DVT prophylaxis after his abdominal surgery today. 4. Hypertension: Probably in part having increased blood pressure due to pain. 5. COPD, appears stable. Patient appears medically stable for planned surgery tomorrow. INTERVAL HPI: Patient reports increase in his pain abdomen. He is now reporting sharp pain in his abdomen which is new for him. He is not having any nausea or vomiting. He has not passed flatus yet. He had NG That came out last night. A new NG was placed. Discussed with nursing who claimed that about 75 cc of liquid came out after placement of new NG. However, did not living his pain. He has got 1 dose of narcotic IV. Discussed with nursing advised to give another dose of IV narcotic. Patient is scheduled to undergo surgery today at 10:30 AM. May need to notify surgery about his increasing pain abdomen. PERTINENT ROS: Per HPI MEDICATIONS: Current Facility-Administered Medications Medication Dose Route Frequency - pantoprazole 40 mg injection (PROTONIX) 40 mg INTRAVENOUS DAILY (6 AM) - sodium chloride 0.9 % (flush) 3-5 mL (BD POSIFLUSH) 3-5 mL INTRAVENOUS q 12 H - NaCl 0.9% iv flush bag 20 mL INTRAVENOUS PRN - NaCl 0.9% iv infusion 100 mL/hr INTRAVENOUS CONTINUOUS - ondansetron (PF) 4 mg injection (ZOFRAN) 4 mg INTRAVENOUS q 6 H PRN - fentaNYL 50 mcg/mL 25 mcg injection (SUBLIMAZE) 25 mcg INTRAVENOUS q 4 H PRN PHYSICAL EXAM: BP 163/70 Pulse 74 Temp 37 ?C (98.6 ?F) (Oral) Resp 18 Ht 190.5 cm (6' 3) Wt 121.3 kg (267 lb 6.7 oz) SpO2 90% BMI 33.42 kg/m? Patient remains awake alert oriented but uncomfortable with pain abdomen. His vital signs: As noted appears stable. Blood pressure slightly high probably due to pain. Lungs: Clear Cardiac: Regular rate rhythm Abdomen distended somewhat more than yesterday. Patient has very faint bowel sounds. Extremities: No pitting edema. Patient Vitals for the past 48 hrs: BP Temp Temp src Pulse Resp SpO2 Height Weight 06/10/21 0600 ? 121.3 kg (267 lb 6.7 oz) 06/10/21 0434 163/70 37 ?C (98.6 ?F) Oral 74 18 90 % ? ? 06/10/21 0001 171/83 36.4 ?C (97.5 ?F) Oral 65 18 92 % ? ? 06/09/21 1934 166/72 37 ?C (98.6 ?F) Oral 65 18 90 % ? ? 06/09/21 1610 163/79 37 ?C (98.6 ?F) Oral 65 16 90 % ? ? 06/09/21 0735 147/74 ? ? 67 16 88 % ? ? 06/09/21 0600 ? 121.9 kg (268 lb 11.9 oz) 06/09/21 0338 138/61 36.4 ?C (97.5 ?F) Oral 72 16 92 % ? ? 06/08/21 2339 152/71 37 ?C (98.6 ?F) Oral 83 16 93 % ? ? 06/08/211 ? 190.5 cm (6' 3) 122 kg (268 lb 15.4 oz) 06/08/212014 176/81 36.8 ?C (98.2 ?F) Oral 76 18 93 % 190.5 cm (6' 3) 121.9 kg (268 lb 11.9 oz) 06/08/211951 150/80 ? ? 75 17 99 % ? ? 06/08/21 1800 147/84 ? ? 70 18 97 % ? ? 06/08/21 1600 155/90 ? ? 74 18 96 % ? ? 06/08/21 1405 161/93 (!) 35.9 ?C (96.7 ?F) Temporal 80 20 95 % ? 124.7 kg (275 lb) Body mass index is 33.42 kg/m?. Intake/Output Summary (Last 24 hours) at 06/10/2021 0740 Last data filed at 06/10/2021 0600 Gross per 24 hour Intake ? Output 1650 ml Net -1650 ml O2 Therapy: Room Air No data recorded LABORATORY TESTS: ABG: No results for input(s): PH, PCO2, PO2, HCO3 in the last 168 hours. CBC: Recent Labs 06/10/21 0443 06/09/21 0430 06/08/21 1600 WBC 8.48 9.67 13.19* HB 13.7 14.6 16.8 HCT 43.2 43.5 50.7 PLT 201 204 240 COAG: Recent Labs 06/08/21 1600 INR 1.1 BMP: Recent Labs 073 06/09/21 0430 06/08/21 1600 GLUC 126* 146* 151* NA 145* 145* 142 K 4.4 4.8 4.2 CHLOR 107* 106* 101 CO2 27 29 29 ANION 11 10 12 BUN 24 24 23 CREAT 1.88* 2.12* 2.03* CHEM: Recent Labs 06/10/213 06/09/21 0430 06/08/21 1600 ALB 3.5* 3.6* 4.6 TPROT 6.2* 6.5 7.9 CA 8.8 9.3 10.4* MG -- -- 1.9 HEPATIC: Recent Labs 06/10/2144206/09/2142906/08/21 1600 ALKPHOS 85 88 105 ALT 17 16 18 AST 29 24 19 TBILI 1.0 0.8 0.9 LIPASE -- -- 17 URINALYSIS:No results for input(s): SPGR, UGLUC, UBILI, UKET, UHB, UPROT, UROBIL, UWBC, SSA in the last 168 luz maria (more content not included)...[facility] HospitalJakynkzo85-99-6002 NoteHNO ID: [id number] Author: Charlie Negron V, MD Service: Pulmonary Disease Author Type: Physician Type: Progress Notes Filed: 06/09/2021 1:46 PM Note Text: .[place], [place] [address] PH: [phone] INPATIENT PROGRESS NOTES Patient Name: Ferny Emmanuel :1940 Age:[age] year old male ADMISSION DATE: 06/08/2021 Date AND time of evaluation/service: June 09, 2021 TIME: 1:42 PM SERVICE:InternalMedicine/Pulmonary/Sleep Medicine Assessment AND Plans: 1. Small bowel obstruction: Plan for surgery tomorrow if he does not open up. 2. Chronic kidney disease stage III: Some worsening of serum creatinine. 3. History of pulmonary embolism: On anticoagulation chronically. Anticoagulation on hold for planned surgery 4. Hypertension 5. COPD, appears stable. Patient appears medically stable for planned surgery tomorrow. INTERVAL HPI: Patient remains awake alert and comfortable. He had NG tube placed in the emergency room yesterday. However, there is no record of output from initial NG insertion. Patient did feel better with improvement in his abdominal distention. His NG tube however came out overnight and was reinserted this morning. It is being readjusted since his abdominal x-ray did not show NG tube down in the stomach. Discussed with nursing as well as surgical consult. Patient is planned for surgery tomorrow if he does not open up. Patient still not passed any flatus since coming to the hospital. He is not having any pain abdomen. He is not having any vomiting. He remains n.p.o. He is getting IV fluid. His serum creatinine has gone slightly higher. I may increase his IV fluids today. Patient is also anxious to go home since his at home is sick and needs his care. PERTINENT ROS: Per HPI MEDICATIONS: Current Facility-Administered Medications Medication Dose Route Frequency - pantoprazole 40 mg injection (PROTONIX) 40 mg INTRAVENOUS DAILY (6 AM) - sodium chloride 0.9 % (flush) 3-5 mL (BD POSIFLUSH) 3-5 mL INTRAVENOUS q 12 H - NaCl 0.9% iv flush bag 20 mL INTRAVENOUS PRN - NaCl 0.9% iv infusion 75 mL/hr INTRAVENOUS CONTINUOUS - ondansetron (PF) 4 mg injection (ZOFRAN) 4 mg INTRAVENOUS q 6 H PRN - fentaNYL 50 mcg/mL 25 mcg injection (SUBLIMAZE) 25 mcg INTRAVENOUS q 4 H PRN PHYSICAL EXAM: BP 147/74 Pulse 67 Temp 36.4 ?C (97.5 ?F) (Oral) Resp 16 Ht 190.5 cm (6' 3) Wt 121.9 kg (268 lb 11.9 oz) SpO2 88% BMI 33.59 kg/m? Awake alert oriented x3 comfortable at rest Vital signs: As noted appears stable Lungs: Clear Cardiac: Regular rate rhythm Abdomen is distended but soft and has no guarding or rigidity. Bowel sounds are hypoactive. Extremities: No pitting edema. Neuro: Awake alert oriented x3. Face symmetrical and moving all 4 extremities reasonable strength and coordination. Patient Vitals for the past 48 hrs: BP Temp Temp src Pulse Resp SpO2 Height Weight 06/09/21 0735 147/74 ? ? 67 16 88 % ? ? 06/09/21 0600 ? 121.9 kg (268 lb 11.9 oz) 06/09/21 0338 138/61 36.4 ?C (97.5 ?F) Oral 72 16 92 % ? ? 06/08/219 152/71 37 ?C (98.6 ?F) Oral 83 16 93 % ? ? 06/08/212140 ? 190.5 cm (6' 3) 122 kg (268 lb 15.4 oz) 06/08/212014 176/81 36.8 ?C (98.2 ?F) Oral 76 18 93 % 190.5 cm (6' 3) 121.9 kg (268 lb 11.9 oz) 06/08/211951 150/80 ? ? 75 17 99 % ? ? 06/08/21 1800 147/84 ? ? 70 18 97 % ? ? 06/08/21 1600 155/90 ? ? 74 18 96 % ? ? 06/08/21 1405 161/93 (!) 35.9 ?C (96.7 ?F) Temporal 80 20 95 % ? 124.7 kg (275 lb) Body mass index is 33.59 kg/m?. Intake/Output Summary (Last 24 hours) at 06/09/2021 1342 Last data filed at 06/09/2021 0600 Gross per 24 hour Intake 1650 ml Output 600 ml Net 1050 ml O2 Therapy: Room Air No data recorded LABORATORY TESTS: ABG: No results for input(s): PH, PCO2, PO2, HCO3 in the last 168 hours. CBC: Recent Labs 06/09/2142906/08/21 1600 WBC 9.67 13.19* HB 14.6 16.8 HCT 43.5 50.7 PLT 204 240 COAG: Recent Labs 06/08/21 1600 INR 1.1 BMP: Recent Labs 06/09/2142906/08/21 1600 GLUC 146* 151* NA 145* 142 K 4.8 4.2 CHLOR 106* 101 CO2 29 29 ANION 10 12 BUN 24 23 CREAT 2.12* 2.03* CHEM: Recent Labs 06/09/2142906/08/21 1600 ALB 3.6* 4.6 TPROT 6.5 7.9 CA 9.3 10.4* MG -- 1.9 HEPATIC: Recent Labs 06/09/2142906/08/21 1600 ALKPHOS 88 105 ALT 16 18 AST 24 19 TBILI 0.8 0.9 LIPASE -- 17 URINALYSIS:No results for input(s): SPGR, UGLUC, UBILI, UKET, UHB, UPROT, UROBIL, UWBC, SSA in the last 168 hours. Invalid input(s): NITR CARDIAC: Recent Labs 06/08/21 1600 TROPT <0.010 Plan of care discussed with: Provider, RN, Patient. SIGNATURE: Charlie Negron MD DATE: June 09, 2021 TIME: 1:42 PM This note was partially created using voice recognition software and is inherently subject to errors including those of syntax and sound-alike substitutions which may escape proofreading. In suc (more content not included)...[facility] HospitalCtmbhoav22-73-4157 NoteHNO ID: [id number] Author: Lola Colunga APRN.CNP Service: General Internal Medicine Author Type: Nurse Practitioner Type: Progress Notes Filed: 06/08/2021 8:48 PM Note Text: ADMISSION EXAMINATION SERVICE DATE: 06/08/2021 SERVICE TIME: 2029 PCP: Cole Negron MD PRIMARY ATTENDING: Dr. Charlie Negron V, MD Subjective CHIEF COMPLAINT: Abdominal Pain, Diarrhea, and Nausea AND Vomiting HPI: Ferny Emmanuel is a 80 year old male with a past medical history significant for hypertension, PE, COPD and diabetes recently started on metformin who presents with abdominal pain from the Emergency Department. He states diffuse abdominal pain feels full in nature. He reports the pain is 2 on a scale of 0 to 10. He reports symptoms began approximately 2 day(s) ago and have been rapidly worsening. The pain is exacerbated by nothing particularly. He reports trying stopping his metformin for the pain with no relief of symptoms. He reports associated nausea and vomiting what he feels to be feces. History provided by: patient, EMR and outside medical records Outside medical records from Care Everywhere reviewed and summarized in HPI. 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 - PAST SURGICAL HISTORY OF Cataract Extraction - PAST SURGICAL HISTORY OF 2005 Left Knee Replacement - TOTAL KNEE REPLACEMENT Right 03/2019 Knee replacement, total FAMILY HISTORY Problem Relation Age of Onset - Stroke Mother - Heart Father Aortic Aneurysm Social History Tobacco Use - Smoking status: Former Smoker Years: 25.00 Types: Cigarettes Quit date: 04/05/1985 Years since quittin.2 - Smokeless tobacco: Never Used Vaping Use - Vaping Use: Never used Substance Use Topics - Alcohol use: Yes Comment: occasional, maybe a 12 pack over a 2 week period - Drug use: No I have confirmed and edited as necessary, the PFSH obtained by others. ALLERGIES Allergen Reactions - Aleve [Naproxen Sod* Other: See Comments Muscle spasms-THROAT Prior to Admission Medications Prescriptions Last Dose Informant Patient Reported? Taking? ASCORBIC ACID (VITAMIN C ORAL) Patient Yes No Sig: Take 2 tablets by mouth once daily. Not taking ATORVASTATIN CALCIUM (ATORVASTATIN ORAL) Yes No Sig: Take 20 mg by mouth daily at bedtime. Cholecalciferol, Vitamin D3, 1,000 unit cap Yes No Sig: Take 1,000 Units by mouth once daily. HONEY ORAL Yes No Sig: Take by mouth. 1 tablespoon in the morning and in the evening. Meclizine HCl 25 mg cap Yes No Sig: Take by mouth three times daily as needed. OMEGA-3 FATTY ACIDS/FISH OIL (OMEGA 3 FISH OIL ORAL) Yes No Sig: Take by mouth once daily. Psyllium powd Yes No Sig: Take 1 Tablespoonful by mouth once daily. SOFTCLIX LANCETS MISC Yes No TRAZODONE 100 MG TAB Yes No Sig: Take one(1) tablet daily at bedtime. amLODIPine (NORVASC) 10 mg tablet Yes No Sig: Take 10 mg by mouth once daily. apixaban (ELIQUIS) 5 mg tab(s) Yes No Sig: Take by mouth twice daily. blood sugar diagnostic (ACCU-CHEK PENELOPE PLUS TEST STRP) test strip Yes No Sig: before meals and at bedtime. Use as instructed ibuprofen (MOTRIN) 200 mg tablet Yes No Sig: Take 800 mg by mouth once daily. PRN lisinopril (ZESTRIL, PRINIVIL) 20 mg tablet Yes No Sig: Take 5 mg by mouth once daily. magnesium carbonate (MAGONATE) 54 mg/5 mL liqd Yes No Sig: Take by mouth three times daily. magnesium oxide 400 mg magnesium cap Yes No Sig: Take by mouth. metFORMIN (GLUCOPHAGE) 500 mg tablet Yes No Sig: Take 500 mg by mouth. 2 tabs(1000mg) at dinner metoprolol tartrate, short acting, 25 mg ORAL tablet Yes No Sig: Take 1 tablet by mouth twice daily. multivitamins w-minerals/lut(CENTRUM SILVER TAB) Yes No Sig: Take one(1) tablet daily. omeprazole(PRILOSEC 20 MG CAP) Yes No Sig: Take one(1) capsule daily. psyllium husk (METAMUCIL ORAL) Yes No Sig: Take by mouth. terbinafine 250 mg tablet Yes No Sig: Take 250 mg by mouth once daily. triamterene-hydrochlorothiazide (MAXZIDE) 75-50 mg ORAL per tablet Yes No Sig: Take 0.5 tablets by mouth once daily. turmeric root extract 500 mg cap Yes No Sig: Take by mouth. warfarin (COUMADIN) 5 mg tablet No No Sig: Take 1 and 1/2 tablets daily (7.5 mg) except take 2 tablets on fridays. Patient not taking: Reported on 10/25/2018 Facility-Administered Medications: None Review of Systems Constitutional: Negative for appetite change, chills, fatigue and fever. HENT: Negativ (more content not included)...[facility] Paroxysmal atrial fibrillation (HCC)- Primary Atrial fibrillation SSS (sick sinus syndrome) (HCC) Sinoatrial node dysfunction Other chronic pulmonary embolism without acute cor pulmonale (HCC) Dilated aortic root (HCC) Thoracic aortic ectasia Primary hypertension Unspecified essential hypertension Other pulmonary embolism without acute cor pulmonale, unspecified chronicity (HCC) [facility] Diagnosis Onset Date Resolution Status Primary osteoarthritis, left shoulder acute Degenerative disc disease, cervical noneactive [facility] Work Phone: Evaluation note* Diagnosis Onset Date Resolution Status Primary osteoarthritis, left shoulder acute Subacromial impingement of right shoulder acute [facility] Work Phone: Evaluation noteNo assessment information available [facility] Work Phone: Evaluation note* Diagnosis Paroxysmal atrial fibrillation (HCC)- Primary Atrial fibrillation SSS (sick sinus syndrome) (HCC) Sinoatrial node dysfunction Other chronic pulmonary embolism without acute cor pulmonale (HCC) Pacemaker Cardiac pacemaker in situ [facility] SSS (sick sinus syndrome) (HCC)- Primary Sinoatrial node dysfunction Pacemaker Cardiac pacemaker in situ Other pulmonary embolism without acute cor pulmonale, unspecified chronicity (HCC) [facility] Diagnosis SSS (sick sinus syndrome) (HCC)- Primary Sinoatrial node dysfunction Pacemaker Cardiac pacemaker in situ [facility] Diagnosis Pacemaker at end of battery life- Primary Fitting and adjustment of cardiac pacemaker SSS (sick sinus syndrome) (HCC) Sinoatrial node dysfunction Permanent atrial fibrillation (HCC) Atrial fibrillation Other chronic pulmonary embolism without acute cor pulmonale (HCC) [facility] SSS (sick sinus syndrome) (HCC)- Primary Sinoatrial node dysfunction Infrarenal abdominal aortic 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 Other chronic pulmonary embolism without acute cor pulmonale (HCC) Paroxysmal atrial fibrillation (HCC) Atrial fibrillation [facility] Diagnosis Infrarenal abdominal aortic 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 [facility] Infrarenal abdominal aortic 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- Primary [facility] Diagnosis Infrarenal abdominal aortic 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 Family history of abdominal aortic aneurysm Family history of other cardiovascular diseases [facility] Diagnosis Infrarenal abdominal aortic 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 [facility] Diagnosis Dilated aortic root- Primary Thoracic aortic ectasia Pacemaker Cardiac pacemaker in situ LVH (left ventricular hypertrophy) Cardiomegaly Nonrheumatic aortic valve insufficiency Aortic valve disorders Tricuspid valve regurgitation, nonrheumatic Tricuspid valve disorders, specified as nonrheumatic [facility]* Patient is a 82-year-old gentleman who presents today for bilateral knee pain. He had his left replaced in 2017 and his right replaced in 2003. Regarding the right knee he has never felt that it is then right after surgery. He complains of global pain. He had no problems with wound healing or infection postoperatively. He has some feelings of instability. Regarding the left knee he complains of global aching. * Adult patient history sheet was filled out by the patient today in clinic. This includes Past Medical History, Past Surgical History, Medications, Allergies, Social History, Family History and 30 point review of systems. * Left knee: * AAOx3, NAD, walks with a non-antalgic gait * Neutral allignment * Range of motion 0-110 * Stable to varus/valgus/anterior/posterior stress through out the range of motion * No no joint line tenderness to palpation * Minimal effusion * SILT in a thierry/saph/per/tib distribution * 5/5 knee extension/df/pf/ehl * dorsalis pedis and posterior tibial pulse * no popliteal lymphadenopathy * no other overlying lesions * mood: euthymic * Respirations non labored * Right knee: * AAOx3, NAD, walks with a non-antalgic gait * Neutral allignment * Range of motion 5-110 * He does have lateral opening with varus stress * No no joint line tenderness to palpation * No effusion * SILT in a thierry/saph/per/tib distribution * 5/5 knee extension/df/pf/ehl * dorsalis pedis and posterior tibial pulse * no popliteal lymphadenopathy * no other overlying lesions * mood: euthymic * Respirations non labored * On the left side he has a cruciate retaining rotating platform total knee arthroplasty in place with a metal-backed patella. There are no gross signs of loosening or failure. Regarding his right kneeis a cruciate retaining Shawna triathlon in place. Alignment appears adequate. There are no gross signs of loosening or failure. * I discussed him today that he is in a difficult position. He is 82 years old. The right side does have more laxity with varus stress than I would like to see. In 82 I am not sure it is worth it to undergo full revision for this. He is in agreement with this. His left knee most likely has some synovitis from polyethylene wear. We did discuss polyethylene exchange. We will continue to monitor him. We will get repeat x-rays in a year. If his pain becomes unbearable he will return to see us. All ofhis questions were answered. Activity as tolerated. * This note was created using voice recognition software and was not corrected for typographical or grammatical errors.. [id number] Work Phone: Hospital Discharge instructions Additional Instructions Not sure what is causing your chronic abdominal symptoms and you need to follow- up with a GI specialist, Dr. Guaman.[facility] Work Phone: Reason for referral (narrative)No reason for referral information availableWNationwide [facility] Work Phone: Reason for visit Narrative* Outpatient Procedure (Routine) - Closed Specialty Diagnoses / Procedures Referred By Charmaine pratt Referred To Contact [facility] Diagnoses Infrarenal abdominal aortic 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 Procedures US ABD AORTA COMPLETE VAS LAB DUP-SCAN AORTA IVC ILIAC VASCL/[place] [address] [address] [place] [id number] Phone: tel: fax: [facility] [address] [place] [address] Referral ID Status Reason Start Date Expiration Date V isits Requested Visits Authorized [id number] Closed Auto-Generate d Referral 05/21/2025 05/07/2026 1 [facility] MRI/CT (Routine) - Pending Review Specialty Diagnoses / Procedures Referred By Charmaine pratt Referred To Contact CT [facility] Diagnoses Infrarenal abdominal aortic 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 Procedures CT ABD/PEL WO IVCON CT ABD & PELVIS [place] [address] [place] [address] Phone: tel: fax: [facility] [place] [phone] Referral ID Status Reason Start Date Expiration Date Visits Requested Visits Authorized [id number] Pending Review Auto-Genera anne Referral Patient Cleared - Admin/Chair man/Directo r advise to proceed or did not respond 06/14/2025 07/14/2026 1 1 [facility] Summary Purpose Family History No Family History Records FoundNo Family History Records FoundNo Family History Records FoundNo Family History Records FoundNo Family History Records FoundNo Family History Records FoundNo Family History Records Found Advance Directives No Advanced Directives Records FoundDocuments on File Type Date Recorded 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 Advance Directive(s) 06/08/2021 2:32 PM Advance Directive(s) 12/29/2009 7:55 AM Documents on File Type Date Recorded 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 Advance Directive(s) 12/29/2009 7:55 AM Advance Directive Response Recorded Date/ Time Living Will Yes January 17, 5:09pm Power of Boxing Instructor Yes January 17, 2022 5:09pm Advance Directive Response Recorded Date/ Time Living Will Yes January 17 4:09pm Power of Boxing Instructor Yes January 17, 2022 4:09pm Advance Directive Response Recorded Date/ Time Living Will No October 31, 023 11:48am Power of Boxing Instructor No October 31, 2023 11:48am Advance Directive Response Recorded Date/ Time Living Will No October 31 023 12:48pm Power of Boxing Instructor No October 31, 2023 12:48pm Documents on File Type Date Recorded 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 RX HERE LEFT SHOULDER xray [id number] Reason for Visit Primary osteoarthrit is, left shoulder Degenerative disc disease, cervical Chief Complaint ckd3 BILAT SHOULDERS room 2 xray KNEE PAIN, HX BILAT TKA Reason for Visit Primary osteoarthrit is, left shoulder Subacromial impingement of right shoulder Chief Complaint ABD Chief Complaint ABD BI LATERAL SHOULDERS Reason for Visit Primary osteoarthrit is, left shoulder Subacromial impingement of right shoulder Chief Complaint Admit Date RIGHT HIP March 04, 2025 7:4 7am Room 2 March 04, 2025 8:1 5am Block, Caudal June 10, 2025 11:2 2am Reason for Visit Admit Date 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 March 04, 2025 7:47am Chief Complaint Admit Date Block, Caudal June 10, 2025 11:2 2am XRAY July 30, 2025 9:33am Chief Complaint NPV BILATERAL KNEE PAIN Additional Source Comments (unrecognized sect ion and content) No Status Records FoundNo Status Records FoundNo Status Records FoundNo Status Records FoundNo Status Records FoundNo Status Records FoundNo Status Records Found INFORMATION SOURCE (unrecogn ized section and content) DATE CREATED AUTHOR 07/11/2019 [facility] DATE CREATED AUTHOR AUTHOR'S ORGANIZ ATION 05/03/2022 [facility] DATE CREATED AUTHOR AUTHOR'S ORGANIZ ATION 04/30/2023 [facility] DATE CREATED AUTHOR AUTHOR'S ORGANIZ ATION 04/30/2023 [facility] DATE CREATED AUTHOR AUTHOR'S ORGANIZ ATION [facility]20[facility] DATE CREATED AUTHOR AUTHOR'S ORGANIZ ATION 08/28/2025 [facility] DATE CREATED AUTHOR AUTHOR'S ORGANIZ ATION 09/07/2025 [facility] Source Comments (unrecognize d section and content) In the event this informatio n is protected by the Federal Confidentiality of Alcohol and Drug Abuse Patient Records regulations: The Federal rules restrict any use of the information to criminally investigate or prosecute any alcohol or drug abuse patient.[facility] the event this information is protected by the Federal Confidentiality of Alcohol and Drug Abuse Patient Records regulations: The Federal rules restrict any use of the information to criminally investigate or prosecute any alcohol or drug abuse patient.[facility] the event this information is protected by the Federal Confidentiality of Alcohol and Drug Abuse Patient Records regulations: The Federal rules restrict any use of the information to criminally investigate or prosecute any alcohol or drug abuse patient.[facility] the event this information is protected by the Federal Confidentiality of Alcohol and Drug Abuse Patient Records regulations: The Federal rules restrict any use of the information to criminally investigate or prosecute any alcohol or drug abuse patient.[facility] the event this information is protected by the Federal Confidentiality of Alcohol and Drug Abuse Patient Records regulations: The Federal rules restrict any use of the information to criminally investigate or prosecute any alcohol or drug abuse patient.[facility] Hospital[facility] the event this information is protected by the Federal Confidentiality of Alcohol and Drug Abuse Patient Records regulations: The Federal rules restrict any use of the information to criminally investigate or prosecute any alcohol or drug abuse patient.[facility] the event this information is protected by the Federal Confidentiality of Alcohol and Drug Abuse Patient Records regulations: The Federal rules restrict any use of the information to criminally investigate or prosecute any alcohol or drug abuse patient.[facility] the event this information is protected by the Federal Confidentiality of Alcohol and Drug Abuse Patient Records regulations: The Federal rules restrict any use of the information to criminally investigate or prosecute any alcohol or drug abuse patient.[facility] the event this information is protected by the Federal Confidentiality of Alcohol and Drug Abuse Patient Records regulations: The Federal rules restrict any use of the information to criminally investigate or prosecute any alcohol or drug abuse patient.[facility] Hospital[facility] the event this information is protected by the Federal Confidentiality of Alcohol and Drug Abuse Patient Records regulations: The Federal rules restrict any use of the information to criminally investigate or prosecute any alcohol or drug abuse patient.[facility] Hospital[facility] the event this information is protected by the Federal Confidentiality of Alcohol and Drug Abuse Patient Records regulations: The Federal rules restrict any use of the information to criminally investigate or prosecute any alcohol or drug abuse patient.[facility] Hospital[facility] the event this information is protected by the Federal Confidentiality of Alcohol and Drug Abuse Patient Records regulations: The Federal rules restrict any use of the information to criminally investigate or prosecute any alcohol or drug abuse patient.[facility] the event this information is protected by the Federal Confidentiality of Alcohol and Drug Abuse Patient Records regulations: The Federal rules restrict any use of the information to criminally investigate or prosecute any alcohol or drug abuse patient.[facility] the event this information is protected by the Federal Confidentiality of Alcohol and Drug Abuse Patient Records regulations: The Federal rules restrict any use of the information to criminally investigate or prosecute any alcohol or drug abuse patient.[facility] the event this information is protected by the Federal Confidentiality of Alcohol and Drug Abuse Patient Records regulations: The Federal rules restrict any use of the information to criminally investigate or prosecute any alcohol or drug abuse patient.[facility] Hospital[facility] the event this information is protected by the Federal Confidentiality of Alcohol and Drug Abuse Patient Records regulations: The Federal rules restrict any use of the information to criminally investigate or prosecute any alcohol or drug abuse patient.[facility] the event this information is protected by the Federal Confidentiality of Alcohol and Drug Abuse Patient Records regulations: The Federal rules restrict any use of the information to criminally investigate or prosecute any alcohol or drug abuse patient.[facility] the event this information is protected by the Federal Confidentiality of Alcohol and Drug Abuse Patient Records regulations: The Federal rules restrict any use of the information to criminally investigate or prosecute any alcohol or drug abuse patient.[facility] Care Teams (unrecognized sec tion and content) Applications Sales Consultant Relationship Specialty Start Date End Date Cole Negron MD [address] [address] PCP - General Internal Medicine 08/14/18 [facility] Registered Nurse Chronic Care Clinic 10/04/14 Applications Sales Consultant Relationship Specialty Start Date End Date Cole Negron MD [address] [address] PCP - General Internal Medicine 08/14/18 [facility] Registered Nurse [facility] 10/04/14 Applications Sales Consultant Relationship Specialty Start Date End Date Cole Negron MD [address] [address] PCP - General Internal Medicine 08/14/18 [facility] Registered Nurse [facility] 10/04/14 Applications Sales Consultant Relationship Specialty Start Date End Date Cole Negron MD [address] [address] PCP - General Internal Medicine 08/14/18 [facility] Registered Nurse [facility] 10/04/14 Team Status: Active Member Role Status Dates Dr. Cole Espinal MD Family Provider Active Dr. Cole Espinal MD Primary Care Provider Active Team Status: Inactive Member Role Status Dates Dr. Cole Espinal MD Primary Care Provider Active Dr. Rony Blakely MD Emergency Provider Active Team Status: Inactive Member Role Status Dates Dr. Cole Espinal MD Primary Care Provider, Refer ring Provider Active Dr. Jimmy Castro DO Attending Provider Active Team Status: Inactive Member Role Status Dates Dr. Cole Espinal MD Primary Care Provider Active Dr. Rony Blakely MD Attending Provider, Emergency Provi juani Active Team Status: Inactive Member Role Status Dates Dr. Cole Espinal MD Primary Care P devon, Attending Provider, Referring Provider Active Applications Sales Consultant Relationship Specialty Start Date End Date Cole Negron MD [address] [address] PCP - General Internal Medicine 08/14/18 [facility] Registered Nurse [facility] 10/04/14 Applications Sales Consultant Relationship Specialty Start Date End Date Cole Negron MD [address] [address] PCP - General Internal Medicine 08/14/18 [facility] Registered Nurse [facility] 10/04/14 Applications Sales Consultant Relationship Specialty Start Date End Date Cole Negron MD [address] [address] PCP - General Internal Medicine 08/14/18 [facility] Registered Nurse [facility] 10/04/14 Applications Sales Consultant Relationship Specialty Start Date End Date Cole Negron MD [address] [address] PCP - General Internal Medicine 08/14/18 [facility] Registered Nurse [facility] 10/04/14 Applications Sales Consultant Relationship Specialty Start Date End Date Cole Negron MD [address] [address] PCP - General Internal Medicine 08/14/18 [facility] Registered Nurse [facility] 10/04/14 Applications Sales Consultant Relationship Specialty Start Date End Date Cole Negron MD [address] [address] PCP - General Internal Medicine 08/14/18 [facility] Registered Nurse [facility] 10/04/14 Team Status: Active Member Role/Relationship Status Dates Dr. Cole Espinal MD Primary Care Provider Active Team Status: Inactive Member Role/Relationship Status Dates Dr. Cole Espinal MD Primary Care Provider Active Start: March 04, 2025 End: March 04, 2025 Dr. Cole Espinal MD Referring Provider Active Start: March 04, 2025 End: March 04, 2025 Dr. Jimmy Castro DO Attending Provider Active Start: March 04, 2025 End: March 04, 2025 Team Status: Inactive Member Role/Relationship Status Dates Dr. Cole Espinal MD Primary Care Provider Active Start: March 04, 2025 End: March 04, 2025 Dr. Prasanth Zhou MD Attending Provider Active S tart: March 04, 2025 End: March 04, 2025 Team Status: Inactive Member Role/Relationship Status Dates Dr. Cole Espinal MD Primary Care Provider Active Start: June 10, 2025 End: June 10, 2025 Dr. Tino Nath MD Attending Provider Active Start: June 10, 2025 End: June 10, 2025 Dr. Tino Nath MD Referring Provider Active Start: June 10, 2025 End: June 10, 2025 Applications Sales Consultant Relationship Specialty Start Date End Date Cole Negron MD [address] [address] PCP - General Internal Medicine 08/14/18 [facility] Registered Nurse Chronic Care Clinic 10/04/14 Applications Sales Consultant Relationship Specialty Start Date End Date Cole Negron MD [address] [address] PCP - General Internal Medicine 08/14/18 [facility] Registered Nurse [facility] 10/04/14 Applications Sales Consultant Relationship Specialty Start Date End Date Cole Negron MD [address] [address] PCP - General Internal Medicine 08/14/18 [facility] Registered Nurse Chronic Care Clinic 10/04/14 Team Status: Inactive Member Role/Relationship Status Dates Dr. Cole Espinal MD Primary Care Provider Active Start: June 10, 2025 End: June 10, 2025 Dr. Tino Nath MD Attending Provider Active Start: June 10, 2025 End: June 10, 2025 Dr. Tino Nath MD Referring Provider Active Start: June 10, 2025 End: June 10, 2025 Team Status: Inactive Member Role/Relationship Status Dates Dr. Cole Espinal MD Primary Care Provider Active Start: July 30, 2025 End: July 30, 2025 Dr. 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 This clinical summary was aggregated from multiple sources. Caution should be exercised in using it in the provision of clinical care. This summary normalizes information from multiple sources, and as a consequence, information in this document may materially change the coding, format and clinical context of patient data. In addition, data may be omitted in some cases. CLINICAL DECISIONS SHOULD BE BASED ON THE PRIMARY CLINICAL RECORDS. [facility] [employer] [facility]. provides no warranty or guarantee of the accuracy or completeness of information in this document.
[2025-09-09 06:55] VITALS: BP 170/84; PULSE 66; RESP 18; TEMP 36.4; O2SAT 96; BMI 34.4
--- NOTE | 2025-09-09 08:11 | RAD_ITS ---
EXAM: XR Lumbosacral Spine, 2 or 3 Views CLINICAL INDICATION: BLOCK, MEDIAL BRANCH L4, L5,S1 TECHNIQUE: Frontal and lateral views of the lumbar spine and sacrum. COMPARISON: No relevant prior studies available. FINDINGS: A total of 6 fluoroscopic images were obtained. Total radiation dose 0.55379 mGy. Total fluoroscopy time 9.1 seconds. RAD/Lumbar Spine 2 or 3 Views IMPRESSION: Fluoroscopic guidance was used intraoperatively. Please refer to operative not e for further details. Reading Location: [id number]
[2025-09-09] MEDS: Lidocaine 1% (5 ml sdv) 5 ML Vial (08:15)
[2025-09-09 08:17] VITALS: BP 176/95; BP 177/103; O2SAT 97
--- NOTE | 2025-09-09 08:24 | OP.PCM_ITS ---
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 COMPLICATIONS: None. DESCRIPTION OF PROCEDURE: History and physical of today was reviewed. Risks and benefits of the procedure were explained. The patient understood and agreed to proceed. Informed consent was obtained. IV inserted per routine protocol. The patient was taken to the operating room and placed in the prone position with a pillow positioned underneath the abdomen. The lower back area was prepped and draped in a sterile fashion using iodine x3. Under fluoroscopy guidance on AP view, the L4 through S1 vertebral bodies were visualized. The skin and subcutaneous tissue was anesthetized with approximately 5 mL of 1% lidocaine using a 25-gauge regular needle. Under direct visualization with fluoroscopy, at approximately 25-degree angle, starting on the left L4, ending on the right L4, passing through the L5 and S1 bilaterally, using a 22-gauge 3-1/2-inch spinal needle, the needle was advanced via the skin. The tip of the needle was maneuvered and directed towards the superior medial gutter of the transverse process at the vicinity of the medial branch. Once tip of the needle was in contact with the bone, the needle was pulled approximately 2 mm off the bone. After negative aspiration for blood or CSF and confirmation on AP, oblique as well as lateral view, a total of 12 mL of preservative-free 0.25% Marcaine with 80 mg of Depo-Medrol was injected in divided doses between those six levels. The needles were then removed intact. The patient experienced no sign or symptoms of intrathecal or intravascular injection. The patient experienced no paresthesia. The procedure was completed without any apparent difficulty or any complications. The patient appeared to tolerate it well. ASSESSMENT AND PLAN: This is an 85-year-old male with lumbosacral spondylosis, lumbosacral degenerative disc disease, lumbar facet arthropathy, status post bilateral lumbar medial branch block at L4-S1, patient will continue his current medications, patient will follow-up in approximately 1 to 2 weeks for re evaluation. Surgical Findings: 0 Complications Complications: No Admit VTE Documentation VTE Present on Admission: No VTE Mechan Device Prophylaxis: None VTE Pharm Prophylaxis ordered?: No
== END 2025-09-09 08:41 | disposition home or self-care (01) ==
LOC: SDC 06:23 → AC 06:26
PROVIDERS: PCP Internal Medicine Geriatric Medicine; Referring Provider Anesthesiology Pain Medicine; Visit Provider Anesthesiology Pain Medicine
PROC: 3E0S3BZ Introduction of Anesthetic Agent into Epidural Space, Percutaneous Approach (ICD-10-PCS; CPT 62322; principal; 2025-09-09 08:15)
DX: M51.379 Other intervertebral disc degeneration, lumbosacral region without mention of lumbar back pain or lower extremity pain (principal); M47.817 Spondylosis without myelopathy or radiculopathy, lumbosacral region; M47.816 Spondylosis without myelopathy or radiculopathy, lumbar region; Z79.01 Long term (current) use of anticoagulants; Z79.899 Other long term (current) drug therapy
CPT/HCPCS: 64493; 64494; 64483; 72100; 93005; A4216; J2405